=== PATIENT | female | born 1970 | race Caucasian/White ===

== ENCOUNTER 2019-04-21 13:24 | Emergency (ER) | payer BC, OTHER ==
[2019-04-21 13:55] VITALS: BP 135/81; PULSE 74; RESP 20; TEMP 98.1
--- NOTE | 2019-04-21 15:10 | ED ---
General Adult HPI - General Chief complaint: Dental/Oral Stated complaint: dental pain Time Seen by Provider: 04/21/19 14:14 Source: patient, RN notes reviewed Mode of arrival: ambulatory Limitations: no limitations - History of Present Illness Initial comments: 48-year-old female with a past medical history of hyperlipidemia, hypertension presents to the emergency department for a chief complaint of dental pain. This started about 2 weeks ago. Patient states she has been on Augmentin which did help but then it worsened again. Patient has not yet followed up with a dentist. Patient states she is taking Tylenol but it is not helping. Denies fevers or chills. Denies trismus. Denies neck stiffness. Does admit to some mild edema of the left side of the face.Patient has no other complaints at this time including shortness of breath, chest pain, abdominal pain, nausea or vomiting, headache, or visual changes. - Related Data Previous Rx's Medication Instructions Recorded Clindamycin [Cleocin] 450 mg PO Q8H 10 Days capsule 04/21/19 HYDROcodone/APAP 5-325MG [[place] 1 tab PO Q6HR PRN #10 tab 04/21/19 5-325] Allergies Allergy/AdvReac Type Severity Reaction Status Date / Time aspirin Allergy Dyspnea Verified 04/21/19 13:57 codeine Allergy Dyspnea Verified 04/21/19 13:57 ibuprofen [From Motrin] Allergy Dyspnea Verified 04/21/19 13:57 naproxen Allergy Dyspnea Verified 04/21/19 13:57 tramadol [From Ultram] Allergy Dyspnea Verified 04/21/19 13:57 Review of Systems ROS Statement: Those systems with pertinent positive or pertinent negative responses have been documented in the HPI. ROS Other: All systems not noted in ROS Statement are negative. Past Medical History Past Medical History: Hyperlipidemia, Hypertension Additional Past Medical History / Comment(s): neuropathy Past Surgical History: Back Surgery, Section Additional Past Surgical History / Comment(s): Kidey surgery Past Psychological History: Anxiety, Depression Smoking Status: Current every day smoker Past Alcohol Use History: None Reported Past Drug Use History: None Reported General Exam Limitations: no limitations General appearance: alert, in no apparent distress Head exam: Present: atraumatic, normocephalic, normal inspection Eye exam: Present: normal appearance, PERRL, EOMI. Absent: scleral icterus, conjunctival injection, periorbital swelling ENT exam: Present: normal exam, mucous membranes moist, TM's normal bilaterally, normal external ear exam. Absent: normal oropharynx (Patient is poor dentition noted. She has minimal edema noted of the left maxillary area. No sublingual edema. There is no dental abscess palpated or visualized along gumline that can be drained.) Neck exam: Present: normal inspection, full ROM. Absent: tenderness, meningismus, lymphadenopathy Respiratory exam: Present: normal lung sounds bilaterally. Absent: respiratory distress, wheezes, rales, rhonchi, stridor Cardiovascular Exam: Present: regular rate, normal rhythm, normal heart sounds. Absent: systolic murmur, diastolic murmur, rubs, gallop, clicks Course Vital Signs 04/21/19 13:51 Temperature 98.1 F Pulse Rate 74 Respiratory 20 Rate Blood Pressure 135/81 O2 Sat by Pulse 97 Oximetry Medical Decision Making - Medical Decision Making Patient is afebrile. She is nontoxic. She has poor dentition noted. No abscess noted. She does have some mild edema of the maxillary area. This is soft nonindurated 90 erythematous. Likely inflammatory. Patient has already been on Augmentin. Patient will be given clindamycin however discussed that she needs to follow up with a dentist YELENA. She will also be given Esmont for pain. Discussed returning if she has any worsening symptoms. Disposition Clinical Impression: Pain, dental Disposition: HOME SELF-CARE Condition: Good Instructions (If sedation given, give patient instructions): Toothache (ED) Additional Instructions: Please take clindamycin as directed. Please take E[place] for pain as needed. Do not drive or operate machinery while taking this. Please follow-up with primary care in 1-2 days. Return to the emergency department if you have any worsening symptoms. Prescriptions: Clindamycin [Cleocin] 450 mg PO Q8H 10 Days capsule HYDROcodone/APAP 5-325MG [[place] 5-325] 1 tab PO Q6HR PRN #10 tab PRN Reason: Pain Is patient prescribed a controlled substance at d/c from ED?: Yes When asked, does pt state using other controlled substances?: No If prescribed controlled substance>3 days was MAPS reviewed?: Prescribed <3 Days If opioid is for acute pain is fill amount 7 days or less?: Yes If Rx opioid, was Start Talking consent form obtained?: Yes Referrals: Nonstaff,Physician [Primary Care Provider] - 1-2 days Time of Disposition: 15:10
== END 2019-04-21 15:34 | disposition home or self-care (01) ==
LOC: EC 13:24
DX: K08.89 Other specified disorders of teeth and supporting structures (principal); I10 Essential (primary) hypertension; F17.200 Nicotine dependence, unspecified, uncomplicated; Z88.5 Allergy status to narcotic agent; Z88.6 Allergy status to analgesic agent
CPT/HCPCS: 99282

== ENCOUNTER 2020-02-05 19:48 | Emergency (ER) | payer OTHER ==
[2020-02-05 19:56] VITALS: RESP 18; TEMP 98.2
[2020-02-05] MEDS ORDERED: methylPREDNISolone SOD SUCCI 125 MG/2 ML VIAL IV STA (20:40)
[2020-02-05] MEDS ORDERED: IPRATROPIUM-ALBUTEROL 3 ML NEB INHALATION STA (20:40)
[2020-02-05] MEDS ORDERED: SODIUM CHLORIDE 0.9% 1,000 ML IV STA (20:40)
[2020-02-05 21:05] LABS: Basophils # (A) 0.2 k/uL (0-0.2); Basophils % (A) 2 %; Eosinophils # (A) 0.3 k/uL (0-0.7); Eosinophils % (A) 3 %; HCT 48.4 % (34.0-46.0); Lymphocytes # (A) 1.5 k/uL (1.0-4.8); Lymphocytes % (A) 17 %; MCH 31.1 pg (25.0-35.0); MCV 94.2 fL (80.0-100.0); Mean Platelet Volume 7.5; Monocytes # (A) 0.5 k/uL (0-1.0); Monocytes % (A) 6 %; Neutrophils # (A) 6.3 k/uL (1.3-7.7); Neutrophils % (A) 71 %; Platelet Count 234 k/uL (150-450); RBC 5.14 m/uL (3.80-5.40); RDW 12.7 % (11.5-15.5); WBC 8.9 k/uL (3.8-10.6)
[2020-02-05] MEDS ORDERED: ACETAMINOPHEN TAB 500 MG TAB PO STA (21:05)
[2020-02-05] MEDS ORDERED: ORPHENADRINE 30 MG/ML 2 ML VIAL IVP STA (21:06)
[2020-02-05 21:11] LABS: Appearance,Urine Clear (Clear); Bacteria,Urine Rare /hpf; Bilirubin,Urine Negative (Negative); Blood,Urine Small (Negative); Color,Urine Yellow; Glucose,Urine (UA) Negative (Negative); Ketones,Urine Negative (Negative); Leukocyte Esterase,Urine Trace (Negative); Mucus,Urine Few /hpf; Nitrite,Urine Negative (Negative); Protein,Urine Trace (Negative); RBC,Urine 1 /hpf (0-5); Specific Gravity,Urine 1.019 (1.001-1.035); Squamous Epithelial Cell,Urine 5 /hpf (0-4); Urobilinogen,Urine <2.0 mg/dL (<2.0); WBC,Urine 10 /hpf (0-5)
[2020-02-05 21:13] LABS: INR 0.9 (<1.2); Partial Thromboplastin Time 25.5 sec (22.0-30.0); Prothrombin Time 9.4 sec (9.0-12.0)
[2020-02-05 21:21] LABS: ALT 22 U/L (4-34); African American GFR (CKD) >90 (>60 ml/min/1.73 sqM); Albumin 4.6 g/dL (3.5-5.0); Anion Gap 8 mmol/L; Blood Urea Nitrogen 10 mg/dL (7-17); Calcium 9.4 mg/dL (8.4-10.2); Carbon Dioxide 33 mmol/L (22-30); Chloride 100 mmol/L (98-107); Glucose 92 mg/dL (74-99); Non-African American GFR(CKD) >90 (>60 ml/min/1.73 sqM); Sodium 141 mmol/L (137-145); Total Bilirubin 0.6 mg/dL (0.2-1.3)
--- NOTE | 2020-02-05 21:24 | XR ---
EXAMINATION TYPE: XR chest 2V DATE OF EXAM: 02/05/2020 COMPARISON: 06/18/2009 HISTORY: Difficulty breathing TECHNIQUE: 2 views FINDINGS: There is no heart failure nor confluent pneumonic infiltrate. Costophrenic angles are clear . There are no hilar masses. Bony thorax is intact. IMPRESSION: No active cardiopulmonary disease. No change.
--- NOTE | 2020-02-05 21:50 | ED ---
URI HPI - General Chief Complaint: Upper Respiratory Infection Stated Complaint: SOB, cough Source: patient, RN notes reviewed, old records reviewed Mode of arrival: ambulatory Limitations: no limitations - History of Present Illness Initial Comments: Patient is a 49-year-old female presents unresponsive with one week of upper respiratory congestion and cough. She reports worse the past 2-3 days. Patient states that she has a history of COPD. She is visiting from [place]. She reports that she forgot her nebulizer at home. - Related Data Home Medications Medication Instructions Recorded Confirmed ALPRAZolam [Xanax] 1 mg PO QID PRN 02/05/20 02/05/20 Albuterol Sulfate [Ventolin HFA] 2 puff INHALATION RT-QID PRN 02/05/20 02/05/20 Atorvastatin [Lipitor] 20 mg PO HS 02/05/20 02/05/20 Brexpiprazole [Rexulti] 1 mg PO DAILY 02/05/20 02/05/20 Fluticasone Furoate [Arnuity 1 puff INHALATION RT-DAILY 02/05/20 02/05/20 Ellipta] Pregabalin [Lyrica] 200 mg PO BID 02/05/20 02/05/20 Vilazodone HCl [Viibryd] 40 mg PO DAILY 02/05/20 02/05/20 Zolpidem Tartrate [Ambien] 10 mg PO HS PRN 02/05/20 02/05/20 amLODIPine [Norvasc] 5 mg PO DAILY 02/05/20 02/05/20 Previous Rx's Medication Instructions Recorded Azithromycin [Zithromax Z-pack (6 0 mg PO DIRECTED 5 Days #6 tab 02/05/20 tabs)] Ipratropium-Albuterol Nebulize 3 ml INHALATION TID #30 neb 02/05/20 [Duoneb 0.5 mg-3 mg/3 ml Soln] predniSONE 50 mg PO DAILY #5 tablet 02/05/20 Allergies Allergy/AdvReac Type Severity Reaction Status Date / Time aspirin Allergy Dyspnea Verified 02/05/20 21:12 codeine Allergy Dyspnea Verified 02/05/20 21:12 ibuprofen [From Motrin] Allergy Dyspnea Verified 02/05/20 21:12 morphine Allergy Rash/Hives Verified 02/05/20 21:12 naproxen Allergy Dyspnea Verified 02/05/20 21:12 tramadol [From Ultram] Allergy Dyspnea Verified 02/05/20 21:12 Review of Systems ROS Statement: Those systems with pertinent positive or pertinent negative responses have been documented in the HPI. ROS Other: All systems not noted in ROS Statement are negative. Past Medical History Past Medical History: Hyperlipidemia, Hypertension Additional Past Medical History / Comment(s): neuropathy Past Surgical History: Back Surgery, Section Additional Past Surgical History / Comment(s): Kidey surgery Past Psychological History: Anxiety, Depression Smoking Status: Current every day smoker Past Alcohol Use History: None Reported Past Drug Use History: None Reported General Exam - General Exam Comments Initial Comments: 49 year old female,no distress. Limitations: no limitations General appearance: alert, in no apparent distress Head exam: Present: atraumatic, normocephalic, normal inspection Eye exam: Present: normal appearance, PERRL, EOMI. Absent: scleral icterus, conjunctival injection, periorbital swelling ENT exam: Present: normal exam, mucous membranes moist Neck exam: Present: normal inspection. Absent: tenderness, meningismus, lymphadenopathy Respiratory exam: Present: wheezes. Absent: normal lung sounds bilaterally, respiratory distress, rales, rhonchi, stridor Cardiovascular Exam: Present: regular rate, normal rhythm, normal heart sounds. Absent: systolic murmur, diastolic murmur, rubs, gallop, clicks GI/Abdominal exam: Present: soft, normal bowel sounds. Absent: distended, tenderness, guarding, rebound, rigid Extremities exam: Present: normal inspection, full ROM, normal capillary refill. Absent: tenderness, pedal edema, joint swelling, calf tenderness Back exam: Present: normal inspection Neurological exam: Present: alert, oriented X3, CN II-XII intact Psychiatric exam: Present: normal affect, normal mood Skin exam: Present: warm, dry, intact, normal color. Absent: rash Course Vital Signs 02/05/20 02/05/20 02/05/20 19:54 21:14 21:26 Temperature 98.2 F Pulse Rate 89 88 90 Respiratory 18 18 18 Rate Blood Pressure 126/80 O2 Sat by Pulse 95 Oximetry 02/05/20 22:20 Temperature Pulse Rate 86 Respiratory 18 Rate Blood Pressure 124/66 O2 Sat by Pulse 96 Oximetry Medical Decision Making - Medical Decision Making 49 year old female with cough and congestion for one week. Pt is a smoker. Pt has wheezing and given duoneb and solumedrol. Pt CXR shows no pneumonia. Pt will be stared on azithromycin and steriods for bronchitis. Discussed using inhaler and duoneb treatment plans. Discussed return parameters. - Lab Data Result diagrams: 02/05/20 20:49 02/05/20 20:49 Lab Results 02/05/20 02/05/20 02/05/20 Range/Units 20:49 20:49 20:49 WBC 8.9 (3.8-10.6) k/uL RBC 5.14 (3.80-5.40) m/uL Hgb 16.0 (11.4-16.0) gm/dL Hct 48.4 H (34.0-46.0) % MCV 94.2 (80.0-100.0) fL MCH 31.1 (25.0-35.0) pg MCHC 33.0 (31.0-37.0) g/dL RDW 12.7 (11.5-15.5) % Plt Count 234 (150-450) k/uL Neutrophils % 71 % Lymphocytes % 17 % Monocytes % 6 % Eosinophils % 3 % Basophils % 2 % Neutrophils # 6.3 (1.3-7.7) k/uL Lymphocytes # 1.5 (1.0-4.8) k/uL Monocytes # 0.5 (0-1.0) k/uL Eosinophils # 0.3 (0-0.7) k/uL Basophils # 0.2 (0-0.2) k/uL PT 9.4 (9.0-12.0) sec INR 0.9 (<1.2) APTT 25.5 (22.0-30.0) sec Sodium 141 (137-145) mmol/L Potassium 4.0 (3.5-5.1) mmol/L Chloride 100 (98-107) mmol/L Carbon Dioxide 33 H (22-30) mmol/L Anion Gap 8 mmol/L BUN 10 (7-17) mg/dL Creatinine 0.66 (0.52-1.04) mg/dL Est GFR (CKD-EPI)AfAm >90 (>60 ml/min/1.73 sqM) Est GFR (CKD-EPI)NonAf >90 (>60 ml/min/1.73 sqM) Glucose 92 (74-99) mg/dL Plasma Lactic Acid Jermaine (0.7-2.0) mmol/L Calcium 9.4 (8.4-10.2) mg/dL Total Bilirubin 0.6 (0.2-1.3) mg/dL AST 38 H (14-36) U/L ALT 22 (4-34) U/L Alkaline Phosphatase 155 H (38-126) U/L Troponin I (0.000-0.034) ng/mL Total Protein 8.0 (6.3-8.2) g/dL Albumin 4.6 (3.5-5.0) g/dL Urine Color Urine Appearance (Clear) Urine pH (5.0-8.0) Ur Specific [place] (1.001-1.035) Urine Protein (Negative) Urine Glucose (UA) (Negative) Urine Ketones (Negative) Urine Blood (Negative) Urine Nitrite (Negative) Urine Bilirubin (Negative) Urine Urobilinogen (<2.0) mg/dL Ur Leukocyte Esterase (Negative) Urine RBC (0-5) /hpf Urine WBC (0-5) /hpf Ur Squamous Epith Cells (0-4) /hpf Urine Bacteria (None) /hpf Urine Mucus (None) /hpf 02/05/20 02/05/20 02/05/20 Range/Units 20:49 20:49 21:01 WBC (3.8-10.6) k/uL RBC (3.80-5.40) m/uL Hgb (11.4-16.0) gm/dL Hct (34.0-46.0) % MCV (80.0-100.0) fL MCH (25.0-35.0) pg MCHC (31.0-37.0) g/dL RDW (11.5-15.5) % Plt Count (150-450) k/uL Neutrophils % % Lymphocytes % % Monocytes % % Eosinophils % % Basophils % % Neutrophils # (1.3-7.7) k/uL Lymphocytes # (1.0-4.8) k/uL Monocytes # (0-1.0) k/uL Eosinophils # (0-0.7) k/uL Basophils # (0-0.2) k/uL PT (9.0-12.0) sec INR (<1.2) APTT (22.0-30.0) sec Sodium (137-145) mmol/L Potassium (3.5-5.1) mmol/L Chloride (98-107) mmol/L Carbon Dioxide (22-30) mmol/L Anion Gap mmol/L BUN (7-17) mg/dL Creatinine (0.52-1.04) mg/dL Est GFR (CKD-EPI)AfAm (>60 ml/min/1.73 sqM) Est GFR (CKD-EPI)NonAf (>60 ml/min/1.73 sqM) Glucose (74-99) mg/dL Plasma Lactic Acid Jermaine 1.0 (0.7-2.0) mmol/L Calcium (8.4-10.2) mg/dL Total Bilirubin (0.2-1.3) mg/dL AST (14-36) U/L ALT (4-34) U/L Alkaline Phosphatase (38-126) U/L Troponin I <0.012 (0.000-0.034) ng/mL Total Protein (6.3-8.2) g/dL Albumin (3.5-5.0) g/dL Urine Color Yellow Urine Appearance Clear (Clear) Urine pH 6.0 (5.0-8.0) Ur Specific [place] 1.019 (1.001-1.035) Urine Protein Trace H (Negative) Urine Glucose (UA) Negative (Negative) Urine Ketones Negative (Negative) Urine Blood Small H (Negative) Urine Nitrite Negative (Negative) Urine Bilirubin Negative (Negative) Urine Urobilinogen <2.0 (<2.0) mg/dL Ur Leukocyte Esterase Trace H (Negative) Urine RBC 1 (0-5) /hpf Urine WBC 10 H (0-5) /hpf Ur Squamous Epith Cells 5 H (0-4) /hpf Urine Bacteria Rare H (None) /hpf Urine Mucus Few H (None) /hpf 02/05/20 22:36 EKG shows normal sinus rhythm and normal EKG. Ventricular rate of 87 bpm. Was 170 ms. QS duration is 96 ms. QT QTc is 376/452 ms. - Radiology Data Radiology results: report reviewed CXR is negative for acute cardiopulmonary process. Disposition Clinical Impression: Bronchitis Disposition: HOME SELF-CARE Condition: Good Instructions (If sedation given, give patient instructions): Acute Bronchitis (ED) Additional Instructions: Patient advised to rest, increase fluid intake. Take the medication as prescribed. Return to the ED if any alarming signs or symptoms occur. Prescriptions: Ipratropium-Albuterol Nebulize [Duoneb 0.5 mg-3 mg/3 ml Soln] 3 ml INHALATION TID #30 neb predniSONE 50 mg PO DAILY #5 tablet Azithromycin [Zithromax Z-pack (6 tabs)] 0 mg PO DIRECTED 5 Days #6 tab Is patient prescribed a controlled substance at d/c from ED?: No Referrals: Nonstaff,Physician [Primary Care Provider] - 1-2 days Time of Disposition: 22:31
[2020-02-05 21:51] LABS: AST 38 U/L (14-36); Alkaline Phosphatase 155 U/L (38-126)
[2020-02-05] MEDS ORDERED: cefTRIAXone IN SWFI 1,000 MG/10 ML SYRINGE IVP STA (22:01)
[2020-02-05 22:22] VITALS: BP 124/66; PULSE 86
[2020-02-05] MEDS ORDERED: HYDROmorphone 0.5 MG/0.5 ML SYRINGE IVP STA (22:29)
== END 2020-02-05 22:47 | disposition home or self-care (01) ==
LOC: EC 19:48
DX: J40 Bronchitis, not specified as acute or chronic (principal); I10 Essential (primary) hypertension; E78.5 Hyperlipidemia, unspecified; F41.9 Anxiety disorder, unspecified; F32.9 Major depressive disorder, single episode, unspecified; F17.200 Nicotine dependence, unspecified, uncomplicated; Z79.899 Other long term (current) drug therapy; Z88.5 Allergy status to narcotic agent; Z88.6 Allergy status to analgesic agent
CPT/HCPCS: 36415; 94640; 93005; 80053; 83605; 84484; 85025; 85610; 85730; 81001; 87040; 71046; 99285; 96374; 96375 ×2; 96361; J2360; J2930; J0696

== ENCOUNTER 2022-02-16 06:06 | Emergency (ER) | payer SELFPAY ==
[2022-02-16 06:16] VITALS: BP 136/76; PULSE 89; RESP 18; TEMP 98.1
--- NOTE | 2022-02-16 07:20 | XR ---
EXAMINATION TYPE: XR chest 2V DATE OF EXAM: 02/16/2022 COMPARISON: 02/05/2020 INDICATION: Fever, cough TECHNIQUE: Frontal and lateral views of the chest are obtained. FINDINGS: The heart size is normal. The pulmonary vasculature is normal. The lungs are clear. IMPRESSION: 1. No acute pulmonary process. Follow-up can be performed as clinically indicated
--- NOTE | 2022-02-16 07:25 | ED ---
URI HPI - General Chief Complaint: Upper Respiratory Infection Stated Complaint: Fever Time Seen by Provider: 02/16/22 06:20 Source: patient, RN notes reviewed Mode of arrival: ambulatory Limitations: no limitations - History of Present Illness Initial Comments: 51-year-old female presents emergency Department chief complaint of fever cough congestion. Patient states symptoms started 4 days ago. Patient states that she took at home COVID-19 test which is negative. Patient states that she is productive cough, wheezing. Patient does admit that she is a daily smoker, history of COPD. Patient denies any nausea vomiting diarrhea constipation patient states she was on a train came from [place] states is multiple sick people on the train. Patient states she has mild body aches. - Related Data Home Medications Medication Instructions Recorded Confirmed ALPRAZolam [Xanax] 1 mg PO QID PRN 02/05/20 02/05/20 Albuterol Sulfate [Ventolin HFA] 2 puff INHALATION RT-QID PRN 02/05/20 02/05/20 Atorvastatin [Lipitor] 20 mg PO HS 02/05/20 02/05/20 Brexpiprazole [Rexulti] 1 mg PO DAILY 02/05/20 02/05/20 Fluticasone Furoate [Arnuity 1 puff INHALATION RT-DAILY 02/05/20 02/05/20 Ellipta] Pregabalin [Lyrica] 200 mg PO BID 02/05/20 02/05/20 Vilazodone HCl [Viibryd] 40 mg PO DAILY 02/05/20 02/05/20 Zolpidem Tartrate [Ambien] 10 mg PO HS PRN 02/05/20 02/05/20 amLODIPine [Norvasc] 5 mg PO DAILY 02/05/20 02/05/20 Previous Rx's Medication Instructions Recorded Azithromycin [Zithromax Z-pack (6 0 mg PO DIRECTED 5 Days #6 tab 02/05/20 tabs)] Ipratropium-Albuterol Nebulize 3 ml INHALATION TID #30 neb 02/05/20 [Duoneb 0.5 mg-3 mg/3 ml Soln] predniSONE 50 mg PO DAILY #5 tablet 02/05/20 Azithromycin [Zithromax Z Pack] 0 tab PO DIRECTED #6 tab 02/16/22 predniSONE 50 mg PO DAILY #5 tab 02/16/22 Allergies Allergy/AdvReac Type Severity Reaction Status Date / Time aspirin Allergy Dyspnea Verified 02/16/22 06:11 codeine Allergy Dyspnea Verified 02/16/22 06:11 ibuprofen [From Motrin] Allergy Dyspnea Verified 02/16/22 06:11 morphine Allergy Rash/Hives Verified 02/16/22 06:11 naproxen Allergy Dyspnea Verified 02/16/22 06:11 tramadol [From Ultram] Allergy Dyspnea Verified 02/16/22 06:11 Review of Systems ROS Statement: Those systems with pertinent positive or pertinent negative responses have been documented in the HPI. ROS Other: All systems not noted in ROS Statement are negative. Past Medical History Past Medical History: Asthma, COPD, Diabetes Mellitus, Hyperlipidemia, Hyperte nsion Additional Past Medical History / Comment(s): neuropathy, MS, pancreatic mass History of Any Multi-Drug Resistant Organisms: None Reported Past Surgical History: Back Surgery, Section Additional Past Surgical History / Comment(s): Kidey surgery Past Psychological History: Anxiety, Depression Smoking Status: Current every day smoker Past Alcohol Use History: None Reported Past Drug Use History: None Reported General Exam Limitations: no limitations General appearance: alert, in no apparent distress Head exam: Present: atraumatic, normocephalic, normal inspection Eye exam: Present: normal appearance, PERRL, EOMI. Absent: scleral icterus, conjunctival injection, periorbital swelling ENT exam: Present: normal exam, normal oropharynx, mucous membranes moist Neck exam: Present: normal inspection, full ROM. Absent: tenderness, meningismus, lymphadenopathy Respiratory exam: Present: normal lung sounds bilaterally. Absent: respiratory distress, wheezes, rales, rhonchi, stridor Cardiovascular Exam: Present: regular rate, normal rhythm, normal heart sounds. Absent: systolic murmur, diastolic murmur, rubs, gallop, clicks Neurological exam: Present: alert Skin exam: Present: warm, dry, intact, normal color. Absent: rash Course Vital Signs 02/16/22 06:12 Temperature 98.1 F Pulse Rate 89 Respiratory 18 Rate Blood Pressure 136/76 O2 Sat by Pulse 95 Oximetry Medical Decision Making - Medical Decision Making Negative influenza negative COVID-19 chest x-ray does not show definite infiltrate. Patient treated for tracheal bronchitis, COPD. Return parameters were discussed. - Lab Data Lab Results 02/16/22 02/16/22 Range/Units 06:43 06:43 Coronavirus (PCR) Not Detected (Not Detectd) Influenza Type A RNA Not Detected (Not Detectd) Influenza Type B (PCR) Not Detected (Not Detectd) Disposition Clinical Impression: Tracheobronchitis Disposition: HOME SELF-CARE Condition: Stable Instructions (If sedation given, give patient instructions): Upper Respiratory Infection (ED) Additional Instructions: Please return to the Emergency Department if symptoms worsen or any other concerns. Prescriptions: predniSONE 50 mg PO DAILY #5 tab Azithromycin [Zithromax Z Pack] 0 tab PO DIRECTED #6 tab Is patient prescribed a controlled substance at d/c from ED?: No Referrals: Nonstaff,Physician [Primary Care Provider] - 1-2 days Time of Disposition: 07:41
== END 2022-02-16 07:44 | disposition home or self-care (01) ==
LOC: EC 06:06
DX: J40 Bronchitis, not specified as acute or chronic (principal); I10 Essential (primary) hypertension; J44.9 Chronic obstructive pulmonary disease, unspecified; E11.9 Type 2 diabetes mellitus without complications; E78.5 Hyperlipidemia, unspecified; F41.9 Anxiety disorder, unspecified; F32.A Depression, unspecified; F17.200 Nicotine dependence, unspecified, uncomplicated; Z79.51 Long term (current) use of inhaled steroids; Z79.899 Other long term (current) drug therapy; Z88.5 Allergy status to narcotic agent; Z88.6 Allergy status to analgesic agent; Z20.822 Contact with and (suspected) exposure to COVID-19
CPT/HCPCS: 71046; 87502; 87635; 99283

== ENCOUNTER 2022-02-21 12:58 | Emergency (ER) | payer SELFPAY ==
--- NOTE | 2022-02-21 13:51 | XR ---
EXAMINATION TYPE: XR chest 2V DATE OF EXAM: 02/21/2022 COMPARISON: 02/16/22 HISTORY: 51 year old female with cough. TECHNIQUE: PA and lateral views FINDINGS: Heart borderline enlarged. Mild interstitial prominence is similar. Mild hyperinflation. No consolid ation or pleural effusion. Cholecystectomy clips. IMPRESSION: COPD and borderline heart size. No definite acute process.
[2022-02-21] MEDS ORDERED: BUTALB/APAP/CAFF 50-325-40MG TAB PO STA (14:23)
[2022-02-21] MEDS ORDERED: IPRATROPIUM-ALBUTEROL 3 ML NEB INHALATION STA (14:23)
--- NOTE | 2022-02-21 14:27 | ED ---
General Adult HPI - General Chief complaint: Upper Respiratory Infection Stated complaint: possible pneumonia-revisit Time Seen by Provider: 02/21/22 13:15 Source: patient, RN notes reviewed Mode of arrival: ambulatory Limitations: no limitations - History of Present Illness Initial comments: 51-year-old female presents emergency Department with chief complaint cough congestion patient was seen here 5 days ago for similar complaints of fever. Patient had negative COVID-19 negative influenza test. Patient does have history of CP continues to smoke. Patient states she's having increasing wheezing she does have her inhalers she states she is from [place] does not have her nebulizer. Patient also states that she is out of her fierce that is compl aining of a headache associated with her infection. Patient denies any chest pain or back pain no flank pain no abdominal complaints. - Related Data Home Medications Medication Instructions Recorded Confirmed ALPRAZolam [Xanax] 1 mg PO QID PRN 02/05/20 02/05/20 Albuterol Sulfate [Ventolin HFA] 2 puff INHALATION RT-QID PRN 02/05/20 02/05/20 Atorvastatin [Lipitor] 20 mg PO HS 02/05/20 02/05/20 Brexpiprazole [Rexulti] 1 mg PO DAILY 02/05/20 02/05/20 Fluticasone Furoate [Arnuity 1 puff INHALATION RT-DAILY 02/05/20 02/05/20 Ellipta] Pregabalin [Lyrica] 200 mg PO BID 02/05/20 02/05/20 Vilazodone HCl [Viibryd] 40 mg PO DAILY 02/05/20 02/05/20 Zolpidem Tartrate [Ambien] 10 mg PO HS PRN 02/05/20 02/05/20 amLODIPine [Norvasc] 5 mg PO DAILY 02/05/20 02/05/20 Previous Rx's Medication Instructions Recorded Azithromycin [Zithromax Z-pack (6 0 mg PO DIRECTED 5 Days #6 tab 02/05/20 tabs)] Ipratropium-Albuterol Nebulize 3 ml INHALATION TID #30 neb 02/05/20 [Duoneb 0.5 mg-3 mg/3 ml Soln] predniSONE 50 mg PO DAILY #5 tablet 02/05/20 Azithromycin [Zithromax Z Pack] 0 tab PO DIRECTED #6 tab 02/16/22 predniSONE 50 mg PO DAILY #5 tab 02/16/22 Amoxic-Pot Clav 875-125Mg 1 tab PO Q12HR #20 tab 02/21/22 [Augmentin 875-125] Butalb/APAP/Caff 50-325-40Mg 1 tab PO Q4H PRN #14 tablet 02/21/22 [Fioricet 50-325-40] predniSONE 10 mg PO DIRECTED #20 tab 02/21/22 Allergies Allergy/AdvReac Type Severity Reaction Status Date / Time aspirin Allergy Dyspnea Verified 02/21/22 13:13 codeine Allergy Dyspnea Verified 02/21/22 13:13 ibuprofen [From Motrin] Allergy Dyspnea Verified 02/21/22 13:13 morphine Allergy Rash/Hives Verified 02/21/22 13:13 naproxen Allergy Dyspnea Verified 02/21/22 13:13 tramadol [From Ultram] Allergy Dyspnea Verified 02/21/22 13:13 Review of Systems ROS Statement: Those systems with pertinent positive or pertinent negative responses have been documented in the HPI. ROS Other: All systems not noted in ROS Statement are negative. Past Medical History Past Medical History: Asthma, COPD, Diabetes Mellitus, Hyperlipidemia, Hypertension Additional Past Medical History / Comment(s): neuropathy, MS, pancreatic mass History of Any Multi-Drug Resistant Organisms: None Reported Past Surgical History: Back Surgery, Section Additional Past Surgical History / Comment(s): Kidey surgery Past Psychological History: Anxiety, Depression Smoking Status: Current every day smoker Past Alcohol Use History: None Reported Past Drug Use History: None Reported General Exam Limitations: no limitations General appearance: alert, in no apparent distress Head exam: Present: atraumatic, normocephalic, normal inspection Eye exam: Present: normal appearance, PERRL, EOMI. Absent: scleral icterus, conjunctival injection, periorbital swelling ENT exam: Present: normal exam, normal oropharynx, mucous membranes moist Neck exam: Present: normal inspection, full ROM. Absent: tenderness, meningismus, lymphadenopathy Respiratory exam: Present: wheezes. Absent: normal lung sounds bilaterally, respiratory distress, rales, rhonchi, stridor Cardiovascular Exam: Present: regular rate, normal rhythm, normal heart sounds. Absent: systolic murmur, diastolic murmur, rubs, gallop, clicks GI/Abdominal exam: Present: soft, normal bowel sounds. Absent: distended, tenderness, guarding, rebound, rigid Course Vital Signs 02/21/22 13:10 Temperature 97.7 F Pulse Rate 85 Respiratory 22 Rate Blood Pressure 142/97 O2 Sat by Pulse 94 L Oximetry Medical Decision Making - Medical Decision Making 51-year-old had repeat x-ray which showed no acute changes. Patient does have mild wheezing, mild COPD exacerbation and she agrees to treatment, steroids and follow-up return parameters were discussed. Disposition Clinical Impression: Tracheobronchitis, COPD (chronic obstructive pulmonary disease) Disposition: HOME SELF-CARE Condition: Stable Instructions (If sedation given, give patient instructions): Upper Respiratory Infection (ED) Additional Instructions: Please return to the Emergency Department if symptoms worsen or any other concerns. Prescriptions: Amoxic-Pot Clav 875-125Mg [Augmentin 875-125] 1 tab PO Q12HR #20 tab Butalb/APAP/Caff 50-325-40Mg [Fioricet 50-325-40] 1 tab PO Q4H PRN #14 tablet PRN Reason: Headache predniSONE 10 mg PO DIRECTED #20 tab Is patient prescribed a controlled substance at d/c from ED?: No Referrals: None,Stated [Primary Care Provider] - 1-2 days Time of Disposition: 14:24
[2022-02-21 15:45] VITALS: PULSE 88
[2022-02-21 15:49] VITALS: BP 129/76; RESP 20; TEMP 97.9
== END 2022-02-21 15:50 | disposition home or self-care (01) ==
LOC: EC 12:58
DX: J44.9 Chronic obstructive pulmonary disease, unspecified (principal); E11.9 Type 2 diabetes mellitus without complications; I10 Essential (primary) hypertension; E78.5 Hyperlipidemia, unspecified; F17.210 Nicotine dependence, cigarettes, uncomplicated; Z88.6 Allergy status to analgesic agent; Z88.8 Allergy status to other drugs, medicaments and biological substances; Z88.5 Allergy status to narcotic agent; Z79.51 Long term (current) use of inhaled steroids; Z79.899 Other long term (current) drug therapy
CPT/HCPCS: 71046; 94640; 99285

== ENCOUNTER 2022-12-18 21:45 | Emergency (ER) | payer OTHER ==
[2022-12-18 21:51] VITALS: BP 137/75; PULSE 89; RESP 18; TEMP 98.1
[2022-12-18] MEDS ORDERED: SODIUM CHLORIDE 0.9% 1,000 ML IV STA (22:10)
[2022-12-18 23:06] LABS: Basophils % (A) 0 %; Eosinophils # (A) 0.4 k/uL (0-0.7); Eosinophils % (A) 4 %; HCT 45.9 % (34.0-46.0); HGB 14.9 gm/dL (11.4-16.0); Lymphocytes # (A) 2.3 k/uL (1.0-4.8); Lymphocytes % (A) 21 %; MCH 29.5 pg (25.0-35.0); MCHC 32.4 g/dL (31.0-37.0); MCV 90.8 fL (80.0-100.0); Mean Platelet Volume 7.6; Monocytes # (A) 0.7 k/uL (0-1.0); Monocytes % (A) 6 %; Neutrophils # (A) 7.1 k/uL (1.3-7.7); Neutrophils % (A) 67 %; Platelet Count 257 k/uL (150-450); RBC 5.06 m/uL (3.80-5.40); RDW 13.8 % (11.5-15.5); WBC 10.7 k/uL (3.8-10.6)
[2022-12-18 23:40] LABS: ALT 20 U/L (4-34); AST 35 U/L (14-36); African American GFR (CKD) >90 (>60 ml/min/1.73 sqM); Albumin 4.3 g/dL (3.5-5.0); Alkaline Phosphatase 141 U/L (38-126); Anion Gap 8 mmol/L; Blood Urea Nitrogen 8 mg/dL (7-17); Calcium 9.2 mg/dL (8.4-10.2); Carbon Dioxide 26 mmol/L (22-30); Chloride 102 mmol/L (98-107); Glucose 86 mg/dL (74-99); Non-African American GFR(CKD) >90 (>60 ml/min/1.73 sqM); Sodium 136 mmol/L (137-145); Total Protein 7.7 g/dL (6.3-8.2)
[2022-12-18 23:57] LABS: Potassium 4.7 mmol/L (3.5-5.1)
[2022-12-19] MEDS ORDERED: CEPHALEXIN 500 MG CAP PO STA
[2022-12-19] MEDS ORDERED: SULFAMETHOX-TMP 800-160MG 1 EACH TAB PO STA (00:01)
--- NOTE | 2022-12-19 00:16 | ED ---
General Adult HPI - General Chief complaint: Skin/Abscess/Foreign Body Stated complaint: Right leg Lac Time Seen by Provider: 12/18/22 21:54 Source: patient Mode of arrival: ambulatory Limitations: no limitations - History of Present Illness Initial comments: Patient is 52-year-old female who presents to the emergency department for right leg wound. Patient noticed it today while putting lotion on her right leg. She does not have pain but states she has not had much feeling in the legs due to neuropathy. The wound has been draining today. No fever, chills, nausea, vomiting. No history of abscess or MRSA.. - Related Data Home Medications Medication Instructions Recorded Confirmed ALPRAZolam [Xanax] 1 mg PO QID PRN 02/05/20 02/05/20 Albuterol Sulfate [Ventolin HFA] 2 puff INHALATION RT-QID PRN 02/05/20 02/05/20 Atorvastatin [Lipitor] 20 mg PO HS 02/05/20 02/05/20 Brexpiprazole [Rexulti] 1 mg PO DAILY 02/05/20 02/05/20 Fluticasone Furoate [Arnuity 1 puff INHALATION RT-DAILY 02/05/20 02/05/20 Ellipta] Pregabalin [Lyrica] 200 mg PO BID 02/05/20 02/05/20 Vilazodone HCl [Viibryd] 40 mg PO DAILY 02/05/20 02/05/20 Zolpidem Tartrate [Ambien] 10 mg PO HS PRN 02/05/20 02/05/20 amLODIPine [Norvasc] 5 mg PO DAILY 02/05/20 02/05/20 Previous Rx's Medication Instructions Recorded Azithromycin [Zithromax Z-pack (6 0 mg PO DIRECTED 5 Days #6 tab 02/05/20 tabs)] Ipratropium-Albuterol Nebulize 3 ml INHALATION TID #30 neb 02/05/20 [Duoneb 0.5 mg-3 mg/3 ml Soln] predniSONE 50 mg PO DAILY #5 tablet 02/05/20 Azithromycin [Zithromax Z Pack] 0 tab PO DIRECTED #6 tab 02/16/22 predniSONE 50 mg PO DAILY #5 tab 02/16/22 Amoxic-Pot Clav 875-125Mg 1 tab PO Q12HR #20 tab 02/21/22 [Augmentin 875-125] Butalb/APAP/Caff 50-325-40Mg 1 tab PO Q4H PRN #14 tablet 02/21/22 [Fioricet 50-325-40] predniSONE 10 mg PO DIRECTED #20 tab 02/21/22 Cephalexin [Keflex] 500 mg PO Q6HR #40 cap 12/19/22 Sulfamethox-Tmp 800-160Mg [Bactrim 1 each PO Q12HR #20 tab 12/19/22 Ds] Allergies Allergy/AdvReac Type Severity Reaction Status Date / Time aspirin Allergy Dyspnea Verified 12/18/22 21:51 codeine Allergy Dyspnea Verified 12/18/22 21:51 ibuprofen [From Motrin] Allergy Dyspnea Verified 12/18/22 21:51 morphine Allergy Rash/Hives Verified 12/18/22 21:51 naproxen Allergy Dyspnea Verified 12/18/22 21:51 tramadol [From Ultram] Allergy Dyspnea Verified 12/18/22 21:51 Review of Systems ROS Statement: Those systems with pertinent positive or pertinent negative responses have been documented in the HPI. ROS Other: All systems not noted in ROS Statement are negative. Past Medical History Past Medical History: Asthma, COPD, Diabetes Mellitus, Hyperlipidemia, Hypertension Additional Past Medical History / Comment(s): neuropathy, MS, pancreatic mass History of Any Multi-Drug Resistant Organisms: None Reported Past Surgical History: Back Surgery, Section Additional Past Surgical History / Comment(s): Kidey surgery Past Psychological History: Anxiety, Depression Smoking Status: Current every day smoker Past Alcohol Use History: None Reported Past Drug Use History: None Reported General Exam Limitations: no limitations General appearance: alert Eye exam: Present: normal appearance, PERRL, EOMI. Absent: scleral icterus, conjunctival injection, periorbital swelling Respiratory exam: Present: normal lung sounds bilaterally. Absent: respiratory distress, wheezes, rales, rhonchi, stridor Cardiovascular Exam: Present: regular rate, normal rhythm, normal heart sounds. Absent: systolic murmur, diastolic murmur, rubs, gallop, clicks Extremities exam: Absent: normal inspection (2 cm draining abscess right lateral lower leg above the ankle no surrounding erythema, swelling. Neurovascularly intact ) Back exam: Present: full ROM Neurological exam: Present: alert Psychiatric exam: Present: normal affect, normal mood Skin exam: Present: warm, dry, intact, normal color. Absent: rash Course Vital Signs 12/18/22 21:49 Temperature 98.1 F Pulse Rate 89 Respiratory 18 Rate Blood Pressure 137/75 O2 Sat by Pulse 94 L Oximetry Medical Decision Making - Medical Decision Making Was pt. sent in by a medical professional or institution ([facility], [facility], urgent care, hospital, or custodial...) When possible be specific @ -No Did you speak to anyone other than the patient for history (EMS, parent, family, police, friend...)? What history was obtained from this source @ -No Did you review nursing and triage notes (agree or disagree)? Why? @ -I reviewed and agree with nursing and triage notes Were old charts reviewed (outside hosp., previous admission, EMS record, old EKG, old radiological studies, urgent care reports/EKG's, custodial records)? Report findings @ -No old charts were reviewed Differential Diagnosis (chest pain, altered mental status, abdominal pain women, abdominal pain men, vaginal bleeding, weakness, fever, dyspnea, syncope, headache, dizziness, GI bleed, back pain, seizure, CVA, palpatations, mental health)? @ -Cellulitis, abscess, sepsis EKG interpreted by me (3pts min.). @ -As above X-rays interpreted by me (1pt min.). @ -None done CT interpreted by me (1pt min.). @ -None done U/S interpreted by me (1pt. min.). @ -None done What testing was considered but not performed or refused? (CT, X-rays, U/S, labs)? Why? @ -None What meds were considered but not given or refused? Why? @ -None Did you discuss the management of the patient with other professionals (professionals i.e. [facility], [facility], lab, RT, psych nurse, social sciences research scientist, manager inside, teacher, state highway police officer, case planner)? Give summary @ -No Was smoking cessation discussed for >3mins.? @ -No Was critical care preformed (if so, how long)? @ -No Were there social determinants of health that impacted care today? How? (Homelessness, low income, unemployed, alcoholism, drug addiction, transportation, low edu. Level, literacy, decrease access to med. care, assisted, rehab)? @ -No Was there de-escalation of care discussed even if they declined (Discuss DNR or withdrawal of care, Hospice)? DNR status @ -No What co-morbidities impacted this encounter? (DM, HTN, Smoking, COPD, CAD, Cancer, CVA, ARF, Chemo, Hep., AIDS, mental health diagnosis, sleep apnea, morbid obesity)? @ -None Was patient admitted / discharged? Hospital course, mention meds given and route, prescriptions, significant lab abnormalities, going to OR and other pertinent info. @ Patient presents with abscess. It is already draining. No systemic symptoms or signs. Labs obtained there is very minimal leukocytosis at 10.7. Wound cultu re pending. Patient stable medical condition for discharge with antibiotics. She will follow-up with primary care provider. We discussed return parameters. . Undiagnosed new problem with uncertain prognosis? @ -No Drug Therapy requiring intensive monitoring for toxicity (Heparin, Nitro, Insulin, Cardizem)? @ -No Were any procedures done? @ -No Diagnosis/symptom? @ -Abscess Acute, or Chronic, or Acute on Chronic? @ -Acute Uncomplicated (without systemic symptoms) or Complicated (systemic symptoms)? @ -[Uncomplicated Side effects of treatment? @ -No Exacerbation, Progression, or Severe Exacerbation? @ -No Poses a threat to life or bodily function? How? (Chest pain, [place], [place], pneumonia, PE, COPD, DKA, ARF, appy, cholecystitis, CVA, Diverticulitis, Homicidal, Suicidal, threat to staff... and all critical care pts) @ -No Dr. Schwartz is my attending - Lab Data Result diagrams: 12/18/22 22:32 12/18/22 22:32 Lab Results 12/18/22 12/18/22 12/18/22 Range/Units 22:32 22:32 22:32 WBC 10.7 H (3.8-10.6) k/uL RBC 5.06 (3.80-5.40) m/uL Hgb 14.9 (11.4-16.0) gm/dL Hct 45.9 (34.0-46.0) % MCV 90.8 (80.0-100.0) fL MCH 29.5 (25.0-35.0) pg MCHC 32.4 (31.0-37.0) g/dL RDW 13.8 (11.5-15.5) % Plt Count 257 (150-450) k/uL MPV 7.6 Neutrophils % 67 % Lymphocytes % 21 % Monocytes % 6 % Eosinophils % 4 % Basophils % 0 % Neutrophils # 7.1 (1.3-7.7) k/uL Lymphocytes # 2.3 (1.0-4.8) k/uL Monocytes # 0.7 (0-1.0) k/uL Eosinophils # 0.4 (0-0.7) k/uL Basophils # 0.0 (0-0.2) k/uL Sodium 136 L (137-145) mmol/L Potassium 4.7 (3.5-5.1) mmol/L Chloride 102 (98-107) mmol/L Carbon Dioxide 26 (22-30) mmol/L Anion Gap 8 mmol/L BUN 8 (7-17) mg/dL Creatinine 0.58 (0.52-1.04) mg/dL Est GFR (CKD-EPI)AfAm >90 (>60 ml/min/1.73 sqM) Est GFR (CKD-EPI)NonAf >90 (>60 ml/min/1.73 sqM) Glucose 86 (74-99) mg/dL Plasma Lactic Acid Jermaine 1.3 (0.7-2.0) mmol/L Calcium 9.2 (8.4-10.2) mg/dL Total Bilirubin 1.0 (0.2-1.3) mg/dL AST 35 (14-36) U/L ALT 20 (4-34) U/L Alkaline Phosphatase 141 H (38-126) U/L Total Protein 7.7 (6.3-8.2) g/dL Albumin 4.3 (3.5-5.0) g/dL Disposition Clinical Impression: Abscess Disposition: HOME SELF-CARE Condition: Good Instructions (If sedation given, give patient instructions): Abscess (ED) Additional Instructions: Apply warm compress. Take antibiotic as directed. Follow-up with primary care provider in one to 2 days. Return to the emergency department if you experience new, concerning, or worsening symptoms, including not limited to vomiting, fever. Prescriptions: Sulfamethox-Tmp 800-160Mg [Bactrim Ds] 1 each PO Q12HR #20 tab Cephalexin [Keflex] 500 mg PO Q6HR #40 cap Is patient prescribed a controlled substance at d/c from ED?: No Referrals: Ashley Kerr [Primary Care Provider] - 1-2 days
== END 2022-12-19 00:50 | disposition home or self-care (01) ==
LOC: EC 21:45
DX: L02.415 Cutaneous abscess of right lower limb (principal); J44.9 Chronic obstructive pulmonary disease, unspecified; E11.9 Type 2 diabetes mellitus without complications; E78.5 Hyperlipidemia, unspecified; F41.9 Anxiety disorder, unspecified; F32.A Depression, unspecified; F17.200 Nicotine dependence, unspecified, uncomplicated; Z79.51 Long term (current) use of inhaled steroids; Z79.84 Long term (current) use of oral hypoglycemic drugs; Z79.899 Other long term (current) drug therapy; Z88.6 Allergy status to analgesic agent; Z88.5 Allergy status to narcotic agent; Z88.1 Allergy status to other antibiotic agents; Z88.8 Allergy status to other drugs, medicaments and biological substances
CPT/HCPCS: 36415; 80053; 83605; 85025; 87070; 87205; 99283

== ENCOUNTER 2023-01-17 01:01 | Inpatient (IN) | payer OTHER ==
[2023-01-17] MEDS ORDERED: HYDROmorphone 0.5 MG/0.5 ML SYRINGE IVP STA ×3 (01:45→05:25)
[2023-01-17] MEDS ORDERED: IPRATROPIUM-ALBUTEROL 3 ML NEB INHALATION STA (01:45)
[2023-01-17] MEDS ORDERED: SODIUM CHLORIDE 0.9% 500 ML 500 ML IV ONE ×3 (01:45→10:00)
[2023-01-17 02:01] LABS: Basophils # (A) 0.1 k/uL (0-0.2); Basophils % (A) 0 %; Eosinophils # (A) 0.2 k/uL (0-0.7); Eosinophils % (A) 1 %; HGB 14.2 gm/dL (11.4-16.0); Lymphocytes # (A) 1.7 k/uL (1.0-4.8); Lymphocytes % (A) 8 %; MCH 29.7 pg (25.0-35.0); MCHC 32.3 g/dL (31.0-37.0); MCV 91.9 fL (80.0-100.0); Mean Platelet Volume 7.8; Monocytes % (A) 5 %; Neutrophils # (A) 19.1 k/uL (1.3-7.7); Neutrophils % (A) 86 %; Platelet Count 342 k/uL (150-450); RBC 4.79 m/uL (3.80-5.40); WBC 22.2 k/uL (3.8-10.6)
[2023-01-17 02:14] LABS: ALT 28 U/L (4-34); African American GFR (CKD) >90 (>60 ml/min/1.73 sqM); Albumin 4.4 g/dL (3.5-5.0); Amylase 116 U/L (30-110); Anion Gap 13 mmol/L; Blood Urea Nitrogen 12 mg/dL (7-17); Calcium 9.7 mg/dL (8.4-10.2); Carbon Dioxide 25 mmol/L (22-30); Chloride 98 mmol/L (98-107); Glucose 152 mg/dL (74-99); INR 0.9 (<1.2); Lipase 372 U/L (23-300); Non-African American GFR(CKD) 86 (>60 ml/min/1.73 sqM); Partial Thromboplastin Time 23.7 sec (22.0-30.0); Prothrombin Time 9.6 sec (9.0-12.0); Sodium 136 mmol/L (137-145); Total Bilirubin 0.7 mg/dL (0.2-1.3); Total Protein 7.7 g/dL (6.3-8.2)
[2023-01-17 02:19] LABS: AST 30 U/L (14-36); Alkaline Phosphatase 134 U/L (38-126); Potassium 4.6 mmol/L (3.5-5.1)
--- NOTE | 2023-01-17 02:37 | ED ---
General Adult HPI - General Chief complaint: Abdominal Pain Stated complaint: Abd pain Time Seen by Provider: 01/17/23 01:35 Source: patient, RN notes reviewed, old records reviewed Mode of arrival: wheelchair Limitations: no limitations - History of Present Illness Initial comments: 52-year-old female presenting with 4 days of left-sided abdominal pain. Pain is moderate to severe. No diarrhea, normal bowel movements. No vomiting. Patient states she's had low-grade fever. No dysuria or hematuria. Patient denies trauma. Denies anticoagulation. She did start a new [employer] exercise machine. - Related Data Home Medications Medication Instructions Recorded Confirmed ALPRAZolam [Xanax] 1 mg PO QID PRN 02/05/20 02/05/20 Albuterol Sulfate [Ventolin HFA] 2 puff INHALATION RT-QID PRN 02/05/20 02/05/20 Atorvastatin [Lipitor] 20 mg PO HS 02/05/20 02/05/20 Brexpiprazole [Rexulti] 1 mg PO DAILY 02/05/20 02/05/20 Fluticasone Furoate [Arnuity 1 puff INHALATION RT-DAILY 02/05/20 02/05/20 Ellipta] Pregabalin [Lyrica] 200 mg PO BID 02/05/20 02/05/20 Vilazodone HCl [Viibryd] 40 mg PO DAILY 02/05/20 02/05/20 Zolpidem Tartrate [Ambien] 10 mg PO HS PRN 02/05/20 02/05/20 amLODIPine [Norvasc] 5 mg PO DAILY 02/05/20 02/05/20 Previous Rx's Medication Instructions Recorded Azithromycin [Zithromax Z-pack (6 0 mg PO DIRECTED 5 Days #6 tab 02/05/20 tabs)] Ipratropium-Albuterol Nebulize 3 ml INHALATION TID #30 neb 02/05/20 [Duoneb 0.5 mg-3 mg/3 ml Soln] predniSONE 50 mg PO DAILY #5 tablet 02/05/20 Azithromycin [Zithromax Z Pack] 0 tab PO DIRECTED #6 tab 02/16/22 predniSONE 50 mg PO DAILY #5 tab 02/16/22 Amoxic-Pot Clav 875-125Mg 1 tab PO Q12HR #20 tab 02/21/22 [Augmentin 875-125] Butalb/APAP/Caff 50-325-40Mg 1 tab PO Q4H PRN #14 tablet 02/21/22 [Fioricet 50-325-40] predniSONE 10 mg PO DIRECTED #20 tab 02/21/22 Cephalexin [Keflex] 500 mg PO Q6HR #40 cap 12/19/22 Sulfamethox-Tmp 800-160Mg [Bactrim 1 each PO Q12HR #20 tab 12/19/22 Ds] Allergies Allergy/AdvReac Type Severity Reaction Status Date / Time aspirin Allergy Dyspnea Verified 01/17/23 01:21 codeine Allergy Dyspnea Verified 01/17/23 01:21 ibuprofen [From Motrin] Allergy Dyspnea Verified 01/17/23 01:21 morphine Allergy Rash/Hives Verified 01/17/23 01:21 naproxen Allergy Dyspnea Verified 01/17/23 01:21 tramadol [From Ultram] Allergy Dyspnea Verified 01/17/23 01:21 Review of Systems ROS Statement: Those systems with pertinent positive or pertinent negative responses have been documented in the HPI. ROS Other: All systems not noted in ROS Statement are negative. Past Medical History Past Medical History: Asthma, COPD, Diabetes Mellitus, Hyperlipidemia, Hypertension Additional Past Medical History / Comment(s): neuropathy, MS, pancreatic mass History of Any Multi-Drug Resistant Organisms: None Reported Past Surgical History: Back Surgery, Section Additional Past Surgical History / Comment(s): Kidey surgery Past Psychological History: Anxiety, Depression Smoking Status: Current every day smoker Past Alcohol Use History: None Reported Past Drug Use History: None Reported General Exam Limitations: no limitations General appearance: alert, in no apparent distress Head exam: Present: atraumatic, normocephalic Eye exam: Present: normal appearance, PERRL ENT exam: Present: normal exam Neck exam: Present: normal inspection. Absent: tenderness Respiratory exam: Present: wheezes, decreased breath sounds. Absent: respiratory distress Cardiovascular Exam: Present: regular rate, normal rhythm GI/Abdominal exam: Present: distended, tenderness Extremities exam: Present: normal inspection, normal capillary refill. Absent: pedal edema Neurological exam: Present: alert, oriented X3 Psychiatric exam: Present: normal affect, normal mood Course Vital Signs 01/17/23 01/17/23 01/17/23 01:21 01:55 02:03 Temperature 98 F Pulse Rate 85 88 86 Respiratory 24 Rate Blood Pressure 94/64 O2 Sat by Pulse 86 L Oximetry 01/17/23 01/17/23 02:24 04:00 Temperature Pulse Rate 90 96 Respiratory 18 22 Rate Blood Pressure 123/69 116/59 O2 Sat by Pulse 91 L 92 L Oximetry Medical Decision Making - Medical Decision Making Was pt. sent in by a medical professional or institution (, PA, PIT AND AUXILIARIES SUPERVISOR, urgent care, hospital, or assisted...) When possible be specific @ -No Did you speak to anyone other than the patient for history (EMS, parent, family, police, friend...)? What history was obtained from this source @ -No Did you review nursing and triage notes (agree or disagree)? Why? @ -I reviewed and agree with nursing and triage notes Were old charts reviewed (outside hosp., previous admission, EMS record, old EKG, old radiological studies, urgent care reports/EKG's, assisted records)? Report findings @ -No old charts were reviewed Differential Diagnosis (chest pain, altered mental status, abdominal pain women, abdominal pain men, vaginal bleeding, weakness, fever, dyspnea, syncope, headache, dizziness, GI bleed, back pain, seizure, CVA, palpatations, mental health, musculoskeletal)? @ Differential Abdominal Pain Women: Appendicitis, Cholecystitis, diverticulosis, ischemic bowel, pancreatitis, hepatitis, UTI, gastroenteritis, AAA, incarcerated hernia, bowel obstruction, constipation, inflammatory bowel, hepatitis, peptic ulcer disease, splenic infarction, perforated viscus, vulvitis, ovarian torsion, PID, kidney stone, placenta abruption, this is not meant to be an all-inclusive list EKG interpreted by me (3pts min.). @ -Sinus rhythm rate of 89, AK interval 157, QRS duration 95, QTC [address] segment elevation X-rays interpreted by me (1pt min.). @Chest x-ray shows by basilar infiltrate. CT interpreted by me (1pt min.). @ -CT shows large splenic subcapsular hematoma without active extravasation. U/S interpreted by me (1pt. min.). @ -None done What testing was considered but not performed or refused? (CT, X-rays, U/S, la bs)? Why? @ -None What meds were considered but not given or refused? Why? @ -None Did you discuss the management of the patient with other professionals (professionals i.e. DrAnderson, PA, PIT AND AUXILIARIES SUPERVISOR, lab, RT, psych nurse, social contact worker, drama professor, teacher, community arts officer, correctional case manager)? Give summary @ -[Dr. Cummins he will admit. Was smoking cessation discussed for >3mins.? @ -No Was critical care preformed (if so, how long)? @ -No Were there social determinants of health that impacted care today? How? (Homelessness, low income, unemployed, alcoholism, drug addiction, transportation, low edu. Level, literacy, decrease access to med. care, fci, rehab)? @ -No Was there de-escalation of care discussed even if they declined (Discuss DNR or withdrawal of care, Hospice)? DNR status @ -No What co-morbidities impacted this encounter? (DM, HTN, Smoking, COPD, CAD, Cancer, CVA, ARF, Chemo, Hep., AIDS, mental health diagnosis, sleep apnea, morbi d obesity)? @ -[COPD Was patient admitted / discharged? Hospital course, mention meds given and route, prescriptions, significant lab abnormalities, going to OR and other pertinent info. @ -[52-year-old female presenting with left upper quadrant abdominal pain which is been present for the past 4 days. Patient is tender on exam. Workup is initiated. She has a white blood cell count of 22. Her hemoglobin is 14.2. She has a lactic acid of 3.6. Chest x-ray is concerning for bilateral basilar infiltrate. She started on antibiotics in the emergency department. She's also given IV fluid for resuscitation and her lactic acidosis. CT shows a subcapsular splenic hematoma. I discussed case with Dr. Cummins, who will admit. Serial hemoglobins have been ordered. Undiagnosed new problem with uncertain prognosis? @ -No Drug Therapy requiring intensive monitoring for toxicity (Heparin, Nitro, Insulin, Cardizem)? @ -No Were any procedures done? @ -No Diagnosis/symptom? @ -[Splenic subcapsular hematoma Acute, or Chronic, or Acute on Chronic? @ -[Acute Uncomplicated (without systemic symptoms) or Complicated (systemic symptoms)? @ -default Side effects of treatment? @ -No Exacerbation, Progression, or Severe Exacerbation? @ -No Poses a threat to life or bodily function? How? (Chest pain, [place], [place], pneumonia, PE, COPD, DKA, ARF, appy, cholecystitis, CVA, Diverticulitis, Homicidal, Suicidal, threat to staff... and all critical care pts) @ -[Yes, continue bleeding - Lab Data Result diagrams: 01/17/23 01:51 01/17/23 01:51 Lab Results 01/17/23 01/17/23 01/17/23 Range/Units 01:51 01:51 01:51 WBC 22.2 H (3.8-10.6) k/uL RBC 4.79 (3.80-5.40) m/uL Hgb 14.2 (11.4-16.0) gm/dL Hct 44.0 (34.0-46.0) % MCV 91.9 (80.0-100.0) fL MCH 29.7 (25.0-35.0) pg MCHC 32.3 (31.0-37.0) g/dL RDW 14.0 (11.5-15.5) % Plt Count 342 (150-450) k/uL MPV 7.8 Neutrophils % 86 % Lymphocytes % 8 % Monocytes % 5 % Eosinophils % 1 % Basophils % 0 % Neutrophils # 19.1 H (1.3-7.7) k/uL Lymphocytes # 1.7 (1.0-4.8) k/uL Monocytes # 1.0 (0-1.0) k/uL Eosinophils # 0.2 (0-0.7) k/uL Basophils # 0.1 (0-0.2) k/uL PT 9.6 (9.0-12.0) sec INR 0.9 (<1.2) APTT 23.7 (22.0-30.0) sec Sodium 136 L (137-145) mmol/L Potassium 4.6 (3.5-5.1) mmol/L Chloride 98 (98-107) mmol/L Carbon Dioxide 25 (22-30) mmol/L Anion Gap 13 mmol/L BUN 12 (7-17) mg/dL Creatinine 0.79 (0.52-1.04) mg/dL Est GFR (CKD-EPI)AfAm >90 (>60 ml/min/1.73 sqM) Est GFR (CKD-EPI)NonAf 86 (>60 ml/min/1.73 sqM) Glucose 152 H (74-99) mg/dL Lactic Ac Sepsis Rflx Plasma Lactic Acid Jermaine (0.7-2.0) mmol/L Calcium 9.7 (8.4-10.2) mg/dL Total Bilirubin 0.7 (0.2-1.3) mg/dL AST 30 (14-36) U/L ALT 28 (4-34) U/L Alkaline Phosphatase 134 H (38-126) U/L Total Protein 7.7 (6.3-8.2) g/dL Albumin 4.4 (3.5-5.0) g/dL Amylase 116 H (30-110) U/L Lipase 372 H (23-300) U/L Urine Color Urine Appearance (Clear) Urine pH (5.0-8.0) Ur Specific Lamar (1.001-1.035) Urine Protein (Negative) Urine Glucose (UA) (Negative) Urine Ketones (Negative) Urine Blood (Negative) Urine Nitrite (Negative) Urine Bilirubin (Negative) Urine Urobilinogen (<2.0) mg/dL Ur Leukocyte Esterase (Negative) Urine RBC (0-5) /hpf Urine WBC (0-5) /hpf Ur Squamous Epith Cells (0-4) /hpf Urine Bacteria (None) /hpf Urine Mucus (None) /hpf 01/17/23 01/17/23 01/17/23 Range/Units 01:51 02:25 05:10 WBC (3.8-10.6) k/uL RBC (3.80-5.40) m/uL Hgb (11.4-16.0) gm/dL Hct (34.0-46.0) % MCV (80.0-100.0) fL MCH (25.0-35.0) pg MCHC (31.0-37.0) g/dL RDW (11.5-15.5) % Plt Count (150-450) k/uL MPV Neutrophils % % Lymphocytes % % Monocytes % % Eosinophils % % Basophils % % Neutrophils # (1.3-7.7) k/uL Lymphocytes # (1.0-4.8) k/uL Monocytes # (0-1.0) k/uL Eosinophils # (0-0.7) k/uL Basophils # (0-0.2) k/uL PT (9.0-12.0) sec INR (<1.2) APTT (22.0-30.0) sec Sodium (137-145) mmol/L Potassium (3.5-5.1) mmol/L Chloride (98-107) mmol/L Carbon Dioxide (22-30) mmol/L Anion Gap mmol/L BUN (7-17) mg/dL Creatinine (0.52-1.04) mg/dL Est GFR (CKD-EPI)AfAm (>60 ml/min/1.73 sqM) Est GFR (CKD-EPI)NonAf (>60 ml/min/1.73 sqM) Glucose (74-99) mg/dL Lactic Ac Sepsis Rflx Y Plasma Lactic Acid Jermaine 3.6 H* (0.7-2.0) mmol/L Calcium (8.4-10.2) mg/dL Total Bilirubin (0.2-1.3) mg/dL AST (14-36) U/L ALT (4-34) U/L Alkaline Phosphatase (38-126) U/L Total Protein (6.3-8.2) g/dL Albumin (3.5-5.0) g/dL Amylase (30-110) U/L Lipase (23-300) U/L Urine Color Yellow Urine Appearance Cloudy H (Clear) Urine pH 6.0 (5.0-8.0) Ur Specific Lamar >1.050 H (1.001-1.035) Urine Protein 1+ H (Negative) Urine Glucose (UA) Negative (Negative) Urine Ketones Negative (Negative) Urine Blood Trace H (Negative) Urine Nitrite Positive H (Negative) Urine Bilirubin Negative (Negative) Urine Urobilinogen <2.0 (<2.0) mg/dL Ur Leukocyte Esterase Moderate H (Negative) Urine RBC 4 (0-5) /hpf Urine WBC 23 H (0-5) /hpf Ur Squamous Epith Cells 9 H (0-4) /hpf Urine Bacteria Occasional H (None) /hpf Urine Mucus Few H (None) /hpf Disposition Clinical Impression: Abdominal pain, Subcapsular hemorrhage of spleen Disposition: ADMITTED IP TO THIS HOSP Condition: Serious Is patient prescribed a controlled substance at d/c from ED?: No Referrals: sAhley Kerr [Primary Care Provider] - 1-2 days Time of Disposition: 05:49
[2023-01-17] MEDS ORDERED: SODIUM CHLORIDE 0.9% 1,000 ML IV ONE ×2 (03:16→07:33)
[2023-01-17] MEDS: PIPERACILLIN-TAZOBACTAM 3.375 GM in SODIUM CHLORIDE 0.9% 100 ML IVPB SCH ×3 (03:54→15:30)
[2023-01-17] MEDS ORDERED: SODIUM CHLORIDE 0.9% 1,000 ML IV SCH ×2 (05:00→05:45)
--- NOTE | 2023-01-17 05:13 | CT ---
EXAM: CT Abdomen and Pelvis With Intravenous Contrast CLINICAL HISTORY: ITS.REASON CT Reason: abdominal pain TECHNIQUE: Axial computed tomography images of the abdomen and pelvis with intravenous contrast. CTDI is 34.8 mGy and DLP is 1969 mGy-cm. This CT exam was performed using one or more of the following dose reduction techniques: automated exposure control, adjustment of the mA and/or kV according to patient size, and/or use of iterative reconstruction technique. COMPARISON: No relevant prior studies available. FINDINGS: Lung bases: Partially visualized dependent airspace disease in the lungs with linear airspace opacities. Findings may be due to in part to atelectatic changes. However, a component of scarring also possible. ABDOMEN: Liver: Unremarkable. No mass. Gallbladder and bile ducts: Cholecystectomy changes. Mild dilatation of the common duct measuring up to 7 mm which can be seen with reservoir effect. Pancreas: 1.9 severe pancreatic cyst at the tail of the pancreas. ACR White Paper guidelines (Landen, et al. JACR 2017; 14(7):911-923) suggest a contrast-enhanced, pancreas-protocol abdominal CT or MR in 6 months or endoscopic ultrasound with fine needle aspiration. No ductal dilation. Spleen: Unremarkable. No splenomegaly. Adrenals: Unremarkable. No mass. Kidneys and ureters: Low-attenuation focus left kidney which may be due to a cyst but is too small to characterize. No follow-up is necessary. No hydronephrosis. Stomach and bowel: Colonic diverticulosis. No evidence of diverticulitis. No obstruction. PELVIS: Appendix: No findings to suggest acute appendicitis. Bladder: Unremarkable. No mass. Reproductive: See below. ABDOMEN and PELVIS: Intraperitoneal space: 10.7 x 5.7 x 14.1 cm splenic subcapsular hematoma with extension beyond the spleen with mild hemoperitoneum. No signs of active extravasation identified which may be due to phase of contrast. Consider interventional consultation. No free air. Bones/joints: Degenerated fibroid within the right aspect of the uterus. Degenerative changes in the spine. No acute fracture. No dislocation. Soft tissues: Umbilical hernia containing fat. Supraumbilical fat- containing ventral hernias. Vasculature: Atherosclerotic disease. No abdominal aortic aneurysm. Lymph nodes: Unremarkable. No enlarged lymph nodes. IMPRESSION: 1. 10.7 x 5.7 x 14.1 cm splenic subcapsular hematoma with extension beyond the spleen with mild hemoperitoneum. No signs of active extravasation identified which may be due to phase of contrast. Consider interventional consultation. 2. 1.9 severe pancreatic cyst at the tail of the pancreas. ACR White Paper guidelines (Landen, et al. JACR 2017; 14(7):911-923) suggest a contrast-enhanced, pancreas-protocol abdominal CT or MR in 6 months or endoscopic ultrasound with fine needle aspiration. 3. No other acute findings. 4. Incidental findings as described. <MYCVCSECTION> Communications: 01/17/23 05:11 Call Doctor Regarding Above results, called Dr. Carreon on 01/17 05:11 (-04:00)
--- NOTE | 2023-01-17 05:14 | XR ---
EXAM: XR Chest, 1 View CLINICAL HISTORY: ITS.REASON XR Reason: abdominal pain TECHNIQUE: Frontal view of the chest. COMPARISON: No relevant prior studies available. IMPRESSION: 1. Dependent airspace disease within the lungs which may be due to atelectatic changes. Infection also possible.
[2023-01-17 05:23] LABS: Appearance,Urine Cloudy (Clear); Bacteria,Urine Occasional /hpf; Bilirubin,Urine Negative (Negative); Blood,Urine Trace (Negative); Color,Urine Yellow; Glucose,Urine (UA) Negative (Negative); Ketones,Urine Negative (Negative); Leukocyte Esterase,Urine Moderate (Negative); Mucus,Urine Few /hpf; Nitrite,Urine Positive (Negative); Protein,Urine 1+ (Negative); RBC,Urine 4 /hpf (0-5); Squamous Epithelial Cell,Urine 9 /hpf (0-4); Urobilinogen,Urine <2.0 mg/dL (<2.0); WBC,Urine 23 /hpf (0-5)
[2023-01-17 05:30] LABS: Specific Gravity,Urine >1.050 (1.001-1.035)
[2023-01-17] MEDS ORDERED: NALOXONE 0.4 MG/ML 1 ML VIAL IV PRN ×2 (05:42→10:10)
[2023-01-17] MEDS ORDERED: ONDANSETRON 4 MG/2 ML VIAL IVP PRN (05:42)
[2023-01-17 07:02] LABS: Basophils % (A) 0 %; Eosinophils # (A) 0.1 k/uL (0-0.7); Eosinophils % (A) 0 %; HCT 39.6 % (34.0-46.0); HGB 12.3 gm/dL (11.4-16.0); Hypochromasia Moderate; Lymphocytes % (A) 11 %; MCH 29.4 pg (25.0-35.0); Monocytes # (A) 0.9 k/uL (0-1.0); Monocytes % (A) 5 %; Neutrophils # (A) 14.7 k/uL (1.3-7.7); Neutrophils % (A) 82 %; Platelet Count 414 k/uL (150-450); RBC 4.17 m/uL (3.80-5.40); WBC 17.9 k/uL (3.8-10.6)
--- NOTE | 2023-01-17 07:40 | P.GSHP ---
History of Present Illness H&P Date: 01/17/23 Chief Complaint: left upper quadrant pain this a 52-year-old female who's had complaints of left upper quadrant pain for 3 days. Patient states he had a subtle pain 3 days ago. Last night the patient's severe right upper quadrant pain of the then referred to the right side. Patient to CAT scan performed which shows a large splenic hematoma with evidence of intraperitoneal blood. The patient was seen in the emergency room. She is hypotensive with systolic blood pressure 90/50. And pulse of 110. She states her pain is severe in the left upper quadrant. Past Medical History Past Medical History: Asthma, COPD, Diabetes Mellitus, Hyperlipidemia, Hypertension Additional Past Medical History / Comment(s): neuropathy, MS, pancreatic mass History of Any Multi-Drug Resistant Organisms: None Reported Past Surgical History: Back Surgery, Section Additional Past Surgical History / Comment(s): Kidey surgery Past Psychological History: Anxiety, Depression Smoking Status: Current every day smoker Past Alcohol Use History: None Reported Past Drug Use History: None Reported Medications and Allergies Home Medications Medication Instructions Recorded Confirmed Type ALPRAZolam [Xanax] 1 mg PO QID PRN 02/05/20 02/05/20 History Albuterol Sulfate [Ventolin HFA] 2 puff INHALATION RT-QID PRN 02/05/20 02/05/20 History Atorvastatin [Lipitor] 20 mg PO HS 02/05/20 02/05/20 History Azithromycin [Zithromax Z-pack (6 0 mg PO DIRECTED 5 Days #6 tab 02/05/20 Rx tabs)] Brexpiprazole [Rexulti] 1 mg PO DAILY 02/05/20 02/05/20 History Fluticasone Furoate [Arnuity 1 puff INHALATION RT-DAILY 02/05/20 02/05/20 History Ellipta] Ipratropium-Albuterol Nebulize 3 ml INHALATION TID #30 neb 02/05/20 Rx [Duoneb 0.5 mg-3 mg/3 ml Soln] Pregabalin [Lyrica] 200 mg PO BID 02/05/20 02/05/20 History Vilazodone HCl [Viibryd] 40 mg PO DAILY 02/05/20 02/05/20 History Zolpidem Tartrate [Ambien] 10 mg PO HS PRN 02/05/20 02/05/20 History amLODIPine [Norvasc] 5 mg PO DAILY 02/05/20 02/05/20 History predniSONE 50 mg PO DAILY #5 tablet 02/05/20 Rx Azithromycin [Zithromax Z Pack] 0 tab PO DIRECTED #6 tab 02/16/22 Rx predniSONE 50 mg PO DAILY #5 tab 02/16/22 Rx Amoxic-Pot Clav 875-125Mg 1 tab PO Q12HR #20 tab 02/21/22 Rx [Augmentin 875-125] Butalb/APAP/Caff 50-325-40Mg 1 tab PO Q4H PRN #14 tablet 02/21/22 Rx [Fioricet 50-325-40] predniSONE 10 mg PO DIRECTED #20 tab 02/21/22 Rx Cephalexin [Keflex] 500 mg PO Q6HR #40 cap 12/19/22 Rx Sulfamethox-Tmp 800-160Mg [Bactrim 1 each PO Q12HR #20 tab 12/19/22 Rx Ds] Allergies Allergy/AdvReac Type Severity Reaction Status Date / Time aspirin Allergy Dyspnea Verified 01/17/23 01:21 codeine Allergy Dyspnea Verified 01/17/23 01:21 ibuprofen [From Motrin] Allergy Dyspnea Verified 01/17/23 01:21 morphine Allergy Rash/Hives Verified 01/17/23 01:21 naproxen Allergy Dyspnea Verified 01/17/23 01:21 tramadol [From Ultram] Allergy Dyspnea Verified 01/17/23 01:21 Surgical - Exam Vital Signs Temp Pulse Resp BP Pulse Ox 98 F 85 24 94/64 86 L 01/17/23 01:21 01/17/23 01:21 01/17/23 01:21 01/17/23 01:21 01/17/23 01:21 - General moderate distress - Eyes PERRL - ENT normal pinna - Neck no masses - Respiratory normal expansion - Cardiovascular Rhythm: regular - Abdomen masignificant left upper quadrant tenderness. With some rebound and guarding. There is mild diffuse tenderness throughout Results - Labs 01/17/23 06:40 01/17/23 01:51 Abnormal Lab Results - Last 24 Hours (Table) 01/17/23 01/17/23 01/17/23 Range/Units 01:51 01:51 01:51 WBC 22.2 H (3.8-10.6) k/uL Neutrophils # 19.1 H (1.3-7.7) k/uL Sodium 136 L (137-145) mmol/L Glucose 152 H (74-99) mg/dL Plasma Lactic Acid Jermaine 3.6 H* (0.7-2.0) mmol/L Alkaline Phosphatase 134 H (38-126) U/L Amylase 116 H (30-110) U/L Lipase 372 H (23-300) U/L Urine Appearance (Clear) Ur Specific [place] (1.001-1.035) Urine Protein (Negative) Urine Blood (Negative) Urine Nitrite (Negative) Ur Leukocyte Esterase (Negative) Urine WBC (0-5) /hpf Ur Squamous Epith Cells (0-4) /hpf Urine Bacteria (None) /hpf Urine Mucus (None) /hpf 01/17/23 01/17/23 01/17/23 Range/Units 05:10 06:40 06:40 WBC 17.9 H (3.8-10.6) k/uL Neutrophils # 14.7 H (1.3-7.7) k/uL Sodium (137-145) mmol/L Glucose (74-99) mg/dL Plasma Lactic Acid Jermaine 3.7 H* (0.7-2.0) mmol/L Alkaline Phosphatase (38-126) U/L Amylase (30-110) U/L Lipase (23-300) U/L Urine Appearance Cloudy H (Clear) Ur Specific [place] >1.050 H (1.001-1.035) Urine Protein 1+ H (Negative) Urine Blood Trace H (Negative) Urine Nitrite Positive H (Negative) Ur Leukocyte Esterase Moderate H (Negative) Urine WBC 23 H (0-5) /hpf Ur Squamous Epith Cells 9 H (0-4) /hpf Urine Bacteria Occasional H (None) /hpf Urine Mucus Few H (None) /hpf Diabetes panel 01/17/23 Range/Units 01:51 Sodium 136 L (137-145) mmol/L Potassium 4.6 (3.5-5.1) mmol/L Chloride 98 (98-107) mmol/L Carbon Dioxide 25 (22-30) mmol/L BUN 12 (7-17) mg/dL Creatinine 0.79 (0.52-1.04) mg/dL Glucose 152 H (74-99) mg/dL Calcium 9.7 (8.4-10.2) mg/dL AST 30 (14-36) U/L ALT 28 (4-34) U/L Alkaline Phosphatase 134 H (38-126) U/L Total Protein 7.7 (6.3-8.2) g/dL Albumin 4.4 (3.5-5.0) g/dL Calcium panel 01/17/23 Range/Units 01:51 Calcium 9.7 (8.4-10.2) mg/dL Albumin 4.4 (3.5-5.0) g/dL Pituitary panel 01/17/23 Range/Units 01:51 Sodium 136 L (137-145) mmol/L Potassium 4.6 (3.5-5.1) mmol/L Chloride 98 (98-107) mmol/L Carbon Dioxide 25 (22-30) mmol/L BUN 12 (7-17) mg/dL Creatinine 0.79 (0.52-1.04) mg/dL Glucose 152 H (74-99) mg/dL Calcium 9.7 (8.4-10.2) mg/dL Adrenal panel 01/17/23 Range/Units 01:51 Sodium 136 L (137-145) mmol/L Potassium 4.6 (3.5-5.1) mmol/L Chloride 98 (98-107) mmol/L Carbon Dioxide 25 (22-30) mmol/L BUN 12 (7-17) mg/dL Creatinine 0.79 (0.52-1.04) mg/dL Glucose 152 H (74-99) mg/dL Calcium 9.7 (8.4-10.2) mg/dL Total Bilirubin 0.7 (0.2-1.3) mg/dL AST 30 (14-36) U/L ALT 28 (4-34) U/L Alkaline Phosphatase 134 H (38-126) U/L Total Protein 7.7 (6.3-8.2) g/dL Albumin 4.4 (3.5-5.0) g/dL - Imaging CT scan - abdomen: report reviewed (large splenic hematoma with evidence of free blood) Assessment and Plan Assessment: spontaneous splenic hematoma. Patient has dropped 2 g of hemoglobin and become hypotensive in the emergency. Patient will undergo exploratory laparotomy splenectomy.the risks and benefits of procedure were discussed the patient and her daughter.
[2023-01-17] MEDS ORDERED: LACTATED RINGERS 1,000 ML IV ONE ×3 (07:55→10:10)
[2023-01-17] MEDS ORDERED: IV FLUID CONTINUATION 100 ML IV ONE (07:55)
[2023-01-17 08:12] LABS: Glucose,Whole Blood 244 mg/dL (70-110)
[2023-01-17] MEDS ORDERED: ONDANSETRON 4 MG/2 ML VIAL IVP ONE (08:14)
[2023-01-17] MEDS: IPRATROPIUM-ALBUTEROL 3 ML NEB INHALATION SCH ×5 (08:16→23:44)
[2023-01-17] MEDS ORDERED: fentaNYL (PF) 50 MCG/ML 2 ML AMP ONE (09:05)
[2023-01-17] MEDS ORDERED: ROCURONIUM 10 MG/ML (5 ML VIAL) IV ONE (09:05)
[2023-01-17] MEDS ORDERED: PROPOFOL 10 MG/ML 20 ML VIAL IV ONE (09:05)
[2023-01-17] MEDS ORDERED: MIDAZOLAM 2 MG/2 ML VIAL ONE (09:05)
[2023-01-17] MEDS ORDERED: PHENYLEPHRINE-0.9% NACL SYG 1,000 MCG/10 ML SYRINGE ONE (09:05)
[2023-01-17] MEDS ORDERED: LIDOCAINE 2% INJ 20 MG/ML (2 ML VIAL) ONE (09:05)
[2023-01-17] MEDS ORDERED: SUCCINYLCHOLINE CHLORIDE 200 MG/10 ML VIAL IV ONE (09:05)
[2023-01-17] MEDS ORDERED: IPRATROPIUM-ALBUTEROL 3 ML NEB INHALATION PRN (09:56)
[2023-01-17] MEDS: SODIUM CHLORIDE 0.9% 500 ML 500 ML IV ONE ×2 (10:00→12:12)
[2023-01-17] MEDS ORDERED: DEXTROSE 50% SYRINGE 50 ML IVP PRN ×2 (10:00)
--- NOTE | 2023-01-17 10:23 | P.OP ---
Date of Procedure: 01/17/23 Preoperative Diagnosis: spsspontaneous splenic hematoma with capsule rupture Postoperative Diagnosis: spospontaneous splenic hematoma with capsule rupture Incarcerated incisional hernia Procedure(s) Performed: exploratory laparotomy Splenectomy Repair of incisional hernia with partial omentectomy Anesthesia: BRANNON Surgeon: Osorio Cummins Estimated Blood Loss (ml): 25 Pathology: other (spleen,intraperitoneal clot) Condition: critical Disposition: ICU Operative Findings: 1200 mL of intraperitoneal blood from ruptured spleen Description of Procedure: the patient's placed onto the operating table in supine position. She received general endotracheal tube anesthesia. Patient was hypotensive with systolic blood pressures in the 80s to 90s. The abdomen was prepped and draped usual fashion. The skin was incised midline. Patient had a previous hernia repair. There is recurrent incisional hernia. There was incarcerated omentum within the hernia. This was transected and sent to pathology. The peritoneal cavity was opened. There was approximately 1200 mL of free edge. No blood. This was aspirated. Attention was then made left upper quadrant. There was a large clot quadrant. This was evacuated. The spleen was visualized. The splenic capsule had ruptured along the anterior surface the spleen. Sponges used to pack behind the spleen and bring the spleen up into the operative field. The splenic hilum was dissected between Joselyn clamps and then divided with the Enseal device and then suture ligated with 0 silk ties. Short gastrics were divided with the Enseal device. The spleen was sent to pathology.there was no further bleeding seen. The fascia was then closed with looped #1 PDS suture. Skin was closed kali. Patient was sent to the ICU intubated.
[2023-01-17 10:53] LABS: Glucose,Whole Blood 152 mg/dL (70-110)
[2023-01-17] MEDS ORDERED: Potassium Replacement Protocol 1 EACH MISC MISCELLANE PRN (10:54)
[2023-01-17] MEDS ORDERED: Magnesium Replacement Protocol 1 EACH MISC MISCELLANE PRN (10:54)
[2023-01-17 11:25] LABS: ABG Base Excess -2.3 mmol/L; ABG HCO3 24 mmol/L (21-25); ABG Oxygen Saturation 98.1 % (94-97); ABG PCO2 50 mmHg (35-45); ABG PO2 124 mmHg (83-108); ABG TCO2 26 mmol/L (19-24); Allen Test Performed? Yes
--- NOTE | 2023-01-17 11:26 | XR ---
EXAMINATION TYPE: XR chest 1V portable DATE OF EXAM: 01/17/2023 COMPARISON: 01/17/2023 HISTORY: Tube placement TECHNIQUE: Single frontal view of the chest is obtained. FINDINGS: Bilateral consolidation and small effusion. ET tube is in the proximal right mainstem bron chus. Report called the patient's nurse 11:23 AM 01/17/2023. NG tube noted with surgical kali in th e abdomen. Bilateral infiltrate and small effusion stable. Biapical pleural thickening. IMPRESSION: 1. ET tube within the proximal right mainstem bronchus. 2. Bilateral lower lobe infiltrate.
--- NOTE | 2023-01-17 11:57 | XR ---
EXAMINATION TYPE: XR abdomen 1V DATE OF EXAM: 01/17/2023 COMPARISON: NONE HISTORY: NG tube placement TECHNIQUE: One view abdominal series FINDINGS: The osseous structures are intact. The bowel gas pattern is nonspecific. Surgical kali are seen i s bilateral lower lobe infiltrate and small effusion. Suspect a surgical drain in the left upper quad rant. NG tube is coursing into the left abdomen is somewhat laterally placed. Surgical clips right up per quadrant. IMPRESSION: 1. NG tube is coursing in the left upper quadrant. Appears somewhat lateral in position. Perhaps cons ideration injection of contrast to confirm placement within the stomach if clinically warranted.
--- NOTE | 2023-01-17 12:03 | P.CNPUL ---
History of Present Illness Consult date: 01/17/23 Requesting physician: Osorio Cummins Reason for consult: other Chief complaint: Splenic rupture. History of present illness: Pulmonary consult dated 01/17/2023. 52-year-old female who presented to the emergency department, early on the morning of January 17, with 4 days of left-sided abdominal pain. The pain was described as being moderate to severe. She denied any GI issues like diarrhea, vomiting, etc. The patient ended up having a idiopathic splenic rupture, and, today, went to the operating room, which she had a splenectomy. The patient was brought back to the intensive care unit on the mechanical ventilator. She is on the volume assist control, rate 14, tidal volume 400, FiO2 100%, and PEEP of 5. Blood gases show pO2 124, pCO2 of 50, pH is 7.3. The patient has a Mckinley- Kothari drain in place, a [place] wound VAC, a Ramos catheter, and orogastric tube, and endotracheal tube in place. She has 2 peripheral IVs. She's currently on Zosyn. She is receiving us second unit of packed red blood cells. She's getting propofol at 20 mcg/kg/m. He is also getting lactated Ringer's at 150 mL an hour. Blood gases show pO2 124, pCO2 of 50, pH is 7.3. Initial chest x-ray showed a right mainstem intubation. Endotracheal tube was pulled back. The patient has a history of hypertension, hyperlipidemia, asthma/COPD, diabetes, chronic tobacco use, and questionable MS. White count 17.9, with a normal hemoglobin, hematocrit, and platelet count. Sodium 136, potassium 4.6, c hlorides 98, CO2 25, BUN 12, creatinine 0.79. Lactic acid was 3.7. Amylase 116, and lipase 372. Urine was cloudy, with 1+ protein, positive for nitrite and leukocyte esterase, with 23 WBCs and occasional bacteria. Review of Systems REVIEW OF SYSTEMS: CONSTITUTIONAL: [Negative.] NEUROLOGIC: [ Negative.] HEENT: [ Negative.] CARDIAC: [Negative.] PULMONARY: [Negative.] GI: 4 days of abdominal pain. : [Negative.] RHEUMATOLOGIC: [ Negative.] IMMUNOLOGIC: [ Negative.] ENDOCRINE: [Negative. ] DERMATOLOGIC: [Negative.] Past Medical History Past Medical History: Asthma, COPD, Diabetes Mellitus, Hyperlipidemia, Hyperte nsion Additional Past Medical History / Comment(s): neuropathy, MS, pancreatic mass History of Any Multi-Drug Resistant Organisms: None Reported Past Surgical History: Back Surgery, Section Additional Past Surgical History / Comment(s): Kidey surgery Smoking Status: Current every day smoker Medications and Allergies Home Medications Medication Instructions Recorded Confirmed Type ALPRAZolam [Xanax] 1 mg PO BID PRN 02/05/20 01/17/23 History Albuterol Sulfate [Ventolin HFA] 2 puff INHALATION RT-Q4H PRN 02/05/20 01/17/23 History Zolpidem Tartrate [Ambien] 10 mg PO HS 02/05/20 01/17/23 History Atorvastatin [Lipitor] 40 mg PO HS 01/17/23 01/17/23 History Brexpiprazole [Rexulti] 4 mg PO DAILY 01/17/23 01/17/23 History EPINEPHrine (Auto Inject) [Epipen] 0.3 mg IM ONCE PRN 01/17/23 01/17/23 History Ketoconazole 2% Cream [Nizoral 2%] 1 applic TOPICAL DAILY 01/17/23 01/17/23 History Lurasidone [Latuda] 20 mg PO DAILY 01/17/23 01/17/23 History Montelukast [Singulair] 10 mg PO HS 01/17/23 01/17/23 History Pregabalin [Lyrica] 200 mg PO BID 01/17/23 01/17/23 History Tiotropium [place] [Spiriva] 1 puff INHALATION RT-DAILY 01/17/23 01/17/23 History amLODIPine [Norvasc] 10 mg PO DAILY 01/17/23 01/17/23 History metFORMIN HCL [Glucophage] 500 mg PO BID 01/17/23 01/17/23 History Allergies Allergy/AdvReac Type Severity Reaction Status Date / Time aspirin Allergy Dyspnea Verified 01/17/23 08:03 codeine Allergy Dyspnea Verified 01/17/23 08:03 ibuprofen [From Motrin] Allergy Dyspnea Verified 01/17/23 08:03 morphine Allergy Rash/Hives Verified 01/17/23 08:03 naproxen Allergy Dyspnea Verified 01/17/23 08:03 tramadol [From Ultram] Allergy Dyspnea Verified 01/17/23 08:03 Physical Exam Osteopathic Statement: *. No significant issues noted on an osteopathic structural exam other than those noted in the History and Physical/Consult. Vitals: Vital Signs Temp Pulse Pulse Resp BP BP Pulse Ox 01/17/23 11:45 98 F 82 14 139/77 95 01/17/23 11:35 97.6 F 83 14 144/63 100 01/17/23 11:30 97.5 F L 95 18 147/77 100 01/17/23 11:15 97.2 F L 82 14 135/72 100 01/17/23 11:00 96 F L 100 14 130/63 100 01/17/23 10:46 01/17/23 10:33 01/17/23 08:15 101 H 16 101/56 83 L 01/17/23 08:00 96/64 01/17/23 07:55 97.1 F L 102 H 16 93/54 86 L 01/17/23 07:50 102 H 96/64 89 L 01/17/23 07:40 103 H 96/64 91 L 01/17/23 07:30 97.6 F 108 H 18 93/50 92 L 01/17/23 04:00 96 22 116/59 92 L 01/17/23 02:24 90 18 123/69 91 L 01/17/23 02:03 86 01/17/23 01:55 88 01/17/23 01:21 98 F 85 24 94/64 86 L FiO2 01/17/23 11:45 01/17/23 11:35 01/17/23 11:30 100 01/17/23 11:15 01/17/23 11:00 01/17/23 10:46 100 01/17/23 10:33 100 01/17/23 08:15 01/17/23 08:00 01/17/23 07:55 01/17/23 07:50 01/17/23 07:40 01/17/23 07:30 01/17/23 04:00 01/17/23 02:24 01/17/23 02:03 01/17/23 01:55 01/17/23 01:21 Intake and Output 01/16/23 01/17/23 01/17/23 22:59 06:59 14:59 Intake Total 960 Output Total 1075 Balance -115 Intake: IV 650 Blood Product 310 Rc As-1 Unit 310 [id number] Rc Pheresis 2 As3 Unit 0 [id number] Output: Urine 50 Estimated Blood Loss 1025 Other: Weight 90.718 kg 90.718 kg No acute distress, sedated, with an orally placed endotracheal tube and nasogastric tube. HEENT examination is grossly unremarkable. Neck supple. Full range of motion. No adenopathy thyromegaly or neck vein distention. Cardiovascular examination reveals regular rhythm rate. S1-S2 normal. No S3 or S4. No discernible murmur noted. Heart rate 82 bpm. Lungs reveal clear breath sounds. Breath sounds are equal bilaterally. No adventitious lung sounds including wheezes rhonchi or crackles. Saturations are 95-97%. Abdomen soft, without bowel sounds. A wound VAC is noted, as well as 1 Mckinley- Kothari drain. Extremities are intact. No cyanosis clubbing or edema. Skin is without rash or lesion. Neurologic examination cannot be assessed at this time. Results - Laboratory Findings CBC and BMP: 01/17/23 06:40 01/17/23 01:51 ABG ABG pH 7.30 (7.35-7.45) L 01/17/23 11:23 ABG pCO2 50 mmHg (35-45) H 01/17/23 11:23 ABG pO2 124 mmHg (83-108) H 01/17/23 11:23 ABG O2 Saturation 98.1 % (94-97) H 01/17/23 11:23 PT/INR, D-dimer PT 9.6 sec (9.0-12.0) 01/17/23 01:51 INR 0.9 (<1.2) 01/17/23 01:51 Abnormal lab findings: Abnormal Labs 01/17/23 01/17/23 01/17/23 01:51 01:51 01:51 WBC 22.2 H Neutrophils # 19.1 H ABG pH ABG pCO2 ABG pO2 ABG Total CO2 ABG O2 Saturation Sodium 136 L Glucose 152 H POC Glucose (mg/dL) Plasma Lactic Acid Jermaine 3.6 H* Alkaline Phosphatase 134 H Amylase 116 H Lipase 372 H Urine Appearance Ur Specific [place] Urine Protein Urine Blood Urine Nitrite Ur Leukocyte Esterase Urine WBC Ur Squamous Epith Cells Urine Bacteria Urine Mucus Crossmatch 01/17/23 01/17/23 01/17/23 05:10 06:40 06:40 WBC 17.9 H Neutrophils # 14.7 H ABG pH ABG pCO2 ABG pO2 ABG Total CO2 ABG O2 Saturation Sodium Glucose POC Glucose (mg/dL) Plasma Lactic Acid Jermaine 3.7 H* Alkaline Phosphatase Amylase Lipase Urine Appearance Cloudy H Ur Specific [place] >1.050 H Urine Protein 1+ H Urine Blood Trace H Urine Nitrite Positive H Ur Leukocyte Esterase Moderate H Urine WBC 23 H Ur Squamous Epith Cells 9 H Urine Bacteria Occasional H Urine Mucus Few H Crossmatch 01/17/23 01/17/23 01/17/23 07:55 08:11 10:52 WBC Neutrophils # ABG pH ABG pCO2 ABG pO2 ABG Total CO2 ABG O2 Saturation Sodium Glucose POC Glucose (mg/dL) 244 H 152 H Plasma Lactic Acid Jermaine Alkaline Phosphatase Amylase Lipase Urine Appearance Ur Specific [place] Urine Protein Urine Blood Urine Nitrite Ur Leukocyte Esterase Urine WBC Ur Squamous Epith Cells Urine Bacteria Urine Mucus Crossmatch See Detail 01/17/23 11:23 WBC Neutrophils # ABG pH 7.30 L ABG pCO2 50 H ABG pO2 124 H ABG Total CO2 26 H ABG O2 Saturation 98.1 H Sodium Glucose POC Glucose (mg/dL) Plasma Lactic Acid Jermaine Alkaline Phosphatase Amylase Lipase Urine Appearance Ur Specific [place] Urine Protein Urine Blood Urine Nitrite Ur Leukocyte Esterase Urine WBC Ur Squamous Epith Cells Urine Bacteria Urine Mucus Crossmatch - Diagnostic Findings Chest x-ray: image reviewed Assessment and Plan Assessment: Postop day #0, status post exploratory laparotomy with splenectomy, for idi opathic splenic rupture. Routine postoperative ventilator management. History of COPD/asthma. History of hypertension. History of hyperlipidemia. History of diabetes mellitus. Question will history of multiple sclerosis. Ongoing tobacco use with nicotine addiction. Plan: Plan dated 01/17/2023. The ICU admission orders, and the vent bundle orders, were activated. The patient will be placed on albuterol sulfate and ipratropium bromide, every 4 hours [id number]. Labs, x-rays, and medications are reviewed. The patient is currently on propofol at 20 mcg/kg/m, and lactated Ringer's at 150 mL an hour. The FiO2 will be weaned down by respiratory. The patient is going to receive her second unit of packed red blood cells. The patient remains on Zosyn empirically. Additional recommendations and suggestions are forthcoming. The patient's overall prognosis is guarded. We will continue to follow the patient, and make recommendations along the way. Hopeful extubation tomorrow. Time with Patient: Greater than 30
[2023-01-17] MEDS: INSULIN ASPART (NovoLOG) 100 UNIT/ML VIAL SQ SCH ×3 (12:13→20:44)
[2023-01-17] MEDS: PANTOPRAZOLE 40 MG/10 ML VIAL IVP SCH (12:20)
[2023-01-17] MEDS: HYDROmorphone 0.5 MG/0.5 ML SYRINGE IVP PRN ×2 (12:20→15:30)
[2023-01-17] MEDS: CHLORHEXIDINE GLUCONATE 15 ML CUP MUCOUS MEM SCH ×2 (12:21→20:44)
--- NOTE | 2023-01-17 13:52 | P.CONS ---
History of Present Illness - Reason for Consult Consult date: 01/17/23 - History of Present Illness This is a 52-year-old female with medical history of asthma/COPD, diabetes mellitus, hypertension, hyperlipidemia, known pancreatic mass and multiple sclerosis patient is a current daily smoker also history of anxiety and depression. Presents to the hospital with complaints of four-day history of right upper quadrant pain that has been progressive. History is taken from patients daughter at the bedside in the ICU. Patient is currently intubated on mechanical ventilator. Initial work up reveals white count 22.2 and hemoglobin of 14.2 which has since dropped down to 12.3. Patient does have lactic acidosis at 3.6 on admission as well as elevated amylase and lipase and alk phos. Urinalysis shows positive nitrites and moderate leukocyte esterase concerning for possible underlying urinary tract infection. Patient had abdominal pelvis CT for further evaluation of abdominal pain and found to have a 10.7 x 5.7 x 14.1 cm splenic subcapsular hematoma with extension beyond the spleen with mild hemoperitoneum. There are no signs of active extravasation identified which may be due to phase of contrast consider interventional consultation. There is also 1.9 severe pancreatic cyst at the tail of the pancreas. Chest x-ray shows dependent airspace disease in the lungs which may be due to atelectatic changes infection also possible. Patient was taken for exploratory laparotomy and sp lenectomy with Dr. Cummins. She is scheduled to receive 2 units of packed red blood cells. She was also started on empiric antibiotic coverage with IV Zosyn and being hydrated with IV fluids normal saline at 75 mL per hour. Patient found to be hypoxic postoperative has been placed on 5L of oxygen via nasal cannula. Blood pressure is marginal. Postoperatively, patient was taken to the intensive care unit with a pulmonary supervisor self service store consultation she is currently on a mechanical ventilator with FiO2 of 50%. NG tube is in place. Abdominal wound is closed with a prevana wound vac. REVIEW OF SYSTEMS: Unable to complete patient is currently intubated and sedated. PHYSICAL EXAMINATION: GENERAL: Intubated and sedated. , not in any acute distress. Well developed, well nourished. HEENT: Pupils are round and equally reacting to light. EOMI. No scleral icterus. No conjunctival pallor. Normocephalic, atraumatic. No pharyngeal erythema. No thyromegaly. CARDIOVASCULAR: S1 and S2 present. No murmurs, rubs, or gallops. PULMONARY: Chest is clear to auscultation, no wheezing or crackles. ABDOMEN: Soft, nontender, nondistended, normoactive bowel sounds. No palpable organomegaly. Post surgical abdomen MUSCULOSKELETAL: No joint swelling or deformity. EXTREMITIES: No cyanosis, clubbing, or pedal edema. NEUROLOGICAL: Patient is sedated SKIN: No rashes. Assessment Abdominal pain right upper quadrant and finding of splenic hematoma with mild hemoperitoneum status post exploratory laporotomy and splenectomy Leukocytosis and lactic acidosis Abnormal urinalysis possibly asymptomatic bacteriruea Acute hypoxemic respiratory failure 86% on room air; on mechanical ventilator post surgery. 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 Continue on empiric antibiotic coverage Fluids have been adjusted to LR at 150 mls/hr Hold metformin, patient is NPO, novolog sliding scale and accuchecks Q6h ordered Patient is being monitored in the ICU post surgery on the ventilator Follow up labs in AM Thank you for this consultation The impression and plan of care has been dictated by Nisha Tian Nurse Practitioner as directed. Dr. Ute MD I have performed a history and physical examination and medical decision making of this patient, discussed the same with the dictator, and agree with the dictators assessment and plan as written, documented as a scribe. Based on total visit time, I have performed more than 50% of this visit. Past Medical History Past Medical History: Asthma, COPD, Diabetes Mellitus, Hyperlipidemia, Hypertension Additional Past Medical History / Comment(s): neuropathy, MS, pancreatic mass History of Any Multi-Drug Resistant Organisms: None Reported Past Surgical History: Back Surgery, Section Additional Past Surgical History / Comment(s): Kidey surgery Past Psychological History: Anxiety, Depression Smoking Status: Current every day smoker Past Alcohol Use History: None Reported Past Drug Use History: None Reported Medications and Allergies Home Medications Medication Instructions Recorded Confirmed Type ALPRAZolam [Xanax] 1 mg PO BID PRN 02/05/20 01/17/23 History Albuterol Sulfate [Ventolin HFA] 2 puff INHALATION RT-Q4H PRN 02/05/20 01/17/23 History Zolpidem Tartrate [Ambien] 10 mg PO HS 02/05/20 01/17/23 History Atorvastatin [Lipitor] 40 mg PO HS 01/17/23 01/17/23 History Brexpiprazole [Rexulti] 4 mg PO DAILY 01/17/23 01/17/23 History EPINEPHrine (Auto Inject) [Epipen] 0.3 mg IM ONCE PRN 01/17/23 01/17/23 History Ketoconazole 2% Cream [Nizoral 2%] 1 applic TOPICAL DAILY 01/17/23 01/17/23 History Lurasidone [Latuda] 20 mg PO DAILY 01/17/23 01/17/23 History Montelukast [Singulair] 10 mg PO HS 01/17/23 01/17/23 History Pregabalin [Lyrica] 200 mg PO BID 01/17/23 01/17/23 History Tiotropium [place] [Spiriva] 1 puff INHALATION RT-DAILY 01/17/23 01/17/23 History amLODIPine [Norvasc] 10 mg PO DAILY 01/17/23 01/17/23 History metFORMIN HCL [Glucophage] 500 mg PO BID 01/17/23 01/17/23 History Allergies Allergy/AdvReac Type Severity Reaction Status Date / Time aspirin Allergy Dyspnea Verified 01/17/23 08:03 codeine Allergy Dyspnea Verified 01/17/23 08:03 ibuprofen [From Motrin] Allergy Dyspnea Verified 01/17/23 08:03 morphine Allergy Rash/Hives Verified 01/17/23 08:03 naproxen Allergy Dyspnea Verified 01/17/23 08:03 tramadol [From Ultram] Allergy Dyspnea Verified 01/17/23 08:03 Physical Exam Vitals: Vital Signs Temp Pulse Pulse Resp BP BP Pulse Ox 01/17/23 08:15 101 H 16 101/56 83 L 01/17/23 07:55 97.1 F L 102 H 16 93/54 86 L 01/17/23 07:30 97.6 F 106 H 18 96/64 91 L 01/17/23 04:00 96 22 116/59 92 L 01/17/23 02:24 90 18 123/69 91 L 01/17/23 02:03 86 01/17/23 01:55 88 09/26/23 01:21 98 F 85 24 94/64 86 L Intake and Output 01/16/23 01/17/23 01/17/23 22:59 06:59 14:59 Intake Total 0 Balance 0 Intake: IV 0 Other: Weight 90.718 kg Results CBC & Chem 7: 01/17/23 06:40 01/17/23 01:51 Labs: Abnormal Lab Results - Last 24 Hours (Table) 01/17/23 01/17/23 01/17/23 Range/Units 01:51 01:51 01:51 WBC 22.2 H (3.8-10.6) k/uL Neutrophils # 19.1 H (1.3-7.7) k/uL Sodium 136 L (137-145) mmol/L Glucose 152 H (74-99) mg/dL POC Glucose (mg/dL) (70-110) mg/dL Plasma Lactic Acid Jermaine 3.6 H* (0.7-2.0) mmol/L Alkaline Phosphatase 134 H (38-126) U/L Amylase 116 H (30-110) U/L Lipase 372 H (23-300) U/L Urine Appearance (Clear) Ur Specific [place] (1.001-1.035) Urine Protein (Negative) Urine Blood (Negative) Urine Nitrite (Negative) Ur Leukocyte Esterase (Negative) Urine WBC (0-5) /hpf Ur Squamous Epith Cells (0-4) /hpf Urine Bacteria (None) /hpf Urine Mucus (None) /hpf Crossmatch 01/17/23 01/17/23 01/17/23 Range/Units 05:10 06:40 06:40 WBC 17.9 H (3.8-10.6) k/uL Neutrophils # 14.7 H (1.3-7.7) k/uL Sodium (137-145) mmol/L Glucose (74-99) mg/dL POC Glucose (mg/dL) (70-110) mg/dL Plasma Lactic Acid Jermaine 3.7 H* (0.7-2.0) mmol/L Alkaline Phosphatase (38-126) U/L Amylase (30-110) U/L Lipase (23-300) U/L Urine Appearance Cloudy H (Clear) Ur Specific [place] >1.050 H (1.001-1.035) Urine Protein 1+ H (Negative) Urine Blood Trace H (Negative) Urine Nitrite Positive H (Negative) Ur Leukocyte Esterase Moderate H (Negative) Urine WBC 23 H (0-5) /hpf Ur Squamous Epith Cells 9 H (0-4) /hpf Urine Bacteria Occasional H (None) /hpf Urine Mucus Few H (None) /hpf Crossmatch 01/17/23 01/17/23 Range/Units 07:55 08:11 WBC (3.8-10.6) k/uL Neutrophils # (1.3-7.7) k/uL Sodium (137-145) mmol/L Glucose (74-99) mg/dL POC Glucose (mg/dL) 244 H (70-110) mg/dL Plasma Lactic Acid Jermaine (0.7-2.0) mmol/L Alkaline Phosphatase (38-126) U/L Amylase (30-110) U/L Lipase (23-300) U/L Urine Appearance (Clear) Ur Specific [place] (1.001-1.035) Urine Protein (Negative) Urine Blood (Negative) Urine Nitrite (Negative) Ur Leukocyte Esterase (Negative) Urine WBC (0-5) /hpf Ur Squamous Epith Cells (0-4) /hpf Urine Bacteria (None) /hpf Urine Mucus (None) /hpf Crossmatch See Detail Assessment and Plan Time with Patient: Greater than 30
[2023-01-17 15:45] LABS: Glucose,Whole Blood 133 mg/dL (70-110)
[2023-01-17 16:22] LABS: Basophils # (A) 0.1 k/uL (0-0.2); Basophils % (A) 0 %; Eosinophils # (A) 0.1 k/uL (0-0.7); Eosinophils % (A) 0 %; HCT 39.5 % (34.0-46.0); HGB 13.2 gm/dL (11.4-16.0); Lymphocytes # (A) 1.9 k/uL (1.0-4.8); Lymphocytes % (A) 10 %; MCH 30.9 pg (25.0-35.0); MCHC 33.5 g/dL (31.0-37.0); MCV 92.4 fL (80.0-100.0); Mean Platelet Volume 8.8; Monocytes # (A) 1.5 k/uL (0-1.0); Monocytes % (A) 8 %; Neutrophils # (A) 15.6 k/uL (1.3-7.7); Neutrophils % (A) 81 %; Platelet Count 290 k/uL (150-450); RBC 4.27 m/uL (3.80-5.40); RDW 13.9 % (11.5-15.5); WBC 19.4 k/uL (3.8-10.6)
[2023-01-17 17:30] LABS: Glucose,Whole Blood 118 mg/dL (70-110)
[2023-01-17] MEDS: HYDROmorphone 1 MG/ML 1 ML SYRINGE IVP PRN ×2 (18:41→23:16)
[2023-01-17] MEDS: LACTATED RINGERS 1,000 ML IV SCH (18:44)
[2023-01-17 20:37] LABS: Glucose,Whole Blood 130 mg/dL (70-110)
[2023-01-17] MEDS: ATORVASTATIN 40 MG TAB PO SCH (20:44)
[2023-01-17] MEDS: SENNOSIDES 8.6 MG TAB PO SCH (20:44)
[2023-01-17] MEDS: MONTELUKAST 10 MG TAB PO SCH (20:44)
--- NOTE | 2023-01-17 23:48 | XR ---
EXAM: XR Chest, 1 View CLINICAL HISTORY: XR Reason: prior right mainstem intubation; evaluate ET tube TECHNIQUE: Frontal view of the chest. COMPARISON: January 17, 2023 FINDINGS: Lungs: Hazy increased densities in both lung bases, greater on the left with obscured left diaphragm and blunting costophrenic angle suggesting small left pleural effusion and bibasilar atelectasis or pneumonia, slightly improved since previous. Pleural space: See above. Heart: The cardiac silhouette is enlarged, similar to previous. Mediastinum: Unremarkable. Bones/joints: Unremarkable. Tubes, lines and devices: Endotracheal tube tip is located 1 cm from the lul. The NG tube extends into the stomach. IMPRESSION: 1. Hazy increased densities in both lung bases, greater on the left with obscured left diaphragm and blunting costophrenic angle suggesting small left pleural effusion and bibasilar atelectasis or pneumonia, slightly improved since previous. 2. Endotracheal tube tip is located 1 cm from the lul. The NG tube extends into the stomach.
[2023-01-18 00:03] LABS: Glucose,Whole Blood 145 mg/dL (70-110)
[2023-01-18 00:04] LABS: Basophils # (A) 0.1 k/uL (0-0.2); Basophils % (A) 0 %; Eosinophils # (A) 0.1 k/uL (0-0.7); Eosinophils % (A) 1 %; HCT 33.6 % (34.0-46.0); HGB 11.2 gm/dL (11.4-16.0); Lymphocytes # (A) 1.3 k/uL (1.0-4.8); Lymphocytes % (A) 8 %; MCH 30.8 pg (25.0-35.0); MCHC 33.2 g/dL (31.0-37.0); MCV 92.7 fL (80.0-100.0); Mean Platelet Volume 8.4; Monocytes # (A) 1.4 k/uL (0-1.0); Monocytes % (A) 9 %; Neutrophils # (A) 13.2 k/uL (1.3-7.7); Neutrophils % (A) 81 %; Platelet Count 262 k/uL (150-450); RBC 3.63 m/uL (3.80-5.40); RDW 14.3 % (11.5-15.5); WBC 16.3 k/uL (3.8-10.6)
[2023-01-18] MEDS: PIPERACILLIN-TAZOBACTAM 3.375 GM in SODIUM CHLORIDE 0.9% 100 ML IVPB SCH ×3 (00:09→16:04)
[2023-01-18] MEDS: LACTATED RINGERS 1,000 ML IV SCH ×3 (01:25→19:50)
[2023-01-18] MEDS: IPRATROPIUM-ALBUTEROL 3 ML NEB INHALATION SCH ×5 (04:09→21:03)
[2023-01-18 04:16] LABS: Glucose,Whole Blood 137 mg/dL (70-110)
[2023-01-18] MEDS: HYDROmorphone 1 MG/ML 1 ML SYRINGE IVP PRN ×6 (04:17→20:26)
[2023-01-18] MEDS: INSULIN ASPART (NovoLOG) 100 UNIT/ML VIAL SQ SCH ×4 (04:25→22:18)
[2023-01-18 05:01] LABS: ALT 37 U/L (4-34); AST 39 U/L (14-36); African American GFR (CKD) >90 (>60 ml/min/1.73 sqM); Albumin 2.6 g/dL (3.5-5.0); Alkaline Phosphatase 100 U/L (38-126); Anion Gap 5 mmol/L; Blood Urea Nitrogen 8 mg/dL (7-17); Calcium 8.1 mg/dL (8.4-10.2); Carbon Dioxide 28 mmol/L (22-30); Chloride 102 mmol/L (98-107); Glucose 146 mg/dL (74-99); Magnesium 1.5 mg/dL (1.6-2.3); Non-African American GFR(CKD) >90 (>60 ml/min/1.73 sqM); Sodium 135 mmol/L (137-145); Total Bilirubin 0.7 mg/dL (0.2-1.3); Total Protein 4.9 g/dL (6.3-8.2)
[2023-01-18 05:04] LABS: ABG Base Excess 5.7 mmol/L; ABG HCO3 31 mmol/L (21-25); ABG Oxygen Saturation 92.2 % (94-97); ABG PCO2 54 mmHg (35-45); ABG PH 7.37 (7.35-7.45); ABG PO2 64 mmHg (83-108); ABG TCO2 33 mmol/L (19-24); Allen Test Performed? Yes
[2023-01-18 05:32] LABS: Basophils # (A) 0.1 k/uL (0-0.2); Basophils % (A) 0 %; Eosinophils # (A) 0.3 k/uL (0-0.7); Eosinophils % (A) 1 %; HCT 34.5 % (34.0-46.0); HGB 11.7 gm/dL (11.4-16.0); Lymphocytes # (A) 1.8 k/uL (1.0-4.8); Lymphocytes % (A) 8 %; MCH 31.4 pg (25.0-35.0); MCHC 33.9 g/dL (31.0-37.0); MCV 92.4 fL (80.0-100.0); Monocytes # (A) 1.9 k/uL (0-1.0); Monocytes % (A) 9 %; Neutrophils # (A) 17.2 k/uL (1.3-7.7); Neutrophils % (A) 81 %; Platelet Count 248 k/uL (150-450); RBC 3.73 m/uL (3.80-5.40); RDW 14.5 % (11.5-15.5); WBC 21.3 k/uL (3.8-10.6)
[2023-01-18 06:05] LABS: Glucose,Whole Blood 161 mg/dL (70-110)
[2023-01-18] MEDS ORDERED: POTASSIUM BICARBONATE/CIT AC 20 MEQ TABLET.EFF NG-TUBE SCH (06:30)
[2023-01-18] MEDS ORDERED: NON FORMULARY DRUG (Tiotropium Bromide [Spiriva Handihaler] 18 MCG Cap.W.Dev) INHALATION SCH (08:00)
[2023-01-18] MEDS: ENOXAPARIN 40 MG/0.4 ML SYRINGE SQ SCH (08:06)
[2023-01-18] MEDS: CHLORHEXIDINE GLUCONATE 15 ML CUP MUCOUS MEM SCH ×2 (08:06→19:33)
[2023-01-18] MEDS: PANTOPRAZOLE 40 MG/10 ML VIAL IVP SCH (08:06)
[2023-01-18] MEDS: MAGNESIUM SULFATE-D5W PMX 1 GM in DEXTROSE/WATER 1 100ML.BAG IVPB SCH ×2 (08:08→09:46)
--- NOTE | 2023-01-18 08:28 | XR ---
EXAMINATION TYPE: XR chest 1V portable DATE OF EXAM: 01/18/2023 COMPARISON: 01/17/2023 HISTORY: ET tube placement TECHNIQUE: Single frontal view of the chest is obtained. FINDINGS: ET and NG tube stable. Bilateral lower lobe infiltrates greater left. Apical pleural heart is enlarged. Osseous structures are stable. IMPRESSION: Stable bilateral infiltrates and small pleural effusion.
[2023-01-18] MEDS ORDERED: FUROSEMIDE 10 MG/ML 10 ML VIAL IV STA (09:33)
[2023-01-18 11:01] LABS: Glucose,Whole Blood 204 mg/dL (70-110)
--- NOTE | 2023-01-18 11:50 | P.PN ---
Subjective Progress Note Date: 01/18/23 CHIEF COMPLAINT: Spontaneous splenic hematoma HISTORY OF PRESENT ILLNESS: This is a 52-year-old female who is postop day #1 status post exploratory laparotomy, splenectomy, repair of incisional hernia with partial omentectomy. She is currently intubated in the ICU. She is scheduled to undergo weaning trials possibly later today. She's also been given IV Lasix. She did have a low-grade temp of 100.4 last night. WBC is up from 16.3-21.3 hemoglobin stable at 11.7 platelets 248 magnesium low at 1.5 and being replaced. SHANELL drain 30 mL output. PHYSICAL EXAM: VITAL SIGNS: Reviewed. GENERAL: Well-developed in no acute distress. ABDOMEN: Soft. Nondistended. Prevana wound vac intact. SHANELL drain in place NEUROLOGIC: Intubated and sedated ASSESSMENT: 1. Spontaneous splenic hematoma with capsule rupture and Incarcerated incisional hernia PLAN: -Continue ICU management -Vent management per pulmonary service -Dilaudid IV increased to every 3hours prn for pain to help with pain control -Continue supportive care -Continue antibiotic -[facility]T [facility] note has been reviewed by physician. Signing provider agrees with the documented findings, assessment, and plan of care. Objective - Vital Signs Vital signs: Vital Signs Temp 99.9 F H 01/18/23 08:00 Pulse 98 01/18/23 10:58 Resp 14 01/18/23 10:00 BP 114/61 01/18/23 10:00 Pulse Ox 93 L 01/18/23 10:00 FiO2 50 01/18/23 10:44 Intake & Output 01/17/23 01/18/23 01/18/23 18:59 06:59 18:59 Intake Total 2270.000 2223.359 361.907 Output Total 1900 1485 260 Balance 370.000 738.359 101.907 Weight 90.718 kg 99.2 kg Intake: IV 650 100 75 Piperacillin-Tazobactam 3 100 75 .375 gm In Sodium Chloride 0.9% 100 ml @ 25 mls/hr IVPB Q8HR [facility] Rx# :[id number] Intake, IV Titration 6729.140 5208.359 286.907 Amount Lactated Ringers 1,000 ml 900 1950 @ 150 mls/hr IV .Q6H40M [facility] Rx#:[id number] Magnesium Sulfate-D5w Pmx 200 1 gm In Dextrose/Water 1 100ml.bag @ 100 mls/hr IVPB Q1H [facility] Rx#: [id number] propofoL 1,000 mg In 100.000 173.359 86.907 Empty Bag 1 bag @ 15 MCG/ KG/MIN 8.165 mls/hr IV . [id number] [facility] Rx#:[id number] Blood Product 620 Rc As-1 Unit 310 [id number] Rc Pheresis 2 As3 Unit 310 [id number] Output: Gastric Drainage 200 300 Drainage 50 20 0 Left Abdomen 50 20 0 Urine 625 1165 260 Estimated Blood Loss 1025 Other: Voiding Method Indwelling Catheter Indwelling Catheter Indwelling Catheter - Labs CBC & Chem 7: 01/18/23 04:12 01/18/23 04:12 Labs: Abnormal Lab Results - Last 24 Hours (Table) 01/17/23 01/17/23 01/17/23 Range/Units 07:55 11:23 15:00 WBC (3.8-10.6) k/uL RBC (3.80-5.40) m/uL Hgb (11.4-16.0) gm/dL Hct (34.0-46.0) % Neutrophils # (1.3-7.7) k/uL Monocytes # (0-1.0) k/uL ABG pH 7.30 L (7.35-7.45) ABG pCO2 50 H (35-45) mmHg ABG pO2 124 H (83-108) mmHg ABG HCO3 (21-25) mmol/L ABG Total CO2 26 H (19-24) mmol/L ABG O2 Saturation 98.1 H (94-97) % Sodium (137-145) mmol/L Glucose (74-99) mg/dL POC Glucose (mg/dL) (70-110) mg/dL Plasma Lactic Acid Jermaine 2.2 H* (0.7-2.0) mmol/L Calcium (8.4-10.2) mg/dL Magnesium (1.6-2.3) mg/dL AST (14-36) U/L ALT (4-34) U/L Total Protein (6.3-8.2) g/dL Albumin (3.5-5.0) g/dL Crossmatch See Detail 01/17/23 01/17/23 01/17/23 Range/Units 15:00 15:43 17:29 WBC 19.4 H (3.8-10.6) k/uL RBC (3.80-5.40) m/uL Hgb (11.4-16.0) gm/dL Hct (34.0-46.0) % Neutrophils # 15.6 H (1.3-7.7) k/uL Monocytes # 1.5 H (0-1.0) k/uL ABG pH (7.35-7.45) ABG pCO2 (35-45) mmHg ABG pO2 (83-108) mmHg ABG HCO3 (21-25) mmol/L ABG Total CO2 (19-24) mmol/L ABG O2 Saturation (94-97) % Sodium (137-145) mmol/L Glucose (74-99) mg/dL POC Glucose (mg/dL) 133 H 118 H (70-110) mg/dL Plasma Lactic Acid Jermaine (0.7-2.0) mmol/L Calcium (8.4-10.2) mg/dL Magnesium (1.6-2.3) mg/dL AST (14-36) U/L ALT (4-34) U/L Total Protein (6.3-8.2) g/dL Albumin (3.5-5.0) g/dL Crossmatch 01/17/23 01/17/23 01/18/23 Range/Units 20:36 23:31 00:02 WBC 16.3 H (3.8-10.6) k/uL RBC 3.63 L (3.80-5.40) m/uL Hgb 11.2 L (11.4-16.0) gm/dL Hct 33.6 L (34.0-46.0) % Neutrophils # 13.2 H (1.3-7.7) k/uL Monocytes # 1.4 H (0-1.0) k/uL ABG pH (7.35-7.45) ABG pCO2 (35-45) mmHg ABG pO2 (83-108) mmHg ABG HCO3 (21-25) mmol/L ABG Total CO2 (19-24) mmol/L ABG O2 Saturation (94-97) % Sodium (137-145) mmol/L Glucose (74-99) mg/dL POC Glucose (mg/dL) 130 H 145 H (70-110) mg/dL Plasma Lactic Acid Jermaine (0.7-2.0) mmol/L Calcium (8.4-10.2) mg/dL Magnesium (1.6-2.3) mg/dL AST (14-36) U/L ALT (4-34) U/L Total Protein (6.3-8.2) g/dL Albumin (3.5-5.0) g/dL Crossmatch 01/18/23 01/18/23 01/18/23 Range/Units 04:12 04:12 04:14 WBC 21.3 H (3.8-10.6) k/uL RBC 3.73 L (3.80-5.40) m/uL Hgb (11.4-16.0) gm/dL Hct (34.0-46.0) % Neutrophils # 17.2 H (1.3-7.7) k/uL Monocytes # 1.9 H (0-1.0) k/uL ABG pH (7.35-7.45) ABG pCO2 (35-45) mmHg ABG pO2 (83-108) mmHg ABG HCO3 (21-25) mmol/L ABG Total CO2 (19-24) mmol/L ABG O2 Saturation (94-97) % Sodium 135 L (137-145) mmol/L Glucose 146 H (74-99) mg/dL POC Glucose (mg/dL) 137 H (70-110) mg/dL Plasma Lactic Acid Jermaine (0.7-2.0) mmol/L Calcium 8.1 L (8.4-10.2) mg/dL Magnesium 1.5 L (1.6-2.3) mg/dL AST 39 H (14-36) U/L ALT 37 H (4-34) U/L Total Protein 4.9 L (6.3-8.2) g/dL Albumin 2.6 L (3.5-5.0) g/dL Crossmatch 01/18/23 01/18/23 01/18/23 Range/Units 04:38 06:04 10:59 WBC (3.8-10.6) k/uL RBC (3.80-5.40) m/uL Hgb (11.4-16.0) gm/dL Hct (34.0-46.0) % Neutrophils # (1.3-7.7) k/uL Monocytes # (0-1.0) k/uL ABG pH (7.35-7.45) ABG pCO2 54 H (35-45) mmHg ABG pO2 64 L (83-108) mmHg ABG HCO3 31 H (21-25) mmol/L ABG Total CO2 33 H (19-24) mmol/L ABG O2 Saturation 92.2 L (94-97) % Sodium (137-145) mmol/L Glucose (74-99) mg/dL POC Glucose (mg/dL) 161 H 204 H (70-110) mg/dL Plasma Lactic Acid Jermaine (0.7-2.0) mmol/L Calcium (8.4-10.2) mg/dL Magnesium (1.6-2.3) mg/dL AST (14-36) U/L ALT (4-34) U/L Total Protein (6.3-8.2) g/dL Albumin (3.5-5.0) g/dL Crossmatch
--- NOTE | 2023-01-18 13:36 | P.PN ---
Subjective Progress Note Date: 01/18/23 Principal diagnosis: Abdominal pain. Pulmonary consult dated 01/17/2023. 52-year-old female who presented to the emergency department, early on the morning of January 17, with 4 days of left-sided abdominal pain. The pain was described as being moderate to severe. She denied any GI issues like diarrhea, vomiting, etc. The patient ended up having a idiopathic splenic rupture, and, today, went to the operating room, which she had a splenectomy. The patient was brought back to the intensive care unit on the mechanical ventilator. She is on the volume assist control, rate 14, tidal volume 400, FiO2 100%, and PEEP of 5. Blood gases show pO2 124, pCO2 of 50, pH is 7.3. The patient has a Mckinley- Kothari drain in place, a Provena wound VAC, a Ramos catheter, and orogastric tube, and endotracheal tube in place. She has 2 peripheral IVs. She's currently on Zosyn. She is receiving us second unit of packed red blood cells. She's getting propofol at 20 mcg/kg/m. He is also getting lactated Ringer's at 150 mL an hour. Blood gases show pO2 124, pCO2 of 50, pH is 7.3. Initial chest x-ray showed a right mainstem intubation. Endotracheal tube was pulled back. The patient has a history of hypertension, hyperlipidemia, asthma/COPD, diabetes, chronic tobacco use, and questionable MS. White count 17.9, with a normal hemoglobin, hematocrit, and platelet count. Sodium 136, potassium 4.6, chlorides 98, CO2 25, BUN 12, creatinine 0.79. Lactic acid was 3.7. Amylase 116, and lipase 372. Urine was cloudy, with 1+ protein, positive for nitrite and leukocyte esterase, with 23 WBCs and occasional bacteria. Progress note dated 01/18/2023. Patient is postop day #1, status post splenectomy for spontaneous rupture of the spleen. The patient remains on the mechanical ventilator. The patient is seen today in room 259. She is on volume assist control, rate 14, tidal volume 400, FiO2 50%, and PEEP of 10. Blood gases show pO2 64, pCO2 54, and a pH is 7.37. The patient's on propofol at 40 mcg/kg/m, lactated Ringer's at 150 mL an hour, and Zosyn. She's received total of 2 units of packed red blood cells. The patient will get Lasix 60 mg IV push, and lactated Ringer's will be induced on the 75 mL an hour. White count is 21.3, hemoglobin 11.7, hematocrit 34.5, and platelet count 248,000. Sodium 135, potassium 4, chlorides 102, CO2 28, BUN 8, creatinine 0.69. Magnesium 1.5. Albumin 2.6. Chest x-ray shows stable bilateral infiltrates. Objective - Vital Signs Vital signs: Vital Signs Temp 99.9 F H 01/18/23 08:00 Pulse 98 01/18/23 11:00 Resp 14 01/18/23 11:00 BP 111/56 01/18/23 11:00 Pulse Ox 93 L 01/18/23 11:00 FiO2 50 01/18/23 10:44 Intake & Output 01/17/23 01/18/23 01/18/23 18:59 06:59 18:59 Intake Total 2270.000 2223.359 386.907 Output Total 1900 1485 1860 Balance 370.000 738.359 -1473.093 Weight 90.718 kg 99.2 kg Intake: IV 650 100 100 Piperacillin-Tazobactam 3 100 100 .375 gm In Sodium Chloride 0.9% 100 ml @ 25 mls/hr IVPB Q8HR [facility] Rx# :[id number] Intake, IV Titration 7188.667 9368.359 286.907 Amount Lactated Ringers 1,000 ml 900 1950 @ 150 mls/hr IV .Q6H40M [facility] Rx#:[id number] Magnesium Sulfate-D5w Pmx 200 1 gm In Dextrose/Water 1 100ml.bag @ 100 mls/hr IVPB Q1H [facility] Rx#: [id number] propofoL 1,000 mg In 100.000 173.359 86.907 Empty Bag 1 bag @ 15 MCG/ KG/MIN 8.165 mls/hr IV . [id number] [facility] Rx#:[id number] Blood Product 620 Rc As-1 Unit 310 [id number] Rc Pheresis 2 As3 Unit 310 [id number] Output: Gastric Drainage 200 300 Drainage 50 20 0 Left Abdomen 50 20 0 Urine 625 1165 1860 Estimated Blood Loss 1025 Other: Voiding Method Indwelling Catheter Indwelling Catheter Indwelling Catheter - Exam No acute distress, sedated, with an orally placed endotracheal tube and nasogastric tube. HEENT examination is grossly unremarkable. Neck supple. Full range of motion. No adenopathy thyromegaly or neck vein distention. Cardiovascular examination reveals regular rhythm rate. S1-S2 normal. No S3 or S4. No discernible murmur noted. Heart rate 98 bpm. Lungs reveal clear breath sounds. Breath sounds are equal bilaterally. No adventitious lung sounds including wheezes rhonchi or crackles. Saturations are 93 %. Abdomen soft, without bowel sounds. A wound VAC is noted, as well as 1 Mckinley- Kothari drain. Extremities are intact. No cyanosis clubbing or edema. Skin is without rash or lesion. Neurologic examination cannot be assessed at this time. - Labs CBC & Chem 7: 01/18/23 04:12 01/18/23 04:12 Labs: Abnormal Lab Results - Last 24 Hours (Table) 01/17/23 01/17/23 01/17/23 Range/Units 15:00 15:00 15:43 WBC 19.4 H (3.8-10.6) k/uL RBC (3.80-5.40) m/uL Hgb (11.4-16.0) gm/dL Hct (34.0-46.0) % Neutrophils # 15.6 H (1.3-7.7) k/uL Monocytes # 1.5 H (0-1.0) k/uL ABG pCO2 (35-45) mmHg ABG pO2 (83-108) mmHg ABG HCO3 (21-25) mmol/L ABG Total CO2 (19-24) mmol/L ABG O2 Saturation (94-97) % Sodium (137-145) mmol/L Glucose (74-99) mg/dL POC Glucose (mg/dL) 133 H (70-110) mg/dL Plasma Lactic Acid Jermaine 2.2 H* (0.7-2.0) mmol/L Calcium (8.4-10.2) mg/dL Magnesium (1.6-2.3) mg/dL AST (14-36) U/L ALT (4-34) U/L Total Protein (6.3-8.2) g/dL Albumin (3.5-5.0) g/dL 01/17/23 01/17/23 01/17/23 Range/Units 17:29 20:36 23:31 WBC 16.3 H (3.8-10.6) k/uL RBC 3.63 L (3.80-5.40) m/uL Hgb 11.2 L (11.4-16.0) gm/dL Hct 33.6 L (34.0-46.0) % Neutrophils # 13.2 H (1.3-7.7) k/uL Monocytes # 1.4 H (0-1.0) k/uL ABG pCO2 (35-45) mmHg ABG pO2 (83-108) mmHg ABG HCO3 (21-25) mmol/L ABG Total CO2 (19-24) mmol/L ABG O2 Saturation (94-97) % Sodium (137-145) mmol/L Glucose (74-99) mg/dL POC Glucose (mg/dL) 118 H 130 H (70-110) mg/dL Plasma Lactic Acid Jermaine (0.7-2.0) mmol/L Calcium (8.4-10.2) mg/dL Magnesium (1.6-2.3) mg/dL AST (14-36) U/L ALT (4-34) U/L Total Protein (6.3-8.2) g/dL Albumin (3.5-5.0) g/dL 01/18/23 01/18/23 01/18/23 Range/Units 00:02 04:12 04:12 WBC 21.3 H (3.8-10.6) k/uL RBC 3.73 L (3.80-5.40) m/uL Hgb (11.4-16.0) gm/dL Hct (34.0-46.0) % Neutrophils # 17.2 H (1.3-7.7) k/uL Monocytes # 1.9 H (0-1.0) k/uL ABG pCO2 (35-45) mmHg ABG pO2 (83-108) mmHg ABG HCO3 (21-25) mmol/L ABG Total CO2 (19-24) mmol/L ABG O2 Saturation (94-97) % Sodium 135 L (137-145) mmol/L Glucose 146 H (74-99) mg/dL POC Glucose (mg/dL) 145 H (70-110) mg/dL Plasma Lactic Acid Jermaine (0.7-2.0) mmol/L Calcium 8.1 L (8.4-10.2) mg/dL Magnesium 1.5 L (1.6-2.3) mg/dL AST 39 H (14-36) U/L ALT 37 H (4-34) U/L Total Protein 4.9 L (6.3-8.2) g/dL Albumin 2.6 L (3.5-5.0) g/dL 01/18/23 01/18/23 01/18/23 Range/Units 04:14 04:38 06:04 WBC (3.8-10.6) k/uL RBC (3.80-5.40) m/uL Hgb (11.4-16.0) gm/dL Hct (34.0-46.0) % Neutrophils # (1.3-7.7) k/uL Monocytes # (0-1.0) k/uL ABG pCO2 54 H (35-45) mmHg ABG pO2 64 L (83-108) mmHg ABG HCO3 31 H (21-25) mmol/L ABG Total CO2 33 H (19-24) mmol/L ABG O2 Saturation 92.2 L (94-97) % Sodium (137-145) mmol/L Glucose (74-99) mg/dL POC Glucose (mg/dL) 137 H 161 H (70-110) mg/dL Plasma Lactic Acid Jermaine (0.7-2.0) mmol/L Calcium (8.4-10.2) mg/dL Magnesium (1.6-2.3) mg/dL AST (14-36) U/L ALT (4-34) U/L Total Protein (6.3-8.2) g/dL Albumin (3.5-5.0) g/dL 01/18/23 Range/Units 10:59 WBC (3.8-10.6) k/uL RBC (3.80-5.40) m/uL Hgb (11.4-16.0) gm/dL Hct (34.0-46.0) % Neutrophils # (1.3-7.7) k/uL Monocytes # (0-1.0) k/uL ABG pCO2 (35-45) mmHg ABG pO2 (83-108) mmHg ABG HCO3 (21-25) mmol/L ABG Total CO2 (19-24) mmol/L ABG O2 Saturation (94-97) % Sodium (137-145) mmol/L Glucose (74-99) mg/dL POC Glucose (mg/dL) 204 H (70-110) mg/dL Plasma Lactic Acid Jermaine (0.7-2.0) mmol/L Calcium (8.4-10.2) mg/dL Magnesium (1.6-2.3) mg/dL AST (14-36) U/L ALT (4-34) U/L Total Protein (6.3-8.2) g/dL Albumin (3.5-5.0) g/dL Microbiology - Last 24 Hours (Table) 01/17/23 03:48 Blood Culture - Preliminary Blood 01/17/23 03:17 Blood Culture - Preliminary Blood 01/17/23 12:15 Urine Culture - Final Urine,Catheterized Assessment and Plan Assessment: Postop day #1, status post exploratory laparotomy with splenectomy, for idio pathic splenic rupture. Routine postoperative ventilator management. History of COPD/asthma. History of hypertension. History of hyperlipidemia. History of diabetes mellitus. Question will history of multiple sclerosis. Ongoing tobacco use with nicotine addiction. Plan: Plan dated 01/17/2023. The ICU admission orders, and the vent bundle orders, were activated. The patient will be placed on albuterol sulfate and ipratropium bromide, every 4 hours [id number]. Labs, x-rays, and medications are reviewed. The patient is currently on propofol at 20 mcg/kg/m, and lactated Ringer's at 150 mL an hour. The FiO2 will be weaned down by respiratory. The patient is going to receive her second unit of packed red blood cells. The patient remains on Zosyn empirically. Additional recommendations and suggestions are forthcoming. The patient's overall prognosis is guarded. We will continue to follow the patient, and make recommendations along the way. Hopeful extubation tomorrow. Plan dated 01/18/2023. The patient is seen today in room 259. Her oxygenation is borderline on 50% and 10 of PEEP. The patient remains on propofol at 40 mcg/kg/m. On Zosyn empirical ly. The patient has received 2 units of packed red blood cells before. Lactated Ringer's to be dropped back to 75 mL an hour. The patient will get Lasix 60 mg IV push times one. The patient may benefit from a daily interruption of sedation and a spontaneous breathing trial later today. If so, the patient will be placed on a pressure support of 10, and CPAP of 5. Labs, x- rays, and medications are reviewed. Prognosis is guarded. We will continue to follow the patient, and make recommendations along the way. Time with Patient: Greater than 30
--- NOTE | 2023-01-18 13:39 | P.PN ---
Subjective Progress Note Date: 01/18/23 This is a 52-year-old female with medical history of asthma/COPD, diabetes mellitus, hypertension, hyperlipidemia, known pancreatic mass and multiple sclerosis patient is a current daily smoker also history of anxiety and depression. Presents to the hospital with complaints of four-day history of right upper quadrant pain that has been progressive. History is taken from patients daughter at the bedside in the ICU. Patient is currently intubated on mechanical ventilator. Initial work up reveals white count 22.2 and hemoglobin of 14.2 which has since dropped down to 12.3. Patient does have lactic acidosis at 3.6 on admission as well as elevated amylase and lipase and alk phos. Urinalysis shows positive nitrites and moderate leukocyte esterase concerning for possible underlying urinary tract infection. Patient had abdominal pelvis CT for further evaluation of abdominal pain and found to have a 10.7 x 5.7 x 14.1 cm splenic subcapsular hematoma with extension beyond the spleen with mild hemoperitoneum. There are no signs of active extravasation identified which may be due to phase of contrast consider interventional consultation. There is also 1.9 severe pancreatic cyst at the tail of the pancreas. Chest x-ray shows dependent airspace disease in the lungs which may be due to atelectatic changes infection also possible. Patient was taken for exploratory laparotomy and splenectomy with Dr. Cummins. She is scheduled to receive 2 units of packed red blood cells. She was also started on empiric antibiotic coverage with IV Zosyn and being hydrated with IV fluids normal saline at 75 mL per hour. Patient found to be hypoxic postoperative has been placed on 5L of oxygen via nasal c annula. Blood pressure is marginal. Postoperatively, patient was taken to the intensive care unit with a pulmonary pin drafting machine operator consultation she is currently on a mechanical ventilator with FiO2 of 50%. NG tube is in place. Abdominal wound is closed with a prevana wound vac. 01/18/2023 Patient remains in the intensive care unit, she is intubated on mechanical ventilator with a PEEP of 10, FiO2 of 50%. Patient is postoperative day #1 exploratory laporotomy, splenectomy, repair of incisional hernia and partial omentectomy. NG in place. Midline wound vac intact. Patient with positive bowel sounds. Chest xray today showing stable bilateral infiltrates greater on the left with small pleural effusion. LR has been decreased to 75ml/hr and patient also given a dose of IV lasix 60 mg. Pulmonary following. Patient remains on empiric antibiotics with IV zosyn. White count 21.3 today. Blood culture so far negative and urine culture is negative. Patient having low grade temps. REVIEW OF SYSTEMS: Unable to complete patient is currently intubated and sedated. PHYSICAL EXAMINATION: GENERAL: Intubated and sedated. , not in any acute distress. Well developed, well nourished. HEENT: Pupils are round and equally reacting to light. EOMI. No scleral icterus. No conjunctival pallor. Normocephalic, atraumatic. No pharyngeal erythema. No thyromegaly. CARDIOVASCULAR: S1 and S2 present. No murmurs, rubs, or gallops. PULMONARY: Chest is clear to auscultation, no wheezing or crackles. ABDOMEN: Soft, nontender, nondistended, normoactive bowel sounds. No palpable organomegaly. Post surgical abdomen MUSCULOSKELETAL: No joint swelling or deformity. EXTREMITIES: No cyanosis, clubbing, or pedal edema. NEUROLOGICAL: Patient is sedated SKIN: No rashes. Assessment Abdominal pain right upper quadrant with spontaneous splenic hematoma with capsule rupture and incisional hernia postoperative day #1 splenectomy and hernia repair. Leukocytosis and lactic acidosis Abnormal urinalysis possibly asymptomatic bacteriruea Acute hypoxemic respiratory failure 86% on room air; on mechanical ventilator post surgery. Recent pancreatic cyst removal History of COPD/Asthma Diabetes Mellitus type 2 Hypertension Hyperlipidemia GI prophylaxis DVT prophylaxis Full Code Plan Pulmonary pin drafting machine operator consultation for mechanical ventilator management Pending Final Blood cultures Patient ordered to receive 2 units of PRBCs. Continue on empiric antibiotic coverage Fluids decreased to 75 mls/hr and patient give a dose of IV lasix Hold metformin, patient is NPO, novolog sliding scale and accuchecks Q6h ordered, levemir HS added for improved glycemic control. Patient is being monitored in the ICU post surgery on the ventilator Follow up labs in AM follow up amylase/lipase. Thank you for this consultation The impression and plan of care has been dictated by Nisha Tian Nurse Practitioner as directed. Dr. Ute MD I have performed a history and physical examination and medical decision making of this patient, discussed the same with the dictator, and agree with the dictators assessment and plan as written, documented as a scribe. Based on total visit time, I have performed more than 50% of this visit. Objective - Vital Signs Vital signs: Vital Signs Temp 99.9 F H 01/18/23 08:00 Pulse 98 01/18/23 11:00 Resp 14 01/18/23 11:00 BP 111/56 01/18/23 11:00 Pulse Ox 93 L 01/18/23 11:00 FiO2 50 01/18/23 10:44 Intake & Output 01/17/23 01/18/23 01/18/23 18:59 06:59 18:59 Intake Total 2270.000 2223.359 386.907 Output Total 1900 1485 1860 Balance 370.000 738.359 -1473.093 Weight 90.718 kg 99.2 kg Intake: IV 650 100 100 Piperacillin-Tazobactam 3 100 100 .375 gm In Sodium Chloride 0.9% 100 ml @ 25 mls/hr IVPB Q8HR [facility] Rx# :[id number] Intake, IV Titration 3989.517 2852.359 286.907 Amount Lactated Ringers 1,000 ml 900 1950 @ 150 mls/hr IV .[id number] [facility] Rx#:[id number] Magnesium Sulfate-D5w Pmx 200 1 gm In Dextrose/Water 1 100ml.bag @ 100 mls/hr IVPB Q1H [facility] Rx#: [id number] propofoL 1,000 mg In 100.000 173.359 86.907 Empty Bag 1 bag @ 15 MCG/ KG/MIN 8.165 mls/hr IV . [id number] [facility] Rx#:[id number] Blood Product 620 Rc As-1 Unit 310 [id number] Rc Pheresis 2 As3 Unit 310 [id number] Output: Gastric Drainage 200 300 Drainage 50 20 0 Left Abdomen 50 20 0 Urine 625 1165 1860 Estimated Blood Loss 1025 Other: Voiding Method Indwelling Catheter Indwelling Catheter Indwelling Catheter - Labs CBC & Chem 7: 01/18/23 04:12 01/18/23 04:12 Labs: Abnormal Lab Results - Last 24 Hours (Table) 01/17/23 01/17/23 01/17/23 Range/Units 15:00 15:00 15:43 WBC 19.4 H (3.8-10.6) k/uL RBC (3.80-5.40) m/uL Hgb (11.4-16.0) gm/dL Hct (34.0-46.0) % Neutrophils # 15.6 H (1.3-7.7) k/uL Monocytes # 1.5 H (0-1.0) k/uL ABG pCO2 (35-45) mmHg ABG pO2 (83-108) mmHg ABG HCO3 (21-25) mmol/L ABG Total CO2 (19-24) mmol/L ABG O2 Saturation (94-97) % Sodium (137-145) mmol/L Glucose (74-99) mg/dL POC Glucose (mg/dL) 133 H (70-110) mg/dL Plasma Lactic Acid Jermaine 2.2 H* (0.7-2.0) mmol/L Calcium (8.4-10.2) mg/dL Magnesium (1.6-2.3) mg/dL AST (14-36) U/L ALT (4-34) U/L Total Protein (6.3-8.2) g/dL Albumin (3.5-5.0) g/dL 01/17/23 01/17/23 01/17/23 Range/Units 17:29 20:36 23:31 WBC 16.3 H (3.8-10.6) k/uL RBC 3.63 L (3.80-5.40) m/uL Hgb 11.2 L (11.4-16.0) gm/dL Hct 33.6 L (34.0-46.0) % Neutrophils # 13.2 H (1.3-7.7) k/uL Monocytes # 1.4 H (0-1.0) k/uL ABG pCO2 (35-45) mmHg ABG pO2 (83-108) mmHg ABG HCO3 (21-25) mmol/L ABG Total CO2 (19-24) mmol/L ABG O2 Saturation (94-97) % Sodium (137-145) mmol/L Glucose (74-99) mg/dL POC Glucose (mg/dL) 118 H 130 H (70-110) mg/dL Plasma Lactic Acid Jermaine (0.7-2.0) mmol/L Calcium (8.4-10.2) mg/dL Magnesium (1.6-2.3) mg/dL AST (14-36) U/L ALT (4-34) U/L Total Protein (6.3-8.2) g/dL Albumin (3.5-5.0) g/dL 01/18/23 01/18/23 01/18/23 Range/Units 00:02 04:12 04:12 WBC 21.3 H (3.8-10.6) k/uL RBC 3.73 L (3.80-5.40) m/uL Hgb (11.4-16.0) gm/dL Hct (34.0-46.0) % Neutrophils # 17.2 H (1.3-7.7) k/uL Monocytes # 1.9 H (0-1.0) k/uL ABG pCO2 (35-45) mmHg ABG pO2 (83-108) mmHg ABG HCO3 (21-25) mmol/L ABG Total CO2 (19-24) mmol/L ABG O2 Saturation (94-97) % Sodium 135 L (137-145) mmol/L Glucose 146 H (74-99) mg/dL POC Glucose (mg/dL) 145 H (70-110) mg/dL Plasma Lactic Acid Jermaine (0.7-2.0) mmol/L Calcium 8.1 L (8.4-10.2) mg/dL Magnesium 1.5 L (1.6-2.3) mg/dL AST 39 H (14-36) U/L ALT 37 H (4-34) U/L Total Protein 4.9 L (6.3-8.2) g/dL Albumin 2.6 L (3.5-5.0) g/dL 01/18/23 01/18/23 01/18/23 Range/Units 04:14 04:38 06:04 WBC (3.8-10.6) k/uL RBC (3.80-5.40) m/uL Hgb (11.4-16.0) gm/dL Hct (34.0-46.0) % Neutrophils # (1.3-7.7) k/uL Monocytes # (0-1.0) k/uL ABG pCO2 54 H (35-45) mmHg ABG pO2 64 L (83-108) mmHg ABG HCO3 31 H (21-25) mmol/L ABG Total CO2 33 H (19-24) mmol/L ABG O2 Saturation 92.2 L (94-97) % Sodium (137-145) mmol/L Glucose (74-99) mg/dL POC Glucose (mg/dL) 137 H 161 H (70-110) mg/dL Plasma Lactic Acid Jermaine (0.7-2.0) mmol/L Calcium (8.4-10.2) mg/dL Magnesium (1.6-2.3) mg/dL AST (14-36) U/L ALT (4-34) U/L Total Protein (6.3-8.2) g/dL Albumin (3.5-5.0) g/dL 01/18/23 Range/Units 10:59 WBC (3.8-10.6) k/uL RBC (3.80-5.40) m/uL Hgb (11.4-16.0) gm/dL Hct (34.0-46.0) % Neutrophils # (1.3-7.7) k/uL Monocytes # (0-1.0) k/uL ABG pCO2 (35-45) mmHg ABG pO2 (83-108) mmHg ABG HCO3 (21-25) mmol/L ABG Total CO2 (19-24) mmol/L ABG O2 Saturation (94-97) % Sodium (137-145) mmol/L Glucose (74-99) mg/dL POC Glucose (mg/dL) 204 H (70-110) mg/dL Plasma Lactic Acid Jermaine (0.7-2.0) mmol/L Calcium (8.4-10.2) mg/dL Magnesium (1.6-2.3) mg/dL AST (14-36) U/L ALT (4-34) U/L Total Protein (6.3-8.2) g/dL Albumin (3.5-5.0) g/dL Microbiology - Last 24 Hours (Table) 01/17/23 03:48 Blood Culture - Preliminary Blood 01/17/23 03:17 Blood Culture - Preliminary Blood 01/17/23 12:15 Urine Culture - Final Urine,Catheterized Assessment and Plan Time with Patient: Less than 30
[2023-01-18] MEDS ORDERED: IPRATROPIUM-ALBUTEROL 3 ML NEB INHALATION PRN (15:13)
[2023-01-18] MEDS ORDERED: ACETAMINOPHEN TAB 325 MG TAB PO PRN (15:28)
[2023-01-18 16:08] LABS: Glucose,Whole Blood 138 mg/dL (70-110)
[2023-01-18] MEDS: ONDANSETRON 4 MG/2 ML VIAL IVP PRN (17:29)
[2023-01-18 19:40] LABS: Glucose,Whole Blood 147 mg/dL (70-110)
[2023-01-18] MEDS: ATORVASTATIN 40 MG TAB PO SCH (19:47)
[2023-01-18] MEDS: PREGABALIN 100 MG CAP PO SCH (19:47)
[2023-01-18] MEDS: SENNOSIDES 8.6 MG TAB PO SCH (19:47)
[2023-01-18] MEDS: MONTELUKAST 10 MG TAB PO SCH (19:47)
[2023-01-18] MEDS: INSULIN DETEMIR (LEVEMIR) 100 UNIT/ML SYR SQ SCH (20:18)
[2023-01-18 21:56] LABS: Glucose,Whole Blood 147 mg/dL (70-110)
[2023-01-19] MEDS: HYDROmorphone 1 MG/ML 1 ML SYRINGE IVP PRN ×8 (00:46→23:34)
[2023-01-19] MEDS: PIPERACILLIN-TAZOBACTAM 3.375 GM in SODIUM CHLORIDE 0.9% 100 ML IVPB SCH ×4 (00:49→23:34)
[2023-01-19] MEDS: ONDANSETRON 4 MG/2 ML VIAL IVP PRN ×2 (00:54→08:12)
[2023-01-19 03:29] LABS: Glucose,Whole Blood 154 mg/dL (70-110)
[2023-01-19] MEDS: INSULIN ASPART (NovoLOG) 100 UNIT/ML VIAL SQ SCH ×4 (03:30→22:03)
[2023-01-19 05:41] LABS: Basophils % (A) 0 %; Eosinophils # (A) 0.8 k/uL (0-0.7); Eosinophils % (A) 4 %; Lymphocytes # (A) 1.5 k/uL (1.0-4.8); Lymphocytes % (A) 8 %; MCH 30.9 pg (25.0-35.0); MCHC 33.5 g/dL (31.0-37.0); MCV 92.2 fL (80.0-100.0); Mean Platelet Volume 8.7; Monocytes # (A) 1.8 k/uL (0-1.0); Monocytes % (A) 9 %; Neutrophils # (A) 14.9 k/uL (1.3-7.7); Neutrophils % (A) 77 %; Platelet Count 278 k/uL (150-450); RBC 3.04 m/uL (3.80-5.40); RDW 14.5 % (11.5-15.5); WBC 19.5 k/uL (3.8-10.6)
[2023-01-19 05:50] LABS: ALT 29 U/L (4-34); AST 27 U/L (14-36); African American GFR (CKD) >90 (>60 ml/min/1.73 sqM); Albumin 2.6 g/dL (3.5-5.0); Alkaline Phosphatase 120 U/L (38-126); Amylase 35 U/L (30-110); Anion Gap 4 mmol/L; Blood Urea Nitrogen 8 mg/dL (7-17); Carbon Dioxide 35 mmol/L (22-30); Chloride 96 mmol/L (98-107); Glucose 108 mg/dL (74-99); Lipase 36 U/L (23-300); Non-African American GFR(CKD) >90 (>60 ml/min/1.73 sqM); Potassium 3.2 mmol/L (3.5-5.1); Sodium 135 mmol/L (137-145); Total Bilirubin 0.7 mg/dL (0.2-1.3)
[2023-01-19 05:54] LABS: HGB 9.4 gm/dL (11.4-16.0)
[2023-01-19] MEDS: POTASSIUM CHLORIDE ER 20 MEQ TAB.ER PO SCH ×2 (06:21→06:23)
[2023-01-19] MEDS: ENOXAPARIN 40 MG/0.4 ML SYRINGE SQ SCH (08:09)
[2023-01-19] MEDS: PANTOPRAZOLE 40 MG/10 ML VIAL IVP SCH (08:09)
[2023-01-19] MEDS: PREGABALIN 100 MG CAP PO SCH ×2 (08:09→20:06)
[2023-01-19] MEDS: IPRATROPIUM-ALBUTEROL 3 ML NEB INHALATION SCH ×4 (08:36→20:06)
--- NOTE | 2023-01-19 09:14 | XR ---
EXAMINATION TYPE: XR chest 1V portable DATE OF EXAM: 01/19/2023 Comparison: 01/18/2023 Clinical History: 52-year-old female Tube placement Findings: Heart borderline enlarged. Diffuse interstitial opacity. Patchy lower lung opacities persist. Ongoing small left pleural effusion. Interval extubation and removal of NG tube. Surgical drain at the left upper quadrant with skin kali. Impression: Possible similar mild pulmonary vascular congestion. There is ongoing small left pleural effusion wit h prominent bibasilar patchy atelectasis and/or consolidation, left greater than right.
[2023-01-19] MEDS ORDERED: ACETAMINOPHEN IV (For NPO) 1,000 MG in EMPTY BAG 1 BAG IVPB PRN (09:15)
[2023-01-19] MEDS: LURASIDONE 20 MG TAB PO SCH (09:29)
[2023-01-19] MEDS: LACTATED RINGERS 1,000 ML IV SCH (11:12)
[2023-01-19 11:18] LABS: Glucose,Whole Blood 135 mg/dL (70-110)
--- NOTE | 2023-01-19 11:29 | CDI ---
Documentation Clarification Form Date: From: Skylar Sheppard Phone: [phone] Admit Date: 01/17/2023 05:44:00 AM Patient Name: Saundra Will Visit Number: [id number] Discharge Date: ATTENTION: The Clinical Documentation Specialists (CDI) and [facility] Coding Staff appreciate your assistance in clarifying documentation. Please respond to the clarification below the line at the bottom and electronically sign. The CDI & [facility] Coding staff will review the response and follow-up if needed. Please note: Queries are made part of the Legal Health Record. If you have any questions, please contact the author of this message via ITS. Dr. Cele Unger Your patient has leukocytosis, increased heart rate and increased respiratory rate on admission. Based on this information and the findings below, is there an additional diagnosis that is clinically appropriate for this patient? History/Risk Factors: " 52-year-old female who's had complaints of left upper quadrant pain for 3 days. Patient states he had a subtle pain 3 days ago. Last night the patient's severe right upper quadrant pain of the then referred to the right side. Patient to CAT scan performed which shows a large splenic hematoma with evidence of intraperitoneal blood." - Per Surgical H&P on 01/17 Clinical Indicators: "hypotensive with systolic blood pressure 90/50. And pulse of 110." - Per Surgical H&P on 01/17 Respiratory Rate on 01/17 - 24 Pulse Ox: 01/17 - 86% on room air - added 5L NC pulse ox 91% WBC: 01/17 - 22.2, 17.9, 19.4, 16.3 01/18 - 21.3 01/19 - 19.5 Blood Culture: "No growth after 24 hours" - 01/18 Urine Culture Final: "no growth after 18 hours" - 01/18 Treatment: "Splenectomy" "Repair of incisional hernia with partial omentectomy" - Per Operative Note on 01/17 Per Pulmonology Note on 01/17 "Pulmonary branch services manager consultation for mechanical ventilator management Patient ordered to receive 2 units of PRBCs. Fluids have been adjusted to LR at 150 mls/hr" Is there an additional diagnosis that is clinically appropriate for this patient? [ x ] SIRS, due to Spontaneous splenic hematoma with capsule rupture, without acute organ dysfunction [ ] SIRS, due to Spontaneous splenic hematoma with capsule rupture, with Acute Respiratory Failure [ ] Other, please specify [ ] Unable to determine SIRS Criteria: 2 or more of the following may indicate SIRS -Temperature < 96.8F(36C) or > 101.0F (38.3C) -Heart Rate > 90 bpm -Respiratory Rate > 20 breaths/min or PaCO2 < 32 mmHg -White Blood Cell Count > 12,000 or < 4,000 cells/mm3 or > 10% bands MTDD
--- NOTE | 2023-01-19 11:29 | CDI ---
Documentation Clarification Form Date: From: Skylar Sheppard Phone: [phone] Admit Date: 01/17/2023 05:44:00 AM Patient Name: Saundra Will Visit Number: [id number] Discharge Date: ATTENTION: The Clinical Documentation Specialists (CDI) and [facility] Coding Staff appreciate your assistance in clarifying documentation. Please respond to the clarification below the line at the bottom and electronically sign. The CDI & [facility] Coding staff will review the response and follow-up if needed. Please note: Queries are made part of the Legal Health Record. If you have any questions, please contact the author of this message via ITS. Dr. Cele Unger Your patient has an abnormal lab value: Hemoglobin: 9.4 on 01/19. Please clarify if there is an additional diagnosis and/or clinical significance related to this value. History/Risk Factors: "52-year-old female who's had complaints of left upper quadrant pain for 3 days. Patient states he had a subtle pain 3 days ago. Last night the patient's severe right upper quadrant pain of the then referred to the right side. Patient to CAT scan performed which shows a large splenic hematoma with evidence of intraperitoneal blood." - Per Surgical H&P on 01/17 Clinical indicators: "hypotensive with systolic blood pressure 90/50. And pulse of 110." - Per Surgical H&P on 01/17 "CT scan - abdomen: report reviewed (large splenic hematoma with evidence of free blood)" - Per Surgical H&P on 01/17 Hemoglobin: 01/17 14.2, 12.3, 13.2, 11.2 01/18 - 11.7 01/19 - 9.4 Treatment: "Splenectomy" "Repair of incisional hernia with partial omentectomy" - Per Operative Note on 01/17 "Patient ordered to receive 2 units of PRBCs." - Per Progress Note on 01/18 Is there an additional diagnosis and/or clinical significance related to the above lab result/information? [x ] Acute blood loss anemia [ ] No additional diagnosis/Not clinically significant [ ] Other, please specify [ ] Unable to determine MTDD
--- NOTE | 2023-01-19 11:34 | P.PN ---
Subjective Progress Note Date: 01/19/23 CHIEF COMPLAINT: Spontaneous splenic hematoma HISTORY OF PRESENT ILLNESS: This is a 52-year-old female who is postop day #2 status post exploratory laparotomy, splenectomy, repair of incisional hernia with partial omentectomy. Patient remains in the ICU. She is extubated. She does complain of abdominal pain at the incision site. Patient also reports nausea no vomiting. No flatus. SHANELL drain with 10 mL serosanguineous output. Afebrile. WBC 21.3 down to 19.5 Hgb 11.7 down to 9.4 likely dilutional. platelets 278 k 3.2 creatinine 0.70 PHYSICAL EXAM: VITAL SIGNS: Reviewed. GENERAL: Well-developed in no acute distress. ABDOMEN: Soft. Nondistended. Prevana wound vac intact. SHANELL drain in place NEUROLOGIC: Intubated and sedated ASSESSMENT: 1. Spontaneous splenic hematoma with capsule rupture and Incarcerated incisional hernia 2. Hypokalemia potassium replaced PLAN: -Continue ICU management -Keep patient nothing by mouth -IV Tylenol added as needed for pain and Dilaudid 0.5 IV every 2 hours as needed for breakthrough pain -Continue supportive care -Continue antibiotic -Repeat CBC in a.m. -DVT prophylaxis Lovenox Physician Equity Director note has been reviewed by physician. Signing provider agrees with the documented findings, assessment, and plan of care. Objective - Vital Signs Vital signs: Vital Signs Temp 98.2 F 01/19/23 08:00 Pulse 94 01/19/23 09:00 Resp 15 01/19/23 09:00 BP 109/63 01/19/23 09:00 Pulse Ox 92 L 01/19/23 09:00 FiO2 50 01/18/23 14:29 Intake & Output 01/18/23 01/19/23 01/19/23 18:59 06:59 18:59 Intake Total 738.026 8062 150 Output Total 2870 485 100 Balance -1990.925 515 50 Weight 97.4 kg Intake: IV 125 100 Piperacillin-Tazobactam 3 125 100 .375 gm In Sodium Chloride 0.9% 100 ml @ 25 mls/hr IVPB Q8HR [facility] Rx# :[id number] Intake, IV Titration 754.075 900 150 Amount Lactated Ringers 1,000 ml 375 900 150 @ 75 mls/hr IV .[id number] [facility] Rx#:[id number] Magnesium Sulfate-D5w Pmx 200 1 gm In Dextrose/Water 1 100ml.bag @ 100 mls/hr IVPB Q1H [facility] Rx#: [id number] propofoL 1,000 mg In 179.075 Empty Bag 1 bag @ 15 MCG/ KG/MIN 8.165 mls/hr IV . [id number] [facility] Rx#:[id number] Output: Drainage 10 20 5 Left Abdomen 10 20 5 Urine 2860 465 95 Other: Voiding Method Indwelling Catheter Indwelling Catheter Indwelling Catheter - Labs CBC & Chem 7: 01/19/23 05:04 01/19/23 05:04 Labs: Abnormal Lab Results - Last 24 Hours (Table) 01/18/23 01/18/23 01/18/23 Range/Units 10:59 16:07 19:38 WBC (3.8-10.6) k/uL RBC (3.80-5.40) m/uL Hgb (11.4-16.0) gm/dL Hct (34.0-46.0) % Neutrophils # (1.3-7.7) k/uL Monocytes # (0-1.0) k/uL Eosinophils # (0-0.7) k/uL Sodium (137-145) mmol/L Potassium (3.5-5.1) mmol/L Chloride (98-107) mmol/L Carbon Dioxide (22-30) mmol/L Glucose (74-99) mg/dL POC Glucose (mg/dL) 204 H 138 H 147 H (70-110) mg/dL Calcium (8.4-10.2) mg/dL Total Protein (6.3-8.2) g/dL Albumin (3.5-5.0) g/dL 01/18/23 01/19/23 01/19/23 Range/Units 21:55 03:28 05:04 WBC (3.8-10.6) k/uL RBC (3.80-5.40) m/uL Hgb (11.4-16.0) gm/dL Hct (34.0-46.0) % Neutrophils # (1.3-7.7) k/uL Monocytes # (0-1.0) k/uL Eosinophils # (0-0.7) k/uL Sodium 135 L (137-145) mmol/L Potassium 3.2 L (3.5-5.1) mmol/L Chloride 96 L (98-107) mmol/L Carbon Dioxide 35 H (22-30) mmol/L Glucose 108 H (74-99) mg/dL POC Glucose (mg/dL) 147 H 154 H (70-110) mg/dL Calcium 8.0 L (8.4-10.2) mg/dL Total Protein 5.0 L (6.3-8.2) g/dL Albumin 2.6 L (3.5-5.0) g/dL 01/19/23 Range/Units 05:04 WBC 19.5 H (3.8-10.6) k/uL RBC 3.04 L (3.80-5.40) m/uL Hgb 9.4 L D (11.4-16.0) gm/dL Hct 28.0 L (34.0-46.0) % Neutrophils # 14.9 H (1.3-7.7) k/uL Monocytes # 1.8 H (0-1.0) k/uL Eosinophils # 0.8 H (0-0.7) k/uL Sodium (137-145) mmol/L Potassium (3.5-5.1) mmol/L Chloride (98-107) mmol/L Carbon Dioxide (22-30) mmol/L Glucose (74-99) mg/dL POC Glucose (mg/dL) (70-110) mg/dL Calcium (8.4-10.2) mg/dL Total Protein (6.3-8.2) g/dL Albumin (3.5-5.0) g/dL Microbiology - Last 24 Hours (Table) 01/17/23 03:48 Blood Culture - Preliminary Blood 01/17/23 03:17 Blood Culture - Preliminary Blood 01/17/23 12:15 Urine Culture - Final Urine,Catheterized
--- NOTE | 2023-01-19 11:58 | P.PN ---
Subjective Progress Note Date: 01/19/23 Principal diagnosis: Abdominal pain. Pulmonary consult dated 01/17/2023. 52-year-old female who presented to the emergency department, early on the morning of January 17, with 4 days of left-sided abdominal pain. The pain was described as being moderate to severe. She denied any GI issues like diarrhea, vomiting, etc. The patient ended up having a idiopathic splenic rupture, and, today, went to the operating room, which she had a splenectomy. The patient was brought back to the intensive care unit on the mechanical ventilator. She is on the volume assist control, rate 14, tidal volume 400, FiO2 100%, and PEEP of 5. Blood gases show pO2 124, pCO2 of 50, pH is 7.3. The patient has a Mckinley- Kothari drain in place, a Provena wound VAC, a Ramos catheter, and orogastric tube, and endotracheal tube in place. She has 2 peripheral IVs. She's currently on Zosyn. She is receiving us second unit of packed red blood cells. She's getting propofol at 20 mcg/kg/m. He is also getting lactated Ringer's at 150 mL an hour. Blood gases show pO2 124, pCO2 of 50, pH is 7.3. Initial chest x-ray showed a right mainstem intubation. Endotracheal tube was pulled back. The patient has a history of hypertension, hyperlipidemia, asthma/COPD, diabetes, chronic tobacco use, and questionable MS. White count 17.9, with a normal hemoglobin, hematocrit, and platelet count. Sodium 136, potassium 4.6, chlorides 98, CO2 25, BUN 12, creatinine 0.79. Lactic acid was 3.7. Amylase 116, and lipase 372. Urine was cloudy, with 1+ protein, positive for nitrite and leukocyte esterase, with 23 WBCs and occasional bacteria. Progress note dated 01/18/2023. Patient is postop day #1, status post splenectomy for spontaneous rupture of the spleen. The patient remains on the mechanical ventilator. The patient is seen today in room 259. She is on volume assist control, rate 14, tidal volume 400, FiO2 50%, and PEEP of 10. Blood gases show pO2 64, pCO2 54, and a pH is 7.37. The patient's on propofol at 40 mcg/kg/m, lactated Ringer's at 150 mL an hour, and Zosyn. She's received total of 2 units of packed red blood cells. The patient will get Lasix 60 mg IV push, and lactated Ringer's will be induced on the 75 mL an hour. White count is 21.3, hemoglobin 11.7, hematocrit 34.5, and platelet count 248,000. Sodium 135, potassium 4, chlorides 102, CO2 28, BUN 8, creatinine 0.69. Magnesium 1.5. Albumin 2.6. Chest x-ray shows stable bilateral infiltrates. Progress note dated 01/19/2023. This patient is postop day #2, status post splenectomy, for spontaneous rupture of the spleen. The patient was extubated yesterday, January 18. Currently, the patient is on 4 L of oxygen. She's getting lactated Ringer's at 75 mL an hour. Clinically, other than pain, she's doing well. White count 19.5, hemoglobin 9.4, hematocrit 28, and platelet count normal. Sodium 135, potassium 3.2, chlorides 96, CO2 35, BUN 8, and creatinine 0.70. Chest x-ray shows mild pulmonary vascular congestion and a small left pleural effusion. There is also some basilar atelectasis. Objective - Vital Signs Vital signs: Vital Signs Temp 98.2 F 01/19/23 08:00 Pulse 87 01/19/23 11:00 Resp 14 01/19/23 11:00 BP 112/43 01/19/23 11:00 Pulse Ox 93 L 01/19/23 11:00 FiO2 50 01/18/23 14:29 Intake & Output 01/18/23 01/19/23 01/19/23 18:59 06:59 18:59 Intake Total 006.204 3192 300 Output Total 2870 485 175 Balance - 515 125 Weight 97.4 kg Intake: IV 125 100 Piperacillin-Tazobactam 3 125 100 .375 gm In Sodium Chloride 0.9% 100 ml @ 25 mls/hr IVPB Q8HR [facility] Rx# :[id number] Intake, IV Titration 754.075 900 300 Amount Lactated Ringers 1,000 ml 375 900 300 @ 75 mls/hr IV .[id number] [facility] Rx#:[id number] Magnesium Sulfate-D5w Pmx 200 1 gm In Dextrose/Water 1 100ml.bag @ 100 mls/hr IVPB Q1H [facility] Rx#: [id number] propofoL 1,000 mg In 179.075 Empty Bag 1 bag @ 15 MCG/ KG/MIN 8.165 mls/hr IV . [id number] [facility] Rx#:[id number] Output: Drainage 10 20 5 Left Abdomen 10 20 5 Urine 2860 465 170 Other: Voiding Method Indwelling Catheter Indwelling Catheter Indwelling Catheter - Exam No acute distress, currently on nasal O2. No respiratory difficulty or d istress. The patient is alert and oriented 3. HEENT examination is grossly unremarkable. Neck supple. Full range of motion. No adenopathy thyromegaly or neck vein distention. Cardiovascular examination reveals regular rhythm rate. S1-S2 normal. No S3 or S4. No discernible murmur noted. Heart rate 87 bpm. Lungs reveal clear breath sounds. Breath sounds are equal bilaterally. No adventitious lung sounds including wheezes rhonchi or crackles. Saturations are 93 %. Abdomen soft, without bowel sounds. A wound VAC is noted, as well as 1 Mckinley- Kothari drain. Extremities are intact. No cyanosis clubbing or edema. Skin is without rash or lesion. Neurologic examination is brief but nonfocal. - Labs CBC & Chem 7: 01/19/23 05:04 01/19/23 10:40 Labs: Abnormal Lab Results - Last 24 Hours (Table) 01/18/23 01/18/23 01/18/23 Range/Units 16:07 19:38 21:55 WBC (3.8-10.6) k/uL RBC (3.80-5.40) m/uL Hgb (11.4-16.0) gm/dL Hct (34.0-46.0) % Neutrophils # (1.3-7.7) k/uL Monocytes # (0-1.0) k/uL Eosinophils # (0-0.7) k/uL Sodium (137-145) mmol/L Potassium (3.5-5.1) mmol/L Chloride (98-107) mmol/L Carbon Dioxide (22-30) mmol/L Glucose (74-99) mg/dL POC Glucose (mg/dL) 138 H 147 H 147 H (70-110) mg/dL Calcium (8.4-10.2) mg/dL Total Protein (6.3-8.2) g/dL Albumin (3.5-5.0) g/dL 01/19/23 01/19/23 01/19/23 Range/Units 03:28 05:04 05:04 WBC 19.5 H (3.8-10.6) k/uL RBC 3.04 L (3.80-5.40) m/uL Hgb 9.4 L D (11.4-16.0) gm/dL Hct 28.0 L (34.0-46.0) % Neutrophils # 14.9 H (1.3-7.7) k/uL Monocytes # 1.8 H (0-1.0) k/uL Eosinophils # 0.8 H (0-0.7) k/uL Sodium 135 L (137-145) mmol/L Potassium 3.2 L (3.5-5.1) mmol/L Chloride 96 L (98-107) mmol/L Carbon Dioxide 35 H (22-30) mmol/L Glucose 108 H (74-99) mg/dL POC Glucose (mg/dL) 154 H (70-110) mg/dL Calcium 8.0 L (8.4-10.2) mg/dL Total Protein 5.0 L (6.3-8.2) g/dL Albumin 2.6 L (3.5-5.0) g/dL 01/19/23 Range/Units 11:16 WBC (3.8-10.6) k/uL RBC (3.80-5.40) m/uL Hgb (11.4-16.0) gm/dL Hct (34.0-46.0) % Neutrophils # (1.3-7.7) k/uL Monocytes # (0-1.0) k/uL Eosinophils # (0-0.7) k/uL Sodium (137-145) mmol/L Potassium (3.5-5.1) mmol/L Chloride (98-107) mmol/L Carbon Dioxide (22-30) mmol/L Glucose (74-99) mg/dL POC Glucose (mg/dL) 135 H (70-110) mg/dL Calcium (8.4-10.2) mg/dL Total Protein (6.3-8.2) g/dL Albumin (3.5-5.0) g/dL Microbiology - Last 24 Hours (Table) 01/17/23 03:48 Blood Culture - Preliminary Blood 01/17/23 03:17 Blood Culture - Preliminary Blood 01/17/23 12:15 Urine Culture - Final Urine,Catheterized Assessment and Plan Assessment: Postop day #2, status post exploratory laparotomy with splenectomy, for idiopathic splenic rupture. Routine postoperative ventilator management, S/P successful extubation 01/18/2023. History of COPD/asthma. History of hypertension. History of hyperlipidemia. History of diabetes mellitus. Question will history of multiple sclerosis. Ongoing tobacco use with nicotine addiction. Plan: Plan dated 01/17/2023. The ICU admission orders, and the vent bundle orders, were activated. The patient will be placed on albuterol sulfate and ipratropium bromide, every 4 hours [id number]. Labs, x-rays, and medications are reviewed. The patient is currently on propofol at 20 mcg/kg/m, and lactated Ringer's at 150 mL an hour. The FiO2 will be weaned down by respiratory. The patient is going to receive her second unit of packed red blood cells. The patient remains on Zosyn empirically. Additional recommendations and suggestions are forthcoming. The patient's overall prognosis is guarded. We will continue to follow the patient, and make recommendations along the way. Hopeful extubation tomorrow. Plan dated 01/18/2023. The patient is seen today in room 259. Her oxygenation is borderline on 50% and 10 of PEEP. The patient remains on propofol at 40 mcg/kg/m. On Zosyn empirically. The patient has received 2 units of packed red blood cells before. Lactated Ringer's to be dropped back to 75 mL an hour. The patient will get Lasix 60 mg IV push times one. The patient may benefit from a daily interruption of sedation and a spontaneous breathing trial later today. If so, the patient will be placed on a pressure support of 10, and CPAP of 5. Labs, x- rays, and medications are reviewed. Prognosis is guarded. We will continue to follow the patient, and make recommendations along the way. Plan dated 01/19/2023. The patient is seen today in room 259. She is postop day #2, status post splenectomy. The patient is doing well. She was successfully extubated yesterday. She's currently on 4 L of oxygen. Today's postop day #2. She's getting lactated Ringer's at 75 mL an hour. Other than pain at the surgical site, patient has no complaints. We encourage her to deep breathe, cough, and clear secretions. We also recommend hourly use of the incentive spirometer. We will continue to follow and make recommendations along the way. Time with Patient: Greater than 30
--- NOTE | 2023-01-19 15:52 | P.PN ---
Subjective Progress Note Date: 01/19/23 This is a 52-year-old female with medical history of asthma/COPD, diabetes mellitus, hypertension, hyperlipidemia, known pancreatic mass and multiple sclerosis patient is a current daily smoker also history of anxiety and depression. Presents to the hospital with complaints of four-day history of right upper quadrant pain that has been progressive. History is taken from patients daughter at the bedside in the ICU. Patient is currently intubated on mechanical ventilator. Initial work up reveals white count 22.2 and hemoglobin of 14.2 which has since dropped down to 12.3. Patient does have lactic acidosis at 3.6 on admission as well as elevated amylase and lipase and alk phos. Urinalysis shows positive nitrites and moderate leukocyte esterase concerning for possible underlying urinary tract infection. Patient had abdominal pelvis CT for further evaluation of abdominal pain and found to have a 10.7 x 5.7 x 14.1 cm splenic subcapsular hematoma with extension beyond the spleen with mild hemoperitoneum. There are no signs of active extravasation identified which may be due to phase of contrast consider interventional consultation. There is also 1.9 severe pancreatic cyst at the tail of the pancreas. Chest x-ray shows dependent airspace disease in the lungs which may be due to atelectatic changes infection also possible. Patient was taken for exploratory laparotomy and splenectomy with Dr. Cummins. She is scheduled to receive 2 units of packed red blood cells. She was also started on empiric antibiotic coverage with IV Zosyn and being hydrated with IV fluids normal saline at 75 mL per hour. Patient found to be hypoxic postoperative has been placed on 5L of oxygen via nasal c annula. Blood pressure is marginal. Postoperatively, patient was taken to the intensive care unit with a pulmonary electrical and instrumentation mechanic consultation she is currently on a mechanical ventilator with FiO2 of 50%. NG tube is in place. Abdominal wound is closed with a prevana wound vac. 01/18/2023 Patient remains in the intensive care unit, she is intubated on mechanical ventilator with a PEEP of 10, FiO2 of 50%. Patient is postoperative day #1 exploratory laporotomy, splenectomy, repair of incisional hernia and partial omentectomy. NG in place. Midline wound vac intact. Patient with positive bowel sounds. Chest xray today showing stable bilateral infiltrates greater on the left with small pleural effusion. LR has been decreased to 75ml/hr and patient also given a dose of IV lasix 60 mg. Pulmonary following. Patient remains on empiric antibiotics with IV zosyn. White count 21.3 today. Blood culture so far negative and urine culture is negative. Patient having low grade temps. 01/19/2023 Patient has been extubated and weaned down to 4L of oxygen. Evaluated today sitting up in the chair in the ICU awake and alert x 3. Patient is postoperative day #2, has wound vac in place to the abdominal incision. Not yet passing gas but does have positive bowel sounds throughout. Patient denies any recent strenous activity, or falls that could have precipitated the splenic hematoma. Patient does report she has been using a weight hula hoop daily. Blood cultures remain negative. White count of 19.5 today, hemoglobin 9.4, sodium 135, potassium 3.2. Chest xray today showing possible similar mild pulmonary vascular congestion, ongoing small left pleural effusion with prominent bibasilar patchy atelectasis and or consolidation left greater than right. Patient does report having a low grade fever of 99 prior to coming in to the hospital. No reported history of CHF. Patient continues on LR at 75 mls/hr. Review of Systems Constitutional: Denied any fatigue denied any fever. Cardio vascular: denied any chest pain, palpitations Gastrointestinal: denied any nausea, vomiting, diarrhea Pulmonary: Denied any shortness of breath cough Neurologic denied any new focal deficits All inpatient medications were reviewed and appropriate changes in these medications as dictated in the interval history and assessment and plan. PHYSICAL EXAMINATION: GENERAL: Awake alert, not in any acute distress. Well developed, well nourished. HEENT: Pupils are round and equally reacting to light. EOMI. No scleral icterus. No conjunctival pallor. Normocephalic, atraumatic. No pharyngeal erythema. No thyromegaly. CARDIOVASCULAR: S1 and S2 present. No murmurs, rubs, or gallops. PULMONARY: Chest is clear to auscultation, no wheezing or crackles. ABDOMEN: Soft, nontender, nondistended, normoactive bowel sounds. No palpable organomegaly. Post surgical abdomen MUSCULOSKELETAL: No joint swelling or deformity. EXTREMITIES: No cyanosis, clubbing, or pedal edema. NEUROLOGICAL: No focal deficits. SKIN: No rashes. Assessment Abdominal pain right upper quadrant with spontaneous splenic hematoma with c apsule rupture and incisional hernia; postoperative day #2 splenectomy and hernia repair. Leukocytosis and lactic acidosis Acute blood loss anemia from splenic rupture s/p 2 units of PRBCs. Abnormal urinalysis asymptomatic bacteriruea urine culture negative. Acute hypoxemic respiratory failure 86% on room air; on mechanical ventilator post surgery. Recent pancreatic cyst removal History of COPD/Asthma Diabetes Mellitus type 2 Hypertension Hyperlipidemia GI prophylaxis DVT prophylaxis Full Code Plan Pending Final Blood cultures Continue on empiric antibiotic coverage Fluids decreased to 75 mls/hr, chest xray continues to report pleural effusion and vascular congestion BNP and echocardiogram ordered. Hold metformin, patient is NPO, novolog sliding scale and accuchecks Q6h ordered, levemir HS added for improved glycemic control. Thank you for this consultation The impression and plan of care has been dictated by Nisha Tian, Nurse Practitioner as directed. Dr. Ute MD I have performed a history and physical examination and medical decision making of this patient, discussed the same with the dictator, and agree with the dictators assessment and plan as written, documented as a scribe. Based on total visit time, I have performed more than 50% of this visit. Objective - Vital Signs Vital signs: Vital Signs Temp 99.1 F 01/19/23 04:00 Pulse 90 01/19/23 08:38 Resp 14 01/19/23 07:00 BP 105/61 01/19/23 07:00 Pulse Ox 97 01/19/23 08:38 FiO2 50 01/18/23 14:29 Intake & Output 01/18/23 01/19/23 01/19/23 18:59 06:59 18:59 Intake Total 307.214 9897 Output Total 2870 485 Balance -1990.925 515 Weight 97.4 kg Intake: IV 125 100 Piperacillin-Tazobactam 3 125 100 .375 gm In Sodium Chloride 0.9% 100 ml @ 25 mls/hr IVPB Q8HR [facility] Rx# :[id number] Intake, IV Titration 754.075 900 Amount Lactated Ringers 1,000 ml 375 900 @ 75 mls/hr IV .[id number] [facility] Rx#:[id number] Magnesium Sulfate-D5w Pmx 200 1 gm In Dextrose/Water 1 100ml.bag @ 100 mls/hr IVPB Q1H [facility] Rx#: [id number] propofoL 1,000 mg In 179.075 Empty Bag 1 bag @ 15 MCG/ KG/MIN 8.165 mls/hr IV . [id number] [facility] Rx#:[id number] Output: Drainage 10 20 Left Abdomen 10 20 Urine 2860 465 Other: Voiding Method Indwelling Catheter Indwelling Catheter - Labs CBC & Chem 7: 01/19/23 05:04 01/19/23 10:40 Labs: Abnormal Lab Results - Last 24 Hours (Table) 01/18/23 01/18/23 01/18/23 Range/Units 10:59 16:07 19:38 WBC (3.8-10.6) k/uL RBC (3.80-5.40) m/uL Hgb (11.4-16.0) gm/dL Hct (34.0-46.0) % Neutrophils # (1.3-7.7) k/uL Monocytes # (0-1.0) k/uL Eosinophils # (0-0.7) k/uL Sodium (137-145) mmol/L Potassium (3.5-5.1) mmol/L Chloride (98-107) mmol/L Carbon Dioxide (22-30) mmol/L Glucose (74-99) mg/dL POC Glucose (mg/dL) 204 H 138 H 147 H (70-110) mg/dL Calcium (8.4-10.2) mg/dL Total Protein (6.3-8.2) g/dL Albumin (3.5-5.0) g/dL 01/18/23 01/19/23 01/19/23 Range/Units 21:55 03:28 05:04 WBC (3.8-10.6) k/uL RBC (3.80-5.40) m/uL Hgb (11.4-16.0) gm/dL Hct (34.0-46.0) % Neutrophils # (1.3-7.7) k/uL Monocytes # (0-1.0) k/uL Eosinophils # (0-0.7) k/uL Sodium 135 L (137-145) mmol/L Potassium 3.2 L (3.5-5.1) mmol/L Chloride 96 L (98-107) mmol/L Carbon Dioxide 35 H (22-30) mmol/L Glucose 108 H (74-99) mg/dL POC Glucose (mg/dL) 147 H 154 H (70-110) mg/dL Calcium 8.0 L (8.4-10.2) mg/dL Total Protein 5.0 L (6.3-8.2) g/dL Albumin 2.6 L (3.5-5.0) g/dL 01/19/23 Range/Units 05:04 WBC 19.5 H (3.8-10.6) k/uL RBC 3.04 L (3.80-5.40) m/uL Hgb 9.4 L D (11.4-16.0) gm/dL Hct 28.0 L (34.0-46.0) % Neutrophils # 14.9 H (1.3-7.7) k/uL Monocytes # 1.8 H (0-1.0) k/uL Eosinophils # 0.8 H (0-0.7) k/uL Sodium (137-145) mmol/L Potassium (3.5-5.1) mmol/L Chloride (98-107) mmol/L Carbon Dioxide (22-30) mmol/L Glucose (74-99) mg/dL POC Glucose (mg/dL) (70-110) mg/dL Calcium (8.4-10.2) mg/dL Total Protein (6.3-8.2) g/dL Albumin (3.5-5.0) g/dL Microbiology - Last 24 Hours (Table) 01/17/23 03:48 Blood Culture - Preliminary Blood 01/17/23 03:17 Blood Culture - Preliminary Blood 01/17/23 12:15 Urine Culture - Final Urine,Catheterized Assessment and Plan Time with Patient: Less than 30
[2023-01-19 16:23] LABS: Glucose,Whole Blood 123 mg/dL (70-110)
[2023-01-19] MEDS: INSULIN DETEMIR (LEVEMIR) 100 UNIT/ML SYR SQ SCH (20:06)
[2023-01-19] MEDS: SENNOSIDES 8.6 MG TAB PO SCH (20:06)
[2023-01-19] MEDS: ATORVASTATIN 40 MG TAB PO SCH (20:06)
[2023-01-19] MEDS: MONTELUKAST 10 MG TAB PO SCH (20:06)
[2023-01-19 21:49] LABS: Glucose,Whole Blood 112 mg/dL (70-110)
[2023-01-20] MEDS: LACTATED RINGERS 1,000 ML IV SCH ×2 (03:22→12:43)
[2023-01-20] MEDS: HYDROmorphone 1 MG/ML 1 ML SYRINGE IVP PRN ×3 (03:23→23:24)
[2023-01-20 03:34] LABS: Glucose,Whole Blood 95 mg/dL (70-110)
[2023-01-20] MEDS: INSULIN ASPART (NovoLOG) 100 UNIT/ML VIAL SQ SCH ×4 (03:38→23:11)
[2023-01-20 04:37] LABS: EBV-EA (IgG) 0.2 AI; EBV-EBNA(IgG) >8.0; EBV-VCA (IgG) >8.0 AI; EBV-VCA (IgM) <0.2 AI
[2023-01-20 06:00] LABS: Basophils % (A) 0 %; Eosinophils % (A) 5 %; HCT 25.8 % (34.0-46.0); HGB 8.6 gm/dL (11.4-16.0); Hypochromasia Slight; Lymphocytes # (A) 1.4 k/uL (1.0-4.8); Lymphocytes % (A) 8 %; MCH 31.1 pg (25.0-35.0); MCHC 33.2 g/dL (31.0-37.0); MCV 93.9 fL (80.0-100.0); Mean Platelet Volume 8.7; Monocytes # (A) 1.3 k/uL (0-1.0); Monocytes % (A) 7 %; Neutrophils # (A) 14.1 k/uL (1.3-7.7); Neutrophils % (A) 78 %; Platelet Count 298 k/uL (150-450); RBC 2.75 m/uL (3.80-5.40); RDW 14.2 % (11.5-15.5); WBC 18.1 k/uL (3.8-10.6)
--- NOTE | 2023-01-20 08:25 | XR ---
EXAMINATION TYPE: XR chest 1V portable DATE OF EXAM: 01/20/2023 COMPARISON: 01/19/2023 HISTORY: Shortness of breath TECHNIQUE: Single frontal view of the chest is obtained. FINDINGS: Diffuse interstitial pattern with bilateral consolidation small effusion greater on the le ft. Biapical pleural thickening. No sizable pneumothorax. Osseous structures are stable. Heart mildly enlarged. IMPRESSION: Stable pleural parenchymal changes could be on the basis of CHF or atypical pneumonia co rrelate clinically
[2023-01-20] MEDS: IPRATROPIUM-ALBUTEROL 3 ML NEB INHALATION SCH ×4 (08:48→20:23)
[2023-01-20] MEDS: HYDROmorphone 0.5 MG/0.5 ML SYRINGE IVP PRN ×3 (08:48→16:26)
[2023-01-20 08:53] LABS: African American GFR (CKD) >90 (>60 ml/min/1.73 sqM); Anion Gap 4 mmol/L; Blood Urea Nitrogen 7 mg/dL (7-17); Calcium 8.1 mg/dL (8.4-10.2); Carbon Dioxide 34 mmol/L (22-30); Chloride 100 mmol/L (98-107); Glucose 68 mg/dL (74-99); Non-African American GFR(CKD) >90 (>60 ml/min/1.73 sqM); Potassium 3.6 mmol/L (3.5-5.1); Sodium 138 mmol/L (137-145)
[2023-01-20] MEDS: PIPERACILLIN-TAZOBACTAM 3.375 GM in SODIUM CHLORIDE 0.9% 100 ML IVPB SCH ×3 (08:53→23:17)
[2023-01-20] MEDS ORDERED: FUROSEMIDE 10 MG/ML 4 ML VIAL IV STA (08:58)
[2023-01-20] MEDS: ENOXAPARIN 40 MG/0.4 ML SYRINGE SQ SCH (09:06)
[2023-01-20] MEDS: PANTOPRAZOLE 40 MG/10 ML VIAL IVP SCH (09:06)
[2023-01-20] MEDS: PREGABALIN 100 MG CAP PO SCH ×2 (09:06→20:34)
[2023-01-20] MEDS: LURASIDONE 20 MG TAB PO SCH (09:09)
[2023-01-20 09:26] LABS: Glucose,Whole Blood 77 mg/dL (70-110)
[2023-01-20 10:21] LABS: Basophils % (A) 0 %; Eosinophils # (A) 1.1 k/uL (0-0.7); Eosinophils % (A) 6 %; HCT 26.8 % (34.0-46.0); HGB 8.5 gm/dL (11.4-16.0); Hypochromasia Slight; Lymphocytes # (A) 1.5 k/uL (1.0-4.8); Lymphocytes % (A) 8 %; MCH 29.9 pg (25.0-35.0); MCHC 31.7 g/dL (31.0-37.0); MCV 94.3 fL (80.0-100.0); Mean Platelet Volume 9.3; Monocytes # (A) 1.7 k/uL (0-1.0); Monocytes % (A) 8 %; Neutrophils # (A) 15.5 k/uL (1.3-7.7); Neutrophils % (A) 77 %; Platelet Count 354 k/uL (150-450); RBC 2.84 m/uL (3.80-5.40); RDW 14.2 % (11.5-15.5); WBC 20.1 k/uL (3.8-10.6)
[2023-01-20] MEDS ORDERED: Potassium Replacement Protocol 1 EACH MISC MISCELLANE PRN ×2 (10:56→18:06)
[2023-01-20] MEDS ORDERED: POTASSIUM CHLORIDE ER 20 MEQ TAB.ER PO SCH (11:00)
--- NOTE | 2023-01-20 11:02 | P.PN ---
Subjective Progress Note Date: 01/20/23 CHIEF COMPLAINT: Spontaneous splenic hematoma HISTORY OF PRESENT ILLNESS: This is a 52-year-old female who is postop day #3 status post exploratory laparotomy, splenectomy, repair of incisional hernia with partial omentectomy. Patient remains in the ICU. She reports her pain is controlled. Denies any nausea or vomiting. No flatus. She's currently nothing by mouth. SHANELL drain with 20 mL serosanguineous output. Afebrile WBC 20.1 Hgb 9.4-8.5 platelets 354. Chest x-ray stable pleural parenchymal changes could be on the basis of CHF or atypical. Patient did receive a dose of IV Lasix today. PHYSICAL EXAM: VITAL SIGNS: Reviewed. GENERAL: Well-developed in no acute distress. ABDOMEN: Soft. Nondistended. Prevana wound vac intact. SHANELL drain in place NEUROLOGIC: Intubated and sedated ASSESSMENT: 1. Spontaneous splenic hematoma with capsule rupture and Incarcerated incisional hernia PLAN: -Continue ICU management -Keep patient nothing by mouth except meds and ice chips -Continue pain management -Continue supportive care -Continue antibiotic -Continue to monitor hemoglobin -[facility] [employer] Critical[employer] Safety Engineer note has been reviewed by physician. Signing provider agrees with the documented findings, assessment, and plan of care. Objective - Vital Signs Vital signs: Vital Signs Temp 99.1 F 01/19/23 23:00 Pulse 110 H 01/20/23 00:05 Resp 12 01/20/23 00:05 BP 124/52 01/20/23 00:05 Pulse Ox 91 L 01/20/23 00:05 FiO2 50 01/18/23 14:29 Intake & Output 01/19/23 01/20/23 01/20/23 18:59 06:59 18:59 Intake Total 625 550 Output Total 430 270 Balance 195 280 Intake: IV 475 Lactated Ringers 1,000 ml 375 @ 75 mls/hr IV .[id number] [facility] Rx#:[id number] Piperacillin-Tazobactam 3 100 .375 gm In Sodium Chloride 0.9% 100 ml @ 25 mls/hr IVPB Q8HR [facility] Rx# :[id number] Intake, IV Titration 625 75 Amount Lactated Ringers 1,000 ml 525 75 @ 75 mls/hr IV .[id number] [facility] Rx#:[id number] Piperacillin-Tazobactam 3 100 .375 gm In Sodium Chloride 0.9% 100 ml @ 25 mls/hr IVPB Q8HR [facility] Rx# :[id number] Output: Drainage 5 20 Left Abdomen 5 20 Urine 425 250 Other: Voiding Method Indwelling Catheter Indwelling Catheter - Labs CBC & Chem 7: 01/20/23 08:17 01/20/23 08:17 Labs: Abnormal Lab Results - Last 24 Hours (Table) 01/19/23 01/19/23 01/19/23 Range/Units 10:40 11:16 16:21 WBC (3.8-10.6) k/uL RBC (3.80-5.40) m/uL Hgb (11.4-16.0) gm/dL Hct (34.0-46.0) % Neutrophils # (1.3-7.7) k/uL Monocytes # (0-1.0) k/uL Eosinophils # (0-0.7) k/uL POC Glucose (mg/dL) 135 H 123 H (70-110) mg/dL EBV Capsid Ag IgG Intrp Positive A (Negative) EBV Nuc Ag IgG Interp Positive A (Negative) 01/19/23 01/20/23 Range/Units 21:47 03:58 WBC 18.1 H (3.8-10.6) k/uL RBC 2.75 L (3.80-5.40) m/uL Hgb 8.6 L (11.4-16.0) gm/dL Hct 25.8 L (34.0-46.0) % Neutrophils # 14.1 H (1.3-7.7) k/uL Monocytes # 1.3 H (0-1.0) k/uL Eosinophils # 1.0 H (0-0.7) k/uL POC Glucose (mg/dL) 112 H (70-110) mg/dL EBV Capsid Ag IgG Intrp (Negative) EBV Nuc Ag IgG Interp (Negative) Microbiology - Last 24 Hours (Table) 01/17/23 03:48 Blood Culture - Preliminary Blood 01/17/23 03:17 Blood Culture - Preliminary Blood
--- NOTE | 2023-01-20 11:12 | P.PN ---
Subjective Progress Note Date: 01/20/23 Principal diagnosis: Abdominal pain. Pulmonary consult dated 01/17/2023. 52-year-old female who presented to the emergency department, early on the morning of January 17, with 4 days of left-sided abdominal pain. The pain was described as being moderate to severe. She denied any GI issues like diarrhea, vomiting, etc. The patient ended up having a idiopathic splenic rupture, and, today, went to the operating room, which she had a splenectomy. The patient was brought back to the intensive care unit on the mechanical ventilator. She is on the volume assist control, rate 14, tidal volume 400, FiO2 100%, and PEEP of 5. Blood gases show pO2 124, pCO2 of 50, pH is 7.3. The patient has a Mckinley- Kothari drain in place, a Provena wound VAC, a Ramos catheter, and orogastric tube, and endotracheal tube in place. She has 2 peripheral IVs. She's currently on Zosyn. She is receiving us second unit of packed red blood cells. She's getting propofol at 20 mcg/kg/m. He is also getting lactated Ringer's at 150 mL an hour. Blood gases show pO2 124, pCO2 of 50, pH is 7.3. Initial chest x-ray showed a right mainstem intubation. Endotracheal tube was pulled back. The patient has a history of hypertension, hyperlipidemia, asthma/COPD, diabetes, chronic tobacco use, and questionable MS. White count 17.9, with a normal hemoglobin, hematocrit, and platelet count. Sodium 136, potassium 4.6, chlorides 98, CO2 25, BUN 12, creatinine 0.79. Lactic acid was 3.7. Amylase 116, and lipase 372. Urine was cloudy, with 1+ protein, positive for nitrite and leukocyte esterase, with 23 WBCs and occasional bacteria. Progress note dated 01/18/2023. Patient is postop day #1, status post splenectomy for spontaneous rupture of the spleen. The patient remains on the mechanical ventilator. The patient is seen today in room 259. She is on volume assist control, rate 14, tidal volume 400, FiO2 50%, and PEEP of 10. Blood gases show pO2 64, pCO2 54, and a pH is 7.37. The patient's on propofol at 40 mcg/kg/m, lactated Ringer's at 150 mL an hour, and Zosyn. She's received total of 2 units of packed red blood cells. The patient will get Lasix 60 mg IV push, and lactated Ringer's will be induced on the 75 mL an hour. White count is 21.3, hemoglobin 11.7, hematocrit 34.5, and platelet count 248,000. Sodium 135, potassium 4, chlorides 102, CO2 28, BUN 8, creatinine 0.69. Magnesium 1.5. Albumin 2.6. Chest x-ray shows stable bilateral infiltrates. Progress note dated 01/19/2023. This patient is postop day #2, status post splenectomy, for spontaneous rupture of the spleen. The patient was extubated yesterday, January 18. Currently, the patient is on 4 L of oxygen. She's getting lactated Ringer's at 75 mL an hour. Clinically, other than pain, she's doing well. White count 19.5, hemoglobin 9.4, hematocrit 28, and platelet count normal. Sodium 135, potassium 3.2, chlorides 96, CO2 35, BUN 8, and creatinine 0.70. Chest x-ray shows mild pulmonary vascular congestion and a small left pleural effusion. There is also some basilar atelectasis. Progress note dated 01/20/2023. 52-year-old female postop day #3, status post splenectomy, for spontaneous rupture of the spleen. The patient is seen today in room 259. She is on oxygen at 4 L by nasal cannula. She's getting lactated Ringer's at 75 mL an hour. She currently nothing by mouth. Current labs include a white count 20.1, hemoglobin 8.5, hematocrit 26.8, and a normal platelet count. Sodium 138, potassium 3.6, chlorides 100, CO2 34, BUN 7 with a creatinine of 0.61. Chest x-ray shows some stable pleural/parenchymal changes, likely on the basis of fluid overload. For that reason, the patient gets Lasix, 40 mg, IV push times one. Objective - Vital Signs Vital signs: Vital Signs Temp 99.5 F 01/20/23 08:41 Pulse 96 01/20/23 09:11 Resp 14 01/20/23 08:41 BP 111/45 01/20/23 08:41 Pulse Ox 97 01/20/23 08:48 FiO2 50 01/18/23 14:29 Intake & Output 01/19/23 01/20/23 01/20/23 18:59 06:59 18:59 Intake Total 625 550 150 Output Total 430 270 165 Balance 195 280 -15 Intake: IV 475 150 Lactated Ringers 1,000 ml 375 150 @ 75 mls/hr IV .[id number] [facility] Rx#:[id number] Piperacillin-Tazobactam 3 100 .375 gm In Sodium Chloride 0.9% 100 ml @ 25 mls/hr IVPB Q8HR [facility] Rx# :[id number] Intake, IV Titration 625 75 Amount Lactated Ringers 1,000 ml 525 75 @ 75 mls/hr IV .[id number] [facility] Rx#:[id number] Piperacillin-Tazobactam 3 100 .375 gm In Sodium Chloride 0.9% 100 ml @ 25 mls/hr IVPB Q8HR [facility] Rx# :[id number] Output: Drainage 5 20 Left Abdomen 5 20 Urine 425 250 165 Other: Voiding Method Indwelling Catheter Indwelling Catheter - Exam No acute distress, currently on nasal O2. No respiratory difficulty or distress. The patient is alert and oriented 3. HEENT examination is grossly unremarkable. Neck supple. Full range of motion. No adenopathy thyromegaly or neck vein distention. Cardiovascular examination reveals regular rhythm rate. S1-S2 normal. No S3 or S4. No discernible murmur noted. Heart rate 96 bpm. Lungs reveal clear breath sounds. Breath sounds are equal bilaterally. No adventitious lung sounds including wheezes rhonchi or crackles. 4 L saturation is 97%. Abdomen soft, without bowel sounds. A wound VAC is noted, as well as 1 Mckinley- Kothari drain. Extremities are intact. No cyanosis clubbing or edema. Skin is without rash or lesion. Neurologic examination is brief but nonfocal. - Labs CBC & Chem 7: 01/20/23 08:17 01/20/23 08:17 Labs: Abnormal Lab Results - Last 24 Hours (Table) 01/19/23 01/19/23 01/19/23 Range/Units 10:40 11:16 16:21 WBC (3.8-10.6) k/uL RBC (3.80-5.40) m/uL Hgb (11.4-16.0) gm/dL Hct (34.0-46.0) % Neutrophils # (1.3-7.7) k/uL Monocytes # (0-1.0) k/uL Eosinophils # (0-0.7) k/uL Carbon Dioxide (22-30) mmol/L Glucose (74-99) mg/dL POC Glucose (mg/dL) 135 H 123 H (70-110) mg/dL Calcium (8.4-10.2) mg/dL EBV Capsid Ag IgG Intrp Positive A (Negative) EBV Nuc Ag IgG Interp Positive A (Negative) 01/19/23 01/20/23 01/20/23 Range/Units 21:47 03:58 08:17 WBC 18.1 H 20.1 H (3.8-10.6) k/uL RBC 2.75 L 2.84 L (3.80-5.40) m/uL Hgb 8.6 L 8.5 L (11.4-16.0) gm/dL Hct 25.8 L 26.8 L (34.0-46.0) % Neutrophils # 14.1 H 15.5 H (1.3-7.7) k/uL Monocytes # 1.3 H 1.7 H (0-1.0) k/uL Eosinophils # 1.0 H 1.1 H (0-0.7) k/uL Carbon Dioxide (22-30) mmol/L Glucose (74-99) mg/dL POC Glucose (mg/dL) 112 H (70-110) mg/dL Calcium (8.4-10.2) mg/dL EBV Capsid Ag IgG Intrp (Negative) EBV Nuc Ag IgG Interp (Negative) 01/20/23 Range/Units 08:17 WBC (3.8-10.6) k/uL RBC (3.80-5.40) m/uL Hgb (11.4-16.0) gm/dL Hct (34.0-46.0) % Neutrophils # (1.3-7.7) k/uL Monocytes # (0-1.0) k/uL Eosinophils # (0-0.7) k/uL Carbon Dioxide 34 H (22-30) mmol/L Glucose 68 L (74-99) mg/dL POC Glucose (mg/dL) (70-110) mg/dL Calcium 8.1 L (8.4-10.2) mg/dL EBV Capsid Ag IgG Intrp (Negative) EBV Nuc Ag IgG Interp (Negative) Microbiology - Last 24 Hours (Table) 01/17/23 03:48 Blood Culture - Preliminary Blood 01/17/23 03:17 Blood Culture - Preliminary Blood Assessment and Plan Assessment: Postop day #3, status post exploratory laparotomy with splenectomy, for idiopathic splenic rupture. Routine postoperative ventilator management, S/P successful extubation 01/18/2023. History of COPD/asthma. History of hypertension. History of hyperlipidemia. History of diabetes mellitus. Question will history of multiple sclerosis. Ongoing tobacco use with nicotine addiction. Plan: Plan dated 01/17/2023. The ICU admission orders, and the vent bundle orders, were activated. The patient will be placed on albuterol sulfate and ipratropium bromide, every 4 hours [id number]. Labs, x-rays, and medications are reviewed. The patient is currently on propofol at 20 mcg/kg/m, and lactated Ringer's at 150 mL an hour. The FiO2 will be weaned down by respiratory. The patient is going to receive her second unit of packed red blood cells. The patient remains on Zosyn empirically. Additional recommendations and suggestions are forthcoming. The patient's overall prognosis is guarded. We will continue to follow the patient, and make recommendations along the way. Hopeful extubation tomorrow. Plan dated 01/18/2023. The patient is seen today in room 259. Her oxygenation is borderline on 50% and 10 of PEEP. The patient remains on propofol at 40 mcg/kg/m. On Zosyn empirically. The patient has received 2 units of packed red blood cells before. Lactated Ringer's to be dropped back to 75 mL an hour. The patient will get Lasix 60 mg IV push times one. The patient may benefit from a daily interruption of sedation and a spontaneous breathing trial later today. If so, the patient will be placed on a pressure support of 10, and CPAP of 5. Labs, x- rays, and medications are reviewed. Prognosis is guarded. We will continue to follow the patient, and make recommendations along the way. Plan dated 01/19/2023. The patient is seen today in room 259. She is postop day #2, status post splenectomy. The patient is doing well. She was successfully extubated yesterday. She's currently on 4 L of oxygen. Today's postop day #2. She's getting lactated Ringer's at 75 mL an hour. Other than pain at the surgical site, patient has no complaints. We encourage her to deep breathe, cough, and clear secretions. We also recommend hourly use of the incentive spirometer. We will continue to follow and make recommendations along the way. Plan dated 01/20/2023. The patient is seen today in room 259. She remains on oxygen at 4 L. She's getting lactated Ringer's at 75 mL an hour. The patient's chest x-rays reviewed, suggesting fluid overload. The patient gets Lasix 40 mg IV push. The patient is currently still nothing by mouth. Labs, x-rays, and medications are reviewed. Prognosis is guarded. She'll obviously need vaccinations for strep pneumoniae and Haemophilus influenzae, in the near future. We will continue to follow and make recommendations along the way. The patient is postop day #3. Time with Patient: Greater than 30
--- NOTE | 2023-01-20 12:10 | CA ---
Transthoracic Echo Report Name: Saundra Will Age: 52 Gender: F : 1970 Exam Date: 01/19/2023 16:30 Exam Location: [facility] Ht (in): 64 Wt (lb): 214 Ordering Physician: Nisha Tian Attending/Referring Phys: Jaylan CLAY Thread Winder Taylor Barahona RDCS Procedure CPT: Indications: chf Cardiac Hx: Technical Quality: Technically difficult study Contrast 1: Lumason Total Dose (mL): 4 Contrast 2: Total Dose (mL): MEASUREMENTS (Male / Female) Normal Values 2D ECHO LV Diastolic Diameter PLAX 4.8 cm 4.2 - 5.9 / 3.9 - 5.3 cm LV Systolic Diameter PLAX 2.7 cm IVS Diastolic Thickness 1.3 cm 0.6 - 1.0 / 0.6 - 0.9 cm LVPW Diastolic Thickness 1.3 cm 0.6 - 1.0 / 0.6 - 0.9 cm LV Relative Wall Thickness 0.5 RV Internal Dim ED PLAX 2.6 cm M-MODE Aortic Root Diameter MM 3.5 cm LA Systolic Diameter MM 3.8 cm LA Ao Ratio MM 1.1 AV Cusp Separation MM 2.2 cm DOPPLER MV Area PHT 4.0 cm??? Mitral E Point Velocity 93.9 cm/s Mitral A Point Velocity 85.3 cm/s Mitral E to A Ratio 1.1 MV Deceleration Time 190.3 ms TR Peak Velocity 194.1 cm/s TR Peak Gradient 15.1 mmHg Right Ventricular Systolic Press 20.1 mmHg FINDINGS Left Ventricle Mildly increased left ventricular wall thickness. Left ventricular cavity size normal. Normal left ventricular systolic function with no obvious regional wall motion abnormalities. Left ventricular ejection fraction is estimated at 55-60 %. Right Ventricle Normal right ventricular size and function. Right ventricular systolic pressure within normal limits. Right Atrium Right atrium not well visualized. Left Atrium Left atrium not well visualized. Mitral Valve Mitral valve not well visualized. No mitral regurgitation. Aortic Valve Aortic valve not well visualized. No aortic regurgitation. Tricuspid Valve Structurally normal tricuspid valve. Mild tricuspid regurgitation. Pulmonic Valve Structurally normal pulmonic valve. Mild pulmonic regurgitation. Pericardium No pericardial effusion. Aorta Normal size aortic root and proximal ascending aorta. CONCLUSIONS Normal LV size and systolic function. No significant abnormality on the Doppler exam. No pericardial effusion. No pulmonary hypertension Previewed by: Dr. Alfred Aleman MD (Electronically Signed) Final Date: 20 January 2023 12:09
[2023-01-20] MEDS: METOCLOPRAMIDE 5 MG/ML 2 ML VIAL IVP PRN (12:48)
--- NOTE | 2023-01-20 15:40 | P.PN ---
Subjective Progress Note Date: 01/20/23 This is a 52-year-old female with medical history of asthma/COPD, diabetes mellitus, hypertension, hyperlipidemia, known pancreatic mass and multiple sclerosis patient is a current daily smoker also history of anxiety and depression. Presents to the hospital with complaints of four-day history of right upper quadrant pain that has been progressive. History is taken from patients daughter at the bedside in the ICU. Patient is currently intubated on mechanical ventilator. Initial work up reveals white count 22.2 and hemoglobin of 14.2 which has since dropped down to 12.3. Patient does have lactic acidosis at 3.6 on admission as well as elevated amylase and lipase and alk phos. Urinalysis shows positive nitrites and moderate leukocyte esterase concerning for possible underlying urinary tract infection. Patient had abdominal pelvis CT for further evaluation of abdominal pain and found to have a 10.7 x 5.7 x 14.1 cm splenic subcapsular hematoma with extension beyond the spleen with mild hemoperitoneum. There are no signs of active extravasation identified which may be due to phase of contrast consider interventional consultation. There is also 1.9 severe pancreatic cyst at the tail of the pancreas. Chest x-ray shows dependent airspace disease in the lungs which may be due to atelectatic changes infection also possible. Patient was taken for exploratory laparotomy and splenectomy with Dr. Cummins. She is scheduled to receive 2 units of packed red blood cells. She was also started on empiric antibiotic coverage with IV Zosyn and being hydrated with IV fluids normal saline at 75 mL per hour. Patient found to be hypoxic postoperative has been placed on 5L of oxygen via nasal c annula. Blood pressure is marginal. Postoperatively, patient was taken to the intensive care unit with a pulmonary roller setter consultation she is currently on a mechanical ventilator with FiO2 of 50%. NG tube is in place. Abdominal wound is closed with a prevana wound vac. 01/18/2023 Patient remains in the intensive care unit, she is intubated on mechanical ventilator with a PEEP of 10, FiO2 of 50%. Patient is postoperative day #1 exploratory laporotomy, splenectomy, repair of incisional hernia and partial omentectomy. NG in place. Midline wound vac intact. Patient with positive bowel sounds. Chest xray today showing stable bilateral infiltrates greater on the left with small pleural effusion. LR has been decreased to 75ml/hr and patient also given a dose of IV lasix 60 mg. Pulmonary following. Patient remains on empiric antibiotics with IV zosyn. White count 21.3 today. Blood culture so far negative and urine culture is negative. Patient having low grade temps. 01/19/2023 Patient has been extubated and weaned down to 4L of oxygen. Evaluated today sitting up in the chair in the ICU awake and alert x 3. Patient is postoperative day #2, has wound vac in place to the abdominal incision. Not yet passing gas but does have positive bowel sounds throughout. Patient denies any recent strenous activity, or falls that could have precipitated the splenic hematoma. Patient does report she has been using a weight hula hoop daily. Blood cultures remain negative. White count of 19.5 today, hemoglobin 9.4, sodium 135, potassium 3.2. Chest xray today showing possible similar mild pulmonary vascular congestion, ongoing small left pleural effusion with prominent bibasilar patchy atelectasis and or consolidation left greater than right. Patient does report having a low grade fever of 99 prior to coming in to the hospital. No reported history of CHF. Patient continues on LR at 75 mls/hr. 01/20/2023 Patient remains in the intensive care unit. Currently on 4L of oxygen. Chest xr ay today shows stable pleural parenchymal change could be CHF or atypical pneumonia. Patient remains on IV zosyn empirically. Covid is negative. EBV panel negative for acute infection. Remains on LR at 75 mls/hr. Midline woundvac in place. Patient reports she has not passed gas yet. Remains NPO. Review of Systems Constitutional: Denied any fatigue denied any fever. Cardio vascular: denied any chest pain, palpitations Gastrointestinal: denied any nausea, vomiting, diarrhea Pulmonary: Denied any shortness of breath cough Neurologic denied any new focal deficits All inpatient medications were reviewed and appropriate changes in these medications as dictated in the interval history and assessment and plan. PHYSICAL EXAMINATION: GENERAL: Awake alert, not in any acute distress. Well developed, well nourished. HEENT: Pupils are round and equally reacting to light. EOMI. No scleral icterus. No conjunctival pallor. Normocephalic, atraumatic. No pharyngeal erythema. No thyromegaly. CARDIOVASCULAR: S1 and S2 present. No murmurs, rubs, or gallops. PULMONARY: Chest is clear to auscultation, no wheezing or crackles. ABDOMEN: Soft, nontender, nondistended, normoactive bowel sounds. No palpable organomegaly. Post surgical abdomen MUSCULOSKELETAL: No joint swelling or deformity. EXTREMITIES: No cyanosis, clubbing, or pedal edema. NEUROLOGICAL: No focal deficits. SKIN: No rashes. Assessment Abdominal pain right upper quadrant with spontaneous splenic hematoma with capsule rupture and incisional hernia; postoperative day #3 splenectomy and hernia repair. Leukocytosis and lactic acidosis Acute blood loss anemia from splenic rupture s/p 2 units of PRBCs. Abnormal urinalysis asymptomatic bacteriruea urine culture negative. Acute hypoxemic respiratory failure 86% on room air required mechanical ventilator post surgery. Currently weaned to 4L. Recent pancreatic cyst removal History of COPD/Asthma Diabetes Mellitus type 2 Hypertension Hyperlipidemia GI prophylaxis DVT prophylaxis Full Code Plan Continue on empiric antibiotic coverage, check COVID. Maintain fluids at 75 mls/hr, patient is NPO Stop the levemir and continue sliding scale achs. Repeat labs in the AM. Continue to encourage incentive spirometer 10 x an hr PT/OT following. The impression and plan of care has been dictated by Nisha Tian, Nurse Practitioner as directed. Dr. Ute MD I have performed a history and physical examination and medical decision making of this patient, discussed the same with the dictator, and agree with the dictators assessment and plan as written, documented as a scribe. Based on total visit time, I have performed more than 50% of this visit. Objective - Vital Signs Vital signs: Vital Signs Temp 99.1 F 01/19/23 23:00 Pulse 110 H 01/20/23 00:05 Resp 12 01/20/23 00:05 BP 124/52 01/20/23 00:05 Pulse Ox 91 L 01/20/23 00:05 FiO2 50 01/18/23 14:29 Intake & Output 01/19/23 01/20/23 01/20/23 18:59 06:59 18:59 Intake Total 625 550 Output Total 430 270 Balance 195 280 Intake: IV 475 Lactated Ringers 1,000 ml 375 @ 75 mls/hr IV .[id number] [facility] Rx#:[id number] Piperacillin-Tazobactam 3 100 .375 gm In Sodium Chloride 0.9% 100 ml @ 25 mls/hr IVPB Q8HR [facility] Rx# :[id number] Intake, IV Titration 625 75 Amount Lactated Ringers 1,000 ml 525 75 @ 75 mls/hr IV .[id number] [facility] Rx#:[id number] Piperacillin-Tazobactam 3 100 .375 gm In Sodium Chloride 0.9% 100 ml @ 25 mls/hr IVPB Q8HR [facility] Rx# :[id number] Output: Drainage 5 20 Left Abdomen 5 20 Urine 425 250 Other: Voiding Method Indwelling Catheter Indwelling Catheter - Labs CBC & Chem 7: 01/20/23 08:17 01/20/23 08:17 Labs: Abnormal Lab Results - Last 24 Hours (Table) 01/19/23 01/19/23 01/19/23 Range/Units 10:40 11:16 16:21 WBC (3.8-10.6) k/uL RBC (3.80-5.40) m/uL Hgb (11.4-16.0) gm/dL Hct (34.0-46.0) % Neutrophils # (1.3-7.7) k/uL Monocytes # (0-1.0) k/uL Eosinophils # (0-0.7) k/uL POC Glucose (mg/dL) 135 H 123 H (70-110) mg/dL EBV Capsid Ag IgG Intrp Positive A (Negative) EBV Nuc Ag IgG Interp Positive A (Negative) 01/19/23 01/20/23 Range/Units 21:47 03:58 WBC 18.1 H (3.8-10.6) k/uL RBC 2.75 L (3.80-5.40) m/uL Hgb 8.6 L (11.4-16.0) gm/dL Hct 25.8 L (34.0-46.0) % Neutrophils # 14.1 H (1.3-7.7) k/uL Monocytes # 1.3 H (0-1.0) k/uL Eosinophils # 1.0 H (0-0.7) k/uL POC Glucose (mg/dL) 112 H (70-110) mg/dL EBV Capsid Ag IgG Intrp (Negative) EBV Nuc Ag IgG Interp (Negative) Microbiology - Last 24 Hours (Table) 01/17/23 03:48 Blood Culture - Preliminary Blood 01/17/23 03:17 Blood Culture - Preliminary Blood Assessment and Plan Time with Patient: Less than 30
[2023-01-20 15:58] LABS: Glucose,Whole Blood 73 mg/dL (70-110)
[2023-01-20] MEDS: POTASSIUM CHLORIDE ER 20 MEQ TAB.ER PO SCH ×2 (18:37→20:35)
[2023-01-20] MEDS: SENNOSIDES 8.6 MG TAB PO SCH (20:34)
[2023-01-20] MEDS: MONTELUKAST 10 MG TAB PO SCH (20:35)
[2023-01-20] MEDS: ATORVASTATIN 40 MG TAB PO SCH (20:35)
[2023-01-20 22:49] LABS: Glucose,Whole Blood 94 mg/dL (70-110)
[2023-01-20] MEDS: ONDANSETRON 4 MG/2 ML VIAL IVP PRN (23:17)
[2023-01-21 00:34] LABS: Glucose,Whole Blood 89 mg/dL (70-110)
[2023-01-21] MEDS: HYDROmorphone 1 MG/ML 1 ML SYRINGE IVP PRN ×3 (02:50→09:05)
[2023-01-21 04:37] LABS: Basophils % (A) 0 %; Eosinophils # (A) 1.3 k/uL (0-0.7); Eosinophils % (A) 8 %; HGB 8.7 gm/dL (11.4-16.0); Hypochromasia Slight; Lymphocytes % (A) 12 %; MCH 30.1 pg (25.0-35.0); MCHC 32.3 g/dL (31.0-37.0); Mean Platelet Volume 8.7; Monocytes # (A) 1.3 k/uL (0-1.0); Monocytes % (A) 8 %; Neutrophils # (A) 11.6 k/uL (1.3-7.7); Neutrophils % (A) 69 %; Platelet Count 390 k/uL (150-450); RDW 13.9 % (11.5-15.5); WBC 16.8 k/uL (3.8-10.6)
[2023-01-21] MEDS: LACTATED RINGERS 1,000 ML IV SCH ×3 (05:01→23:42)
[2023-01-21 05:07] LABS: African American GFR (CKD) >90 (>60 ml/min/1.73 sqM); Anion Gap 6 mmol/L; Blood Urea Nitrogen 5 mg/dL (7-17); Calcium 8.3 mg/dL (8.4-10.2); Carbon Dioxide 33 mmol/L (22-30); Chloride 97 mmol/L (98-107); Glucose 81 mg/dL (74-99); Non-African American GFR(CKD) >90 (>60 ml/min/1.73 sqM); Potassium 3.5 mmol/L (3.5-5.1); Sodium 136 mmol/L (137-145)
[2023-01-21] MEDS: INSULIN ASPART (NovoLOG) 100 UNIT/ML VIAL SQ SCH ×5 (05:10→21:00)
[2023-01-21 05:11] LABS: Glucose,Whole Blood 105 mg/dL (70-110)
[2023-01-21] MEDS ORDERED: Potassium Replacement Protocol 1 EACH MISC MISCELLANE PRN (05:18)
[2023-01-21] MEDS: POTASSIUM CHLORIDE ER 20 MEQ TAB.ER PO SCH ×2 (06:09→06:55)
[2023-01-21] MEDS: PIPERACILLIN-TAZOBACTAM 3.375 GM in SODIUM CHLORIDE 0.9% 100 ML IVPB SCH ×3 (08:57→23:40)
[2023-01-21] MEDS: METOCLOPRAMIDE 5 MG/ML 2 ML VIAL IVP PRN (08:58)
[2023-01-21] MEDS: IPRATROPIUM-ALBUTEROL 3 ML NEB INHALATION SCH ×4 (09:24→20:21)
--- NOTE | 2023-01-21 09:37 | P.PN ---
Subjective Progress Note Date: 01/21/23 Principal diagnosis: Splenic hematoma Patient remains in the ICU. Remains hematoma was stable. Hemoglobin is stable. Hemoglobin today 8.7. Drain output serosanguineous. Patient is hungry. She is passing flatus. No nausea or vomiting. Objective - Vital Signs Vital signs: Vital Signs Temp 98.8 F 01/21/23 08:00 Pulse 82 01/21/23 08:00 Resp 14 01/21/23 08:00 BP 110/48 01/21/23 08:00 Pulse Ox 95 01/21/23 08:00 FiO2 50 01/18/23 14:29 Intake & Output 01/20/23 01/21/23 01/21/23 18:59 06:59 18:59 Intake Total 715 1080 Output Total 3810 655 Balance -3095 425 Weight 97.4 kg 95.9 kg Intake: IV 715 1080 Invasive Line 3 20 40 Invasive Line 4 20 40 Lactated Ringers 1,000 ml 675 900 @ 75 mls/hr IV .[id number] [facility] Rx#:[id number] Piperacillin-Tazobactam 3 100 .375 gm In Sodium Chloride 0.9% 100 ml @ 25 mls/hr IVPB Q8HR [facility] Rx# :[id number] Output: Drainage 45 15 Left Abdomen 45 15 Urine 3765 640 Other: Voiding Method Indwelling Catheter Indwelling Catheter - Exam Abdomen: Soft, mild distention, dressing applied, SHANELL serosanguineous - Labs CBC & Chem 7: 01/21/23 04:05 01/21/23 04:05 Labs: Abnormal Lab Results - Last 24 Hours (Table) 01/20/23 01/20/23 01/21/23 Range/Units 08:17 15:53 04:05 WBC 20.1 H 16.8 H (3.8-10.6) k/uL RBC 2.84 L 2.90 L (3.80-5.40) m/uL Hgb 8.5 L 8.7 L (11.4-16.0) gm/dL Hct 26.8 L 27.0 L (34.0-46.0) % Neutrophils # 15.5 H 11.6 H (1.3-7.7) k/uL Monocytes # 1.7 H 1.3 H (0-1.0) k/uL Eosinophils # 1.1 H 1.3 H (0-0.7) k/uL Sodium (137-145) mmol/L Potassium 3.2 L (3.5-5.1) mmol/L Chloride (98-107) mmol/L Carbon Dioxide (22-30) mmol/L BUN (7-17) mg/dL Calcium (8.4-10.2) mg/dL 01/21/23 Range/Units 04:05 WBC (3.8-10.6) k/uL RBC (3.80-5.40) m/uL Hgb (11.4-16.0) gm/dL Hct (34.0-46.0) % Neutrophils # (1.3-7.7) k/uL Monocytes # (0-1.0) k/uL Eosinophils # (0-0.7) k/uL Sodium 136 L (137-145) mmol/L Potassium (3.5-5.1) mmol/L Chloride 97 L (98-107) mmol/L Carbon Dioxide 33 H (22-30) mmol/L BUN 5 L (7-17) mg/dL Calcium 8.3 L (8.4-10.2) mg/dL Microbiology - Last 24 Hours (Table) 01/17/23 03:48 Blood Culture - Preliminary Blood 01/17/23 03:17 Blood Culture - Preliminary Blood Assessment and Plan (1) Subcapsular hemorrhage of spleen Narrative/Plan: 52-year-old female with spontaneous hemorrhage from spleen. Underwent operative splenectomy as an emergency several days ago. Doing well at this time. Begin clear liquids. May transfer to stepdown. Follow labs. Increase activity. Current Visit: Yes Status: Acute Code(s): D73.5 - INFARCTION OF SPLEEN SNOMED Code(s): 874418158
[2023-01-21] MEDS: ENOXAPARIN 40 MG/0.4 ML SYRINGE SQ SCH (09:59)
[2023-01-21] MEDS: PANTOPRAZOLE 40 MG/10 ML VIAL IVP SCH (09:59)
[2023-01-21] MEDS: LURASIDONE 20 MG TAB PO SCH (10:00)
[2023-01-21] MEDS: PREGABALIN 100 MG CAP PO SCH ×2 (10:00→20:05)
[2023-01-21 10:05] LABS: Glucose,Whole Blood 91 mg/dL (70-110)
[2023-01-21] MEDS ORDERED: polyethylene glycoL 3350 17 GM POWD.PACK PO PRN (11:35)
--- NOTE | 2023-01-21 11:35 | P.PN ---
Subjective Progress Note Date: 01/21/23 Principal diagnosis: Abdominal pain. Pulmonary consult dated 01/17/2023. 52-year-old female who presented to the emergency department, early on the morning of January 17, with 4 days of left-sided abdominal pain. The pain was described as being moderate to severe. She denied any GI issues like diarrhea, vomiting, etc. The patient ended up having a idiopathic splenic rupture, and, today, went to the operating room, which she had a splenectomy. The patient was brought back to the intensive care unit on the mechanical ventilator. She is on the volume assist control, rate 14, tidal volume 400, FiO2 100%, and PEEP of 5. Blood gases show pO2 124, pCO2 of 50, pH is 7.3. The patient has a Mckinley- Kothari drain in place, a Provena wound VAC, a Ramos catheter, and orogastric tube, and endotracheal tube in place. She has 2 peripheral IVs. She's currently on Zosyn. She is receiving us second unit of packed red blood cells. She's getting propofol at 20 mcg/kg/m. He is also getting lactated Ringer's at 150 mL an hour. Blood gases show pO2 124, pCO2 of 50, pH is 7.3. Initial chest x-ray showed a right mainstem intubation. Endotracheal tube was pulled back. The patient has a history of hypertension, hyperlipidemia, asthma/COPD, diabetes, chronic tobacco use, and questionable MS. White count 17.9, with a normal hemoglobin, hematocrit, and platelet count. Sodium 136, potassium 4.6, chlorides 98, CO2 25, BUN 12, creatinine 0.79. Lactic acid was 3.7. Amylase 116, and lipase 372. Urine was cloudy, with 1+ protein, positive for nitrite and leukocyte esterase, with 23 WBCs and occasional bacteria. Progress note dated 01/18/2023. Patient is postop day #1, status post splenectomy for spontaneous rupture of the spleen. The patient remains on the mechanical ventilator. The patient is seen today in room 259. She is on volume assist control, rate 14, tidal volume 400, FiO2 50%, and PEEP of 10. Blood gases show pO2 64, pCO2 54, and a pH is 7.37. The patient's on propofol at 40 mcg/kg/m, lactated Ringer's at 150 mL an hour, and Zosyn. She's received total of 2 units of packed red blood cells. The patient will get Lasix 60 mg IV push, and lactated Ringer's will be induced on the 75 mL an hour. White count is 21.3, hemoglobin 11.7, hematocrit 34.5, and platelet count 248,000. Sodium 135, potassium 4, chlorides 102, CO2 28, BUN 8, creatinine 0.69. Magnesium 1.5. Albumin 2.6. Chest x-ray shows stable bilateral infiltrates. Progress note dated 01/19/2023. This patient is postop day #2, status post splenectomy, for spontaneous rupture of the spleen. The patient was extubated yesterday, January 18. Currently, the patient is on 4 L of oxygen. She's getting lactated Ringer's at 75 mL an hour. Clinically, other than pain, she's doing well. White count 19.5, hemoglobin 9.4, hematocrit 28, and platelet count normal. Sodium 135, potassium 3.2, chlorides 96, CO2 35, BUN 8, and creatinine 0.70. Chest x-ray shows mild pulmonary vascular congestion and a small left pleural effusion. There is also some basilar atelectasis. Progress note dated 01/20/2023. 52-year-old female postop day #3, status post splenectomy, for spontaneous rupture of the spleen. The patient is seen today in room 259. She is on oxygen at 4 L by nasal cannula. She's getting lactated Ringer's at 75 mL an hour. She currently nothing by mouth. Current labs include a white count 20.1, hemoglobin 8.5, hematocrit 26.8, and a normal platelet count. Sodium 138, potassium 3.6, chlorides 100, CO2 34, BUN 7 with a creatinine of 0.61. Chest x-ray shows some stable pleural/parenchymal changes, likely on the basis of fluid overload. For that reason, the patient gets Lasix, 40 mg, IV push times one. Progress note dated 01/21/2023. 52-year-old female who is postop day #4, status post splenectomy for spontaneous rupture of the spleen. She is seen in room 259. She's doing well. The patient's on 2 L of oxygen. She's receiving lactated Ringer's at 75 mL an hour. The patient could be transferred to the general medical floor. Tracee count of 16.8, he will may 0.7, hematocrit 27, with a normal platelet count. Sodium 136, potassium 3.5, chlorides 97, CO2 33, BUN 5, creatinine 0.55. Calcium is 8.3. Objective - Vital Signs Vital signs: Vital Signs Temp 98.8 F 01/21/23 08:00 Pulse 82 01/21/23 08:00 Resp 14 01/21/23 08:00 BP 110/48 01/21/23 08:00 Pulse Ox 95 01/21/23 08:00 FiO2 50 01/18/23 14:29 Intake & Output 01/20/23 01/21/23 01/21/23 18:59 06:59 18:59 Intake Total 715 1080 40 Output Total 3810 655 Balance -3095 425 40 Weight 97.4 kg 95.9 kg Intake: IV 715 1080 40 Invasive Line 3 20 40 20 Invasive Line 4 20 40 20 Lactated Ringers 1,000 ml 675 900 @ 75 mls/hr IV .[id number] [facility] Rx#:[id number] Piperacillin-Tazobactam 3 100 .375 gm In Sodium Chloride 0.9% 100 ml @ 25 mls/hr IVPB Q8HR [facility] Rx# :[id number] Output: Drainage 45 15 Left Abdomen 45 15 Urine [id number] 640 Other: Voiding Method Indwelling Catheter Indwelling Catheter - Exam No acute distress, currently on nasal O2. No respiratory difficulty or distress. The patient is alert and oriented 3. HEENT examination is grossly unremarkable. Neck supple. Full range of motion. No adenopathy thyromegaly or neck vein distention. Cardiovascular examination reveals regular rhythm rate. S1-S2 normal. No S3 or S4. No discernible murmur noted. Heart rate 82 bpm. Lungs reveal clear breath sounds. Breath sounds are equal bilaterally. No adventitious lung sounds including wheezes rhonchi or crackles. 3 L saturation is 95%. Abdomen soft, with bowel sounds. Extremities are intact. No cyanosis clubbing or edema. Skin is without rash or lesion. Neurologic examination is brief but nonfocal. - Labs CBC & Chem 7: 01/21/23 04:05 01/21/23 04:05 Labs: Abnormal Lab Results - Last 24 Hours (Table) 01/20/23 01/21/23 01/21/23 Range/Units 15:53 04:05 04:05 WBC 16.8 H (3.8-10.6) k/uL RBC 2.90 L (3.80-5.40) m/uL Hgb 8.7 L (11.4-16.0) gm/dL Hct 27.0 L (34.0-46.0) % Neutrophils # 11.6 H (1.3-7.7) k/uL Monocytes # 1.3 H (0-1.0) k/uL Eosinophils # 1.3 H (0-0.7) k/uL Sodium 136 L (137-145) mmol/L Potassium 3.2 L (3.5-5.1) mmol/L Chloride 97 L (98-107) mmol/L Carbon Dioxide 33 H (22-30) mmol/L BUN 5 L (7-17) mg/dL Calcium 8.3 L (8.4-10.2) mg/dL Microbiology - Last 24 Hours (Table) 01/17/23 03:48 Blood Culture - Preliminary Blood 01/17/23 03:17 Blood Culture - Preliminary Blood Assessment and Plan Assessment: Postop day #4, status post exploratory laparotomy with splenectomy, for idiopathic splenic rupture. Routine postoperative ventilator management, S/P successful extubation 01/18/2023. History of COPD/asthma. History of hypertension. History of hyperlipidemia. History of diabetes mellitus. Question will history of multiple sclerosis. Ongoing tobacco use with nicotine addiction. Plan: Plan dated 01/17/2023. The ICU admission orders, and the vent bundle orders, were activated. The patient will be placed on albuterol sulfate and ipratropium bromide, every 4 hours [id number]. Labs, x-rays, and medications are reviewed. The patient is currently on propofol at 20 mcg/kg/m, and lactated Ringer's at 150 mL an hour. The FiO2 will be weaned down by respiratory. The patient is going to receive her second unit of packed red blood cells. The patient remains on Zosyn empirically. Additional recommendations and suggestions are forthcoming. The patient's overall prognosis is guarded. We will continue to follow the patient, and make recommendations along the way. Hopeful extubation tomorrow. Plan dated 01/18/2023. The patient is seen today in room 259. Her oxygenation is borderline on 50% and 10 of PEEP. The patient remains on propofol at 40 mcg/kg/m. On Zosyn empirically. The patient has received 2 units of packed red blood cells before. Lactated Ringer's to be dropped back to 75 mL an hour. The patient will get Lasix 60 mg IV push times one. The patient may benefit from a daily interruption of sedation and a spontaneous breathing trial later today. If so, the patient will be placed on a pressure support of 10, and CPAP of 5. Labs, x-rays, and medications are reviewed. Prognosis is guarded. We will continue to follow the patient, and make recommendations along the way. Plan dated 01/19/2023. The patient is seen today in room 259. She is postop day #2, status post splenectomy. The patient is doing well. She was successfully extubated yesterday. She's currently on 4 L of oxygen. Today's postop day #2. She's getting lactated Ringer's at 75 mL an hour. Other than pain at the surgical site, patient has no complaints. We encourage her to deep breathe, cough, and clear secretions. We also recommend hourly use of the incentive spirometer. We will continue to follow and make recommendations along the way. Plan dated 01/20/2023. The patient is seen today in room 259. She remains on oxygen at 4 L. She's getting lactated Ringer's at 75 mL an hour. The patient's chest x-rays reviewed, suggesting fluid overload. The patient gets Lasix 40 mg IV push. The patient is currently still nothing by mouth. Labs, x-rays, and medications are reviewed. Prognosis is guarded. She'll obviously need vaccinations for strep p neumoniae and Haemophilus influenzae, in the near future. We will continue to follow and make recommendations along the way. The patient is postop day #3. Plan dated 01/21/2023. The patient is seen today in room 259. She's doing well wall. She's been weaned down to 2 L. She's getting lactated Ringer's at 75 mL an hour. Labs, x- rays, and medications are reviewed. The patient could be transferred out to the general medical floor. We recommend deep breathing, coughing, clearing of secretions. We would like her to continue to use the incentive spirometer, every hour. In addition, she'll need vaccination for Streptococcus pneumoniae, and Haemophilus influenzae, prior to discharge. Labs, x-rays, and medications are reviewed. No additional recommendations are made at this time. Time with Patient: Less than 30
--- NOTE | 2023-01-21 12:00 | P.PN ---
Subjective Progress Note Date: 01/21/23 This is a 52-year-old female with medical history of asthma/COPD, diabetes mellitus, hypertension, hyperlipidemia, known pancreatic mass and multiple sclerosis patient is a current daily smoker also history of anxiety and depression. Presents to the hospital with complaints of four-day history of right upper quadrant pain that has been progressive. History is taken from patients daughter at the bedside in the ICU. Patient is currently intubated on mechanical ventilator. Initial work up reveals white count 22.2 and hemoglobin of 14.2 which has since dropped down to 12.3. Patient does have lactic acidosis at 3.6 on admission as well as elevated amylase and lipase and alk phos. Urinalysis shows positive nitrites and moderate leukocyte esterase concerning for possible underlying urinary tract infection. Patient had abdominal pelvis CT for further evaluation of abdominal pain and found to have a 10.7 x 5.7 x 14.1 cm splenic subcapsular hematoma with extension beyond the spleen with mild hemoperitoneum. There are no signs of active extravasation identified which may be due to phase of contrast consider interventional consultation. There is also 1.9 severe pancreatic cyst at the tail of the pancreas. Chest x-ray shows dependent airspace disease in the lungs which may be due to atelectatic changes infection also possible. Patient was taken for exploratory laparotomy and splenectomy with Dr. Cummins. She is scheduled to receive 2 units of packed red blood cells. She was also started on empiric antibiotic coverage with IV Zosyn and being hydrated with IV fluids normal saline at 75 mL per hour. Patient found to be hypoxic postoperative has been placed on 5L of oxygen via nasal c annula. Blood pressure is marginal. Postoperatively, patient was taken to the intensive care unit with a pulmonary sales consultant residential manager consultation she is currently on a mechanical ventilator with FiO2 of 50%. NG tube is in place. Abdominal wound is closed with a prevana wound vac. 01/18/2023 Patient remains in the intensive care unit, she is intubated on mechanical ventilator with a PEEP of 10, FiO2 of 50%. Patient is postoperative day #1 exploratory laporotomy, splenectomy, repair of incisional hernia and partial omentectomy. NG in place. Midline wound vac intact. Patient with positive bowel sounds. Chest xray today showing stable bilateral infiltrates greater on the left with small pleural effusion. LR has been decreased to 75ml/hr and patient also given a dose of IV lasix 60 mg. Pulmonary following. Patient remains on empiric antibiotics with IV zosyn. White count 21.3 today. Blood culture so far negative and urine culture is negative. Patient having low grade temps. 01/19/2023 Patient has been extubated and weaned down to 4L of oxygen. Evaluated today sitting up in the chair in the ICU awake and alert x 3. Patient is postoperative day #2, has wound vac in place to the abdominal incision. Not yet passing gas but does have positive bowel sounds throughout. Patient denies any recent strenous activity, or falls that could have precipitated the splenic hematoma. Patient does report she has been using a weight hula hoop daily. Blood cultures remain negative. White count of 19.5 today, hemoglobin 9.4, sodium 135, potassium 3.2. Chest xray today showing possible similar mild pulmonary vascular congestion, ongoing small left pleural effusion with prominent bibasilar patchy atelectasis and or consolidation left greater than right. Patient does report having a low grade fever of 99 prior to coming in to the hospital. No reported history of CHF. Patient continues on LR at 75 mls/hr. 01/20/2023 Patient remains in the intensive care unit. Currently on 4L of oxygen. Chest xr ay today shows stable pleural parenchymal change could be CHF or atypical pneumonia. Patient remains on IV zosyn empirically. Covid is negative. EBV panel negative for acute infection. Remains on LR at 75 mls/hr. Midline woundvac in place. Patient reports she has not passed gas yet. Remains NPO. 01/21/2023 Patient remains in the intensive care unit with plans to downgrade from ICU today. Working with physical therapy. Sitting up in the chair. Patient is now passing gas. Diet being advanced to clear liquid. Remains on empiric antibiotics with IV zosyn. White count today 16.8. Continues with wound vac to the midline incision. Serosanguineous drainage. Continues on 3 to 4L of oxygen encourage incentive spirometer. Review of Systems Constitutional: Denied any fatigue denied any fever. Cardio vascular: denied any chest pain, palpitations Gastrointestinal: denied any nausea, vomiting, diarrhea, patient is now passing gas. Pulmonary: Denied any shortness of breath cough Neurologic denied any new focal deficits All inpatient medications were reviewed and appropriate changes in these m edications as dictated in the interval history and assessment and plan. PHYSICAL EXAMINATION: GENERAL: Awake alert, not in any acute distress. Well developed, well nourished. HEENT: Pupils are round and equally reacting to light. EOMI. No scleral icterus. No conjunctival pallor. Normocephalic, atraumatic. No pharyngeal erythema. No thyromegaly. CARDIOVASCULAR: S1 and S2 present. No murmurs, rubs, or gallops. PULMONARY: Chest is clear to auscultation, no wheezing or crackles. ABDOMEN: Soft, nontender, nondistended, normoactive bowel sounds. No palpable organomegaly. Post surgical abdomen MUSCULOSKELETAL: No joint swelling or deformity. EXTREMITIES: No cyanosis, clubbing, or pedal edema. NEUROLOGICAL: No focal deficits. SKIN: No rashes. Assessment Abdominal pain right upper quadrant with spontaneous splenic hematoma with capsule rupture and incisional hernia; postoperative day #4 splenectomy and hernia repair. Leukocytosis and lactic acidosis Acute blood loss anemia from splenic rupture s/p 2 units of PRBCs. Abnormal urinalysis asymptomatic bacteriruea urine culture negative. Acute hypoxemic respiratory failure 86% on room air required mechanical ventilator post surgery. Currently weaned to 4L. Recent pancreatic cyst removal History of COPD/Asthma Diabetes Mellitus type 2 Hypertension Hyperlipidemia GI prophylaxis DVT prophylaxis Full Code Plan Continue on empiric antibiotic coverage Maintain fluids at 75 mls/hr, diet advanced to clear liquid. Continue to encourage incentive spirometer 10 x an hr PT/OT following. Patient is being downgraded from the ICU today. Repeat labs in AM. The impression and plan of care has been dictated by Nisha Tian, Nurse Practitioner as directed. Dr. Ute MD I have performed a history and physical examination and medical decision making of this patient, discussed the same with the dictator, and agree with the di ctators assessment and plan as written, documented as a scribe. Based on total visit time, I have performed more than 50% of this visit. Objective - Vital Signs Vital signs: Vital Signs Temp 98.8 F 01/21/23 08:00 Pulse 85 01/21/23 11:46 Resp 14 01/21/23 08:00 BP 110/48 01/21/23 08:00 Pulse Ox 95 01/21/23 08:00 FiO2 50 01/18/23 14:29 Intake & Output 01/20/23 01/21/23 01/21/23 18:59 06:59 18:59 Intake Total 715 1080 40 Output Total 3810 655 5 Balance -3095 425 35 Weight 97.4 kg 95.9 kg Intake: IV 715 1080 40 Invasive Line 3 20 40 20 Invasive Line 4 20 40 20 Lactated Ringers 1,000 ml 675 900 @ 75 mls/hr IV .[id number] [facility] Rx#:[id number] Piperacillin-Tazobactam 3 100 .375 gm In Sodium Chloride 0.9% 100 ml @ 25 mls/hr IVPB Q8HR [facility] Rx# :[id number] Output: Drainage 45 15 5 Left Abdomen 45 15 5 Urine [id number] Other: Voiding Method Indwelling Catheter Indwelling Catheter Indwelling Catheter - Labs CBC & Chem 7: 01/21/23 04:05 01/21/23 04:05 Labs: Abnormal Lab Results - Last 24 Hours (Table) 01/20/23 01/21/23 01/21/23 Range/Units 15:53 04:05 04:05 WBC 16.8 H (3.8-10.6) k/uL RBC 2.90 L (3.80-5.40) m/uL Hgb 8.7 L (11.4-16.0) gm/dL Hct 27.0 L (34.0-46.0) % Neutrophils # 11.6 H (1.3-7.7) k/uL Monocytes # 1.3 H (0-1.0) k/uL Eosinophils # 1.3 H (0-0.7) k/uL Sodium 136 L (137-145) mmol/L Potassium 3.2 L (3.5-5.1) mmol/L Chloride 97 L (98-107) mmol/L Carbon Dioxide 33 H (22-30) mmol/L BUN 5 L (7-17) mg/dL Calcium 8.3 L (8.4-10.2) mg/dL Microbiology - Last 24 Hours (Table) 01/17/23 03:48 Blood Culture - Preliminary Blood 01/17/23 03:17 Blood Culture - Preliminary Blood Assessment and Plan Time with Patient: Less than 30
[2023-01-21] MEDS: HYDROcodone/APAP 7.5-325MG 1 EACH TAB PO PRN ×2 (12:38→20:06)
[2023-01-21] MEDS: HYDROmorphone 0.5 MG/0.5 ML SYRINGE IVP PRN ×2 (16:22→20:04)
[2023-01-21 17:17] LABS: Glucose,Whole Blood 118 mg/dL (70-110)
[2023-01-21] MEDS: MONTELUKAST 10 MG TAB PO SCH (20:05)
[2023-01-21] MEDS: SENNOSIDES 8.6 MG TAB PO SCH (20:05)
[2023-01-21] MEDS: ATORVASTATIN 40 MG TAB PO SCH (20:05)
[2023-01-21 20:32] LABS: Glucose,Whole Blood 129 mg/dL (70-110)
[2023-01-22 07:28] LABS: Glucose,Whole Blood 122 mg/dL (70-110)
[2023-01-22] MEDS: INSULIN ASPART (NovoLOG) 100 UNIT/ML VIAL SQ SCH ×4 (07:29→21:36)
--- NOTE | 2023-01-22 08:01 | P.PN ---
Subjective Progress Note Date: 01/22/23 Principal diagnosis: Abdominal pain. Pulmonary consult dated 01/17/2023. 52-year-old female who presented to the emergency department, early on the morning of January 17, with 4 days of left-sided abdominal pain. The pain was described as being moderate to severe. She denied any GI issues like diarrhea, vomiting, etc. The patient ended up having a idiopathic splenic rupture, and, today, went to the operating room, which she had a splenectomy. The patient was brought back to the intensive care unit on the mechanical ventilator. She is on the volume assist control, rate 14, tidal volume 400, FiO2 100%, and PEEP of 5. Blood gases show pO2 124, pCO2 of 50, pH is 7.3. The patient has a Mckinley- Kothari drain in place, a Provena wound VAC, a Ramos catheter, and orogastric tube, and endotracheal tube in place. She has 2 peripheral IVs. She's currently on Zosyn. She is receiving us second unit of packed red blood cells. She's getting propofol at 20 mcg/kg/m. He is also getting lactated Ringer's at 150 mL an hour. Blood gases show pO2 124, pCO2 of 50, pH is 7.3. Initial chest x-ray showed a right mainstem intubation. Endotracheal tube was pulled back. The patient has a history of hypertension, hyperlipidemia, asthma/COPD, diabetes, chronic tobacco use, and questionable MS. White count 17.9, with a normal hemoglobin, hematocrit, and platelet count. Sodium 136, potassium 4.6, chlorides 98, CO2 25, BUN 12, creatinine 0.79. Lactic acid was 3.7. Amylase 116, and lipase 372. Urine was cloudy, with 1+ protein, positive for nitrite and leukocyte esterase, with 23 WBCs and occasional bacteria. Progress note dated 01/18/2023. Patient is postop day #1, status post splenectomy for spontaneous rupture of the spleen. The patient remains on the mechanical ventilator. The patient is seen today in room 259. She is on volume assist control, rate 14, tidal volume 400, FiO2 50%, and PEEP of 10. Blood gases show pO2 64, pCO2 54, and a pH is 7.37. The patient's on propofol at 40 mcg/kg/m, lactated Ringer's at 150 mL an hour, and Zosyn. She's received total of 2 units of packed red blood cells. The patient will get Lasix 60 mg IV push, and lactated Ringer's will be induced on the 75 mL an hour. White count is 21.3, hemoglobin 11.7, hematocrit 34.5, and platelet count 248,000. Sodium 135, potassium 4, chlorides 102, CO2 28, BUN 8, creatinine 0.69. Magnesium 1.5. Albumin 2.6. Chest x-ray shows stable bilateral infiltrates. Progress note dated 01/19/2023. This patient is postop day #2, status post splenectomy, for spontaneous rupture of the spleen. The patient was extubated yesterday, January 18. Currently, the patient is on 4 L of oxygen. She's getting lactated Ringer's at 75 mL an hour. Clinically, other than pain, she's doing well. White count 19.5, hemoglobin 9.4, hematocrit 28, and platelet count normal. Sodium 135, potassium 3.2, chlorides 96, CO2 35, BUN 8, and creatinine 0.70. Chest x-ray shows mild pulmonary vascular congestion and a small left pleural effusion. There is also some basilar atelectasis. Progress note dated 01/20/2023. 52-year-old female postop day #3, status post splenectomy, for spontaneous rupture of the spleen. The patient is seen today in room 259. She is on oxygen at 4 L by nasal cannula. She's getting lactated Ringer's at 75 mL an hour. She currently nothing by mouth. Current labs include a white count 20.1, hemoglobin 8.5, hematocrit 26.8, and a normal platelet count. Sodium 138, potassium 3.6, chlorides 100, CO2 34, BUN 7 with a creatinine of 0.61. Chest x-ray shows some stable pleural/parenchymal changes, likely on the basis of fluid overload. For that reason, the patient gets Lasix, 40 mg, IV push times one. Progress note dated 01/21/2023. 52-year-old female who is postop day #4, status post splenectomy for spontaneous rupture of the spleen. She is seen in room 259. She's doing well. The patient's on 2 L of oxygen. She's receiving lactated Ringer's at 75 mL an hour. The patient could be transferred to the general medical floor. Tracee count of 16.8, he will may 0.7, hematocrit 27, with a normal platelet count. Sodium 136, potassium 3.5, chlorides 97, CO2 33, BUN 5, creatinine 0.55. Calcium is 8.3. Progress note dated 01/22/2023. 52-year-old female, postop day #5, status post splenectomy for spontaneous rupture of the spleen. She was seen in the intensive care unit yesterday, but was moved out, and is seen today in room 516. Generally speaking, she is doing well. She is on 2 L of oxygen. She's getting lactated Ringer's at 75 mL an hour. Her room air saturation is 92%. She is using her CPAP at nighttime for her sleep apnea syndrome. She continues on Zosyn. She feels warm, and her temperatures a bit elevated today at 99.4. We will check a pro-calcitonin level. No new labs today other than a glucose of 122. Objective - Vital Signs Vital signs: Vital Signs Temp 99.4 F 01/22/23 02:05 Pulse 92 01/22/23 02:05 Resp 18 01/22/23 02:05 BP 116/71 01/22/23 02:05 Pulse Ox 92 L 01/22/23 02:05 FiO2 50 01/18/23 14:29 Intake & Output 01/21/23 01/22/23 01/22/23 18:59 06:59 18:59 Intake Total 585 1240 Output Total 530 1140 Balance 55 100 Intake: IV 585 1000 Invasive Line 3 20 Invasive Line 4 40 Lactated Ringers 1,000 ml 525 900 @ 75 mls/hr IV .[id number] JEANETTE Rx#:[id number] Piperacillin-Tazobactam 3 100 .375 gm In Sodium Chloride 0.9% 100 ml @ 25 mls/hr IVPB Q8HR JEANETTE Rx# :[id number] Oral 240 Output: Drainage 55 40 Left Abdomen 55 40 Urine 475 1100 Other: Voiding Method Indwelling Catheter Indwelling Catheter - Exam No acute distress, currently on nasal O2. No respiratory difficulty or distress. The patient is alert and oriented 3. Currently on 2 L. Saturations are 93%. HEENT examination is grossly unremarkable. Neck supple. Full range of motion. No adenopathy thyromegaly or neck vein distention. Cardiovascular examination reveals regular rhythm rate. S1-S2 normal. No S3 or S4. No discernible murmur noted. Heart rate 88 bpm. Lungs reveal clear breath sounds. Breath sounds are equal bilaterally. No adventitious lung sounds including wheezes rhonchi or crackles. 2 L saturation is 93 %. Abdomen soft, with bowel sounds. Tender on palpation. Extremities are intact. No cyanosis clubbing or edema. Skin is without rash or lesion. Neurologic examination is brief but nonfocal. - Labs CBC & Chem 7: 01/21/23 04:05 01/21/23 04:05 Labs: Abnormal Lab Results - Last 24 Hours (Table) 01/21/23 01/21/23 01/22/23 Range/Units 17:16 20:31 07:26 POC Glucose (mg/dL) 118 H 129 H 122 H (70-110) mg/dL Assessment and Plan Assessment: Postop day #5, S/P exploratory laparotomy with splenectomy, for idiopathic splenic rupture. Routine postoperative ventilator management, S/P successful extubation 01/18/2023. History of COPD/asthma. History of OSAS, maintained on CPAP. History of hypertension. History of hyperlipidemia. History of diabetes mellitus. Question will history of multiple sclerosis. Ongoing tobacco use with nicotine addiction. Plan: Plan dated 01/17/2023. The ICU admission orders, and the vent bundle orders, were activated. The patient will be placed on albuterol sulfate and ipratropium bromide, every 4 hours [id number]. Labs, x-rays, and medications are reviewed. The patient is currently on propofol at 20 mcg/kg/m, and lactated Ringer's at 150 mL an hour. The FiO2 will be weaned down by respiratory. The patient is going to receive her second unit of packed red blood cells. The patient remains on Zosyn empirically. Additional recommendations and suggestions are forthcoming. The patient's overall prognosis is guarded. We will continue to follow the patient, and make recommendations along the way. Hopeful extubation tomorrow. Plan dated 01/18/2023. The patient is seen today in room 259. Her oxygenation is borderline on 50% and 10 of PEEP. The patient remains on propofol at 40 mcg/kg/m. On Zosyn empirically. The patient has received 2 units of packed red blood cells before. Lactated Ringer's to be dropped back to 75 mL an hour. The patient will get Lasix 60 mg IV push times one. The patient may benefit from a daily interruption of sedation and a spontaneous breathing trial later today. If so, the patient will be placed on a pressure support of 10, and CPAP of 5. Labs, x-rays, and medications are reviewed. Prognosis is guarded. We will continue to follow the patient, and make recommendations along the way. Plan dated 01/19/2023. The patient is seen today in room 259. She is postop day #2, status post splenectomy. The patient is doing well. She was successfully extubated yesterday. She's currently on 4 L of oxygen. Today's postop day #2. She's getting lactated Ringer's at 75 mL an hour. Other than pain at the surgical site, patient has no complaints. We encourage her to deep breathe, cough, and clear secretions. We also recommend hourly use of the incentive spirometer. We will continue to follow and make recommendations along the way. Plan dated 01/20/2023. The patient is seen today in room 259. She remains on oxygen at 4 L. She's getting lactated Ringer's at 75 mL an hour. The patient's chest x-rays reviewed, suggesting fluid overload. The patient gets Lasix 40 mg IV push. The patient is currently still nothing by mouth. Labs, x-rays, and medications are reviewed. Prognosis is guarded. She'll obviously need vaccinations for strep p neumoniae and Haemophilus influenzae, in the near future. We will continue to follow and make recommendations along the way. The patient is postop day #3. Plan dated 01/21/2023. The patient is seen today in room 259. She's doing well wall. She's been weaned down to 2 L. She's getting lactated Ringer's at 75 mL an hour. Labs, x- rays, and medications are reviewed. The patient could be transferred out to the general medical floor. We recommend deep breathing, coughing, clearing of secretions. We would like her to continue to use the incentive spirometer, every hour. In addition, she'll need vaccination for Streptococcus pneumoniae, and Haemophilus influenzae, prior to discharge. Labs, x-rays, and medications are reviewed. No additional recommendations are made at this time. Plan dated 01/22/2023. The patient is seen today in room 516. She continues on oxygen at 2 L. The ángel greco's labs, x-rays, and medications are reviewed. The patient complains about being warm. Her temperature this morning is 99.4. We will check a pro- calcitonin level. The patient's getting lactated Ringer's at 75 mL an hour. The patient continues on Zosyn. Because she's had a splenectomy, the patient will need vaccination against Streptococcus pneumoniae, and Haemophilus influenzae. Additional recommendations and suggestions are forthcoming. We will encourage her to continue to use the incentive spirometer. Time with Patient: Less than 30
[2023-01-22] MEDS: IPRATROPIUM-ALBUTEROL 3 ML NEB INHALATION SCH ×4 (08:06→19:10)
[2023-01-22] MEDS: PREGABALIN 100 MG CAP PO SCH ×2 (08:13→21:36)
[2023-01-22] MEDS: PIPERACILLIN-TAZOBACTAM 3.375 GM in SODIUM CHLORIDE 0.9% 100 ML IVPB SCH ×3 (08:13→23:48)
[2023-01-22] MEDS: ENOXAPARIN 40 MG/0.4 ML SYRINGE SQ SCH (08:14)
[2023-01-22] MEDS: HYDROmorphone 1 MG/ML 1 ML SYRINGE IVP PRN ×4 (08:14→21:44)
[2023-01-22] MEDS: PANTOPRAZOLE 40 MG/10 ML VIAL IVP SCH (08:14)
[2023-01-22] MEDS: LURASIDONE 20 MG TAB PO SCH (09:14)
[2023-01-22 09:36] LABS: Basophils % (A) 0 %; Eosinophils # (A) 0.6 k/uL (0-0.7); Eosinophils % (A) 4 %; HCT 28.2 % (34.0-46.0); HGB 9.1 gm/dL (11.4-16.0); Hypochromasia Slight; Lymphocytes # (A) 1.5 k/uL (1.0-4.8); Lymphocytes % (A) 11 %; MCH 30.1 pg (25.0-35.0); MCHC 32.2 g/dL (31.0-37.0); MCV 93.5 fL (80.0-100.0); Mean Platelet Volume 8.8; Monocytes # (A) 0.9 k/uL (0-1.0); Monocytes % (A) 6 %; Neutrophils # (A) 10.3 k/uL (1.3-7.7); Neutrophils % (A) 75 %; Platelet Count 490 k/uL (150-450); RBC 3.01 m/uL (3.80-5.40); RDW 13.9 % (11.5-15.5); WBC 13.7 k/uL (3.8-10.6)
[2023-01-22 09:47] LABS: African American GFR (CKD) >90 (>60 ml/min/1.73 sqM); Anion Gap 14 mmol/L; Blood Urea Nitrogen 3 mg/dL (7-17); Calcium 8.5 mg/dL (8.4-10.2); Carbon Dioxide 26 mmol/L (22-30); Chloride 97 mmol/L (98-107); Glucose 110 mg/dL (74-99); Non-African American GFR(CKD) >90 (>60 ml/min/1.73 sqM); Potassium 3.7 mmol/L (3.5-5.1); Sodium 137 mmol/L (137-145)
--- NOTE | 2023-01-22 10:58 | P.PN ---
Subjective Progress Note Date: 01/22/23 Principal diagnosis: Splenic hematoma Patient moved out of the ICU. Doing fairly well. Tolerating clear liquids. T- max 100.4. White blood cell count 13.7, hemoglobin 9.1. No significant pain. SHANELL serous. Objective - Vital Signs Vital signs: Vital Signs Temp 99.2 F 01/22/23 09:14 Pulse 88 01/22/23 08:17 Resp 18 01/22/23 07:51 BP 140/73 01/22/23 07:51 Pulse Ox 93 L 01/22/23 07:51 FiO2 50 01/18/23 14:29 Intake & Output 01/21/23 01/22/23 01/22/23 18:59 06:59 18:59 Intake Total 585 1240 Output Total 530 1140 40 Balance 55 100 -40 Intake: IV 585 1000 Invasive Line 3 20 Invasive Line 4 40 Lactated Ringers 1,000 ml 525 900 @ 75 mls/hr IV .[id number] JEANETTE Rx#:[id number] Piperacillin-Tazobactam 3 100 .375 gm In Sodium Chloride 0.9% 100 ml @ 25 mls/hr IVPB Q8HR JEANETTE Rx# :[id number] Oral 240 Output: Drainage 55 40 40 Left Abdomen 55 40 40 Urine 475 1100 Other: Voiding Method Indwelling Catheter Indwelling Catheter Indwelling Catheter - Exam Abdomen: Soft, nondistended, dressing in place, mild tenderness - Labs CBC & Chem 7: 01/22/23 09:02 01/22/23 09:02 Labs: Abnormal Lab Results - Last 24 Hours (Table) 01/21/23 01/21/23 01/22/23 Range/Units 17:16 20:31 07:26 WBC (3.8-10.6) k/uL RBC (3.80-5.40) m/uL Hgb (11.4-16.0) gm/dL Hct (34.0-46.0) % Plt Count (150-450) k/uL Neutrophils # (1.3-7.7) k/uL Chloride (98-107) mmol/L BUN (7-17) mg/dL Glucose (74-99) mg/dL POC Glucose (mg/dL) 118 H 129 H 122 H (70-110) mg/dL 01/22/23 01/22/23 Range/Units 09:02 09:02 WBC 13.7 H (3.8-10.6) k/uL RBC 3.01 L (3.80-5.40) m/uL Hgb 9.1 L (11.4-16.0) gm/dL Hct 28.2 L (34.0-46.0) % Plt Count 490 H (150-450) k/uL Neutrophils # 10.3 H (1.3-7.7) k/uL Chloride 97 L (98-107) mmol/L BUN 3 L (7-17) mg/dL Glucose 110 H (74-99) mg/dL POC Glucose (mg/dL) (70-110) mg/dL Assessment and Plan (1) Subcapsular hemorrhage of spleen Narrative/Plan: Patient doing fairly well at this time. Continue clear liquids. Ambulate. Monitor labs. Monitor fevers. Current Visit: Yes Status: Acute Code(s): D73.5 - INFARCTION OF SPLEEN SNOMED Code(s): 778984693
[2023-01-22 12:08] LABS: Glucose,Whole Blood 144 mg/dL (70-110)
[2023-01-22] MEDS ORDERED: POTASSIUM CHLORIDE ER 20 MEQ TAB.ER PO STA (13:03)
--- NOTE | 2023-01-22 13:05 | P.PN ---
Subjective Progress Note Date: 01/22/23 This is a 52-year-old female with medical history of asthma/COPD, diabetes mellitus, hypertension, hyperlipidemia, known pancreatic mass and multiple sclerosis patient is a current daily smoker also history of anxiety and depression. Presents to the hospital with complaints of four-day history of right upper quadrant pain that has been progressive. History is taken from patients daughter at the bedside in the ICU. Patient is currently intubated on mechanical ventilator. Initial work up reveals white count 22.2 and hemoglobin of 14.2 which has since dropped down to 12.3. Patient does have lactic acidosis at 3.6 on admission as well as elevated amylase and lipase and alk phos. Urinalysis shows positive nitrites and moderate leukocyte esterase concerning for possible underlying urinary tract infection. Patient had abdominal pelvis CT for further evaluation of abdominal pain and found to have a 10.7 x 5.7 x 14.1 cm splenic subcapsular hematoma with extension beyond the spleen with mild hemoperitoneum. There are no signs of active extravasation identified which may be due to phase of contrast consider interventional consultation. There is also 1.9 severe pancreatic cyst at the tail of the pancreas. Chest x-ray shows dependent airspace disease in the lungs which may be due to atelectatic changes infection also possible. Patient was taken for exploratory laparotomy and splenectomy with Dr. Cummins. She is scheduled to receive 2 units of packed red blood cells. She was also started on empiric antibiotic coverage with IV Zosyn and being hydrated with IV fluids normal saline at 75 mL per hour. Patient found to be hypoxic postoperative has been placed on 5L of oxygen via nasal c annula. Blood pressure is marginal. Postoperatively, patient was taken to the intensive care unit with a pulmonary net front end developer consultation she is currently on a mechanical ventilator with FiO2 of 50%. NG tube is in place. Abdominal wound is closed with a prevana wound vac. 01/18/2023 Patient remains in the intensive care unit, she is intubated on mechanical ventilator with a PEEP of 10, FiO2 of 50%. Patient is postoperative day #1 exploratory laporotomy, splenectomy, repair of incisional hernia and partial omentectomy. NG in place. Midline wound vac intact. Patient with positive bowel sounds. Chest xray today showing stable bilateral infiltrates greater on the left with small pleural effusion. LR has been decreased to 75ml/hr and patient also given a dose of IV lasix 60 mg. Pulmonary following. Patient remains on empiric antibiotics with IV zosyn. White count 21.3 today. Blood culture so far negative and urine culture is negative. Patient having low grade temps. 01/19/2023 Patient has been extubated and weaned down to 4L of oxygen. Evaluated today sitting up in the chair in the ICU awake and alert x 3. Patient is postoperative day #2, has wound vac in place to the abdominal incision. Not yet passing gas but does have positive bowel sounds throughout. Patient denies any recent strenous activity, or falls that could have precipitated the splenic hematoma. Patient does report she has been using a weight hula hoop daily. Blood cultures remain negative. White count of 19.5 today, hemoglobin 9.4, sodium 135, potassium 3.2. Chest xray today showing possible similar mild pulmonary vascular congestion, ongoing small left pleural effusion with prominent bibasilar patchy atelectasis and or consolidation left greater than right. Patient does report having a low grade fever of 99 prior to coming in to the hospital. No reported history of CHF. Patient continues on LR at 75 mls/hr. 01/20/2023 Patient remains in the intensive care unit. Currently on 4L of oxygen. Chest xr ay today shows stable pleural parenchymal change could be CHF or atypical pneumonia. Patient remains on IV zosyn empirically. Covid is negative. EBV panel negative for acute infection. Remains on LR at 75 mls/hr. Midline woundvac in place. Patient reports she has not passed gas yet. Remains NPO. 01/21/2023 Patient remains in the intensive care unit with plans to downgrade from ICU today. Working with physical therapy. Sitting up in the chair. Patient is now passing gas. Diet being advanced to clear liquid. Remains on empiric antibiotics with IV zosyn. White count today 16.8. Continues with wound vac to the midline incision. Serosanguineous drainage. Continues on 3 to 4L of oxygen encourage incentive spirometer. 01/22/2023 Patient is evaluated today on the medical floor. She is on transfer out of the ICU. Patient remains on 3-4 L of nasal cannula however oxygen saturation is improving. She is passing gas and diet was advanced to clear liquid and she states that she is tolerating this. She does have increased abdominal pain from yesterday her abdomen is soft and she has normoactive bowel sounds. She has wearing abdominal binder and midline wound VAC is intact. SHANELL with seros anguineous drainage. White count is improved today to 13.7, and benign 0.1. Her sodium is 137, potassium 3.7, BUN 3, creatinine 0.54, blood glucose 140s. Review of Systems Constitutional: Denied any fatigue denied any fever. Cardio vascular: denied any chest pain, palpitations Gastrointestinal: denied any nausea, vomiting, diarrhea, patient is now passing gas. Pulmonary: Denied any shortness of breath cough Neurologic denied any new focal deficits All inpatient medications were reviewed and appropriate changes in these medications as dictated in the interval history and assessment and plan. PHYSICAL EXAMINATION: GENERAL: Awake alert, not in any acute distress. Well developed, well nourished. HEENT: Pupils are round and equally reacting to light. EOMI. No scleral icterus. No conjunctival pallor. Normocephalic, atraumatic. No pharyngeal erythema. No thyromegaly. CARDIOVASCULAR: S1 and S2 present. No murmurs, rubs, or gallops. PULMONARY: Chest is clear to auscultation, no wheezing or crackles. ABDOMEN: Soft, nontender, nondistended, normoactive bowel sounds. No palpable organomegaly. Post surgical abdomen MUSCULOSKELETAL: No joint swelling or deformity. EXTREMITIES: No cyanosis, clubbing, or pedal edema. NEUROLOGICAL: No focal deficits. SKIN: No rashes. Assessment Abdominal pain right upper quadrant with spontaneous splenic hematoma with capsule rupture and incisional hernia; postoperative day #5 splenectomy and hernia repair. Leukocytosis and lactic acidosis Acute blood loss anemia from splenic rupture s/p 2 units of PRBCs. Abnormal urinalysis asymptomatic bacteriruea urine culture negative. Acute hypoxemic respiratory failure 86% on room air required mechanical ventilator post surgery. Currently weaned to 4L. Recent pancreatic cyst removal History of COPD/Asthma Diabetes Mellitus type 2 Hypertension Hyperlipidemia GI prophylaxis DVT prophylaxis Full Code Plan Continue on empiric antibiotic coverage Procalcitonin ordered by pulmonary Maintain fluids at 75 mls/hr, diet advanced to clear liquid. Continue to encourage incentive spirometer 10 x an hr PT/OT following. Repeat labs in AM. The impression and plan of care has been dictated by Nisha Tian Nurse Practitioner as directed. Dr. Ute MD I have performed a history and physical examination and medical decision making of this patient, discussed the same with the dictator, and agree with the dictators assessment and plan as written, documented as a scribe. Based on total visit time, I have performed more than 50% of this visit. Objective - Vital Signs Vital signs: Vital Signs Temp 98.6 F 01/22/23 12:38 Pulse 84 01/22/23 12:38 Resp 18 01/22/23 12:38 BP 123/69 01/22/23 12:38 Pulse Ox 93 L 01/22/23 12:38 FiO2 50 01/18/23 14:29 Intake & Output 01/21/23 01/22/23 01/22/23 18:59 06:59 18:59 Intake Total 585 1240 Output Total 530 1140 Balance 55 100 Intake: IV 585 1000 Invasive Line 3 20 Invasive Line 4 40 Lactated Ringers 1,000 ml 525 900 @ 75 mls/hr IV .[id number] JEANETTE Rx#:[id number] Piperacillin-Tazobactam 3 100 .375 gm In Sodium Chloride 0.9% 100 ml @ 25 mls/hr IVPB Q8HR JEANETTE Rx# :[id number] Oral 240 Output: Drainage 55 40 Left Abdomen 55 40 Urine 475 1100 Other: Voiding Method Indwelling Catheter Indwelling Catheter Indwelling Catheter - Labs CBC & Chem 7: 01/22/23 09:02 01/22/23 09:02 Labs: Abnormal Lab Results - Last 24 Hours (Table) 01/21/23 01/21/23 01/22/23 Range/Units 17:16 20:31 07:26 WBC (3.8-10.6) k/uL RBC (3.80-5.40) m/uL Hgb (11.4-16.0) gm/dL Hct (34.0-46.0) % Plt Count (150-450) k/uL Neutrophils # (1.3-7.7) k/uL Chloride (98-107) mmol/L BUN (7-17) mg/dL Glucose (74-99) mg/dL POC Glucose (mg/dL) 118 H 129 H 122 H (70-110) mg/dL 01/22/23 01/22/23 01/22/23 Range/Units 09:02 09:02 12:07 WBC 13.7 H (3.8-10.6) k/uL RBC 3.01 L (3.80-5.40) m/uL Hgb 9.1 L (11.4-16.0) gm/dL Hct 28.2 L (34.0-46.0) % Plt Count 490 H (150-450) k/uL Neutrophils # 10.3 H (1.3-7.7) k/uL Chloride 97 L (98-107) mmol/L BUN 3 L (7-17) mg/dL Glucose 110 H (74-99) mg/dL POC Glucose (mg/dL) 144 H (70-110) mg/dL Assessment and Plan Time with Patient: Less than 30
[2023-01-22 17:33] LABS: Glucose,Whole Blood 126 mg/dL (70-110)
[2023-01-22 21:16] LABS: Glucose,Whole Blood 115 mg/dL (70-110)
[2023-01-22] MEDS: ATORVASTATIN 40 MG TAB PO SCH (21:35)
[2023-01-22] MEDS: MONTELUKAST 10 MG TAB PO SCH (21:35)
[2023-01-22] MEDS: SENNOSIDES 8.6 MG TAB PO SCH (21:36)
[2023-01-22] MEDS: LACTATED RINGERS 1,000 ML IV SCH (21:38)
[2023-01-23] MEDS: HYDROmorphone 1 MG/ML 1 ML SYRINGE IVP PRN ×5 (00:53→21:04)
[2023-01-23 07:10] LABS: Glucose,Whole Blood 122 mg/dL (70-110)
[2023-01-23] MEDS: INSULIN ASPART (NovoLOG) 100 UNIT/ML VIAL SQ SCH ×4 (07:18→21:04)
[2023-01-23] MEDS: IPRATROPIUM-ALBUTEROL 3 ML NEB INHALATION SCH ×4 (07:31→20:12)
[2023-01-23] MEDS: ENOXAPARIN 40 MG/0.4 ML SYRINGE SQ SCH (08:42)
[2023-01-23] MEDS: PIPERACILLIN-TAZOBACTAM 3.375 GM in SODIUM CHLORIDE 0.9% 100 ML IVPB SCH (08:42)
[2023-01-23] MEDS: LURASIDONE 20 MG TAB PO SCH (08:42)
[2023-01-23] MEDS: PREGABALIN 100 MG CAP PO SCH ×2 (08:42→21:11)
[2023-01-23] MEDS: PANTOPRAZOLE 40 MG/10 ML VIAL IVP SCH (08:42)
[2023-01-23] MEDS: LACTATED RINGERS 1,000 ML IV SCH ×2 (09:17→13:53)
[2023-01-23 11:00] LABS: HCT 28.4 % (37.2-46.3); HGB 8.6 d/dL (12.0-15.0); MCH 28.9 pg (27.0-32.0); MCHC 30.3 d/dL (32.0-37.0); MCV 95.3 FL (80.0-97.0); NRBC Per 100 WBC 0.14 X 10*3/uL (0.00-0.01); Platelet Count 573 X 10*3/uL (140-440); RBC 2.98 X 10*6/uL (4.10-5.20); RDW 13.9 % (11.5-14.5); WBC 12.97 X 10*3/uL (4.50-10.00)
[2023-01-23 11:31] LABS: Neutrophils % (M) 74 %
[2023-01-23 11:34] LABS: Blood Urea Nitrogen 3.6 mg/dL (9.0-27.0); Calcium 8.5 mg/dL (8.7-10.3); Carbon Dioxide 30.2 mmol/L (21.6-31.8); Chloride 97 mmol/L (96-109); Glucose 103 mg/dL (70-110); Potassium 3.5 mmol/L (3.5-5.5); Sodium 140 mmol/L (135-145)
[2023-01-23 11:35] LABS: Basophils # (M) 0.26 X 10*3/uL (0.00-0.10); Eosinophils # (M) 0.78 X 10*3/uL (0.04-0.35); Hypochromasia (M) 2+; Lymphocytes # (M) 1.17 X 10*3/uL (0.90-5.00); Monocytes # (M) 1.17 X 10*3/uL (0.20-1.00); Nucleated Red Blood Cells 2 /100 WBCS
[2023-01-23 11:53] LABS: Glucose,Whole Blood 144 mg/dL (70-110)
[2023-01-23 11:55] VITALS: BMI 36.3
[2023-01-23] MEDS ORDERED: POTASSIUM CHLORIDE ER 20 MEQ TAB.ER PO STA (13:37)
--- NOTE | 2023-01-23 13:41 | P.PN ---
Subjective Progress Note Date: 01/23/23 This is a 52-year-old female with medical history of asthma/COPD, diabetes mellitus, hypertension, hyperlipidemia, known pancreatic mass and multiple sclerosis patient is a current daily smoker also history of anxiety and depression. Presents to the hospital with complaints of four-day history of right upper quadrant pain that has been progressive. History is taken from patients daughter at the bedside in the ICU. Patient is currently intubated on mechanical ventilator. Initial work up reveals white count 22.2 and hemoglobin of 14.2 which has since dropped down to 12.3. Patient does have lactic acidosis at 3.6 on admission as well as elevated amylase and lipase and alk phos. Urinalysis shows positive nitrites and moderate leukocyte esterase concerning for possible underlying urinary tract infection. Patient had abdominal pelvis CT for further evaluation of abdominal pain and found to have a 10.7 x 5.7 x 14.1 cm splenic subcapsular hematoma with extension beyond the spleen with mild hemoperitoneum. There are no signs of active extravasation identified which may be due to phase of contrast consider interventional consultation. There is also 1.9 severe pancreatic cyst at the tail of the pancreas. Chest x-ray shows dependent airspace disease in the lungs which may be due to atelectatic changes infection also possible. Patient was taken for exploratory laparotomy and splenectomy with Dr. Cummins. She is scheduled to receive 2 units of packed red blood cells. She was also started on empiric antibiotic coverage with IV Zosyn and being hydrated with IV fluids normal saline at 75 mL per hour. Patient found to be hypoxic postoperative has been placed on 5L of oxygen via nasal c annula. Blood pressure is marginal. Postoperatively, patient was taken to the intensive care unit with a pulmonary community development worker consultation she is currently on a mechanical ventilator with FiO2 of 50%. NG tube is in place. Abdominal wound is closed with a prevana wound vac. 01/18/2023 Patient remains in the intensive care unit, she is intubated on mechanical ventilator with a PEEP of 10, FiO2 of 50%. Patient is postoperative day #1 exploratory laporotomy, splenectomy, repair of incisional hernia and partial omentectomy. NG in place. Midline wound vac intact. Patient with positive bowel sounds. Chest xray today showing stable bilateral infiltrates greater on the left with small pleural effusion. LR has been decreased to 75ml/hr and patient also given a dose of IV lasix 60 mg. Pulmonary following. Patient remains on empiric antibiotics with IV zosyn. White count 21.3 today. Blood culture so far negative and urine culture is negative. Patient having low grade temps. 01/19/2023 Patient has been extubated and weaned down to 4L of oxygen. Evaluated today sitting up in the chair in the ICU awake and alert x 3. Patient is postoperative day #2, has wound vac in place to the abdominal incision. Not yet passing gas but does have positive bowel sounds throughout. Patient denies any recent strenous activity, or falls that could have precipitated the splenic hematoma. Patient does report she has been using a weight hula hoop daily. Blood cultures remain negative. White count of 19.5 today, hemoglobin 9.4, sodium 135, potassium 3.2. Chest xray today showing possible similar mild pulmonary vascular congestion, ongoing small left pleural effusion with prominent bibasilar patchy atelectasis and or consolidation left greater than right. Patient does report having a low grade fever of 99 prior to coming in to the hospital. No reported history of CHF. Patient continues on LR at 75 mls/hr. 01/20/2023 Patient remains in the intensive care unit. Currently on 4L of oxygen. Chest xr ay today shows stable pleural parenchymal change could be CHF or atypical pneumonia. Patient remains on IV zosyn empirically. Covid is negative. EBV panel negative for acute infection. Remains on LR at 75 mls/hr. Midline woundvac in place. Patient reports she has not passed gas yet. Remains NPO. 01/21/2023 Patient remains in the intensive care unit with plans to downgrade from ICU today. Working with physical therapy. Sitting up in the chair. Patient is now passing gas. Diet being advanced to clear liquid. Remains on empiric antibiotics with IV zosyn. White count today 16.8. Continues with wound vac to the midline incision. Serosanguineous drainage. Continues on 3 to 4L of oxygen encourage incentive spirometer. 01/22/2023 Patient is evaluated today on the medical floor. She is on transfer out of the ICU. Patient remains on 3-4 L of nasal cannula however oxygen saturation is improving. She is passing gas and diet was advanced to clear liquid and she states that she is tolerating this. She does have increased abdominal pain from yesterday her abdomen is soft and she has normoactive bowel sounds. She has wearing abdominal binder and midline wound VAC is intact. SHANELL with seros anguineous drainage. White count is improved today to 13.7, and benign 0.1. Her sodium is 137, potassium 3.7, BUN 3, creatinine 0.54, blood glucose 140s. 01/23/2023 Patient is evaluated today sitting up in the chair. Working with physical therapy. Oxygen is being weaned currently patient is on 3L with saturations of 97%. She is using incentive spirometer. Diet was increased to full liquid today. Had a BM yesterday. Review of Systems Constitutional: Denied any fatigue denied any fever. Cardio vascular: denied any chest pain, palpitations Gastrointestinal: denied any nausea, vomiting, diarrhea, patient is now passing gas. Pulmonary: Denied any shortness of breath cough Neurologic denied any new focal deficits All inpatient medications were reviewed and appropriate changes in these me dications as dictated in the interval history and assessment and plan. PHYSICAL EXAMINATION: GENERAL: Awake alert, not in any acute distress. Well developed, well nourished. HEENT: Pupils are round and equally reacting to light. EOMI. No scleral icterus. No conjunctival pallor. Normocephalic, atraumatic. No pharyngeal erythema. No thyromegaly. CARDIOVASCULAR: S1 and S2 present. No murmurs, rubs, or gallops. PULMONARY: Chest is clear to auscultation, no wheezing or crackles. ABDOMEN: Soft, nontender, nondistended, normoactive bowel sounds. No palpable organomegaly. Post surgical abdomen MUSCULOSKELETAL: No joint swelling or deformity. EXTREMITIES: No cyanosis, clubbing, or pedal edema. NEUROLOGICAL: No focal deficits. SKIN: No rashes. Assessment Abdominal pain right upper quadrant with spontaneous splenic hematoma with capsule rupture and incisional hernia; postoperative day #6 splenectomy and hernia repair. Leukocytosis and lactic acidosis Acute blood loss anemia from splenic rupture s/p 2 units of PRBCs. Abnormal urinalysis asymptomatic bacteriruea urine culture negative. Acute hypoxemic respiratory failure 86% on room air required mechanical ventilator post surgery. Currently weaned to 3L Recent pancreatic cyst removal History of COPD/Asthma Diabetes Mellitus type 2 Hypertension Hyperlipidemia GI prophylaxis DVT prophylaxis Full Code Plan Procalcitonin negative at 0.08 and zosyn has been discontinued. T-max of 100.4 continue to monitor fevers and encourage IS. Maintain fluids at 75 mls/hr, diet advanced to full liquid. Continue to encourage incentive spirometer 10 x an hr PT/OT following patient wants to return home with HC when stable for DC. Repeat labs in AM. The impression and plan of care has been dictated by Nisha Tian, Nurse Practitioner as directed. Dr. Ute MD I have performed a history and physical examination and medical decision making of this patient, discussed the same with the dictator, and agree with the dictators assessment and plan as written, documented as a scribe. Based on total visit time, I have performed more than 50% of this visit. Objective - Vital Signs Vital signs: Vital Signs Temp 98.5 F 01/23/23 07:12 Pulse 72 01/23/23 12:09 Resp 16 01/23/23 07:12 BP 129/76 01/23/23 07:12 Pulse Ox 97 01/23/23 07:31 FiO2 50 01/18/23 14:29 Intake & Output 01/22/23 01/23/23 01/23/23 18:59 06:59 18:59 Output Total 21 Balance -21 Weight 95.9 kg Output: Drainage 20 Left Abdomen 20 Stool 1 Other: Voiding Method Indwelling Catheter Indwelling Catheter Indwelling Catheter # Bowel Movements 1 - Labs CBC & Chem 7: 01/23/23 06:31 01/23/23 06:31 Labs: Abnormal Lab Results - Last 24 Hours (Table) 01/22/23 01/22/23 01/23/23 Range/Units 17:32 20:53 06:31 WBC 12.97 H (4.50-10.00) X 10*3/uL RBC 2.98 L (4.10-5.20) X 10*6/uL Hgb 8.6 L (12.0-15.0) d/dL Hct 28.4 L (37.2-46.3) % MCHC 30.3 L (32.0-37.0) d/dL Plt Count 573 H (140-440) X 10*3/uL Monocytes # (Manual) 1.17 H (0.20-1.00) X 10*3/uL Eosinophils # (Manual) 0.78 H (0.04-0.35) X 10*3/uL Basophils # (Manual) 0.26 H (0.00-0.10) X 10*3/uL NRBC/100 WBC Diff 0.14 H (0.00-0.01) X 10*3/uL Hypochromasia (manual) 2+ A Anion Gap (4.00-12.00) mmol/L BUN (9.0-27.0) mg/dL Creatinine (0.6-1.5) mg/dL BUN/Creatinine Ratio (12.00-20.00) Ratio POC Glucose (mg/dL) 126 H 115 H (70-110) mg/dL Calcium (8.7-10.3) mg/dL 01/23/23 01/23/23 01/23/23 Range/Units 06:31 07:09 11:51 WBC (4.50-10.00) X 10*3/uL RBC (4.10-5.20) X 10*6/uL Hgb (12.0-15.0) d/dL Hct (37.2-46.3) % MCHC (32.0-37.0) d/dL Plt Count (140-440) X 10*3/uL Monocytes # (Manual) (0.20-1.00) X 10*3/uL Eosinophils # (Manual) (0.04-0.35) X 10*3/uL Basophils # (Manual) (0.00-0.10) X 10*3/uL NRBC/100 WBC Diff (0.00-0.01) X 10*3/uL Hypochromasia (manual) Anion Gap 12.80 H (4.00-12.00) mmol/L BUN 3.6 L (9.0-27.0) mg/dL Creatinine 0.5 L (0.6-1.5) mg/dL BUN/Creatinine Ratio 7.20 L (12.00-20.00) Ratio POC Glucose (mg/dL) 122 H 144 H (70-110) mg/dL Calcium 8.5 L (8.7-10.3) mg/dL Microbiology - Last 24 Hours (Table) 01/17/23 03:48 Blood Culture - Final Blood 01/17/23 03:17 Blood Culture - Final Blood Assessment and Plan Time with Patient: Less than 30
--- NOTE | 2023-01-23 14:21 | P.PN ---
Subjective Progress Note Date: 01/23/23 Pulmonary consult dated 01/17/2023. 52-year-old female who presented to the emergency department, early on the morning of January 17, with 4 days of left-sided abdominal pain. The pain was described as being moderate to severe. She denied any GI issues like diarrhea, vomiting, etc. The patient ended up having a idiopathic splenic rupture, and, today, went to the operating room, which she had a splenectomy. The patient was brought back to the intensive care unit on the mechanical ventilator. She is on the volume assist control, rate 14, tidal volume 400, FiO2 100%, and PEEP of 5. Blood gases show pO2 124, pCO2 of 50, pH is 7.3. The patient has a Mckinley- Kothari drain in place, a Provena wound VAC, a Ramos catheter, and orogastric tube, and endotracheal tube in place. She has 2 peripheral IVs. She's currently on Zosyn. She is receiving us second unit of packed red blood cells. She's getting propofol at 20 mcg/kg/m. He is also getting lactated Ringer's at 150 mL an hour. Blood gases show pO2 124, pCO2 of 50, pH is 7.3. Initial chest x-ray showed a right mainstem intubation. Endotracheal tube was pulled back. The patient has a history of hypertension, hyperlipidemia, asthma/COPD, diabetes, chronic tobacco use, and questionable MS. White count 17.9, with a normal hemoglobin, hematocrit, and platelet count. Sodium 136, potassium 4.6, chlorides 98, CO2 25, BUN 12, creatinine 0.79. Lactic acid was 3.7. Amylase 116, and lipase 372. Urine was cloudy, with 1+ protein, positive for nitrite and leukocyte esterase, with 23 WBCs and occasional bacteria. Progress note dated 01/18/2023. Patient is postop day #1, status post splenectomy for spontaneous rupture of the spleen. The patient remains on the mechanical ventilator. The patient is seen today in room 259. She is on volume assist control, rate 14, tidal volume 400, FiO2 50%, and PEEP of 10. Blood gases show pO2 64, pCO2 54, and a pH is 7.37. The patient's on propofol at 40 mcg/kg/m, lactated Ringer's at 150 mL an hour, and Zosyn. She's received total of 2 units of packed red blood cells. The patient will get Lasix 60 mg IV push, and lactated Ringer's will be induced on the 75 mL an hour. White count is 21.3, hemoglobin 11.7, hematocrit 34.5, and platelet count 248,000. Sodium 135, potassium 4, chlorides 102, CO2 28, BUN 8, creatinine 0.69. Magnesium 1.5. Albumin 2.6. Chest x-ray shows stable bilateral infiltrates. Progress note dated 01/19/2023. This patient is postop day #2, status post splenectomy, for spontaneous rupture of the spleen. The patient was extubated yesterday, January 18. Currently, the patient is on 4 L of oxygen. She's getting lactated Ringer's at 75 mL an hour. Clinically, other than pain, she's doing well. White count 19.5, hemoglobin 9.4, hematocrit 28, and platelet count normal. Sodium 135, potassium 3.2, chlorides 96, CO2 35, BUN 8, and creatinine 0.70. Chest x-ray shows mild pulmonary vascular congestion and a small left pleural effusion. There is also some basilar atelectasis. Progress note dated 01/20/2023. 52-year-old female postop day #3, status post splenectomy, for spontaneous rupture of the spleen. The patient is seen today in room 259. She is on oxygen at 4 L by nasal cannula. She's getting lactated Ringer's at 75 mL an hour. She currently nothing by mouth. Current labs include a white count 20.1, hemoglobin 8.5, hematocrit 26.8, and a normal platelet count. Sodium 138, potassium 3.6, chlorides 100, CO2 34, BUN 7 with a creatinine of 0.61. Chest x-ray shows some stable pleural/parenchymal changes, likely on the basis of fluid overload. For that reason, the patient gets Lasix, 40 mg, IV push times one. Progress note dated 01/21/2023. 52-year-old female who is postop day #4, status post splenectomy for spontaneous rupture of the spleen. She is seen in room 259. She's doing well. The patient's on 2 L of oxygen. She's receiving lactated Ringer's at 75 mL an hour. The patient could be transferred to the general medical floor. White count of 16.8, he will may 0.7, hematocrit 27, with a normal platelet count. Sodium 136, potassium 3.5, chlorides 97, CO2 33, BUN 5, creatinine 0.55. Calcium is 8.3. Progress note dated 01/22/2023. 52-year-old female, postop day #5, status post splenectomy for spontaneous rupture of the spleen. She was seen in the intensive care unit yesterday, but was moved out, and is seen today in room 516. Generally speaking, she is doing well. She is on 2 L of oxygen. She's getting lactated Ringer's at 75 mL an hour. Her room air saturation is 92%. She is using her CPAP at nighttime for her sleep apnea syndrome. She continues on Zosyn. She feels warm, and her te mperatures a bit elevated today at 99.4. We will check a pro-calcitonin level. No new labs today other than a glucose of 122. On today's evaluation of 2022, the patient is postop day #6. The patient is currently on room air oxygen. She is, comfortable. No significant respiratory distress. She has a CPAP machine at home and over 90 utilizing her nighttime CPAP. No issues with pain. She is ambulating. No cough sputum production or chest tightness or wheezing. She was moved out of the intensive care unit yesterday. Meanwhile, the patient has the bronchoscope to 0.9, hemoglobin of 8.6, platelet count of 573, BUN is at 3.6 and a creatinine of 0.5 and a sodium level is at 140. Objective - Vital Signs Vital signs: Vital Signs Temp 98.5 F 01/23/23 07:12 Pulse 72 01/23/23 11:57 Resp 16 01/23/23 07:12 BP 129/76 01/23/23 07:12 Pulse Ox 97 01/23/23 07:31 FiO2 50 01/18/23 14:29 Intake & Output 01/22/23 01/23/23 01/23/23 18:59 06:59 18:59 Output Total 21 Balance -21 Weight 95.9 kg Output: Drainage 20 Left Abdomen 20 Stool 1 Other: Voiding Method Indwelling Catheter Indwelling Catheter Indwelling Catheter # Bowel Movements 1 - Exam No acute distress, currently on nasal O2. No respiratory difficulty or distress. The patient is alert and oriented 3. Currently on 2 L. Saturations are 93%. HEENT examination is grossly unremarkable. Neck supple. Full range of motion. No adenopathy thyromegaly or neck vein distention. Cardiovascular examination reveals regular rhythm rate. S1-S2 normal. No S3 or S4. No discernible murmur noted. Heart rate 88 bpm. Lungs reveal clear breath sounds. Breath sounds are equal bilaterally. No adventitious lung sounds including wheezes rhonchi or crackles. 2 L saturation is 93 %. Abdomen soft, with bowel sounds. Tender on palpation. Extremities are intact. No cyanosis clubbing or edema. Skin is without rash or lesion. Neurologic examination is brief but nonfocal. - Labs CBC & Chem 7: 01/23/23 06:31 01/23/23 06:31 Labs: Abnormal Lab Results - Last 24 Hours (Table) 01/22/23 01/22/23 01/23/23 Range/Units 17:32 20:53 06:31 WBC 12.97 H (4.50-10.00) X 10*3/uL RBC 2.98 L (4.10-5.20) X 10*6/uL Hgb 8.6 L (12.0-15.0) d/dL Hct 28.4 L (37.2-46.3) % MCHC 30.3 L (32.0-37.0) d/dL Plt Count 573 H (140-440) X 10*3/uL Monocytes # (Manual) 1.17 H (0.20-1.00) X 10*3/uL Eosinophils # (Manual) 0.78 H (0.04-0.35) X 10*3/uL Basophils # (Manual) 0.26 H (0.00-0.10) X 10*3/uL NRBC/100 WBC Diff 0.14 H (0.00-0.01) X 10*3/uL Hypochromasia (manual) 2+ A Anion Gap (4.00-12.00) mmol/L BUN (9.0-27.0) mg/dL Creatinine (0.6-1.5) mg/dL BUN/Creatinine Ratio (12.00-20.00) Ratio POC Glucose (mg/dL) 126 H 115 H (70-110) mg/dL Calcium (8.7-10.3) mg/dL 01/23/23 01/23/23 01/23/23 Range/Units 06:31 07:09 11:51 WBC (4.50-10.00) X 10*3/uL RBC (4.10-5.20) X 10*6/uL Hgb (12.0-15.0) d/dL Hct (37.2-46.3) % MCHC (32.0-37.0) d/dL Plt Count (140-440) X 10*3/uL Monocytes # (Manual) (0.20-1.00) X 10*3/uL Eosinophils # (Manual) (0.04-0.35) X 10*3/uL Basophils # (Manual) (0.00-0.10) X 10*3/uL NRBC/100 WBC Diff (0.00-0.01) X 10*3/uL Hypochromasia (manual) Anion Gap 12.80 H (4.00-12.00) mmol/L BUN 3.6 L (9.0-27.0) mg/dL Creatinine 0.5 L (0.6-1.5) mg/dL BUN/Creatinine Ratio 7.20 L (12.00-20.00) Ratio POC Glucose (mg/dL) 122 H 144 H (70-110) mg/dL Calcium 8.5 L (8.7-10.3) mg/dL Microbiology - Last 24 Hours (Table) 01/17/23 03:48 Blood Culture - Final Blood 01/17/23 03:17 Blood Culture - Final Blood Assessment and Plan Plan: Postop day #6, S/P exploratory laparotomy with splenectomy, for idiopathic splenic rupture. Abdominal pain secondary to above, recovered Routine postoperative ventilator management, S/P successful extubation 01/18/2023. The patient is currently on room air oxygen. The patient using incentive spirometer History of COPD/asthma. History of OSAS, maintained on CPAP. History of hypertension. History of hyperlipidemia. History of diabetes mellitus. Question will history of multiple sclerosis. Ongoing tobacco use with nicotine addiction. Plan: Continue using the senna spirometer and CPAP overnight IV fluids Increase mobility Monitor hemoglobin We'll continue to follow
--- NOTE | 2023-01-23 15:10 | P.PN ---
Subjective Progress Note Date: 01/23/23 CHIEF COMPLAINT: Spontaneous splenic hematoma HISTORY OF PRESENT ILLNESS: This is a 52-year-old female who is postop day #6 status post exploratory laparotomy, splenectomy, repair of incisional hernia with partial omentectomy. Patient sitting at bedside chair. She is having bowel movements. She does report her pain is controlled. However, patient has only been using the IV Dilaudid. She reports that the [place] upsets her stomach. She denies any nausea or vomiting. She like advancement of diet. She was like Ramos catheter removed. Afebrile. WBC 12.97 Hgb 8.6 platelets 573 sodium is 140 potassium 3.5 creatinine 0.5. SHANELL drain 20 mL serosanguineous output PHYSICAL EXAM: VITAL SIGNS: Reviewed. GENERAL: Well-developed in no acute distress. ABDOMEN: Soft. Nondistended. Prevana wound vac intact. SHANELL drain in place NEUROLOGIC: Intubated and sedated ASSESSMENT: 1. Spontaneous splenic hematoma with capsule rupture and Incarcerated incisional hernia PLAN: -Anticipate discharge tomorrow -Discontinue Ramos catheter -Advance diet to full liquids -Discontinue [place] and start OxyIR 5 mg by mouth every 6 hours and scheduled Tylenol -Decrease Dilaudid 1 mg every 8 hours as needed for pain. Wean patient off of the Dilaudid -Work on weaning patient off of O2 -Encourage patient to ambulate -Encourage patient to use incentive spirometer -Infectious disease consulted for post splenectomy vaccines -Patient off of antibiotics -DVT prophylaxis Rosio Physician Metal Can Inspector note has been reviewed by physician. Signing provider agrees with the documented findings, assessment, and plan of care. Objective - Vital Signs Vital signs: Vital Signs Temp 97.9 F 01/23/23 14:20 Pulse 78 01/23/23 14:20 Resp 17 01/23/23 14:20 BP 110/58 01/23/23 14:20 Pulse Ox 96 01/23/23 14:20 FiO2 50 01/18/23 14:29 Intake & Output 01/22/23 01/23/23 01/23/23 18:59 06:59 18:59 Output Total 21 Balance -21 Weight 95.9 kg Output: Drainage 20 Left Abdomen 20 Stool 1 Other: Voiding Method Indwelling Catheter Indwelling Catheter Indwelling Catheter # Voids 1 # Bowel Movements 1 1 - Labs CBC & Chem 7: 01/23/23 06:31 10/02/23 06:31 Labs: Abnormal Lab Results - Last 24 Hours (Table) 01/22/23 01/22/23 01/23/23 Range/Units 17:32 20:53 06:31 WBC 12.97 H (4.50-10.00) X 10*3/uL RBC 2.98 L (4.10-5.20) X 10*6/uL Hgb 8.6 L (12.0-15.0) d/dL Hct 28.4 L (37.2-46.3) % MCHC 30.3 L (32.0-37.0) d/dL Plt Count 573 H (140-440) X 10*3/uL Monocytes # (Manual) 1.17 H (0.20-1.00) X 10*3/uL Eosinophils # (Manual) 0.78 H (0.04-0.35) X 10*3/uL Basophils # (Manual) 0.26 H (0.00-0.10) X 10*3/uL NRBC/100 WBC Diff 0.14 H (0.00-0.01) X 10*3/uL Hypochromasia (manual) 2+ A Anion Gap (4.00-12.00) mmol/L BUN (9.0-27.0) mg/dL Creatinine (0.6-1.5) mg/dL BUN/Creatinine Ratio (12.00-20.00) Ratio POC Glucose (mg/dL) 126 H 115 H (70-110) mg/dL Calcium (8.7-10.3) mg/dL 01/23/23 01/23/23 01/23/23 Range/Units 06:31 07:09 11:51 WBC (4.50-10.00) X 10*3/uL RBC (4.10-5.20) X 10*6/uL Hgb (12.0-15.0) d/dL Hct (37.2-46.3) % MCHC (32.0-37.0) d/dL Plt Count (140-440) X 10*3/uL Monocytes # (Manual) (0.20-1.00) X 10*3/uL Eosinophils # (Manual) (0.04-0.35) X 10*3/uL Basophils # (Manual) (0.00-0.10) X 10*3/uL NRBC/100 WBC Diff (0.00-0.01) X 10*3/uL Hypochromasia (manual) Anion Gap 12.80 H (4.00-12.00) mmol/L BUN 3.6 L (9.0-27.0) mg/dL Creatinine 0.5 L (0.6-1.5) mg/dL BUN/Creatinine Ratio 7.20 L (12.00-20.00) Ratio POC Glucose (mg/dL) 122 H 144 H (70-110) mg/dL Calcium 8.5 L (8.7-10.3) mg/dL Microbiology - Last 24 Hours (Table) 01/17/23 03:48 Blood Culture - Final Blood 01/17/23 03:17 Blood Culture - Final Blood
[2023-01-23 17:10] LABS: Glucose,Whole Blood 116 mg/dL (70-110)
[2023-01-23] MEDS: ACETAMINOPHEN TAB 500 MG TAB PO SCH (18:31)
[2023-01-23 19:58] LABS: Glucose,Whole Blood 131 mg/dL (70-110)
[2023-01-23] MEDS: ATORVASTATIN 40 MG TAB PO SCH (21:11)
[2023-01-23] MEDS: MONTELUKAST 10 MG TAB PO SCH (21:11)
[2023-01-23] MEDS: SENNOSIDES 8.6 MG TAB PO SCH (21:13)
[2023-01-24] MEDS: ACETAMINOPHEN TAB 500 MG TAB PO SCH ×2 (01:35→06:30)
[2023-01-24] MEDS: HYDROmorphone 1 MG/ML 1 ML SYRINGE IVP PRN (04:52)
[2023-01-24] MEDS: LACTATED RINGERS 1,000 ML IV SCH (04:53)
[2023-01-24 07:54] LABS: Glucose,Whole Blood 111 mg/dL (70-110)
[2023-01-24] MEDS: IPRATROPIUM-ALBUTEROL 3 ML NEB INHALATION SCH ×2 (08:07→12:05)
[2023-01-24] MEDS: INSULIN ASPART (NovoLOG) 100 UNIT/ML VIAL SQ SCH ×2 (08:12→12:57)
[2023-01-24] MEDS: LURASIDONE 20 MG TAB PO SCH (08:42)
[2023-01-24] MEDS: PREGABALIN 100 MG CAP PO SCH (08:42)
[2023-01-24] MEDS: PANTOPRAZOLE 40 MG/10 ML VIAL IVP SCH (08:42)
[2023-01-24] MEDS: ENOXAPARIN 40 MG/0.4 ML SYRINGE SQ SCH (08:42)
--- NOTE | 2023-01-24 08:43 | P.CONS ---
History of Present Illness - Reason for Consult Consult date: 01/23/23 Post splenectomy Requesting physician: Candis Metcalf - Chief Complaint Abdominal pain x few days - History of Present Illness Patient is a 52-year-old female with a past medical history significant for diabetes mellitus hypertension hyperlipidemia COPD presenting to the hospital more than a week ago for 4-day history of left-sided abdominal pain which was moderate in intensity patient did have a CT of abdominal pelvis splenic subcapsular hematoma with extension beyond the spleen with mild hemoperitoneum patient was taken to the OR 01/17/2023 the patient is status post exploratory laparotomy splenectomy repair of the incisional hernia with partial pneumonectomy patient has been recovering since then and has been in the hospital for more than a week patient did have a low-grade fever on 927 and then on 01/22/2023 [place] [id number] admission but is slowly trending down down to 12.97 today patient denies having any fever or any chills patient overall feeling better she is breathing comfortably no nausea no vomiting abdominal pain has decreased in intensity SHANELL drain with mostly serous secretion no urinary symptoms and no diarrhea infectious was consulted for management of her splenectomy vaccination and leukocytosis Review of Systems Positive point and negatives has been mentioned in the HPI, complete review of systems was performed and all other systems are negative Past Medical History Past Medical History: Asthma, COPD, Diabetes Mellitus, Hyperlipidemia, Hypertension Additional Past Medical History / Comment(s): neuropathy, MS, pancreatic mass History of Any Multi-Drug Resistant Organisms: None Reported Past Surgical History: Back Surgery, Section Additional Past Surgical History / Comment(s): Kidey surgery Past Psychological History: Anxiety, Depression Smoking Status: Current every day smoker Past Alcohol Use History: None Reported Past Drug Use History: None Reported Medications and Allergies Home Medications Medication Instructions Recorded Confirmed Type ALPRAZolam [Xanax] 1 mg PO BID PRN 02/05/20 01/17/23 History Albuterol Sulfate [Ventolin HFA] 2 puff INHALATION RT-Q4H PRN 02/05/20 01/17/23 History Zolpidem Tartrate [Ambien] 10 mg PO HS 02/05/20 01/17/23 History Atorvastatin [Lipitor] 40 mg PO HS 01/17/23 01/17/23 History Brexpiprazole [Rexulti] 4 mg PO DAILY 01/17/23 01/17/23 History EPINEPHrine (Auto Inject) [Epipen] 0.3 mg IM ONCE PRN 01/17/23 01/17/23 History Ketoconazole 2% Cream [Nizoral 2%] 1 applic TOPICAL DAILY 01/17/23 01/17/23 History Lurasidone [Latuda] 20 mg PO DAILY 01/17/23 01/17/23 History Montelukast [Singulair] 10 mg PO HS 01/17/23 01/17/23 History Pregabalin [Lyrica] 200 mg PO BID 01/17/23 01/17/23 History Tiotropium [place] [Spiriva 1 puff INHALATION RT-DAILY 01/17/23 01/17/23 History Handihaler] metFORMIN HCL [Glucophage] 500 mg PO BID 01/17/23 01/17/23 History HYDROcodone/APAP 5-325MG [[place] 1 tab PO Q6HR PRN 3 Days #12 tab 01/24/23 Rx 5-325] Allergies Allergy/AdvReac Type Severity Reaction Status Date / Time aspirin Allergy Dyspnea Verified 01/17/23 08:03 codeine Allergy Dyspnea Verified 01/17/23 08:03 ibuprofen [From Motrin] Allergy Dyspnea Verified 01/17/23 08:03 morphine Allergy Rash/Hives Verified 01/17/23 08:03 naproxen Allergy Dyspnea Verified 01/17/23 08:03 tramadol [From Ultram] Allergy Dyspnea Verified 01/17/23 08:03 Physical Exam Vitals: Vital Signs Temp Pulse Pulse Resp BP BP BP 01/23/23 16:21 78 01/23/23 16:08 78 01/23/23 14:20 97.9 F 78 17 110/58 01/23/23 12:09 72 01/23/23 11:57 72 01/23/23 07:49 74 01/23/23 07:31 74 01/23/23 07:12 98.5 F 83 16 129/76 01/23/23 02:00 97.9 F 75 18 123/68 01/22/23 20:00 18 01/22/23 19:25 98.9 F 76 18 150/66 01/22/23 19:23 90 01/22/23 19:12 89 Pulse Ox 01/23/23 16:21 01/23/23 16:08 01/23/23 14:20 96 01/23/23 12:09 01/23/23 11:57 01/23/23 07:49 01/23/23 07:31 97 01/23/23 07:12 92 L 01/23/23 02:00 92 L 01/22/23 20:00 01/22/23 19:25 98 01/22/23 19:23 01/22/23 19:12 Intake and Output 01/23/23 01/23/23 01/23/23 06:59 14:59 22:59 Output Total 21 Balance -21 Output: Drainage 20 Left Abdomen 20 Stool 1 Other: Voiding Method Indwelling Catheter # Voids 1 # Bowel Movements 1 Weight 95.9 kg GENERAL DESCRIPTION: Middle-aged female lying in bed, no distress. No tachypnea or accessory muscle of respiration use. HEENT: Shows Pallor , no scleral icterus. Oral mucous membrane is dry. No pharyngeal erythema or thrush NECK: Trachea central, no thyromegaly. LUNGS: Unlabored breathing. Decreased breath sound the bases HEART: S1, S2, regular rate and rhythm. No loud murmur ABDOMEN: Soft, no tenderness , SHANELL drainage is mostly serous secretion SKIN : No rash, no masses palpable. NEUROLOGICAL: The patient is awake, alert, oriented x3, mood and affect normal. Results CBC & Chem 7: 01/24/23 05:25 01/24/23 05:25 Labs: Abnormal Lab Results - Last 24 Hours (Table) 01/22/23 01/22/23 01/23/23 Range/Units 17:32 20:53 06:31 WBC 12.97 H (4.50-10.00) X 10*3/uL RBC 2.98 L (4.10-5.20) X 10*6/uL Hgb 8.6 L (12.0-15.0) d/dL Hct 28.4 L (37.2-46.3) % MCHC 30.3 L (32.0-37.0) d/dL Plt Count 573 H (140-440) X 10*3/uL Monocytes # (Manual) 1.17 H (0.20-1.00) X 10*3/uL Eosinophils # (Manual) 0.78 H (0.04-0.35) X 10*3/uL Basophils # (Manual) 0.26 H (0.00-0.10) X 10*3/uL NRBC/100 WBC Diff 0.14 H (0.00-0.01) X 10*3/uL Hypochromasia (manual) 2+ A Anion Gap (4.00-12.00) mmol/L BUN (9.0-27.0) mg/dL Creatinine (0.6-1.5) mg/dL BUN/Creatinine Ratio (12.00-20.00) Ratio POC Glucose (mg/dL) 126 H 115 H (70-110) mg/dL Calcium (8.7-10.3) mg/dL 01/23/23 01/23/23 01/23/23 Range/Units 06:31 07:09 11:51 WBC (4.50-10.00) X 10*3/uL RBC (4.10-5.20) X 10*6/uL Hgb (12.0-15.0) d/dL Hct (37.2-46.3) % MCHC (32.0-37.0) d/dL Plt Count (140-440) X 10*3/uL Monocytes # (Manual) (0.20-1.00) X 10*3/uL Eosinophils # (Manual) (0.04-0.35) X 10*3/uL Basophils # (Manual) (0.00-0.10) X 10*3/uL NRBC/100 WBC Diff (0.00-0.01) X 10*3/uL Hypochromasia (manual) Anion Gap 12.80 H (4.00-12.00) mmol/L BUN 3.6 L (9.0-27.0) mg/dL Creatinine 0.5 L (0.6-1.5) mg/dL BUN/Creatinine Ratio 7.20 L (12.00-20.00) Ratio POC Glucose (mg/dL) 122 H 144 H (70-110) mg/dL Calcium 8.5 L (8.7-10.3) mg/dL Microbiology - Last 24 Hours (Table) 01/17/23 03:48 Blood Culture - Final Blood 01/17/23 03:17 Blood Culture - Final Blood Assessment and Plan (1) Leukocytosis Status: Acute Code(s): D72.829 - ELEVATED WHITE BLOOD CELL COUNT, UNSPECIFIED SNOMED Code(s): 860678181 (2) Post-splenectomy Status: Acute Code(s): Z90.81 - SNOMED Code(s): 212269166 Plan: 1patient presented to hospital with abdominal pain diagnosed with a spontaneous splenic rupture status postsplenectomy on 01/17/2023 patient may need vaccination against Haemophilus influenzae pneumococcal and meningococcal day 14 of her surgery that will be 01/31/2023 with the patient being discharged tomorrow will be arrange to be done at the health department prescription will be provided to the patient on discharge. 2elevated white count more likely related to her postmastectomy status and is trending down. 3patient has been encouraged with incentive spirometry. Multiple questions concern answered We will follow on clinical condition and cultures to further adjust medication if needed Thank you for this consultation we will follow the patient along with you Dictation was produced using [employer] dictation software. please excuse any g rammatical, word or spelling errors. Time with Patient: Greater than 30
[2023-01-24] MEDS ORDERED: HYDROcodone/APAP 5-325MG 1 EACH TAB PO PRN (09:42)
[2023-01-24 11:20] LABS: Basophils % (A) 0.9 %; Eosinophils # (A) 1.47 X 10*3/uL (0.04-0.35); Eosinophils % (A) 13.2 %; HCT 28.4 % (37.2-46.3); HGB 8.7 d/dL (12.0-15.0); Lymphocytes # (A) 2.45 X 10*3/uL (0.90-5.00); MCHC 30.6 d/dL (32.0-37.0); MCV 94.7 FL (80.0-97.0); Monocytes # (A) 1.55 X 10*3/uL (0.20-1.00); Monocytes % (A) 13.9 %; NRBC Per 100 WBC 0.14 X 10*3/uL (0.00-0.01); Neutrophils # (A) 5.53 X 10*3/uL (1.80-7.70); Neutrophils % (A) 49.5 %; Platelet Count 649 X 10*3/uL (140-440); RDW 14.4 % (11.5-14.5); WBC 11.16 X 10*3/uL (4.50-10.00)
[2023-01-24 11:43] LABS: ALT 17 U/L (8-44); AST 33 U/L (13-35); Albumin 3.1 d/dL (3.8-4.9); Albumin/Globulin Ratio 1.29 Ratio (1.60-3.17); Alkaline Phosphatase 105 U/L (41-126); Blood Urea Nitrogen 3.5 mg/dL (9.0-27.0); Calcium 8.9 mg/dL (8.7-10.3); Carbon Dioxide 32.1 mmol/L (21.6-31.8); Chloride 100 mmol/L (96-109); Globulin 2.4 d/dL (1.6-3.3); Glucose 89 mg/dL (70-110); Potassium 3.7 mmol/L (3.5-5.5); Sodium 143 mmol/L (135-145); Total Bilirubin 0.2 mg/dL (0.3-1.2); Total Protein 5.5 d/dL (6.2-8.2)
--- NOTE | 2023-01-24 12:04 | P.DS ---
Providers Date of admission: 01/17/23 05:44 Expected date of discharge: 01/24/23 Attending physician: Osorio Cummins Consults: 01/17/23 05:42 Consult Physician Routine Consulting Provider: Parker Escalante Consult Reason/Comments: Medical management, splenic subcapsular hematoma Do you want consulting provider notified?: Yes 01/17/23 09:55 Consult Physician Routine Consulting Provider: Mamadou García Consult Reason/Comments: respiratory failure Do you want consulting provider notified?: Yes 01/23/23 11:35 Consult Physician Routine Consulting Provider: Eric Peoples Consult Reason/Comments: Postsplenectomy Do you want consulting provider notified?: Yes Primary care physician: Ashley [facility] Course: Discharge diagnosis 1. Spontaneous splenic hematoma with capsule rupture and Incarcerated incisional hernia Hospital course This is a 52-year-old female who presented with left upper quadrant abdominal pain. CAT scan had shown large splenic hematoma with evidence of intraperitoneal blood. Patient is status post status post exploratory laparotomy, splenectomy, repair of incisional hernia with partial omentectomy. Patient reports her pain is controlled. She is tolerating diet. She has been up and ambulating. She is having bowel movements. She is afebrile. She is stable for discharge. Please refer to chart for any further details. Physician [employer] note has been reviewed by physician. Signing provider agrees with the documented findings, assessment, and plan of care. Patient Condition at Discharge: Stable Plan - Discharge Summary New Discharge Prescriptions: New HYDROcodone/APAP 5-325MG [[place] 5-325] 1 tab PO Q6HR PRN 3 Days #12 tab PRN Reason: Pain Continue Zolpidem Tartrate [Ambien] 10 mg PO HS Albuterol Sulfate [Ventolin HFA] 2 puff INHALATION RT-Q4H PRN PRN Reason: Shortness Of Breath ALPRAZolam [Xanax] 1 mg PO BID PRN PRN Reason: Anxiety EPINEPHrine (Auto Inject) [Epipen] 0.3 mg IM ONCE PRN PRN Reason: Anaphylaxis metFORMIN HCL [Glucophage] 500 mg PO BID Montelukast [Singulair] 10 mg PO HS Lurasidone [Latuda] 20 mg PO DAILY Brexpiprazole [Rexulti] 4 mg PO DAILY Tiotropium [place] [Spiriva Handihaler] 1 puff INHALATION RT-DAILY Pregabalin [Lyrica] 200 mg PO BID Ketoconazole 2% Cream [Nizoral 2%] 1 applic TOPICAL DAILY Atorvastatin [Lipitor] 40 mg PO HS Discontinued amLODIPine [Norvasc] 10 mg PO DAILY Discharge Medication List ALPRAZolam [Xanax] 1 mg PO BID PRN 02/05/20 [History] Albuterol Sulfate [Ventolin HFA] 2 puff INHALATION RT-Q4H PRN 02/05/20 [History] Zolpidem Tartrate [Ambien] 10 mg PO HS 02/05/20 [History] Atorvastatin [Lipitor] 40 mg PO HS 01/17/23 [History] Brexpiprazole [Rexulti] 4 mg PO DAILY 01/17/23 [History] EPINEPHrine (Auto Inject) [Epipen] 0.3 mg IM ONCE PRN 01/17/23 [History] Ketoconazole 2% Cream [Nizoral 2%] 1 applic TOPICAL DAILY 01/17/23 [History] Lurasidone [Latuda] 20 mg PO DAILY 01/17/23 [History] Montelukast [Singulair] 10 mg PO HS 01/17/23 [History] Pregabalin [Lyrica] 200 mg PO BID 01/17/23 [History] Tiotropium [place] [Spiriva Handihaler] 1 puff INHALATION RT-DAILY 01/17/23 [History] metFORMIN HCL [Glucophage] 500 mg PO BID 01/17/23 [History] HYDROcodone/APAP 5-325MG [[place] 5-325] 1 tab PO Q6HR PRN 3 Days #12 tab 01/24/23 [Rx] Follow up Appointment(s)/Referral(s): [facility] [NON-STAFF] - 1 Week [facility] [NON-STAFF] - 1 Week Ashley Kerr [Primary Care Provider] - 1-2 days Eric Peoples MD [STAFF PHYSICIAN] - 1 Week Osorio Cummins MD [STAFF PHYSICIAN] - 1 Week Ambulatory/Diagnostic Orders: Basic Metabolic Panel [LAB.AMB] Location: None Selected Complete Blood Count w/diff [LAB.AMB] Time Frame: 3 Days, Location: None Selected Activity/Diet/Wound Care/Special Instructions: No driving while taking [place] No lifting over 10 pounds Shower daily. No soaking or tub baths for 2 weeks Very light activity until you are reevaluated at your follow up appointment with your surgeon Diet: Regular Discharge Disposition: HOME SELF-CARE
[2023-01-24 12:40] LABS: Glucose,Whole Blood 126 mg/dL (70-110)
--- NOTE | 2023-01-24 12:59 | P.PN ---
Subjective Progress Note Date: 01/24/23 Pulmonary consult dated 01/17/2023. 52-year-old female who presented to the emergency department, early on the morning of January 17, with 4 days of left-sided abdominal pain. The pain was described as being moderate to severe. She denied any GI issues like diarrhea, vomiting, etc. The patient ended up having a idiopathic splenic rupture, and, today, went to the operating room, which she had a splenectomy. The patient was brought back to the intensive care unit on the mechanical ventilator. She is on the volume assist control, rate 14, tidal volume 400, FiO2 100%, and PEEP of 5. Blood gases show pO2 124, pCO2 of 50, pH is 7.3. The patient has a Mckinley- Kothari drain in place, a [place] wound VAC, a Ramos catheter, and orogastric tube, and endotracheal tube in place. She has 2 peripheral IVs. She's currently on Zosyn. She is receiving us second unit of packed red blood cells. She's getting propofol at 20 mcg/kg/m. He is also getting lactated Ringer's at 150 mL an hour. Blood gases show pO2 124, pCO2 of 50, pH is 7.3. Initial chest x-ray showed a right mainstem intubation. Endotracheal tube was pulled back. The patient has a history of hypertension, hyperlipidemia, asthma/COPD, diabetes, chronic tobacco use, and questionable MS. White count 17.9, with a normal hemoglobin, hematocrit, and platelet count. Sodium 136, potassium 4.6, chlorides 98, CO2 25, BUN 12, creatinine 0.79. Lactic acid was 3.7. Amylase 116, and lipase 372. Urine was cloudy, with 1+ protein, positive for nitrite and leukocyte esterase, with 23 WBCs and occasional bacteria. Progress note dated 01/18/2023. Patient is postop day #1, status post splenectomy for spontaneous rupture of the spleen. The patient remains on the mechanical ventilator. The patient is seen today in room 259. She is on volume assist control, rate 14, tidal volume 400, FiO2 50%, and PEEP of 10. Blood gases show pO2 64, pCO2 54, and a pH is 7.37. The patient's on propofol at 40 mcg/kg/m, lactated Ringer's at 150 mL an hour, and Zosyn. She's received total of 2 units of packed red blood cells. The patient will get Lasix 60 mg IV push, and lactated Ringer's will be induced on the 75 mL an hour. White count is 21.3, hemoglobin 11.7, hematocrit 34.5, and platelet count 248,000. Sodium 135, potassium 4, chlorides 102, CO2 28, BUN 8, creatinine 0.69. Magnesium 1.5. Albumin 2.6. Chest x-ray shows stable bilateral infiltrates. Progress note dated 01/19/2023. This patient is postop day #2, status post splenectomy, for spontaneous rupture of the spleen. The patient was extubated yesterday, January 18. Currently, the patient is on 4 L of oxygen. She's getting lactated Ringer's at 75 mL an hour. Clinically, other than pain, she's doing well. White count 19.5, hemoglobin 9.4, hematocrit 28, and platelet count normal. Sodium 135, potassium 3.2, chlorides 96, CO2 35, BUN 8, and creatinine 0.70. Chest x-ray shows mild pulmonary vascular congestion and a small left pleural effusion. There is also some basilar atelectasis. Progress note dated 01/20/2023. 52-year-old female postop day #3, status post splenectomy, for spontaneous rupture of the spleen. The patient is seen today in room 259. She is on oxygen at 4 L by nasal cannula. She's getting lactated Ringer's at 75 mL an hour. She currently nothing by mouth. Current labs include a white count 20.1, hemoglobin 8.5, hematocrit 26.8, and a normal platelet count. Sodium 138, potassium 3.6, chlorides 100, CO2 34, BUN 7 with a creatinine of 0.61. Chest x-ray shows some stable pleural/parenchymal changes, likely on the basis of fluid overload. For that reason, the patient gets Lasix, 40 mg, IV push times one. Progress note dated 01/21/2023. 52-year-old female who is postop day #4, status post splenectomy for spontaneous rupture of the spleen. She is seen in room 259. She's doing well. The patient's on 2 L of oxygen. She's receiving lactated Ringer's at 75 mL an hour. The patient could be transferred to the general medical floor. White count of 16.8, he will may 0.7, hematocrit 27, with a normal platelet count. Sodium 136, potassium 3.5, chlorides 97, CO2 33, BUN 5, creatinine 0.55. Calcium is 8.3. Progress note dated 01/22/2023. 52-year-old female, postop day #5, status post splenectomy for spontaneous rupture of the spleen. She was seen in the intensive care unit yesterday, but was moved out, and is seen today in room 516. Generally speaking, she is doing well. She is on 2 L of oxygen. She's getting lactated Ringer's at 75 mL an hour. Her room air saturation is 92%. She is using her CPAP at nighttime for her sleep apnea syndrome. She continues on Zosyn. She feels warm, and her te mperatures a bit elevated today at 99.4. We will check a pro-calcitonin level. No new labs today other than a glucose of 122. On today's evaluation of 2022, the patient is postop day #6. The patient is currently on room air oxygen. She is, comfortable. No significant respiratory distress. She has a CPAP machine at home and over 90 utilizing her nighttime CPAP. No issues with pain. She is ambulating. No cough sputum production or chest tightness or wheezing. She was moved out of the intensive care unit yesterday. Meanwhile, the patient has the bronchoscope to 0.9, hemoglobin of 8.6, platelet count of 573, BUN is at 3.6 and a creatinine of 0.5 and a sodium level is at 140. On 01/24/2023, the patient is postop day #7. Doing well. No specific complaints. The patient's hemoglobin stable at 8.7. WBC count 11.1. Electrolytes are all within normal limits. Pro-calcitonin level is at 0.08. No signs of any infection with septicemia. Overall respiratory status is stable. Objective - Vital Signs Vital signs: Vital Signs Temp 97.7 F 01/24/23 07:07 Pulse 77 01/24/23 08:19 Resp 16 01/24/23 07:07 BP 122/75 01/24/23 07:07 Pulse Ox 97 01/24/23 08:07 FiO2 50 01/18/23 14:29 Intake & Output 01/23/23 01/24/23 01/24/23 18:59 06:59 18:59 Intake Total 900 Output Total 60 Balance 900 -60 Weight 95.9 kg Intake: IV 900 Lactated Ringers 1,000 ml 900 @ 75 mls/hr IV .[id number] [facility] Rx#:[id number] Output: Drainage 60 Left Abdomen 60 Other: Voiding Method Indwelling Catheter Indwelling Catheter Toilet # Voids 1 1 # Bowel Movements 1 0 - Exam No acute distress, currently on nasal O2. No respiratory difficulty or distress. The patient is alert and oriented 3. Currently on 2 L. Saturations are 93%. HEENT examination is grossly unremarkable. Neck supple. Full range of motion. No adenopathy thyromegaly or neck vein distention. Cardiovascular examination reveals regular rhythm rate. S1-S2 normal. No S3 or S4. No discernible murmur noted. Heart rate 88 bpm. Lungs reveal clear breath sounds. Breath sounds are equal bilaterally. No adventitious lung sounds including wheezes rhonchi or crackles. 2 L saturation is 93 %. Abdomen soft, with bowel sounds. Tender on palpation. Extremities are intact. No cyanosis clubbing or edema. Skin is without rash or lesion. Neurologic examination is brief but nonfocal. - Labs CBC & Chem 7: 01/24/23 05:25 01/24/23 05:25 Labs: Abnormal Lab Results - Last 24 Hours (Table) 01/23/23 01/23/23 01/23/23 Range/Units 06:31 06:31 11:51 WBC (4.50-10.00) X 10*3/uL RBC (4.10-5.20) X 10*6/uL Hgb (12.0-15.0) d/dL Hct (37.2-46.3) % MCHC (32.0-37.0) d/dL Plt Count (140-440) X 10*3/uL Neutrophils # (Manual) 9.60 H (1.80-7.70) X 10*3/uL Monocytes # (0.20-1.00) X 10*3/uL Monocytes # (Manual) 1.17 H (0.20-1.00) X 10*3/uL Eosinophils # (0.04-0.35) X 10*3/uL Eosinophils # (Manual) 0.78 H (0.04-0.35) X 10*3/uL Basophils # (Manual) 0.26 H (0.00-0.10) X 10*3/uL NRBC/100 WBC Diff (0.00-0.01) X 10*3/uL Hypochromasia (manual) 2+ A Anion Gap 12.80 H (4.00-12.00) mmol/L BUN 3.6 L (9.0-27.0) mg/dL Creatinine 0.5 L (0.6-1.5) mg/dL BUN/Creatinine Ratio 7.20 L (12.00-20.00) Ratio POC Glucose (mg/dL) 144 H (70-110) mg/dL Calcium 8.5 L (8.7-10.3) mg/dL 01/23/23 01/23/23 01/24/23 Range/Units 17:09 19:56 05:25 WBC 11.16 H (4.50-10.00) X 10*3/uL RBC 3.00 L (4.10-5.20) X 10*6/uL Hgb 8.7 L (12.0-15.0) d/dL Hct 28.4 L (37.2-46.3) % MCHC 30.6 L (32.0-37.0) d/dL Plt Count 649 H (140-440) X 10*3/uL Neutrophils # (Manual) (1.80-7.70) X 10*3/uL Monocytes # 1.55 H (0.20-1.00) X 10*3/uL Monocytes # (Manual) (0.20-1.00) X 10*3/uL Eosinophils # 1.47 H (0.04-0.35) X 10*3/uL Eosinophils # (Manual) (0.04-0.35) X 10*3/uL Basophils # (Manual) (0.00-0.10) X 10*3/uL NRBC/100 WBC Diff 0.14 H (0.00-0.01) X 10*3/uL Hypochromasia (manual) Anion Gap (4.00-12.00) mmol/L BUN (9.0-27.0) mg/dL Creatinine (0.6-1.5) mg/dL BUN/Creatinine Ratio (12.00-20.00) Ratio POC Glucose (mg/dL) 116 H 131 H (70-110) mg/dL Calcium (8.7-10.3) mg/dL 01/24/23 Range/Units 07:09 WBC (4.50-10.00) X 10*3/uL RBC (4.10-5.20) X 10*6/uL Hgb (12.0-15.0) d/dL Hct (37.2-46.3) % MCHC (32.0-37.0) d/dL Plt Count (140-440) X 10*3/uL Neutrophils # (Manual) (1.80-7.70) X 10*3/uL Monocytes # (0.20-1.00) X 10*3/uL Monocytes # (Manual) (0.20-1.00) X 10*3/uL Eosinophils # (0.04-0.35) X 10*3/uL Eosinophils # (Manual) (0.04-0.35) X 10*3/uL Basophils # (Manual) (0.00-0.10) X 10*3/uL NRBC/100 WBC Diff (0.00-0.01) X 10*3/uL Hypochromasia (manual) Anion Gap (4.00-12.00) mmol/L BUN (9.0-27.0) mg/dL Creatinine (0.6-1.5) mg/dL BUN/Creatinine Ratio (12.00-20.00) Ratio POC Glucose (mg/dL) 111 H (70-110) mg/dL Calcium (8.7-10.3) mg/dL Assessment and Plan Plan: Postop day #7, S/P exploratory laparotomy with splenectomy, for idiopathic splenic rupture. Abdominal pain secondary to above, recovered Routine postoperative ventilator management, S/P successful extubation 01/18/2023. The patient is currently on room air oxygen. The patient using incentive spirometer History of COPD/asthma. History of OSAS, maintained on CPAP. History of hypertension. History of hyperlipidemia. History of diabetes mellitus. Question will history of multiple sclerosis. Ongoing tobacco use with nicotine addiction. Plan: Clinically stable. Hemoglobin is stable at 8.7 No active pulmonary issues for now Continue using the senna spirometer and CPAP overnight IV fluids Increase mobility Possible discharge home today, awaiting final recommendations from medical team, surgical team and infectious diseases.
[2023-01-24 13:12] VITALS: BP 114/66; PULSE 82; RESP 17; TEMP 98.4
--- NOTE | 2023-01-24 15:08 | P.PN ---
Subjective Progress Note Date: 01/24/23 Principal diagnosis: Post splenectomy, leukocytosis Patient is a 52-year-old female with a past medical history significant for diabetes mellitus hypertension hyperlipidemia COPD presenting to the hospital with abdominal pain has been diagnosed with ruptured spleen status post laparotomy and splenectomy On today's evaluation that is 01/24/2023, the patient remains to be afebrile, the patient is breathing comfortably without need for supplemental oxygen , the patient denies chest pain and no significant cough, patient denies nausea/vomiting /diarrhea and abdominal pain is currently controlled WBC is 11.16 and Cr is 0.5 , procalcitonin 0.08 Objective - Vital Signs Vital signs: Vital Signs Temp 97.7 F 01/24/23 07:07 Pulse 77 01/24/23 08:19 Resp 16 01/24/23 07:07 BP 122/75 01/24/23 07:07 Pulse Ox 97 01/24/23 08:07 FiO2 50 01/18/23 14:29 Intake & Output 01/23/23 01/24/23 01/24/23 18:59 06:59 18:59 Intake Total 900 Output Total 60 Balance 900 -60 Weight 95.9 kg Intake: IV 900 Lactated Ringers 1,000 ml 900 @ 75 mls/hr IV .[id number] JEANETTE Rx#:[id number] Output: Drainage 60 Left Abdomen 60 Other: Voiding Method Indwelling Catheter Indwelling Catheter Toilet # Voids 1 1 # Bowel Movements 1 0 - Exam GENERAL DESCRIPTION: Middle-aged male lying in bed in no distress RESPIRATORY SYSTEM: Unlabored breathing , decreased breath sounds at bases HEART: S1 S2 regular rate and rhythm , ABDOMEN: Soft , no tenderness EXTREMITIES: No edema feet - Labs CBC & Chem 7: 01/24/23 05:25 01/24/23 05:25 Labs: Abnormal Lab Results - Last 24 Hours (Table) 01/23/23 01/23/23 01/23/23 Range/Units 06:31 06:31 11:51 Neutrophils # (Manual) 9.60 H (1.80-7.70) X 10*3/uL Monocytes # (Manual) 1.17 H (0.20-1.00) X 10*3/uL Eosinophils # (Manual) 0.78 H (0.04-0.35) X 10*3/uL Basophils # (Manual) 0.26 H (0.00-0.10) X 10*3/uL Hypochromasia (manual) 2+ A Anion Gap 12.80 H (4.00-12.00) mmol/L BUN 3.6 L (9.0-27.0) mg/dL Creatinine 0.5 L (0.6-1.5) mg/dL BUN/Creatinine Ratio 7.20 L (12.00-20.00) Ratio POC Glucose (mg/dL) 144 H (70-110) mg/dL Calcium 8.5 L (8.7-10.3) mg/dL 01/23/23 01/23/23 01/24/23 Range/Units 17:09 19:56 07:09 Neutrophils # (Manual) (1.80-7.70) X 10*3/uL Monocytes # (Manual) (0.20-1.00) X 10*3/uL Eosinophils # (Manual) (0.04-0.35) X 10*3/uL Basophils # (Manual) (0.00-0.10) X 10*3/uL Hypochromasia (manual) Anion Gap (4.00-12.00) mmol/L BUN (9.0-27.0) mg/dL Creatinine (0.6-1.5) mg/dL BUN/Creatinine Ratio (12.00-20.00) Ratio POC Glucose (mg/dL) 116 H 131 H 111 H (70-110) mg/dL Calcium (8.7-10.3) mg/dL Assessment and Plan (1) Post-splenectomy Status: Acute Code(s): Z90.81 - SNOMED Code(s): 221073326 (2) Leukocytosis Status: Acute Code(s): D72.829 - ELEVATED WHITE BLOOD CELL COUNT, UNSPECIFIED SNOMED Code(s): 616042315 Plan: 1patient presented to hospital with abdominal pain diagnosed with a spontaneous splenic rupture status postsplenectomy on 01/17/2023 patient may need vaccination against Haemophilus influenzae pneumococcal and meningococcal day 14 of her surgery that will be 01/31/2023 , prescription for pneumococcal meningococcal and Haemophilus influenza B vaccination has been provided to the patient with instruction to guide them at health Department 2elevated white count more likely related to her postmastectomy status Patient and daughter has multiple questions were answered in Layman terms Dictation was produced using Myntraation software. please excuse any grammatical, word or spelling errors. Time with Patient: Less than 30
--- NOTE | 2023-01-24 21:40 | P.PN ---
Subjective Progress Note Date: 01/24/23 This is a 52-year-old female with medical history of asthma/COPD, diabetes mellitus, hypertension, hyperlipidemia, known pancreatic mass and multiple sclerosis patient is a current daily smoker also history of anxiety and depression. Presents to the hospital with complaints of four-day history of right upper quadrant pain that has been progressive. History is taken from patients daughter at the bedside in the ICU. Patient is currently intubated on mechanical ventilator. Initial work up reveals white count 22.2 and hemoglobin of 14.2 which has since dropped down to 12.3. Patient does have lactic acidosis at 3.6 on admission as well as elevated amylase and lipase and alk phos. Urinalysis shows positive nitrites and moderate leukocyte esterase concerning for possible underlying urinary tract infection. Patient had abdominal pelvis CT for further evaluation of abdominal pain and found to have a 10.7 x 5.7 x 14.1 cm splenic subcapsular hematoma with extension beyond the spleen with mild hemoperitoneum. There are no signs of active extravasation identified which may be due to phase of contrast consider interventional consultation. There is also 1.9 severe pancreatic cyst at the tail of the pancreas. Chest x-ray shows dependent airspace disease in the lungs which may be due to atelectatic changes infection also possible. Patient was taken for exploratory laparotomy and splenectomy with Dr. Cummins. She is scheduled to receive 2 units of packed red blood cells. She was also started on empiric antibiotic coverage with IV Zosyn and being hydrated with IV fluids normal saline at 75 mL per hour. Patient found to be hypoxic postoperative has been placed on 5L of oxygen via nasal c annula. Blood pressure is marginal. Postoperatively, patient was taken to the intensive care unit with a pulmonary gold tooler consultation she is currently on a mechanical ventilator with FiO2 of 50%. NG tube is in place. Abdominal wound is closed with a prevana wound vac. 01/18/2023 Patient remains in the intensive care unit, she is intubated on mechanical ventilator with a PEEP of 10, FiO2 of 50%. Patient is postoperative day #1 exploratory laporotomy, splenectomy, repair of incisional hernia and partial omentectomy. NG in place. Midline wound vac intact. Patient with positive bowel sounds. Chest xray today showing stable bilateral infiltrates greater on the left with small pleural effusion. LR has been decreased to 75ml/hr and patient also given a dose of IV lasix 60 mg. Pulmonary following. Patient remains on empiric antibiotics with IV zosyn. White count 21.3 today. Blood culture so far negative and urine culture is negative. Patient having low grade temps. 01/19/2023 Patient has been extubated and weaned down to 4L of oxygen. Evaluated today sitting up in the chair in the ICU awake and alert x 3. Patient is postoperative day #2, has wound vac in place to the abdominal incision. Not yet passing gas but does have positive bowel sounds throughout. Patient denies any recent strenous activity, or falls that could have precipitated the splenic hematoma. Patient does report she has been using a weight hula hoop daily. Blood cultures remain negative. White count of 19.5 today, hemoglobin 9.4, sodium 135, potassium 3.2. Chest xray today showing possible similar mild pulmonary vascular congestion, ongoing small left pleural effusion with prominent bibasilar patchy atelectasis and or consolidation left greater than right. Patient does report having a low grade fever of 99 prior to coming in to the hospital. No reported history of CHF. Patient continues on LR at 75 mls/hr. 01/20/2023 Patient remains in the intensive care unit. Currently on 4L of oxygen. Chest xr ay today shows stable pleural parenchymal change could be CHF or atypical pneumonia. Patient remains on IV zosyn empirically. Covid is negative. EBV panel negative for acute infection. Remains on LR at 75 mls/hr. Midline woundvac in place. Patient reports she has not passed gas yet. Remains NPO. 01/21/2023 Patient remains in the intensive care unit with plans to downgrade from ICU today. Working with physical therapy. Sitting up in the chair. Patient is now passing gas. Diet being advanced to clear liquid. Remains on empiric antibiotics with IV zosyn. White count today 16.8. Continues with wound vac to the midline incision. Serosanguineous drainage. Continues on 3 to 4L of oxygen encourage incentive spirometer. 01/22/2023 Patient is evaluated today on the medical floor. She is on transfer out of the ICU. Patient remains on 3-4 L of nasal cannula however oxygen saturation is improving. She is passing gas and diet was advanced to clear liquid and she states that she is tolerating this. She does have increased abdominal pain from yesterday her abdomen is soft and she has normoactive bowel sounds. She has wearing abdominal binder and midline wound VAC is intact. SHANELL with seros anguineous drainage. White count is improved today to 13.7, and benign 0.1. Her sodium is 137, potassium 3.7, BUN 3, creatinine 0.54, blood glucose 140s. 01/23/2023 Patient is evaluated today sitting up in the chair. Working with physical therapy. Oxygen is being weaned currently patient is on 3L with saturations of 97%. She is using incentive spirometer. Diet was increased to full liquid today. Had a BM yesterday. 01/24/2023 Patient evaluated today ambulating in the room independently. Discussed with surgery plan is for patient to DC home today with her daughter. She has been weaned off oxygen to room air. Patient is using incentive spirometer. She is managing the abdominal pain with oral medications. patient has had a BM. Plan is to remove the prevana pump today and also to remove the SHANELL drain prior to discharge. White count is 11.6 which is felt to be due to the splenectomy itsel f. Patient will follow up with ID for and for recommendations regarding vaccinations patient is given script for the vaccines she will need to receive from the health department. Zosyn was discontinued, procalcitonin level was negative. Hemodynamically she is stable. She will be discharged home. Review of Systems Constitutional: Denied any fatigue denied any fever. Cardio vascular: denied any chest pain, palpitations Gastrointestinal: denied any nausea, vomiting, diarrhea, mild abdominal pain no gas no BM. Pulmonary: Denied any shortness of breath cough Neurologic denied any new focal deficits All inpatient medications were reviewed and appropriate changes in these medications as dictated in the interval history and assessment and plan. PHYSICAL EXAMINATION: GENERAL: Awake alert, not in any acute distress. Well developed, well nourished. HEENT: Pupils are round and equally reacting to light. EOMI. No scleral icterus. No conjunctival pallor. Normocephalic, atraumatic. No pharyngeal erythema. No thyromegaly. CARDIOVASCULAR: S1 and S2 present. No murmurs, rubs, or gallops. PULMONARY: Chest is clear to auscultation, no wheezing or crackles. ABDOMEN: Soft, nontender, nondistended, normoactive bowel sounds. No palpable organomegaly. Post surgical abdomen MUSCULOSKELETAL: No joint swelling or deformity. EXTREMITIES: No cyanosis, clubbing, or pedal edema. NEUROLOGICAL: No focal deficits. SKIN: No rashes. Assessment Abdominal pain right upper quadrant with spontaneous splenic hematoma with capsule rupture and incisional hernia; postoperative day #7 splenectomy and he rnia repair. Leukocytosis and lactic acidosis, LA resolved and leukocytosis improving which was felt to be reactive Acute blood loss anemia from splenic rupture s/p 2 units of PRBCs. Hemoglobin stable. Abnormal urinalysis asymptomatic bacteriruea urine culture negative. Acute hypoxemic respiratory failure 86% on room air required mechanical ventilator post surgery. Weaned to room air. Recent pancreatic cyst removal History of COPD/Asthma Diabetes Mellitus type 2 Hypertension Hyperlipidemia GI prophylaxis DVT prophylaxis Full Code Plan Procalcitonin negative at 0.08 and zosyn has been discontinued. Fevers are improved patient encourage to continue with IS 10 x an hour while awake. Diet advanced to full liquid. can advance as tolerated on DC Home. PT/OT following Patient will return home with home care. Recommending to hold the norvasc on discharge blood pressure is normotensive Script given to receive vaccination updates at the health department Repeat CBC and BMP in 2 to3 days Patient will be discharged home today. The impression and plan of care has been dictated by Nisha Tian, Nurse Practitioner as directed. Dr. Ute MD I have performed a history and physical examination and medical decision making of this patient, discussed the same with the dictator, and agree with the dictators assessment and plan as written, documented as a scribe. Based on total visit time, I have performed more than 50% of this visit. Objective - Vital Signs Vital signs: Vital Signs Temp 97.7 F 01/24/23 07:07 Pulse 77 01/24/23 08:19 Resp 16 01/24/23 07:07 BP 122/75 01/24/23 07:07 Pulse Ox 97 01/24/23 08:07 FiO2 50 01/18/23 14:29 Intake & Output 01/23/23 01/24/23 01/24/23 18:59 06:59 18:59 Intake Total 900 Output Total 60 Balance 900 -60 Weight 95.9 kg Intake: IV 900 Lactated Ringers 1,000 ml 900 @ 75 mls/hr IV .[id number] JEANETTE Rx#:[id number] Output: Drainage 60 Left Abdomen 60 Other: Voiding Method Indwelling Catheter Indwelling Catheter Toilet # Voids 1 1 # Bowel Movements 1 0 - Labs CBC & Chem 7: 01/24/23 05:25 01/24/23 05:25 Labs: Abnormal Lab Results - Last 24 Hours (Table) 01/23/23 01/23/23 01/23/23 Range/Units 06:31 06:31 11:51 WBC 12.97 H (4.50-10.00) X 10*3/uL RBC 2.98 L (4.10-5.20) X 10*6/uL Hgb 8.6 L (12.0-15.0) d/dL Hct 28.4 L (37.2-46.3) % MCHC 30.3 L (32.0-37.0) d/dL Plt Count 573 H (140-440) X 10*3/uL Neutrophils # (Manual) 9.60 H (1.80-7.70) X 10*3/uL Monocytes # (Manual) 1.17 H (0.20-1.00) X 10*3/uL Eosinophils # (Manual) 0.78 H (0.04-0.35) X 10*3/uL Basophils # (Manual) 0.26 H (0.00-0.10) X 10*3/uL NRBC/100 WBC Diff 0.14 H (0.00-0.01) X 10*3/uL Hypochromasia (manual) 2+ A Anion Gap 12.80 H (4.00-12.00) mmol/L BUN 3.6 L (9.0-27.0) mg/dL Creatinine 0.5 L (0.6-1.5) mg/dL BUN/Creatinine Ratio 7.20 L (12.00-20.00) Ratio POC Glucose (mg/dL) 144 H (70-110) mg/dL Calcium 8.5 L (8.7-10.3) mg/dL 01/23/23 01/23/23 01/24/23 Range/Units 17:09 19:56 07:09 WBC (4.50-10.00) X 10*3/uL RBC (4.10-5.20) X 10*6/uL Hgb (12.0-15.0) d/dL Hct (37.2-46.3) % MCHC (32.0-37.0) d/dL Plt Count (140-440) X 10*3/uL Neutrophils # (Manual) (1.80-7.70) X 10*3/uL Monocytes # (Manual) (0.20-1.00) X 10*3/uL Eosinophils # (Manual) (0.04-0.35) X 10*3/uL Basophils # (Manual) (0.00-0.10) X 10*3/uL NRBC/100 WBC Diff (0.00-0.01) X 10*3/uL Hypochromasia (manual) Anion Gap (4.00-12.00) mmol/L BUN (9.0-27.0) mg/dL Creatinine (0.6-1.5) mg/dL BUN/Creatinine Ratio (12.00-20.00) Ratio POC Glucose (mg/dL) 116 H 131 H 111 H (70-110) mg/dL Calcium (8.7-10.3) mg/dL Assessment and Plan Time with Patient: Less than 30
== END 2023-01-24 13:15 | disposition home or self-care (01) | DRG 650 ==
LOC: EC 01:01 → 3SCARD 05:44 → 2SICU 09:40 → 5NMEDONC 01-21 13:58
PROVIDERS: ADMIT Surgery; ATTEND Surgery
PROC: 0WQF0ZZ Repair Abdominal Wall, Open Approach (ICD-10-PCS; 2023-01-17)
PROC: 0DBU0ZZ Excision of Omentum, Open Approach (ICD-10-PCS; 2023-01-17)
PROC: 0D9670Z Drainage of Stomach with Drainage Device, Via Natural or Artificial Opening (ICD-10-PCS; 2023-01-17)
PROC: 30233N1 Transfusion of Nonautologous Red Blood Cells into Peripheral Vein, Percutaneous Approach (ICD-10-PCS; 2023-01-17)
PROC: 07TP0ZZ Resection of Spleen, Open Approach (ICD-10-PCS; principal; 2023-01-17 07:36)
DX: D73.5 Infarction of spleen (principal); J96.01 Acute respiratory failure with hypoxia; R65.10 Systemic inflammatory response syndrome (SIRS) of non-infectious origin without acute organ dysfunction; E11.40 Type 2 diabetes mellitus with diabetic neuropathy, unspecified; J44.9 Chronic obstructive pulmonary disease, unspecified; G35 Multiple sclerosis; K66.1 Hemoperitoneum; E87.20 Acidosis, unspecified; K43.0 Incisional hernia with obstruction, without gangrene; I95.9 Hypotension, unspecified; D62 Acute posthemorrhagic anemia; I10 Essential (primary) hypertension; F32.A Depression, unspecified; F41.9 Anxiety disorder, unspecified; E78.5 Hyperlipidemia, unspecified; F17.210 Nicotine dependence, cigarettes, uncomplicated; E87.70 Fluid overload, unspecified; E87.6 Hypokalemia; G47.33 Obstructive sleep apnea (adult) (pediatric); Z20.822 Contact with and (suspected) exposure to COVID-19; Z79.51 Long term (current) use of inhaled steroids; Z79.84 Long term (current) use of oral hypoglycemic drugs; Z28.310 Unvaccinated for COVID-19; Z87.19 Personal history of other diseases of the digestive system; Z79.899 Other long term (current) drug therapy; Z88.6 Allergy status to analgesic agent; Z88.5 Allergy status to narcotic agent
CPT/HCPCS: 36415; 36430; 36600; 71045; 74018; 74177; 80048; 80053; 81001; 82150; 82805; 83036; 83605; 83690; 83735; 83880; 84132; 84145; 85025; 85610; 85730; 86140; 86663; 86664; 86665; 86850; 86900; 86901; 86920; 87040; 87086; 87635; 88305; 93005; 93306; 94002; 94640; 94760; 96361; 96374; 96376; 99285

== ENCOUNTER 2023-07-04 07:13 | Day surgery (SDC) | payer OTHER ==
[2023-07-04] MEDS: LACTATED RINGERS 1,000 ML IV SCH (07:43)
[2023-07-04 08:36] LABS: Glucose,Whole Blood 134 mg/dL (70-110)
[2023-07-04] MEDS: DEXAMETHASONE SOD PHOSPHATE 4 MG/ML 1 ML VIAL IV ONE (08:38)
[2023-07-04] MEDS: HEPARIN SODIUM,PORCINE 5,000 UNIT/ML 1 ML VIAL SQ PRN (08:38)
[2023-07-04] MEDS: ACETAMINOPHEN TAB 500 MG TAB PO PRN (08:47)
[2023-07-04] MEDS: ONDANSETRON 4 MG/2 ML VIAL ONE (08:47)
[2023-07-04] MEDS: MIDAZOLAM 2 MG/2 ML VIAL IVP ONE (08:48)
[2023-07-04] MEDS ORDERED: fentaNYL (PF) 50 MCG/ML 2 ML AMP ONE (08:55)
[2023-07-04] MEDS ORDERED: ALBUTEROL HFA INHALER INHALATION ONE (08:55)
[2023-07-04] MEDS ORDERED: PROPOFOL 10 MG/ML 20 ML VIAL IV ONE (08:55)
[2023-07-04] MEDS ORDERED: KETAMINE HCL IN 0.9 % NACL 50 MG/5 ML SYRINGE ONE (08:55)
[2023-07-04] MEDS ORDERED: SUCCINYLCHOLINE CHLORIDE 200 MG/10 ML VIAL IV ONE (08:55)
[2023-07-04] MEDS: LACTATED RINGERS 1,000 ML IV ONE ×2 (09:55→13:45)
[2023-07-04] MEDS ORDERED: HYDROmorphone 1 MG/ML 1 ML SYRINGE IVP PRN (09:59)
[2023-07-04] MEDS ORDERED: HYDROcodone/APAP 5-325MG 1 EACH TAB PO PRN (09:59)
[2023-07-04] MEDS ORDERED: ACETAMINOPHEN TAB 325 MG TAB PO PRN (09:59)
[2023-07-04] MEDS ORDERED: NALOXONE 0.4 MG/ML 1 ML VIAL IV PRN (09:59)
[2023-07-04] MEDS ORDERED: ONDANSETRON 4 MG/2 ML VIAL IVP PRN (09:59)
[2023-07-04] MEDS: ALBUTEROL NEBULIZED 2.5 MG/3 ML INHALATION ONE (10:12)
[2023-07-04] MEDS: HYDROmorphone 0.5 MG/0.5 ML SYRINGE IVP PRN (10:23)
[2023-07-04 10:28] LABS: Glucose,Whole Blood 206 mg/dL (70-110)
[2023-07-04] MEDS: INSULIN ASPART (NovoLOG) 100 UNIT/ML VIAL SQ ONE (10:40)
[2023-07-04] MEDS: KETOROLAC 15 MG/ML 1 ML VIAL IVP ONE (12:09)
--- NOTE | 2023-07-04 12:40 | P.OP ---
Date of Procedure: 07/04/23 Preoperative Diagnosis: Incisional hernia Postoperative Diagnosis: Incarcerated incisional hernia Procedure(s) Performed: Open repair of incarcerated incisional hernia with mesh Anesthesia: BRANNON Surgeon: Osorio Cummins Estimated Blood Loss (ml): 25 Pathology: none sent Condition: stable Disposition: PACU Description of Procedure: Patient's placed the operative table in supine position. She received general endotracheal tube anesthesia. Her abdomen was prepped and draped usual sterile fashion. The skin was incised along her midline scar. The patient had a large incisional hernia. The hernia measured approximately 4 x 15 cm. The incarcerated omentum was reduced and the perineal cavity. The fascia external oblique was exposed using electrocautery. The hernia was repaired by using. 0 Ethibond suture. And then this was buttressed with a #1 Amanuel fix suture. Th e Prolene onlay mesh was applied. The mesh measured approximately 15 x 25 cm. This is a secured with a secure strap tacker. A SHANELL drain is present top the mesh repair brought through separate stab incision. Michael's fascia closed with 0 Vicryl. Skin was closed kali. Patient top she will. She was sent to recovery room in stable condition.
[2023-07-04] MEDS: HYDROmorphone 0.5 MG/0.5 ML SYRINGE IVP ONE (12:59)
[2023-07-04] MEDS: KETOROLAC 15 MG/ML 1 ML VIAL IVP SCH (13:46)
[2023-07-04] MEDS ORDERED: IPRATROPIUM-ALBUTEROL 3 ML NEB ONE (13:55)
[2023-07-04] MEDS: IPRATROPIUM 0.5 MG/2.5 ML NEBU INHALATION ONE (14:01)
[2023-07-04 14:20] LABS: Glucose,Whole Blood 255 mg/dL (70-110)
[2023-07-04] MEDS: NALOXONE 0.4 MG/ML 1 ML VIAL IVP ONE ×2 (15:45→15:55)
[2023-07-04 16:46] LABS: Glucose,Whole Blood 257 mg/dL (70-110)
[2023-07-04] MEDS ORDERED: DEXTROSE 50% SYRINGE 50 ML IVP PRN ×2 (17:20)
[2023-07-04] MEDS: INSULIN ASPART (NovoLOG) 100 UNIT/ML VIAL SQ SCH (17:39)
[2023-07-04 20:06] LABS: Glucose,Whole Blood 189 mg/dL (70-110)
--- NOTE | 2023-07-05 00:45 | XR ---
EXAMINATION TYPE: XR chest 1V portable DATE OF EXAM: 07/05/2023 COMPARISON: Chest x-ray January 20, 2023 and older studies. HISTORY: Postoperative BiPAP dependent respiratory failure TECHNIQUE: Single frontal view of the chest is obtained. FINDINGS: Persistent cardiomegaly. Some increased interstitial markings bilaterally are redemonstrat ed. No pleural effusion or pneumothorax seen bilaterally. The osseous structures are intact. IMPRESSION: Cardiomegaly with suspected mild bilateral interstitial edema. Correlate for CHF exacerb ation/fluid overload state
[2023-07-05] MEDS ORDERED: ALBUTEROL NEBULIZED 2.5 MG/3 ML INHALATION PRN (01:52)
--- NOTE | 2023-07-05 02:02 | P.CNPUL ---
History of Present Illness Consult date: 07/05/23 Requesting physician: Osorio Cummins Reason for consult: COPD Chief complaint: Acute hypoxemic respiratory failure s/p incarcerated incisional repair History of present illness: I am seeing this patient in consultation today 07/05/2023 on the general medical floor, she is status postoperative day #1 following a incarcerated incisional hernia repair with mesh. 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 Patient was brought in yesterday for an open repair of incarcerated incisional hernia with mesh. Patient was reportedly difficult to arouse postoperatively, she did receive 2 doses of Narcan while in recovery. She also received a dose of Decadron. She is currently in a Semi-Griggs's position, on BiPAP with settings 14/6 and FiO2 of 28%. She is achieving tidal volumes of 350-450. Respiratory rate is in the mid teens. No signs of respiratory distress. She is alert and oriented, without any signs of CO2 narcosis. Her only complaint is some incisional abdominal pain. She does have a abdominal binder on. SHANELL drain is compressed. The incision is approximated and the incisional dressing has some shadowing. Incentive spirometer is at bedside. COPD does not appear active. No stridor. Postoperative chest x-ray shows cardiomegaly with suspected mild bilateral interstitial edema, correlating for possible CHF exacerbation/fluid overload. Labs are pending. She does have her nasal CPAP at bedside. Vital signs are stable. Review of Systems REVIEW OF SYSTEMS: CONSTITUTIONAL: Denies any recent significant weight loss or weight gain. EYES: Denies change in vision. EARS, NOSE, MOUTH, THROAT: Denies headaches, denies sore throat. CARDIOVASCULAR: Denies chest pain, palpitations or syncopal episodes. RESPIRATORY: Denies shortness of breath, cough, congestion or hemoptysis. GASTROINTESTINAL: Denies change in appetite, nausea and vomiting, or diarrhea. Admits some postoperative incisional pain. GENITOURINARY: Denies hematuria, denies infections. MUSKULOSKELETAL: Denies pain, denies swelling. INTEGUMENTARY: Denies rash, denies eczema. NEUROLOGICAL: Denies recent memory loss, no recent seizure activity. PSYCHIATRIC: Denies anxiety, denies depression. HEMATOLOGIC/LYMPHATIC: Denies anemia, denies enlarged lymph node Past Medical History Past Medical History: Asthma, COPD, Diabetes Mellitus, Hyperlipidemia, Hypertension, Sleep Apnea/CPAP/BIPAP Additional Past Medical History / Comment(s): neuropathy, MS, pancreatic mass removed uses cpap, wears home 02 at 2 liters History of Any Multi-Drug Resistant Organisms: None Reported Past Surgical History: Appendectomy, Section, Cholecystectomy, Hernia Repair, Orthopedic Surgery Additional Past Surgical History / Comment(s): wrist and shoulder surgery, bj cataract removal, recent toenail removal on rt great toe, incisional hernia repair 07/04/2023 Past Anesthesia/Blood Transfusion Reactions: No Reported Reaction Past Psychological History: Anxiety, Depression Smoking Status: Current every day smoker Past Alcohol Use History: None Reported Additional Past Alcohol Use History / Comment(s): 1/2 pk /day/ "a long time" since age 10 Past Drug Use History: Marijuana Additional Drug Use History / Comment(s): refrain x 24 hours prior to procedure - Past Family History Mother Family Medical History: Deep Vein Thrombosis (DVT) Medications and Allergies Home Medications Medication Instructions Recorded Confirmed Type ALPRAZolam [Xanax] 1 mg PO BID PRN 02/05/20 07/04/23 History Albuterol Sulfate [Ventolin HFA] 2 puff INHALATION RT-Q4H PRN 02/05/20 07/04/23 History Zolpidem Tartrate [Ambien] 10 mg PO HS 02/05/20 07/04/23 History Atorvastatin [Lipitor] 40 mg PO HS 01/17/23 07/04/23 History EPINEPHrine (Auto Inject) [Epipen] 0.3 mg IM ONCE PRN 01/17/23 07/04/23 History Ketoconazole 2% Cream [Nizoral 2%] 1 applic TOPICAL DAILY 01/17/23 07/04/23 History Montelukast [Singulair] 10 mg PO HS 01/17/23 07/04/23 History Pregabalin [Lyrica] 200 mg PO BID 01/17/23 07/04/23 History Tiotropium [place] [Spiriva 1 puff INHALATION RT-DAILY 01/17/23 07/04/23 History Handihaler] metFORMIN HCL [Glucophage] 500 mg PO BID 01/17/23 07/04/23 History Pregabalin [Lyrica] 100 mg PO 1600 06/28/23 07/04/23 History amLODIPine BESYLATE 10 mg PO DAILY 06/28/23 07/04/23 History Allergies Allergy/AdvReac Type Severity Reaction Status Date / Time aspirin Allergy Dyspnea Verified 07/04/23 08:04 codeine Allergy Dyspnea Verified 07/04/23 08:04 ibuprofen [From Motrin] Allergy Dyspnea Verified 07/04/23 08:04 morphine Allergy Rash/Hives Verified 07/04/23 08:04 naproxen Allergy Dyspnea Verified 07/04/23 08:04 tramadol [From Ultram] Allergy Dyspnea Verified 07/04/23 08:04 Physical Exam Vitals: Vital Signs Temp Pulse Resp BP Pulse Ox FiO2 07/04/23 23:52 28 07/04/23 21:17 28 07/04/23 19:55 97.6 F 81 20 131/76 96 07/04/23 16:03 97.5 F L 85 10 L 118/69 95 07/04/23 15:54 28 07/04/23 14:30 97 12 128/59 92 L 07/04/23 14:00 92 19 111/56 93 L 07/04/23 13:39 86 15 127/71 91 L 07/04/23 13:10 89 16 136/61 95 07/04/23 12:40 92 12 115/59 90 L 07/04/23 12:10 97 11 L 148/58 92 L 07/04/23 11:40 97 18 123/67 92 L 07/04/23 11:10 101 H 15 145/64 90 L 07/04/23 10:55 94 19 136/64 90 L 07/04/23 10:40 95 17 137/63 90 L 07/04/23 10:23 96 17 133/59 92 L 07/04/23 10:08 97 F L 98 16 141/60 90 L 07/04/23 08:15 98.0 F 81 20 141/65 93 L Intake and Output 07/04/23 07/04/23 07/05/23 14:59 22:59 06:59 Intake Total 1450 Output Total 25 240 Balance 1425 -240 Intake: IV 1450 Output: Drainage 40 Left 40 Urine 200 Uretheral (Ramos) 200 Estimated Blood Loss 25 Other: Weight 88.2 kg 88.2 kg GENERAL EXAM: Alert, 52-year-old white female, currently on BiPAP, comfortable in no apparent distress. No signs of CO2 narcosis. HEAD: Normocephalic and atraumatic EYES: Normal reaction of pupils, equal size. NOSE: Clear with pink turbinates. THROAT: No erythema or exudates. NECK: No masses, no JVD. CHEST: No chest wall deformity. LUNGS: Equal air entry with bibasilar inspiratory crackles. No wheezing, rhonchi, or focal dullness. On BiPAP with settings 14/6 and FiO2 28%. No conversational dyspnea or accessory muscle use. No stridor. CVS: S1 and S2 normal with no audible murmur, regular rhythm. No extra heart sounds ABDOMEN: No hepatosplenomegaly, active bowel sounds, no guarding or rigidity. SPINE: No scoliosis or deformity SKIN: No rashes CENTRAL NERVOUS SYSTEM: No focal deficits, tone is normal in all 4 extremities. EXTREMITIES: There is no peripheral edema, clubbing, or cyanosis. Peripheral pulses are intact. Results - Laboratory Findings Abnormal lab findings: Abnormal Labs 07/04/23 07/04/23 07/04/23 08:32 10:26 14:17 POC Glucose (mg/dL) 134 H 206 H 255 H 07/04/23 07/04/23 16:44 20:05 POC Glucose (mg/dL) 257 H 189 H - Diagnostic Findings Chest x-ray: image reviewed Assessment and Plan Assessment: Status postoperative day #1 following an open incarcerated incisional hernia repair with mesh Acute hypoxemic respiratory failure, currently on BiPAP, chest x-ray shows cardiomegaly with suspected mild bilateral interstitial edema, correlating for possible CHF exacerbation/fluid overload. History of idiopathic splenic rupture status/post splenectomy 01/17/2023 Chronic obstructive pulmonary disease, stable Obstructive sleep apnea, with home nasal CPAP Obesity, with a BMI of 33.4 kg/m History of hyperlipidemia History of hypertension History of diabetes mellitus Chronic tobacco dependence Plan: Patient's medications and chest x-ray reviewed. Postoperative Labs are pending Currently on BiPAP with settings of 14/6 and FiO2 28%. Patient is alert and oriented, no signs of CO2 narcosis Give a one-time dose of Lasix 20 mg IV May attempt to transition patient to nasal CPAP at bedtime Encourage incentive spirometer and pulmonary toileting once off BiPAP Lovenox for DVT prophylaxis. SCDs are on. Postoperative pain appears well-managed at current time. We will continue to follow I have personally seen and examined the patient, performed the documentation and the assessment and plan as written. Number of minutes spent on the visit:20 Time with Patient: Greater than 30
[2023-07-05 02:30] LABS: Anisocytosis Moderate; Basophils % (A) 0 %; Eosinophils # (A) 0.1 k/uL (0-0.7); Eosinophils % (A) 0 %; HCT 33.8 % (34.0-46.0); Hypochromasia Marked; Lymphocytes # (A) 1.2 k/uL (1.0-4.8); Lymphocytes % (A) 6 %; MCH 21.2 pg (25.0-35.0); MCHC 29.6 g/dL (31.0-37.0); MCV 71.6 fL (80.0-100.0); Mean Platelet Volume 7.3; Microcytosis Marked; Monocytes # (A) 1.2 k/uL (0-1.0); Monocytes % (A) 6 %; Neutrophils # (A) 15.4 k/uL (1.3-7.7); Neutrophils % (A) 85 %; Platelet Count 432 k/uL (150-450); Poikilocytosis Moderate; RBC 4.72 m/uL (3.80-5.40)
[2023-07-05 02:39] LABS: African American GFR (CKD) 65 (>60 ml/min/1.73 sqM); Anion Gap 3 mmol/L; Blood Urea Nitrogen 21 mg/dL (7-17); Calcium 8.9 mg/dL (8.4-10.2); Carbon Dioxide 28 mmol/L (22-30); Chloride 105 mmol/L (98-107); Glucose 123 mg/dL (74-99); Non-African American GFR(CKD) 57 (>60 ml/min/1.73 sqM); Potassium 4.6 mmol/L (3.5-5.1); Sodium 136 mmol/L (137-145)
[2023-07-05 02:48] LABS: NT-Pro-B-Type Natriuretic Pept 67 pg/mL
[2023-07-05] MEDS: FUROSEMIDE 10 MG/ML 2 ML VIAL IV STA (03:03)
[2023-07-05 05:54] LABS: Glucose,Whole Blood 135 mg/dL (70-110)
[2023-07-05] MEDS ORDERED: IPRATROPIUM 0.5 MG/2.5 ML NEBU INHALATION SCH (08:00)
[2023-07-05 08:12] VITALS: BP 158/70; PULSE 77; RESP 18; TEMP 98
[2023-07-05] MEDS: HYDROcodone/APAP 5-325MG 1 EACH TAB PO PRN (08:53)
[2023-07-05] MEDS: ENOXAPARIN 40 MG/0.4 ML SYRINGE SQ SCH (08:53)
[2023-07-05] MEDS ORDERED: LACTATED RINGERS 1,000 ML IV SCH (11:00)
--- NOTE | 2023-07-05 11:55 | P.DS ---
Providers Expected date of discharge: 07/05/23 Attending physician: Osorio Cummins Consults: 07/04/23 09:59 Consult Physician Routine Consulting Provider: Mamadou García Consult Reason/Comments: Severe COPD. Do you want consulting provider notified?: Yes Primary care physician: [facility] Course: Discharge diagnosis 1. Incarcerated incisional hernia Hospital course This is a 52-year-old female with an incarcerated incisional hernia. She is status post open repair with mesh placement for the incarcerated incisional hernia. Patient was drowsy postoperatively. She was seen by pulmonary service. They have cleared her for discharge. Patient is tolerating diet. She has been up and ambulating. She is having a small amount of flatus. Her pain is controlled. She is afebrile. She has been cleared by pulmonary service for discharge. She is stable for discharge. Please refer to chart for any further details. Physician Headhunter note has been reviewed by physician. Signing provider agrees with the documented findings, assessment, and plan of care. Patient Condition at Discharge: Stable Plan - Discharge Summary Discharge Rx Participant: No New Discharge Prescriptions: New HYDROcodone/APAP 5-325MG [[place] 5-325] 1 tab PO Q6HR PRN 3 Days #12 tab PRN Reason: Pain Docusate [Colace] 100 mg PO BID #30 capsule Continue Zolpidem Tartrate [Ambien] 10 mg PO HS Albuterol Sulfate [Ventolin HFA] 2 puff INHALATION RT-Q4H PRN PRN Reason: Shortness Of Breath ALPRAZolam [Xanax] 1 mg PO BID PRN PRN Reason: Anxiety EPINEPHrine (Auto Inject) [Epipen] 0.3 mg IM ONCE PRN PRN Reason: Anaphylaxis metFORMIN HCL [Glucophage] 500 mg PO BID Montelukast [Singulair] 10 mg PO HS amLODIPine BESYLATE 10 mg PO DAILY Pregabalin [Lyrica] 100 mg PO 1600 Tiotropium [place] [Spiriva Handihaler] 1 puff INHALATION RT-DAILY Pregabalin [Lyrica] 200 mg PO BID Ketoconazole 2% Cream [Nizoral 2%] 1 applic TOPICAL DAILY Atorvastatin [Lipitor] 40 mg PO HS Discharge Medication List ALPRAZolam [Xanax] 1 mg PO BID PRN 02/05/20 [History] Albuterol Sulfate [Ventolin HFA] 2 puff INHALATION RT-Q4H PRN 02/05/20 [History] Zolpidem Tartrate [Ambien] 10 mg PO HS 02/05/20 [History] Atorvastatin [Lipitor] 40 mg PO HS 01/17/23 [History] EPINEPHrine (Auto Inject) [Epipen] 0.3 mg IM ONCE PRN 01/17/23 [History] Ketoconazole 2% Cream [Nizoral 2%] 1 applic TOPICAL DAILY 01/17/23 [History] Montelukast [Singulair] 10 mg PO HS 01/17/23 [History] Pregabalin [Lyrica] 200 mg PO BID 01/17/23 [History] Tiotropium [place] [Spiriva Handihaler] 1 puff INHALATION RT-DAILY 01/17/23 [History] metFORMIN HCL [Glucophage] 500 mg PO BID 01/17/23 [History] Pregabalin [Lyrica] 100 mg PO 1600 06/28/23 [History] amLODIPine BESYLATE 10 mg PO DAILY 06/28/23 [History] Docusate [Colace] 100 mg PO BID #30 capsule 07/05/23 [Rx] HYDROcodone/APAP 5-325MG [[place] 5-325] 1 tab PO Q6HR PRN 3 Days #12 tab 07/05/23 [Rx] Follow up Appointment(s)/Referral(s): Osorio Cummins MD [STAFF PHYSICIAN] - 07/13/23 1:50 pm Activity/Diet/Wound Care/Special Instructions: No driving while taking [place] No lifting over 10 pounds Shower daily. No soaking or tub baths for 2 weeks Very light activity until you are reevaluated at your follow up appointment with your surgeon Discharge Disposition: HOME SELF-CARE
[2023-07-05 11:57] LABS: Glucose,Whole Blood 120 mg/dL (70-110)
== END 2023-07-05 14:11 | disposition home or self-care (01) ==
LOC: OR 07:13 → 4SSUR 10:08 → OR 07-05 14:11
PROVIDERS: ATTEND Surgery
DX: K43.2 Incisional hernia without obstruction or gangrene (principal); I10 Essential (primary) hypertension; E78.5 Hyperlipidemia, unspecified; E11.9 Type 2 diabetes mellitus without complications; J44.9 Chronic obstructive pulmonary disease, unspecified; G35 Multiple sclerosis; Z98.891 History of uterine scar from previous surgery; Z88.5 Allergy status to narcotic agent; Z88.6 Allergy status to analgesic agent; Z79.84 Long term (current) use of oral hypoglycemic drugs; Z79.899 Other long term (current) drug therapy
CPT/HCPCS: 94660 ×2; 83880; 80048; 84484; 85025; 83036; 71045; 49594; C1781; J2250; J1644; J1100; J1940; J2310; J0690; J2405; J1650; J1885 ×2; J1170

== ENCOUNTER 2023-07-15 16:38 | Inpatient (IN) | payer OTHER ==
--- NOTE | 2023-07-15 17:16 | ED ---
Abdominal Pain HPI - General Chief Complaint: Abdominal Pain Stated Complaint: post op fever Time Seen by Provider: 07/15/23 17:02 Source: patient, family Mode of arrival: ambulatory Limitations: no limitations - History of Present Illness Initial Comments: This patient is a 52-year-old woman who had recent hernia surgery (07/04/23, Dr. Cummins), and states that approximately 3 days ago she started having increasing nausea, now also 2 to 3 days of periumbilical abdominal pain. Patient states that she is not able to tolerate oral intake. She has tried home Zofran without much relief. The patient states that she is having decreased urine output now. The patient has not noted any bloody or tarry stools. In addition the patient reports that the drainage from her left abdominal SHANELL drain appears to have a yellowish tint to it. She has not noted change in the amount of drainage. Patient's daughter added that he has been checking temperature since the surgery and today there was fever present. MD Complaint: abdominal pain Onset/Timin -: days(s) Location: periumbilical Radiation: none Migration to: no migration Severity: moderate Quality: aching Consistency: constant Improves With: nothing Worsens With: nothing Associated Symptoms: nausea, other (Drainage change) - Related Data Home Medications Medication Instructions Recorded Confirmed ALPRAZolam [Xanax] 0.5 - 1 mg PO BID PRN 02/05/20 07/16/23 Albuterol Sulfate [Ventolin HFA] 2 puff INHALATION RT-Q4H PRN 02/05/20 07/16/23 Zolpidem Tartrate [Ambien] 10 mg PO HS 02/05/20 07/16/23 Atorvastatin [Lipitor] 40 mg PO HS 01/17/23 07/16/23 EPINEPHrine (Auto Inject) [Epipen] 0.3 mg IM ONCE PRN 01/17/23 07/16/23 Pregabalin [Lyrica] 200 mg PO BID@0900,2200 01/17/23 07/16/23 metFORMIN HCL [Glucophage] 500 mg PO BID 01/17/23 07/16/23 Pregabalin [Lyrica] 100 mg PO DAILY@1600 06/28/23 07/16/23 Gentamicin 0.1% Cream 1 applic TOPICAL BID PRN 07/16/23 07/16/23 amLODIPine 10 mg PO DAILY 07/16/23 07/16/23 Previous Rx's Medication Instructions Recorded Docusate [Colace] 100 mg PO BID #30 capsule 07/05/23 Allergies Allergy/AdvReac Type Severity Reaction Status Date / Time aspirin Allergy Dyspnea Verified 07/16/23 13:46 codeine Allergy Dyspnea Verified 07/16/23 13:46 ibuprofen [From Motrin] Allergy Dyspnea Verified 07/16/23 13:46 morphine Allergy Rash/Hives Verified 07/16/23 13:46 naproxen Allergy Dyspnea Verified 07/16/23 13:46 tramadol [From Ultram] Allergy Dyspnea Verified 07/16/23 13:46 Review of Systems ROS Statement: Those systems with pertinent positive or pertinent negative responses have been documented in the HPI. ROS Other: All systems not noted in ROS Statement are negative. Constitutional: Reports: fever. Denies: chills Respiratory: Denies: cough, dyspnea Cardiovascular: Denies: chest pain, edema, syncope Gastrointestinal: Reports: abdominal pain, nausea. Denies: vomiting, diarrhea, constipation, melena, hematochezia Genitourinary: Denies: dysuria, hematuria Musculoskeletal: Denies: back pain Skin: Denies: rash Neurological: Denies: headache, weakness Past Medical History Past Medical History: Asthma, COPD, Diabetes Mellitus, Hyperlipidemia, Hypertension, Sleep Apnea/CPAP/BIPAP Additional Past Medical History / Comment(s): neuropathy, MS, pancreatic mass removed uses cpap, wears home 02 at 2 liters History of Any Multi-Drug Resistant Organisms: None Reported Past Surgical History: Appendectomy, Section, Cholecystectomy, Hernia Repair, Orthopedic Surgery Additional Past Surgical History / Comment(s): wrist and shoulder surgery, bj cataract removal, recent toenail removal on rt great toe, incisional hernia repair 07/04/2023 Past Anesthesia/Blood Transfusion Reactions: No Reported Reaction Past Psychological History: Anxiety, Depression Smoking Status: Current every day smoker Past Alcohol Use History: None Reported Past Drug Use History: Marijuana - Past Family History Mother Family Medical History: Deep Vein Thrombosis (DVT) General Exam Limitations: no limitations General appearance: alert, in no apparent distress Head exam: Present: atraumatic, normocephalic Eye exam: Present: normal appearance. Absent: scleral icterus, conjunctival injection Neck exam: Present: normal inspection Respiratory exam: Present: normal lung sounds bilaterally. Absent: respiratory distress, wheezes, rales, rhonchi, stridor, accessory muscle use Cardiovascular Exam: Present: regular rate, normal rhythm, normal heart sounds. Absent: systolic murmur, diastolic murmur, rubs, gallop GI/Abdominal exam: Present: soft, tenderness, other (The patient's surgical incision has intact kali. There is no abnormal erythema, warmth, drainage.). Absent: distended, guarding, rebound, rigid, mass Extremities exam: Present: normal inspection, normal capillary refill. Absent: pedal edema, calf tenderness Back exam: Present: normal inspection. Absent: CVA tenderness (R), CVA tenderness (L) Neurological exam: Present: alert Skin exam: Present: warm, dry, intact, normal color. Absent: rash Course Vital Signs 07/15/23 07/15/23 07/15/23 16:53 19:19 19:27 Temperature 102.7 F H 98.4 F Pulse Rate 95 79 Respiratory 16 16 Rate Blood Pressure 116/70 115/59 O2 Sat by Pulse 90 L 92 L Oximetry 07/15/23 07/15/23 07/15/23 21:00 22:00 22:15 Temperature 98.2 F Pulse Rate 72 69 Respiratory 16 16 Rate Blood Pressure 113/65 114/56 O2 Sat by Pulse 95 94 L Oximetry Medical Decision Making - Medical Decision Making The patient had CT scan of the abdomen and pelvis which I interpreted as showing some abdominal wall inflammation without definite abscess formation. Was pt. sent in by a medical professional or institution (, PA, 7[employer] GR[employer] SOCIAL STUDIES TEACHER, urgent care, hospital, or snf...) When possible be specific @ -[No] Did you speak to anyone other than the patient for history (EMS, parent, family, police, friend...)? What history was obtained from this source @ -[No] Did you review nursing and triage notes (agree or disagree)? Why? @ -[I reviewed and agree with nursing and triage notes] Were old charts reviewed (outside hosp., previous admission, EMS record, old EKG, old radiological studies, urgent care reports/EKG's, snf records)? Report findings @ -[Yes, old charts were reviewed] Differential Diagnosis (chest pain, altered mental status, abdominal pain women, abdominal pain men, vaginal bleeding, weakness, fever, dyspnea, syncope, headache, dizziness, GI bleed, back pain, seizure, CVA, palpatations, mental health, musculoskeletal)? @ -[Differential Abdominal Pain Women: Appendicitis, Cholecystitis, diverticulosis, ischemic bowel, pancreatitis, hepatitis, UTI, gastroenteritis, AAA, incarcerated hernia, bowel obstruction, constipation, inflammatory bowel, hepatitis, peptic ulcer disease, splenic infarction, perforated viscus, vulvitis, ovarian torsion, PID, kidney stone, surgical infection this is not meant to be an all-inclusive list EKG interpreted by me (3pts min.). @ -[As above] X-rays interpreted by me (1pt min.). @ -[None done] CT interpreted by me (1pt min.). @ -[Interpreted as above U/S interpreted by me (1pt. min.). @ -[None done] What testing was considered but not performed or refused? (CT, X-rays, U/S, labs)? Why? @ -[None] What meds were considered but not given or refused? Why? @ -[None] Did you discuss the management of the patient with other professionals (professionals i.e. , PA, [employer] SOCIAL STUDIES TEACHER, lab, RT, psych nurse, high school social studies tutor, film process operator, teacher, navigating officer, director of casework services)? Give summary @ -[Patient's case discussed with the on-call surgeon who requested the patient be admitted under Dr. Cummins. Treatment recommendations are incorporated Was smoking cessation discussed for >3mins.? @ -[No] Was critical care preformed (if so, how long)? @ -[No] Were there social determinants of health that impacted care today? How? (Homelessness, low income, unemployed, alcoholism, drug addiction, transportation, low edu. Level, literacy, decrease access to med. care, prison, rehab)? @ -[No] Was there de-escalation of care discussed even if they declined (Discuss DNR or withdrawal of care, Hospice)? DNR status @ -[No] What co-morbidities impacted this encounter? (DM, HTN, Smoking, COPD, CAD, Cancer, CVA, ARF, Chemo, Hep., AIDS, mental health diagnosis, sleep apnea, morbid obesity)? @ -[None] Was patient admitted / discharged? Hospital course, mention meds given and route, prescriptions, significant lab abnormalities, going to OR and other pertinent info. @ -[Patient will be admitted. Cultures obtained, antibiotics will be started, the surgeon will evaluate the patient today Undiagnosed new problem with uncertain prognosis? @ -[No] Drug Therapy requiring intensive monitoring for toxicity (Heparin, Nitro, Insulin, Cardizem)? @ -[No] Were any procedures done? @ -[No] Diagnosis/symptom? @ -[Acute abdominal pain Rule out postoperative infection Acute, or Chronic, or Acute on Chronic? @ -[Acute Uncomplicated (without systemic symptoms) or Complicated (systemic symptoms)? @ -[Uncomplicated Side effects of treatment? @ -[No] Exacerbation, Progression, or Severe Exacerbation? @ -[No] Poses a threat to life or bodily function? How? (Chest pain, [place], [place], pneumonia, PE, COPD, DKA, ARF, appy, cholecystitis, CVA, Diverticulitis, Homicidal, Suicidal, threat to staff... and all critical care pts) @ -[Yes, requires further evaluation and treatment and therefore admitted - Lab Data Result diagrams: 07/21/23 07:23 07/21/23 07:23 Lab Results 07/15/23 07/15/23 07/15/23 Range/Units 17:33 17:33 17:33 WBC 27.5 H (3.8-10.6) k/uL RBC 5.81 H (3.80-5.40) m/uL Hgb 12.0 (11.4-16.0) gm/dL Hct 40.7 (34.0-46.0) % MCV 70.1 L (80.0-100.0) fL MCH 20.6 L (25.0-35.0) pg MCHC 29.4 L (31.0-37.0) g/dL RDW 21.7 H (11.5-15.5) % Plt Count 579 H (150-450) k/uL MPV 8.0 Neutrophils % 81 % Lymphocytes % 7 % Monocytes % 8 % Eosinophils % 2 % Basophils % 1 % Neutrophils # 22.3 H (1.3-7.7) k/uL Lymphocytes # 1.9 (1.0-4.8) k/uL Monocytes # 2.3 H (0-1.0) k/uL Eosinophils # 0.5 (0-0.7) k/uL Basophils # 0.1 (0-0.2) k/uL Hypochromasia Marked Poikilocytosis Moderate Anisocytosis Moderate Microcytosis Marked Sodium 135 L (137-145) mmol/L Potassium 3.8 (3.5-5.1) mmol/L Chloride 101 (98-107) mmol/L Carbon Dioxide 23 (22-30) mmol/L Anion Gap 11 mmol/L BUN 9 (7-17) mg/dL Creatinine 0.67 (0.52-1.04) mg/dL Est GFR (CKD-EPI)AfAm >90 (>60 ml/min/1.73 sqM) Est GFR (CKD-EPI)NonAf >90 (>60 ml/min/1.73 sqM) Glucose 116 H (74-99) mg/dL Plasma Lactic Acid Jermaine (0.7-2.0) mmol/L Calcium 9.3 (8.4-10.2) mg/dL Total Bilirubin 0.8 (0.2-1.3) mg/dL AST 35 (14-36) U/L ALT 31 (4-34) U/L Alkaline Phosphatase 156 H (38-126) U/L Total Protein 7.7 (6.3-8.2) g/dL Albumin 4.4 (3.5-5.0) g/dL Amylase 83 (30-110) U/L Lipase 192 (23-300) U/L Urine Color Colorless Urine Appearance Clear (Clear) Urine pH 6.0 (5.0-8.0) Ur Specific [place] 1.031 (1.001-1.035) Urine Protein Negative (Negative) Urine Glucose (UA) Negative (Negative) Urine Ketones Trace H (Negative) Urine Blood Negative (Negative) Urine Nitrite Negative (Negative) Urine Bilirubin Negative (Negative) Urine Urobilinogen <2.0 (<2.0) mg/dL Ur Leukocyte Esterase Negative (Negative) Influenza Type A (PCR) (Not Detectd) Influenza Type B (PCR) (Not Detectd) RSV (PCR) (Not Detectd) SARS-CoV-2 (PCR) (Not Detectd) 07/15/23 07/15/23 Range/Units 17:33 17:33 WBC (3.8-10.6) k/uL RBC (3.80-5.40) m/uL Hgb (11.4-16.0) gm/dL Hct (34.0-46.0) % MCV (80.0-100.0) fL MCH (25.0-35.0) pg MCHC (31.0-37.0) g/dL RDW (11.5-15.5) % Plt Count (150-450) k/uL MPV Neutrophils % % Lymphocytes % % Monocytes % % Eosinophils % % Basophils % % Neutrophils # (1.3-7.7) k/uL Lymphocytes # (1.0-4.8) k/uL Monocytes # (0-1.0) k/uL Eosinophils # (0-0.7) k/uL Basophils # (0-0.2) k/uL Hypochromasia Poikilocytosis Anisocytosis Microcytosis Sodium (137-145) mmol/L Potassium (3.5-5.1) mmol/L Chloride (98-107) mmol/L Carbon Dioxide (22-30) mmol/L Anion Gap mmol/L BUN (7-17) mg/dL Creatinine (0.52-1.04) mg/dL Est GFR (CKD-EPI)AfAm (>60 ml/min/1.73 sqM) Est GFR (CKD-EPI)NonAf (>60 ml/min/1.73 sqM) Glucose (74-99) mg/dL Plasma Lactic Acid Jermaine 1.2 (0.7-2.0) mmol/L Calcium (8.4-10.2) mg/dL Total Bilirubin (0.2-1.3) mg/dL AST (14-36) U/L ALT (4-34) U/L Alkaline Phosphatase (38-126) U/L Total Protein (6.3-8.2) g/dL Albumin (3.5-5.0) g/dL Amylase (30-110) U/L Lipase (23-300) U/L Urine Color Urine Appearance (Clear) Urine pH (5.0-8.0) Ur Specific [place] (1.001-1.035) Urine Protein (Negative) Urine Glucose (UA) (Negative) Urine Ketones (Negative) Urine Blood (Negative) Urine Nitrite (Negative) Urine Bilirubin (Negative) Urine Urobilinogen (<2.0) mg/dL Ur Leukocyte Esterase (Negative) Influenza Type A (PCR) Not Detected (Not Detectd) Influenza Type B (PCR) Not Detected (Not Detectd) RSV (PCR) Not Detected (Not Detectd) SARS-CoV-2 (PCR) Not Detected (Not Detectd) Disposition Clinical Impression: Abdominal pain Disposition: ADMITTED IP TO THIS HOSP Condition: Undetermined Is patient prescribed a controlled substance at d/c from ED?: No
[2023-07-15] MEDS: MORPHINE SULFATE 4 MG/ML SYRINGE IV STA (17:40)
[2023-07-15] MEDS: ONDANSETRON 4 MG/2 ML VIAL IVP STA (17:44)
[2023-07-15] MEDS: ACETAMINOPHEN TAB 325 MG TAB PO STA (17:45)
[2023-07-15] MEDS: SODIUM CHLORIDE 0.9% 1,000 ML IV STA (17:45)
[2023-07-15] MEDS: HYDROmorphone 1 MG/ML 1 ML SYRINGE IVP STA ×2 (17:45→22:05)
[2023-07-15 17:47] LABS: Anisocytosis Moderate; Basophils # (A) 0.1 k/uL (0-0.2); Basophils % (A) 1 %; Eosinophils # (A) 0.5 k/uL (0-0.7); Eosinophils % (A) 2 %; HCT 40.7 % (34.0-46.0); Hypochromasia Marked; Lymphocytes # (A) 1.9 k/uL (1.0-4.8); Lymphocytes % (A) 7 %; MCH 20.6 pg (25.0-35.0); MCHC 29.4 g/dL (31.0-37.0); MCV 70.1 fL (80.0-100.0); Microcytosis Marked; Monocytes # (A) 2.3 k/uL (0-1.0); Monocytes % (A) 8 %; Neutrophils # (A) 22.3 k/uL (1.3-7.7); Neutrophils % (A) 81 %; Platelet Count 579 k/uL (150-450); Poikilocytosis Moderate; RBC 5.81 m/uL (3.80-5.40); RDW 21.7 % (11.5-15.5); WBC 27.5 k/uL (3.8-10.6)
[2023-07-15 17:58] LABS: ALT 31 U/L (4-34); AST 35 U/L (14-36); African American GFR (CKD) >90 (>60 ml/min/1.73 sqM); Albumin 4.4 g/dL (3.5-5.0); Alkaline Phosphatase 156 U/L (38-126); Amylase 83 U/L (30-110); Anion Gap 11 mmol/L; Blood Urea Nitrogen 9 mg/dL (7-17); Calcium 9.3 mg/dL (8.4-10.2); Carbon Dioxide 23 mmol/L (22-30); Chloride 101 mmol/L (98-107); Glucose 116 mg/dL (74-99); Lipase 192 U/L (23-300); Non-African American GFR(CKD) >90 (>60 ml/min/1.73 sqM); Potassium 3.8 mmol/L (3.5-5.1); Sodium 135 mmol/L (137-145); Total Bilirubin 0.8 mg/dL (0.2-1.3); Total Protein 7.7 g/dL (6.3-8.2)
[2023-07-15 19:44] LABS: Appearance,Urine Clear (Clear); Bilirubin,Urine Negative (Negative); Blood,Urine Negative (Negative); Color,Urine Colorless; Glucose,Urine (UA) Negative (Negative); Ketones,Urine Trace (Negative); Leukocyte Esterase,Urine Negative (Negative); Nitrite,Urine Negative (Negative); Protein,Urine Negative (Negative); Specific Gravity,Urine 1.031 (1.001-1.035); Urobilinogen,Urine <2.0 mg/dL (<2.0)
--- NOTE | 2023-07-15 19:57 | CT ---
EXAMINATION TYPE: CT abdomen pelvis w con CT DLP: 1345.2 mGycm, Automated exposure control for dose reduction was used. DATE OF EXAM: 07/15/2023 6:38 PM COMPARISON: 01/17/2023 CLINICAL INDICATION:Female, 52 years old with history of abdominal pain, generalized; Pt with fever. hernia surgery on 07/03 . wound drains cloudy redish. generalized abdomen pain. TECHNIQUE: Axial CT abdomen pelvis w con;Sagittal and coronal reformats were created on a separate w orkstation. Contrast used:100 mL of Isovue 300 with IV Contrast, (none if empty) Oral contrast used: without Oral Contrast (none if empty) FINDINGS: LOWER CHEST: The heart is mildly enlarged for size. ABDOMEN LIVER: Unremarkable GALLBLADDER AND BILE DUCTS: The gallbladder is absent. PANCREAS: Pancreatic tail cyst thick lesion is present measuring up to 25 x 18 mm. SPLEEN: The spleen appears surgically absent. ADRENAL GLANDS: Unremarkable. KIDNEYS AND URETERS: No evidence of hydronephrosis or renal calculus. The ureters are unremarkable. PELVIS BLADDER: Unremarkable REPRODUCTIVE: Degenerating fibroid posteriorly with obscuration. ABDOMEN & PELVIS STOMACH AND BOWEL: No evidence of bowel obstruction. PERITONEUM/RETROPERITONEUM: No evidence of pneumoperitoneum or free fluid. VASCULATURE: No evidence of aortic aneurysm. MUSCULOSKELETAL: No acute osseous abnormalities LYMPH NODES: No gross evidence for lymphadenopathy. SOFT TISSUE/ABDOMINAL WALL: Post surgical changes of ventral wall with fat from the subcutaneous area extending down into the abdomen. Drainage catheter remains in place in the anterior abdominal wall. No organizing fluid collections visualized. No ventral wall hernia. IMPRESSION: 1. Post surgical changes of ventral wall with fat from the subcutaneous area extending down into the abdomen. No evidence for organizing fluid collection suggest abscess. Drainage catheter in place. 2. No evidence for acute intra-abdominal process. 3. 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 Complete evaluation with MRI pancreati c mass protocol may be of benefit.
[2023-07-15] MEDS: metroNIDAZOLE-NS PMX 500 MG in SALINE 1 100ML.BAG IVPB SCH (20:50)
[2023-07-15] MEDS ORDERED: NALOXONE 0.4 MG/ML 1 ML VIAL IV PRN (21:51)
[2023-07-15] MEDS: SODIUM CHLORIDE 0.9% 500 ML 500 ML IV STA (22:06)
[2023-07-15] MEDS: SODIUM CHLORIDE 0.9% 1,000 ML IV SCH (22:25)
[2023-07-15] MEDS: LACTATED RINGERS 1,000 ML IV ONE (22:59)
[2023-07-15 23:18] LABS: Glucose,Whole Blood 103 mg/dL (70-110)
[2023-07-16] MEDS: HYDROmorphone 1 MG/ML 1 ML SYRINGE IVP PRN (02:16)
[2023-07-16] MEDS: ACETAMINOPHEN TAB 325 MG TAB PO PRN (02:25)
[2023-07-16] MEDS: ONDANSETRON 4 MG/2 ML VIAL IVP PRN (04:55)
[2023-07-16 06:00] LABS: Glucose,Whole Blood 105 mg/dL (70-110)
[2023-07-16] MEDS: FAMOTIDINE 20 MG TAB PO SCH (09:27)
--- NOTE | 2023-07-16 10:34 | P.GSCN ---
History of Present Illness Consult date: 07/15/23 Reason for Consult: Postop fever History of present illness: Patient is a 52 year old female who is recently s/p incisional hernia repair on 07/04/23. She states that she had followed up with her surgeon on 07/13/23 and was doing well at that point. She states that since however she has been having increasing abdominal pain as well as fever. She denies any nausea or emesis. Last BM and flatus 2 days prior. No SOB or CP. No headache or blurry vision. She endorses fevers and chills. She states that she empties her postop SHANELL about 2x daily and has not noted any bleeding or purulence. Upon presentation of [facility] ED a CT A/P was obtained showing evidence of postoperative inflammation in the abdominal wall without evidence of fluid collection. SHe denies any incisional drainage. Review of Systems Negative except for as stated above Past Medical History Past Medical History: Asthma, COPD, Diabetes Mellitus, Hyperlipidemia, Hypertension, Sleep Apnea/CPAP/BIPAP Additional Past Medical History / Comment(s): neuropathy bilat legs and feet, MS, pancreatic mass removed, uses cpap, wears home 02 at 2 liters History of Any Multi-Drug Resistant Organisms: None Reported Past Surgical History: Appendectomy, Section, Cholecystectomy, Hernia Repair, Orthopedic Surgery Additional Past Surgical History / Comment(s): wrist and shoulder surgery, bj cataract removal, recent toenail removal on rt great toe, incisional hernia repair 07/04/2023, spleenectomy jan 17 2023 Past Anesthesia/Blood Transfusion Reactions: No Reported Reaction Past Psychological History: Anxiety, Depression Smoking Status: Current every day smoker Past Alcohol Use History: None Reported Additional Past Alcohol Use History / Comment(s): 1/2 pk /day/ "a long time" since age 10 Past Drug Use History: Marijuana Additional Drug Use History / Comment(s): refrain x 24 hours prior to procedure - Past Family History Mother Family Medical History: Deep Vein Thrombosis (DVT) Medications and Allergies Home Medications Medication Instructions Recorded Confirmed Type ALPRAZolam [Xanax] 1 mg PO BID PRN 02/05/20 07/04/23 History Albuterol Sulfate [Ventolin HFA] 2 puff INHALATION RT-Q4H PRN 02/05/20 07/04/23 History Zolpidem Tartrate [Ambien] 10 mg PO HS 02/05/20 07/04/23 History Atorvastatin [Lipitor] 40 mg PO HS 01/17/23 07/04/23 History EPINEPHrine (Auto Inject) [Epipen] 0.3 mg IM ONCE PRN 01/17/23 07/04/23 History Ketoconazole 2% Cream [Nizoral 2%] 1 applic TOPICAL DAILY 01/17/23 07/04/23 History Montelukast [Singulair] 10 mg PO HS 01/17/23 07/04/23 History Pregabalin [Lyrica] 200 mg PO BID 01/17/23 07/04/23 History Tiotropium [place] [Spiriva 1 puff INHALATION RT-DAILY 01/17/23 07/04/23 History Handihaler] metFORMIN HCL [Glucophage] 500 mg PO BID 01/17/23 07/04/23 History Pregabalin [Lyrica] 100 mg PO 1600 06/28/23 07/04/23 History amLODIPine BESYLATE 10 mg PO DAILY 06/28/23 07/04/23 History Docusate [Colace] 100 mg PO BID #30 capsule 07/05/23 Rx HYDROcodone/APAP 5-325MG [[place] 1 tab PO Q6HR PRN 3 Days #12 tab 07/05/23 Rx 5-325] Allergies Allergy/AdvReac Type Severity Reaction Status Date / Time aspirin Allergy Dyspnea Verified 07/04/23 08:04 codeine Allergy Dyspnea Verified 07/04/23 08:04 ibuprofen [From Motrin] Allergy Dyspnea Verified 07/04/23 08:04 morphine Allergy Rash/Hives Verified 07/04/23 08:04 naproxen Allergy Dyspnea Verified 07/04/23 08:04 tramadol [From Ultram] Allergy Dyspnea Verified 07/04/23 08:04 Surgical - Exam Vital Signs Temp Pulse Resp BP Pulse Ox 102.7 F H 95 16 116/70 90 L 07/15/23 16:53 07/15/23 16:53 07/15/23 16:53 07/15/23 16:53 07/15/23 16:53 Gen: AxO, NAD Pulm: non-labored respirations Cardio: RRR on monitor Abd: soft, minimally tender around incision, moderately distended. No guarding/rebound/rigidity. No incisional drainage noted. No crepitus noted in abdominal wall. SHANELL: intact, serosang output seen in SHANELL. No drain site erythema. Extrem: no edema seen Results - Labs 07/15/23 17:33 07/15/23 17:33 Abnormal Lab Results - Last 24 Hours (Table) 07/15/23 07/15/23 07/15/23 Range/Units 17:33 17:33 17:33 WBC 27.5 H (3.8-10.6) k/uL RBC 5.81 H (3.80-5.40) m/uL MCV 70.1 L (80.0-100.0) fL MCH 20.6 L (25.0-35.0) pg MCHC 29.4 L (31.0-37.0) g/dL RDW 21.7 H (11.5-15.5) % Plt Count 579 H (150-450) k/uL Neutrophils # 22.3 H (1.3-7.7) k/uL Monocytes # 2.3 H (0-1.0) k/uL Sodium 135 L (137-145) mmol/L Glucose 116 H (74-99) mg/dL Alkaline Phosphatase 156 H (38-126) U/L Urine Ketones Trace H (Negative) Diabetes panel 07/15/23 Range/Units 17:33 Sodium 135 L (137-145) mmol/L Potassium 3.8 (3.5-5.1) mmol/L Chloride 101 (98-107) mmol/L Carbon Dioxide 23 (22-30) mmol/L BUN 9 (7-17) mg/dL Creatinine 0.67 (0.52-1.04) mg/dL Glucose 116 H (74-99) mg/dL Calcium 9.3 (8.4-10.2) mg/dL AST 35 (14-36) U/L ALT 31 (4-34) U/L Alkaline Phosphatase 156 H (38-126) U/L Total Protein 7.7 (6.3-8.2) g/dL Albumin 4.4 (3.5-5.0) g/dL Calcium panel 07/15/23 Range/Units 17:33 Calcium 9.3 (8.4-10.2) mg/dL Albumin 4.4 (3.5-5.0) g/dL Pituitary panel 07/15/23 Range/Units 17:33 Sodium 135 L (137-145) mmol/L Potassium 3.8 (3.5-5.1) mmol/L Chloride 101 (98-107) mmol/L Carbon Dioxide 23 (22-30) mmol/L BUN 9 (7-17) mg/dL Creatinine 0.67 (0.52-1.04) mg/dL Glucose 116 H (74-99) mg/dL Calcium 9.3 (8.4-10.2) mg/dL Adrenal panel 07/15/23 Range/Units 17:33 Sodium 135 L (137-145) mmol/L Potassium 3.8 (3.5-5.1) mmol/L Chloride 101 (98-107) mmol/L Carbon Dioxide 23 (22-30) mmol/L BUN 9 (7-17) mg/dL Creatinine 0.67 (0.52-1.04) mg/dL Glucose 116 H (74-99) mg/dL Calcium 9.3 (8.4-10.2) mg/dL Total Bilirubin 0.8 (0.2-1.3) mg/dL AST 35 (14-36) U/L ALT 31 (4-34) U/L Alkaline Phosphatase 156 H (38-126) U/L Total Protein 7.7 (6.3-8.2) g/dL Albumin 4.4 (3.5-5.0) g/dL Assessment and Plan Assessment: Patient is a 52 year old female who is recently s/p incisional hernia repair with mesh who presents with 48 hour history of fever and abdominal tenderness Plan: -NPO -IVF hydration -IV abx: rocephin/flagyl -Strict I/O -Trend leukocytosis -DVT/GI PPx -No acute surgical intervention; no creiptius or drainage to indicate necroti zing infection. Will manage conservatively for now. Dillan Samuels MD General Surgery
[2023-07-16 11:43] LABS: Glucose,Whole Blood 123 mg/dL (70-110)
[2023-07-16] MEDS: HYDROmorphone 0.5 MG/0.5 ML SYRINGE IVP PRN (11:57)
--- NOTE | 2023-07-16 14:30 | XR ---
EXAMINATION TYPE: XR chest 1V portable DATE OF EXAM: 07/16/2023 2:23 PM CLINICAL INDICATION:Female, 52 years old with history of chf; [facility] COMPARISON: Chest radiographs from 07/05/2023 TECHNIQUE: XR chest 1V portable Frontal view of the chest. FINDINGS: Lungs/Pleura: There is no evidence of pleural effusion, focal consolidation, or pneumothorax. Pulmonary vascularity: Interstitial edema improved. Heart/mediastinum: Cardiomediastinal silhouette is prominent in size. Musculoskeletal: No acute osseous pathology. IMPRESSION: Stable mild cardiomegaly with improvement in pulmonary interstitial edema.
[2023-07-16] MEDS ORDERED: DEXTROSE 50% SYRINGE 50 ML IVP PRN ×2 (15:11)
--- NOTE | 2023-07-16 16:09 | P.PN ---
Subjective Progress Note Date: 07/16/23 She is resting comfortably. She reports nausea prior to admission and at the time of her office visit with her provider. SHANELL drain serosanguineous. No signs of infection. Midline incision intact. Recommend repeat labs. No acute surgical intervention needed at this time. Objective - Vital Signs Vital signs: Vital Signs Temp 98.6 F 07/16/23 13:51 Pulse 73 07/16/23 13:51 Resp 17 07/16/23 13:51 BP 118/66 07/16/23 13:51 Pulse Ox 93 L 07/16/23 13:51 FiO2 Intake & Output 07/15/23 07/16/23 07/16/23 18:59 06:59 18:59 Output Total 30 Balance -30 Weight 85.275 kg 85.275 kg Output: Drainage 30 Left Upper Abdomen 30 Other: Voiding Method Toilet # Voids 1 - Labs CBC & Chem 7: 07/15/23 17:33 07/15/23 17:33 Labs: Abnormal Lab Results - Last 24 Hours (Table) 07/15/23 07/15/23 07/15/23 Range/Units 17:33 17:33 17:33 WBC 27.5 H (3.8-10.6) k/uL RBC 5.81 H (3.80-5.40) m/uL MCV 70.1 L (80.0-100.0) fL MCH 20.6 L (25.0-35.0) pg MCHC 29.4 L (31.0-37.0) g/dL RDW 21.7 H (11.5-15.5) % Plt Count 579 H (150-450) k/uL Neutrophils # 22.3 H (1.3-7.7) k/uL Monocytes # 2.3 H (0-1.0) k/uL Sodium 135 L (137-145) mmol/L Glucose 116 H (74-99) mg/dL POC Glucose (mg/dL) (70-110) mg/dL Alkaline Phosphatase 156 H (38-126) U/L Urine Ketones Trace H (Negative) 07/16/23 Range/Units 11:39 WBC (3.8-10.6) k/uL RBC (3.80-5.40) m/uL MCV (80.0-100.0) fL MCH (25.0-35.0) pg MCHC (31.0-37.0) g/dL RDW (11.5-15.5) % Plt Count (150-450) k/uL Neutrophils # (1.3-7.7) k/uL Monocytes # (0-1.0) k/uL Sodium (137-145) mmol/L Glucose (74-99) mg/dL POC Glucose (mg/dL) 123 H (70-110) mg/dL Alkaline Phosphatase (38-126) U/L Urine Ketones (Negative)
[2023-07-16 16:19] LABS: Anisocytosis Moderate; Basophils # (A) 0.1 k/uL (0-0.2); Basophils % (A) 0 %; Eosinophils # (A) 0.7 k/uL (0-0.7); Eosinophils % (A) 3 %; HCT 35.7 % (34.0-46.0); HGB 10.1 gm/dL (11.4-16.0); Hypochromasia Marked; Lymphocytes # (A) 2.3 k/uL (1.0-4.8); Lymphocytes % (A) 9 %; MCH 20.5 pg (25.0-35.0); MCHC 28.2 g/dL (31.0-37.0); MCV 72.8 fL (80.0-100.0); Microcytosis Marked; Monocytes # (A) 1.8 k/uL (0-1.0); Monocytes % (A) 7 %; Neutrophils # (A) 20.2 k/uL (1.3-7.7); Neutrophils % (A) 79 %; Platelet Count 412 k/uL (150-450); Poikilocytosis Moderate; RBC 4.91 m/uL (3.80-5.40); RDW 21.8 % (11.5-15.5); WBC 25.6 k/uL (3.8-10.6)
[2023-07-16 16:34] LABS: Glucose,Whole Blood 119 mg/dL (70-110)
[2023-07-16 16:40] LABS: African American GFR (CKD) >90 (>60 ml/min/1.73 sqM); Anion Gap 7 mmol/L; Blood Urea Nitrogen 5 mg/dL (7-17); Calcium 8.5 mg/dL (8.4-10.2); Carbon Dioxide 22 mmol/L (22-30); Chloride 107 mmol/L (98-107); Glucose 120 mg/dL (74-99); Non-African American GFR(CKD) >90 (>60 ml/min/1.73 sqM); Sodium 136 mmol/L (137-145)
[2023-07-16] MEDS: ALBUTEROL NEBULIZED 2.5 MG/3 ML INHALATION SCH (16:41)
[2023-07-16] MEDS: LACTATED RINGERS 1,000 ML IV SCH (16:51)
[2023-07-16] MEDS: INSULIN ASPART (NovoLOG) 100 UNIT/ML VIAL SQ SCH (16:51)
[2023-07-16] MEDS: PREGABALIN 100 MG CAP PO SCH (17:35)
[2023-07-16] MEDS: PIPERACILLIN-TAZOBACTAM 3.375 GM in SODIUM CHLORIDE 0.9% 100 ML IVPB SCH (17:35)
[2023-07-16 20:32] LABS: Glucose,Whole Blood 127 mg/dL (70-110)
--- NOTE | 2023-07-16 21:03 | P.CONS ---
History of Present Illness - Reason for Consult Consult date: 07/16/23 Fever Requesting physician: Martinez Schwartz - Chief Complaint Fever and abdominal pain x few days - History of Present Illness Patient is 52-year-old female with a past medical history significant for COPD diabetes mellitus hypertension hyperlipidemia sleep apnea in this patient who is status post incisional hernia repair on 07/04/2023 patient was subsequently discharged and apparently was seen in the outpatient setting by the surgeon on 07/13/2023 and the patient seem to be doing well patient presented to [facility] ER for evaluation of increasing abdominal pain as well as fever that apparently has been going on for 2 days before presentation to the hospital patient was describing the pain to be mostly sharp moderate intensity without any radiation and also complaining of fever with rigors and chills. Denies having any nausea or vomiting and did not have bowel movement for a day before presentation to the hospital with the symptoms the patient has been evaluated on arrival to the ER the patient was febrile with a temperature of 102.7 F patient was not significantly tachycardic or hypotensive mildly hypoxic currently on 2 L nasal cannula oxygen patient did have a white count of 27.5 with a left shift creatinine was normal liver enzymes are normal amylase lipase was normal influenza RSV COVID testing negative UA was negative patient did have abdominal pelvis CT postsurgical changes of ventral wall with fat from the subcutaneous area extending down into the abdominal no evidence for organized fluid collection no evidence for acute abdominal abscess patient was started on Rocephin and Flagyl infectious disease was consulted for further management of antibiotic therapy Review of Systems Positive point and negatives has been mentioned in the HPI, complete review of systems was performed and all other systems are negative Past Medical History Past Medical History: Asthma, COPD, Diabetes Mellitus, Hyperlipidemia, Hypertension, Sleep Apnea/CPAP/BIPAP Additional Past Medical History / Comment(s): neuropathy bilat legs and feet, MS, pancreatic mass removed, uses cpap, wears home 02 at 2 liters History of Any Multi-Drug Resistant Organisms: None Reported Past Surgical History: Appendectomy, Section, Cholecystectomy, Hernia Repair, Orthopedic Surgery Additional Past Surgical History / Comment(s): wrist and shoulder surgery, bj cataract removal, recent toenail removal on rt great toe, incisional hernia repair 07/04/2023, spleenectomy jan 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 Past Anesthesia/Blood Transfusion Reactions: No Reported Reaction Past Psychological History: Anxiety, Depression Smoking Status: Current every day smoker Past Alcohol Use History: None Reported Additional Past Alcohol Use History / Comment(s): 1/2 pk /day/ "a long time" sin ce age 10 Past Drug Use History: Marijuana Additional Drug Use History / Comment(s): refrain x 24 hours prior to procedure - Past Family History Mother Family Medical History: Deep Vein Thrombosis (DVT) Medications and Allergies Home Medications Medication Instructions Recorded Confirmed Type ALPRAZolam [Xanax] 0.5 - 1 mg PO BID PRN 02/05/20 07/16/23 History Albuterol Sulfate [Ventolin HFA] 2 puff INHALATION RT-Q4H PRN 02/05/20 07/16/23 History Zolpidem Tartrate [Ambien] 10 mg PO HS 02/05/20 07/16/23 History Atorvastatin [Lipitor] 40 mg PO HS 01/17/23 07/16/23 History EPINEPHrine (Auto Inject) [Epipen] 0.3 mg IM ONCE PRN 01/17/23 07/16/23 History Pregabalin [Lyrica] 200 mg PO BID@0900,2200 01/17/23 07/16/23 History metFORMIN HCL [Glucophage] 500 mg PO BID 01/17/23 07/16/23 History Pregabalin [Lyrica] 100 mg PO DAILY@1600 06/28/23 07/16/23 History Docusate [Colace] 100 mg PO BID #30 capsule 07/05/23 07/16/23 Rx Gentamicin 0.1% Cream 1 applic TOPICAL BID PRN 07/16/23 07/16/23 History amLODIPine 10 mg PO DAILY 07/16/23 07/16/23 History Acetaminophen Tab [Tylenol] 650 mg PO Q6HR PRN tab 07/25/23 Rx HYDROcodone/APAP 5-325MG [[place] 1 each PO Q4HR PRN #6 tab 07/25/23 Rx 5-325] Nystatin 100,000 Unit/ml Susp 5 ml PO QID 10 Days #240 ml 07/25/23 Rx [Mycostatin Oral Susp] Pantoprazole [Protonix] 40 mg PO AC-BRKFST #30 tab 07/25/23 Rx Sennosides [Senokot] 8.6 mg PO DAILY PRN #60 tab 07/25/23 Rx Sulfamethox-Tmp 800-160Mg [Bactrim 1 tab PO Q12HR #28 tab 07/25/23 Rx DS 800-160 mg] cefUROXime axetiL [Cefuroxime] 500 mg PO BID 7 Days #14 tab 07/25/23 Rx Allergies Allergy/AdvReac Type Severity Reaction Status Date / Time aspirin Allergy Dyspnea Verified 07/16/23 13:46 codeine Allergy Dyspnea Verified 07/16/23 13:46 ibuprofen [From Motrin] Allergy Dyspnea Verified 07/16/23 13:46 morphine Allergy Rash/Hives Verified 07/16/23 13:46 naproxen Allergy Dyspnea Verified 07/16/23 13:46 tramadol [From Ultram] Allergy Dyspnea Verified 07/16/23 13:46 Physical Exam Vitals: Vital Signs Temp Pulse Pulse Resp BP BP Pulse Ox 07/16/23 08:00 86 16 07/16/23 07:30 99.7 F H 86 16 117/62 93 L 07/16/23 02:09 99.2 F 85 15 138/50 87 L 07/15/23 22:15 98.2 F 07/15/23 22:00 69 16 114/56 94 L 07/15/23 21:00 72 16 113/65 95 07/15/23 19:27 98.4 F 07/15/23 19:19 79 16 115/59 92 L 07/15/23 16:53 102.7 F H 95 16 116/70 90 L Intake and Output 07/15/23 07/16/23 07/16/23 22:59 06:59 14:59 Output Total 30 Balance -30 Output: Drainage 30 Left Upper Abdomen 30 Other: Voiding Method Toilet # Voids 1 Weight 85.275 kg GENERAL DESCRIPTION: Middle-aged female lying in bed, no distress. No tachypnea or accessory muscle of respiration use. HEENT: Shows Pallor , no scleral icterus. Oral mucous membrane is dry. No pharyngeal erythema or thrush NECK: Trachea central, no thyromegaly. LUNGS: Unlabored breathing. Clear to auscultation anteriorly. No wheeze or crackle. HEART: S1, S2, regular rate and rhythm. No loud murmur ABDOMEN: Soft, midline incision is currently intact did have minimal swelling and tenderness in the SHANELL drain with mostly purulent secretion EXTREMITIES: No edema of feet. SKIN: No rash, no masses palpable. NEUROLOGICAL: The patient is awake, alert, oriented x3, mood and affect normal. Results CBC & Chem 7: 07/25/23 09:28 07/25/23 09:28 Labs: Abnormal Lab Results - Last 24 Hours (Table) 07/15/23 07/15/23 07/15/23 Range/Units 17:33 17:33 17:33 WBC 27.5 H (3.8-10.6) k/uL RBC 5.81 H (3.80-5.40) m/uL MCV 70.1 L (80.0-100.0) fL MCH 20.6 L (25.0-35.0) pg MCHC 29.4 L (31.0-37.0) g/dL RDW 21.7 H (11.5-15.5) % Plt Count 579 H (150-450) k/uL Neutrophils # 22.3 H (1.3-7.7) k/uL Monocytes # 2.3 H (0-1.0) k/uL Sodium 135 L (137-145) mmol/L Glucose 116 H (74-99) mg/dL POC Glucose (mg/dL) (70-110) mg/dL Alkaline Phosphatase 156 H (38-126) U/L Urine Ketones Trace H (Negative) 07/16/23 Range/Units 11:39 WBC (3.8-10.6) k/uL RBC (3.80-5.40) m/uL MCV (80.0-100.0) fL MCH (25.0-35.0) pg MCHC (31.0-37.0) g/dL RDW (11.5-15.5) % Plt Count (150-450) k/uL Neutrophils # (1.3-7.7) k/uL Monocytes # (0-1.0) k/uL Sodium (137-145) mmol/L Glucose (74-99) mg/dL POC Glucose (mg/dL) 123 H (70-110) mg/dL Alkaline Phosphatase (38-126) U/L Urine Ketones (Negative) Assessment and Plan (1) Sepsis Status: Acute Code(s): A41.9 - SEPSIS, UNSPECIFIED ORGANISM SNOMED Code(s): 03431010 (2) Surgical site infection Status: Acute Code(s): T81.49XA - INFECTION FOLLOWING A PROCEDURE, OTHER S URGICAL SITE, INIT SNOMED Code(s): 24533916 Plan: 1patient presented hospital with sepsis in this patient who did have fever elevated white count concern likely for possible surgical site infection in this patient who recently did have a ventral hernia repair and noticed to have a purulent drainage in her drainage catheter 2-patient benefit for removal of few stitches as well as culture to determine the infective pathogen 3-we will broaden her antibiotic coverage to Zosyn 3.37 g every 8 hours and discontinue Rocephin and Flagyl We will follow on clinical condition and cultures to further adjust medication if needed Thank you for this consultation we will follow the patient along with you Dictation was produced using [employer] dictation software. please excuse any grammatical, word or spelling errors. Time with Patient: Greater than 30
[2023-07-16] MEDS: ATORVASTATIN 40 MG TAB PO SCH (21:46)
[2023-07-16] MEDS: ZOLPIDEM 5 MG TAB PO SCH (21:55)
--- NOTE | 2023-07-16 22:10 | HP ---
HISTORY AND PHYSICAL CHIEF COMPLAINT: Abdominal pain and fever. HISTORY OF PRESENT ILLNESS: This 52-year-old woman, who recently had an incisional hernia repair by Dr. Cummins is complaining of some fever, abdominal pain, and high white count. The patient came to [facility] and admitted for evaluation and treatment. Empiric antibiotics were initiated. CAT scan of abdomen showed postsurgical changes. No evidence of any organism fluid, collection. Pancreatic tail cystic structure was noted. There is no history of any fever, any rigors, or chills at this time. PAST MEDICAL HISTORY: Recent incisional hernia. Rest of the chart is also reviewed. HOME MEDICATIONS: Reviewed include metformin, doses are not confirmed. ALLERGIES: Aspirin, rest of allergies noted. FAMILY HISTORY: History of DVT in the family. SOCIAL HISTORY: Smoking. REVIEW OF SYSTEMS: Fourteen-point review is negative except as mentioned PHYSICAL EXAMINATION: VITAL SIGNS: Pulse is 80, blood pressure 117/60, respirations 16. HEENT: Conjunctivae normal. NECK: No JVD. CARDIOVASCULAR: S1, S2. No murmur. RESPIRATIONS: Few scattered rhonchi. ABDOMEN: Soft, minimal diffuse distention. Otherwise mild discomfort on palpation. No guarding. No rigidity. Bowel sounds normal. LEGS: No edema. No swelling. NERVOUS SYSTEM: No focal deficit. SKIN: No rash. JOINTS: No active deforming arthropathy. LABORATORY DATA: WBC 27.4, rest of the labs are noted. ASSESSMENT: 1. Fever, for evaluation, rule out postoperative infection. 2. History of recent incisional hernia repair with mesh. 3. Elevated WBC. 4. Chronic obstructive pulmonary disease, asthma. 5. Diabetes mellitus, type 2. 6. Hypertension. 7. Hyperlipidemia. 8. Anxiety, depression. 9. Continued ongoing nicotine dependence. RECOMMENDATIONS AND DISCUSSION: This is a 52-year-old woman, presented with multiple complex medical issues, we will monitor the patient closely. Initiate empiric antibiotics, obtain cultures, infectious disease, and surgical evaluations. DVT prophylaxis. Resume the home medications once they are confirmed. Prognosis guarded. Further recommendations to follow. See orders for further details. MMODL / IJN: [id number] /
[2023-07-17] MEDS: ALPRAZolam 0.5 MG TAB PO PRN (00:16)
[2023-07-17 06:28] LABS: Glucose,Whole Blood 65 mg/dL (70-110)
[2023-07-17] MEDS: amLODIPine 10 MG TAB PO SCH (08:20)
[2023-07-17 08:28] LABS: HCT 33.6 % (37.2-46.3); HGB 9.7 g/dL (12.0-15.0); MCH 20.2 pg (27.0-32.0); MCHC 28.9 g/dL (32.0-37.0); MCV 69.9 FL (80.0-97.0); Mean Platelet Volume 10.2 FL (9.5-12.2); NRBC Per 100 WBC 0 X 10*3/uL (0.00-0.01); Platelet Count 492 X 10*3/uL (140-440); RBC 4.81 X 10*6/uL (4.10-5.20); RDW 24.4 % (11.5-14.5); WBC 25.94 X 10*3/uL (4.50-10.00)
[2023-07-17 08:43] LABS: Blood Urea Nitrogen 4.2 mg/dL (9.0-27.0); Calcium 8.5 mg/dL (8.7-10.3); Carbon Dioxide 26.8 mmol/L (21.6-31.8); Chloride 104 mmol/L (96-109); Glucose 87 mg/dL (70-110); Potassium 3.3 mmol/L (3.5-5.5); Sodium 140 mmol/L (135-145)
[2023-07-17 10:28] LABS: Anisocytosis (M) 2+; Basophils # (A) 0.17 X 10*3/uL (0.00-0.10); Basophils % (A) 0.7 %; Eosinophils % (A) 6.2 %; Lymphocytes # (A) 2.92 X 10*3/uL (0.90-5.00); Lymphocytes % (A) 11.3 %; Microcytosis (M) 3+; Monocytes # (A) 2.59 X 10*3/uL (0.20-1.00); Neutrophils # (A) 18.51 X 10*3/uL (1.80-7.70); Neutrophils % (A) 71.2 %; Target Cells 2+
[2023-07-17 11:24] LABS: Glucose,Whole Blood 134 mg/dL (70-110)
[2023-07-17] MEDS ORDERED: Magnesium Replacement Protocol 1 EACH MISC MISCELLANE PRN (12:49)
[2023-07-17] MEDS ORDERED: Potassium Replacement Protocol 1 EACH MISC MISCELLANE PRN (12:49)
--- NOTE | 2023-07-17 13:22 | PN ---
PROGRESS NOTE DATE OF SERVICE: 07/17/2023 SUBJECTIVE: This is a 52-year-old woman, who was admitted with fever, is being evaluated for possibility of postoperative infection. No chest pain. No palpitation. The white count is significantly elevated at 25.94, mostly neutrophils. No chest pain. No palpitations. No fever. OBJECTIVE: VITAL SIGNS: Pulse is 76, blood pressure 106/58, respirations 18. CHEST: Clear to auscultation. CARDIOVASCULAR: S1, S2. ABDOMEN: Soft, status post surgery. LABORATORY DATA: WBC 25.4. Rest of the labs are reviewed. ASSESSMENT: 1. Fever, for evaluation, rule out postoperative infection. 2. History of recent incisional hernia repair with mesh. 3. Elevated WBC. 4. Chronic obstructive pulmonary disease, asthma. 5. Diabetes mellitus, type 2. 6. Hypertension. 7. Hyperlipidemia. 8. Anxiety, depression. 9. Continued ongoing nicotine dependence. RECOMMENDATIONS AND DISCUSSION: Recommend to continue current medications, continue symptomatic treatment. Incentive spirometry. Continue the empiric antibiotics. The patient is on IV Zosyn. Infectious Disease following the patient closely. Cultures are negative so far. Guarded prognosis. Further recommendations to follow. MMODL / IJN: [id number] /
--- NOTE | 2023-07-17 14:44 | P.PN ---
Subjective Progress Note Date: 07/17/23 CHIEF COMPLAINT: Fever HISTORY OF PRESENT ILLNESS: Patient with recent incisional hernia repair with mesh on July 04, 2023. Presents to the hospital with complaints of abdominal pain and fever. SHANELL drain with 35 mL purulent output. Patient reports since hospitalization she has had decrease in pain. She is having flatus. She had diarrhea prior to admission. Denies any nausea or vomiting. Tolerating clear liquids. Asking for more to eat. Afebrile. WBC remains elevated at 25 Hgb 9.7 potassium 3.3 PHYSICAL EXAM: VITAL SIGNS: Reviewed. GENERAL: Well-developed in no acute distress. ABDOMEN: Soft. Nondistended. Incision site clean dry and intact with drained blister noted at the distal aspect of the incision. SHANELL drain purulent output NEUROLOGIC: Alert and oriented. Cranial nerves II through XII grossly intact. ASSESSMENT: 1. Abdominal pain 2. Fever on admission 3. Recent incisional hernia repair with mesh 4. Leukocytosis PLAN: -Continue to monitor SHANELL drain output -Continue antibiotics -Advance diet to full liquids -Work on weaning patient off of O2 Physician Chinese Instructor note has been reviewed by physician. Signing provider agrees with the documented findings, assessment, and plan of care. Objective - Vital Signs Vital signs: Vital Signs Temp 98.5 F 07/17/23 07:30 Pulse 72 07/17/23 12:11 Resp 18 07/17/23 07:30 BP 106/58 07/17/23 07:30 Pulse Ox 89 L 07/17/23 07:30 FiO2 Intake & Output 07/16/23 07/17/23 07/17/23 18:59 06:59 18:59 Intake Total 1040 1000 Output Total 200 35 Balance 840 965 Intake: Intake, IV Titration 1040 1000 Amount Lactated Ringers 1,000 ml 900 @ 100 mls/hr IV .Q10H JEANETTE Rx#:[id number] Piperacillin-Tazobactam 3 100 .375 gm In Sodium Chloride 0.9% 100 ml @ 25 mls/hr IVPB Q8HR JEANETTE Rx# :[id number] Sodium Chloride 0.9% 1, 1040 000 ml @ 130 mls/hr IV . Q7H42M JEANETTE Rx#:[id number] Output: Drainage 35 Left Upper Abdomen 35 Urine 200 Other: Voiding Method Toilet Toilet # Voids 3 - Labs CBC & Chem 7: 03/25/24 03:58 07/17/23 03:58 Labs: Abnormal Lab Results - Last 24 Hours (Table) 07/16/23 07/16/23 07/16/23 Range/Units 16:00 16:00 16:33 WBC 25.6 H (3.8-10.6) k/uL Hgb 10.1 L (11.4-16.0) gm/dL Hct (37.2-46.3) % MCV 72.8 L (80.0-100.0) fL MCH 20.5 L (25.0-35.0) pg MCHC 28.2 L (31.0-37.0) g/dL RDW 21.8 H (11.5-15.5) % Plt Count (140-440) X 10*3/uL Immature Gran # (0.00-0.04) X 10*3/uL Neutrophils # 20.2 H (1.3-7.7) k/uL Monocytes # 1.8 H (0-1.0) k/uL Eosinophils # (0.04-0.35) X 10*3/uL Basophils # (0.00-0.10) X 10*3/uL Anisocytosis (manual) Microcytosis (manual) Target Cells Sodium 136 L (137-145) mmol/L Potassium (3.5-5.5) mmol/L BUN 5 L (7-17) mg/dL Creatinine 0.44 L (0.52-1.04) mg/dL BUN/Creatinine Ratio (12.00-20.00) Ratio Glucose 120 H (74-99) mg/dL POC Glucose (mg/dL) 119 H (70-110) mg/dL Hemoglobin A1c (<=6.0) % Calcium (8.7-10.3) mg/dL 07/16/23 07/17/23 07/17/23 Range/Units 20:30 03:58 03:58 WBC 25.94 H (3.8-10.6) k/uL Hgb 9.7 L (11.4-16.0) gm/dL Hct 33.6 L (37.2-46.3) % MCV 69.9 L (80.0-100.0) fL MCH 20.2 L (25.0-35.0) pg MCHC 28.9 L (31.0-37.0) g/dL RDW 24.4 H (11.5-15.5) % Plt Count 492 H (140-440) X 10*3/uL Immature Gran # 0.15 H (0.00-0.04) X 10*3/uL Neutrophils # 18.51 H (1.3-7.7) k/uL Monocytes # 2.59 H (0-1.0) k/uL Eosinophils # 1.60 H (0.04-0.35) X 10*3/uL Basophils # 0.17 H (0.00-0.10) X 10*3/uL Anisocytosis (manual) 2+ A Microcytosis (manual) 3+ A Target Cells 2+ A Sodium (137-145) mmol/L Potassium (3.5-5.5) mmol/L BUN (7-17) mg/dL Creatinine (0.52-1.04) mg/dL BUN/Creatinine Ratio (12.00-20.00) Ratio Glucose (74-99) mg/dL POC Glucose (mg/dL) 127 H (70-110) mg/dL Hemoglobin A1c 6.5 H (<=6.0) % Calcium (8.7-10.3) mg/dL 07/17/23 07/17/23 07/17/23 Range/Units 03:58 06:24 11:22 WBC (3.8-10.6) k/uL Hgb (11.4-16.0) gm/dL Hct (37.2-46.3) % MCV (80.0-100.0) fL MCH (25.0-35.0) pg MCHC (31.0-37.0) g/dL RDW (11.5-15.5) % Plt Count (140-440) X 10*3/uL Immature Gran # (0.00-0.04) X 10*3/uL Neutrophils # (1.3-7.7) k/uL Monocytes # (0-1.0) k/uL Eosinophils # (0.04-0.35) X 10*3/uL Basophils # (0.00-0.10) X 10*3/uL Anisocytosis (manual) Microcytosis (manual) Target Cells Sodium (137-145) mmol/L Potassium 3.3 L (3.5-5.5) mmol/L BUN 4.2 L (7-17) mg/dL Creatinine 0.5 L (0.52-1.04) mg/dL BUN/Creatinine Ratio 8.40 L (12.00-20.00) Ratio Glucose (74-99) mg/dL POC Glucose (mg/dL) 65 L 134 H (70-110) mg/dL Hemoglobin A1c (<=6.0) % Calcium 8.5 L (8.7-10.3) mg/dL Microbiology - Last 24 Hours (Table) 07/15/23 17:15 Blood Culture - Preliminary Blood 07/15/23 17:33 Blood Culture - Preliminary Blood
[2023-07-17] MEDS: PREGABALIN 100 MG CAP PO SCH ×2 (16:04→21:14)
[2023-07-17 16:26] LABS: Glucose,Whole Blood 146 mg/dL (70-110)
--- NOTE | 2023-07-17 17:32 | P.PN ---
Subjective Progress Note Date: 07/17/23 Principal diagnosis: Reason for follow-up is fever leukocytosis possible abdominal infection Patient is 52-year-old female with a past medical history significant for COPD diabetes mellitus hypertension hyperlipidemia sleep apnea in this patient who is status post incisional hernia repair on 07/04/2023, presented to hospital with fever abdominal pain abnormal CT with some fat stranding but no abscess. On today's visit that is 07/17/2023,the patient did have resolution of her fever and is afebrile today, patient is breathing comfortably on 2 L nasal cannula oxygen, the patient denies chest pain shortness of breath and no significant cough, patient denies any nausea or vomiting abdominal pain has decreased in intensity. Patient white count is still elevated 25.94 with a creatinine 0.5 blood culture has been negative so far Objective - Vital Signs Vital signs: Vital Signs Temp 98.5 F 07/17/23 07:30 Pulse 72 07/17/23 12:11 Resp 18 07/17/23 07:30 BP 106/58 07/17/23 07:30 Pulse Ox 89 L 07/17/23 07:30 FiO2 Intake & Output 07/16/23 07/17/23 07/17/23 18:59 06:59 18:59 Intake Total 1040 1000 Output Total 200 35 Balance 840 965 Intake: Intake, IV Titration 1040 1000 Amount Lactated Ringers 1,000 ml 900 @ 100 mls/hr IV .Q10H JEANETTE Rx#:[id number] Piperacillin-Tazobactam 3 100 .375 gm In Sodium Chloride 0.9% 100 ml @ 25 mls/hr IVPB Q8HR JEANETTE Rx# :[id number] Sodium Chloride 0.9% 1, 1040 000 ml @ 130 mls/hr IV . Q7H42M JEANETTE Rx#:[id number] Output: Drainage 35 Left Upper Abdomen 35 Urine 200 Other: Voiding Method Toilet Toilet # Voids 3 - Exam GENERAL DESCRIPTION: Middle-aged female lying in bed in no distress RESPIRATORY SYSTEM: Unlabored breathing , decreased breath sounds at bases HEART: S1 S2 regular rate and rhythm , ABDOMEN: Soft , abdominal incision covered EXTREMITIES: No edema feet - Labs CBC & Chem 7: 07/17/23 03:58 07/17/23 03:58 Labs: Abnormal Lab Results - Last 24 Hours (Table) 07/16/23 07/16/23 07/16/23 Range/Units 16:00 16:00 16:33 WBC 25.6 H (3.8-10.6) k/uL Hgb 10.1 L (11.4-16.0) gm/dL Hct (37.2-46.3) % MCV 72.8 L (80.0-100.0) fL MCH 20.5 L (25.0-35.0) pg MCHC 28.2 L (31.0-37.0) g/dL RDW 21.8 H (11.5-15.5) % Plt Count (140-440) X 10*3/uL Immature Gran # (0.00-0.04) X 10*3/uL Neutrophils # 20.2 H (1.3-7.7) k/uL Monocytes # 1.8 H (0-1.0) k/uL Eosinophils # (0.04-0.35) X 10*3/uL Basophils # (0.00-0.10) X 10*3/uL Anisocytosis (manual) Microcytosis (manual) Target Cells Sodium 136 L (137-145) mmol/L Potassium (3.5-5.5) mmol/L BUN 5 L (7-17) mg/dL Creatinine 0.44 L (0.52-1.04) mg/dL BUN/Creatinine Ratio (12.00-20.00) Ratio Glucose 120 H (74-99) mg/dL POC Glucose (mg/dL) 119 H (70-110) mg/dL Hemoglobin A1c (<=6.0) % Calcium (8.7-10.3) mg/dL 07/16/23 07/17/23 07/17/23 Range/Units 20:30 03:58 03:58 WBC 25.94 H (3.8-10.6) k/uL Hgb 9.7 L (11.4-16.0) gm/dL Hct 33.6 L (37.2-46.3) % MCV 69.9 L (80.0-100.0) fL MCH 20.2 L (25.0-35.0) pg MCHC 28.9 L (31.0-37.0) g/dL RDW 24.4 H (11.5-15.5) % Plt Count 492 H (140-440) X 10*3/uL Immature Gran # 0.15 H (0.00-0.04) X 10*3/uL Neutrophils # 18.51 H (1.3-7.7) k/uL Monocytes # 2.59 H (0-1.0) k/uL Eosinophils # 1.60 H (0.04-0.35) X 10*3/uL Basophils # 0.17 H (0.00-0.10) X 10*3/uL Anisocytosis (manual) 2+ A Microcytosis (manual) 3+ A Target Cells 2+ A Sodium (137-145) mmol/L Potassium (3.5-5.5) mmol/L BUN (7-17) mg/dL Creatinine (0.52-1.04) mg/dL BUN/Creatinine Ratio (12.00-20.00) Ratio Glucose (74-99) mg/dL POC Glucose (mg/dL) 127 H (70-110) mg/dL Hemoglobin A1c 6.5 H (<=6.0) % Calcium (8.7-10.3) mg/dL 07/17/23 07/17/23 07/17/23 Range/Units 03:58 06:24 11:22 WBC (3.8-10.6) k/uL Hgb (11.4-16.0) gm/dL Hct (37.2-46.3) % MCV (80.0-100.0) fL MCH (25.0-35.0) pg MCHC (31.0-37.0) g/dL RDW (11.5-15.5) % Plt Count (140-440) X 10*3/uL Immature Gran # (0.00-0.04) X 10*3/uL Neutrophils # (1.3-7.7) k/uL Monocytes # (0-1.0) k/uL Eosinophils # (0.04-0.35) X 10*3/uL Basophils # (0.00-0.10) X 10*3/uL Anisocytosis (manual) Microcytosis (manual) Target Cells Sodium (137-145) mmol/L Potassium 3.3 L (3.5-5.5) mmol/L BUN 4.2 L (7-17) mg/dL Creatinine 0.5 L (0.52-1.04) mg/dL BUN/Creatinine Ratio 8.40 L (12.00-20.00) Ratio Glucose (74-99) mg/dL POC Glucose (mg/dL) 65 L 134 H (70-110) mg/dL Hemoglobin A1c (<=6.0) % Calcium 8.5 L (8.7-10.3) mg/dL Microbiology - Last 24 Hours (Table) 07/15/23 17:15 Blood Culture - Preliminary Blood 07/15/23 17:33 Blood Culture - Preliminary Blood Assessment and Plan (1) Surgical site infection Current Visit: Yes Status: Acute Code(s): T81.49XA - INFECTION FOLLOWING A PROCEDURE, OTHER SURGICAL SITE, INIT SNOMED Code(s): 85609960 (2) Leukocytosis Current Visit: No Status: Acute Code(s): D72.829 - ELEVATED WHITE BLOOD CELL COUNT, UNSPECIFIED SNOMED Code(s): 329818995 Plan: 1patient presented hospital with sepsis in this patient who did have fever elevated white count concern likely for possible surgical site infection in this patient who recently did have a ventral hernia repair and noticed to have a pu rulent drainage in her drainage catheter 2-patient benefit for removal of few stitches as well as culture to determine the infective pathogen as the patient still have elevated white count 3-for now continue with Zosyn 3.37 g every 8 hours and will repeat a CBC and CRP with a.m. lab Dictation was produced using [employer] dictation software. please excuse any grammatical, word or spelling errors. Time with Patient: Less than 30
[2023-07-17 20:08] LABS: Glucose,Whole Blood 126 mg/dL (70-110)
[2023-07-17] MEDS ORDERED: ALBUTEROL NEBULIZED 2.5 MG/3 ML INHALATION PRN (21:20)
[2023-07-18 05:34] LABS: Glucose,Whole Blood 110 mg/dL (70-110)
[2023-07-18] MEDS: PANTOPRAZOLE 40 MG TABLET PO SCH (06:01)
[2023-07-18 08:30] LABS: Basophils # (A) 0.11 X 10*3/uL (0.00-0.10); Basophils % (A) 0.6 %; Eosinophils # (A) 1.93 X 10*3/uL (0.04-0.35); Eosinophils % (A) 10.6 %; HGB 9.6 g/dL (12.0-15.0); Lymphocytes # (A) 1.89 X 10*3/uL (0.90-5.00); Lymphocytes % (A) 10.4 %; MCHC 29.1 g/dL (32.0-37.0); MCV 68.8 FL (80.0-97.0); Mean Platelet Volume 10.1 FL (9.5-12.2); Monocytes # (A) 1.85 X 10*3/uL (0.20-1.00); Monocytes % (A) 10.2 %; NRBC Per 100 WBC 0 X 10*3/uL (0.00-0.01); Neutrophils % (A) 67.8 %; Platelet Count 527 X 10*3/uL (140-440); RDW 24.6 % (11.5-14.5); WBC 18.15 X 10*3/uL (4.50-10.00)
[2023-07-18 08:50] LABS: ALT 22 U/L (8-44); AST 25 U/L (13-35); Albumin 3.4 g/dL (3.8-4.9); Albumin/Globulin Ratio 1.26 Ratio (1.60-3.17); Alkaline Phosphatase 192 U/L (41-126); BUN/Creat Ratio <7.00 Ratio (12.00-20.00); Blood Urea Nitrogen <3.5 mg/dL (9.0-27.0); Calcium 9.1 mg/dL (8.7-10.3); Carbon Dioxide 28.7 mmol/L (21.6-31.8); Chloride 103 mmol/L (96-109); Globulin 2.7 g/dL (1.6-3.3); Glucose 91 mg/dL (70-110); Magnesium 1.9 mg/dL (1.5-2.4); Potassium 3.5 mmol/L (3.5-5.5); Sodium 142 mmol/L (135-145); Total Bilirubin 0.4 mg/dL (0.3-1.2); Total Protein 6.1 g/dL (6.2-8.2)
[2023-07-18] MEDS: ALBUTEROL NEBULIZED 2.5 MG/3 ML INHALATION SCH (09:17)
[2023-07-18 11:36] LABS: Glucose,Whole Blood 146 mg/dL (70-110)
--- NOTE | 2023-07-18 13:48 | P.PN ---
Subjective Progress Note Date: 07/18/23 CHIEF COMPLAINT: Fever HISTORY OF PRESENT ILLNESS: Patient with recent incisional hernia repair with mesh on July 04, 2023. Presents to the hospital with complaints of abdominal pain and fever. SHANELL drain with 40 mL purulent output. Patient reports she is feeling better. No further fevers. WBC is down from 25-18 PHYSICAL EXAM: VITAL SIGNS: Reviewed. GENERAL: Well-developed in no acute distress. ABDOMEN: Soft. Nondistended. Incision site clean dry and intact with drained blister noted at the distal aspect of the incision. SHANELL drain purulent output NEUROLOGIC: Alert and oriented. Cranial nerves II through XII grossly intact. ASSESSMENT: 1. Abdominal pain 2. Fever on admission 3. Recent incisional hernia repair with mesh. Concerns for possible mesh infection 4. Leukocytosis PLAN: -Continue to monitor SHANELL drain output -Continue antibiotics -Advance diet to regular -Add norco for pain -Encourage patient to ambulate -Repeat CBC in a.m. Physician Floor Covering Printer note has been reviewed by physician. Signing provider agrees with the documented findings, assessment, and plan of care. Objective - Vital Signs Vital signs: Vital Signs Temp 98.2 F 07/18/23 06:55 Pulse 76 07/18/23 12:14 Resp 18 07/18/23 08:00 BP 121/69 07/18/23 06:55 Pulse Ox 94 L 07/18/23 06:55 FiO2 Intake & Output 07/17/23 07/18/23 07/18/23 18:59 06:59 18:59 Intake Total 800 1250 Output Total 40 40 Balance 760 1210 Intake: Intake, IV Titration 800 Amount Lactated Ringers 1,000 ml 600 @ 100 mls/hr IV .Q10H JEANETTE Rx#:[id number] Piperacillin-Tazobactam 3 200 .375 gm In Sodium Chloride 0.9% 100 ml @ 25 mls/hr IVPB Q8HR JEANETTE Rx# :[id number] Oral 1250 Output: Drainage 40 40 Left Upper Abdomen 40 40 Other: Voiding Method Toilet Toilet # Voids 3 - Labs CBC & Chem 7: 07/18/23 04:53 07/18/23 04:53 Labs: Abnormal Lab Results - Last 24 Hours (Table) 07/17/23 07/17/23 07/18/23 Range/Units 16:24 20:07 04:53 WBC 18.15 H (4.50-10.00) X 10*3/uL Hgb 9.6 L (12.0-15.0) g/dL Hct 33.0 L (37.2-46.3) % MCV 68.8 L (80.0-97.0) FL MCH 20.0 L (27.0-32.0) pg MCHC 29.1 L (32.0-37.0) g/dL RDW 24.6 H (11.5-14.5) % Plt Count 527 H (140-440) X 10*3/uL Immature Gran # 0.07 H (0.00-0.04) X 10*3/uL Neutrophils # 12.30 H (1.80-7.70) X 10*3/uL Monocytes # 1.85 H (0.20-1.00) X 10*3/uL Eosinophils # 1.93 H (0.04-0.35) X 10*3/uL Basophils # 0.11 H (0.00-0.10) X 10*3/uL BUN (9.0-27.0) mg/dL Creatinine (0.6-1.5) mg/dL BUN/Creatinine Ratio (12.00-20.00) Ratio POC Glucose (mg/dL) 146 H 126 H (70-110) mg/dL Alkaline Phosphatase (41-126) U/L C-Reactive Protein (0.00-0.80) mg/dL Total Protein (6.2-8.2) g/dL Albumin (3.8-4.9) g/dL Albumin/Globulin Ratio (1.60-3.17) Ratio 07/18/23/ Range/Units 04:53 11:35 WBC (4.50-10.00) X 10*3/uL Hgb (12.0-15.0) g/dL Hct (37.2-46.3) % MCV (80.0-97.0) FL MCH (27.0-32.0) pg MCHC (32.0-37.0) g/dL RDW (11.5-14.5) % Plt Count (140-440) X 10*3/uL Immature Gran # (0.00-0.04) X 10*3/uL Neutrophils # (1.80-7.70) X 10*3/uL Monocytes # (0.20-1.00) X 10*3/uL Eosinophils # (0.04-0.35) X 10*3/uL Basophils # (0.00-0.10) X 10*3/uL BUN <3.5 L (9.0-27.0) mg/dL Creatinine 0.5 L (0.6-1.5) mg/dL BUN/Creatinine Ratio <7.00 L (12.00-20.00) Ratio POC Glucose (mg/dL) 146 H (70-110) mg/dL Alkaline Phosphatase 192 H (41-126) U/L C-Reactive Protein 16.80 H (0.00-0.80) mg/dL Total Protein 6.1 L (6.2-8.2) g/dL Albumin 3.4 L (3.8-4.9) g/dL Albumin/Globulin Ratio 1.26 L (1.60-3.17) Ratio Microbiology - Last 24 Hours (Table) 07/16/23 16:00 Blood Culture - Preliminary Blood 07/15/23 17:15 Blood Culture - Preliminary Blood 07/15/23 17:33 Blood Culture - Preliminary Blood
--- NOTE | 2023-07-18 15:33 | P.PN ---
Subjective Progress Note Date: 07/18/23 Principal diagnosis: Reason for follow-up is fever leukocytosis possible abdominal infection Patient is 52-year-old female with a past medical history significant for COPD diabetes mellitus hypertension hyperlipidemia sleep apnea in this patient who is status post incisional hernia repair on 07/04/2023, presented to hospital with fever abdominal pain abnormal CT with some fat stranding but no abscess. On today's visit that is 07/18/2023,the patient remains to be afebrile, patient is on room air not requiring supplemental oxygen and denies any shortness of breath no chest pain or cough.Patient denies having any nausea or vomiting, abdominal pain has decreased in intensity or diarrhea. Patient white count of 18.15, creatinine 0.5 blood culture negative Objective - Vital Signs Vital signs: Vital Signs Temp 98.2 F 07/18/23 06:55 Pulse 76 07/18/23 12:14 Resp 18 07/18/23 08:00 BP 121/69 07/18/23 06:55 Pulse Ox 94 L 07/18/23 06:55 FiO2 Intake & Output 07/17/23 07/18/23 07/18/23 18:59 06:59 18:59 Intake Total 800 1250 Output Total 40 40 Balance 760 1210 Intake: Intake, IV Titration 800 Amount Lactated Ringers 1,000 ml 600 @ 100 mls/hr IV .Q10H JEANETTE Rx#:[id number] Piperacillin-Tazobactam 3 200 .375 gm In Sodium Chloride 0.9% 100 ml @ 25 mls/hr IVPB Q8HR JEANETTE Rx# :[id number] Oral 1250 Output: Drainage 40 40 Left Upper Abdomen 40 40 Other: Voiding Method Toilet Toilet # Voids 3 # Bowel Movements 1 - Exam GENERAL DESCRIPTION: Middle-aged female lying in bed in no distress RESPIRATORY SYSTEM: Unlabored breathing , decreased breath sounds at bases HEART: S1 S2 regular rate and rhythm , ABDOMEN: Soft , abdominal incision looks clean with no drainage mild tenderness EXTREMITIES: No edema feet - Labs CBC & Chem 7: 07/18/23 04:53 07/18/23 04:53 Labs: Abnormal Lab Results - Last 24 Hours (Table) 07/17/23 07/17/23 07/18/23 Range/Units 16:24 20:07 04:53 WBC 18.15 H (4.50-10.00) X 10*3/uL Hgb 9.6 L (12.0-15.0) g/dL Hct 33.0 L (37.2-46.3) % MCV 68.8 L (80.0-97.0) FL MCH 20.0 L (27.0-32.0) pg MCHC 29.1 L (32.0-37.0) g/dL RDW 24.6 H (11.5-14.5) % Plt Count 527 H (140-440) X 10*3/uL Immature Gran # 0.07 H (0.00-0.04) X 10*3/uL Neutrophils # 12.30 H (1.80-7.70) X 10*3/uL Monocytes # 1.85 H (0.20-1.00) X 10*3/uL Eosinophils # 1.93 H (0.04-0.35) X 10*3/uL Basophils # 0.11 H (0.00-0.10) X 10*3/uL BUN (9.0-27.0) mg/dL Creatinine (0.6-1.5) mg/dL BUN/Creatinine Ratio (12.00-20.00) Ratio POC Glucose (mg/dL) 146 H 126 H (70-110) mg/dL Alkaline Phosphatase (41-126) U/L C-Reactive Protein (0.00-0.80) mg/dL Total Protein (6.2-8.2) g/dL Albumin (3.8-4.9) g/dL Albumin/Globulin Ratio (1.60-3.17) Ratio 07/18/23 07/18/23 Range/Units 04:53 11:35 WBC (4.50-10.00) X 10*3/uL Hgb (12.0-15.0) g/dL Hct (37.2-46.3) % MCV (80.0-97.0) FL MCH (27.0-32.0) pg MCHC (32.0-37.0) g/dL RDW (11.5-14.5) % Plt Count (140-440) X 10*3/uL Immature Gran # (0.00-0.04) X 10*3/uL Neutrophils # (1.80-7.70) X 10*3/uL Monocytes # (0.20-1.00) X 10*3/uL Eosinophils # (0.04-0.35) X 10*3/uL Basophils # (0.00-0.10) X 10*3/uL BUN <3.5 L (9.0-27.0) mg/dL Creatinine 0.5 L (0.6-1.5) mg/dL BUN/Creatinine Ratio <7.00 L (12.00-20.00) Ratio POC Glucose (mg/dL) 146 H (70-110) mg/dL Alkaline Phosphatase 192 H (41-126) U/L C-Reactive Protein 16.80 H (0.00-0.80) mg/dL Total Protein 6.1 L (6.2-8.2) g/dL Albumin 3.4 L (3.8-4.9) g/dL Albumin/Globulin Ratio 1.26 L (1.60-3.17) Ratio Microbiology - Last 24 Hours (Table) 07/16/23 16:00 Blood Culture - Preliminary Blood 07/15/23 17:15 Blood Culture - Preliminary Blood 07/15/23 17:33 Blood Culture - Preliminary Blood Assessment and Plan (1) Surgical site infection Current Visit: Yes Status: Acute Code(s): T81.49XA - INFECTION FOLLOWING A PROCEDURE, OTHER SURGICAL SITE, INIT SNOMED Code(s): 13227063 (2) Leukocytosis Current Visit: No Status: Acute Code(s): D72.829 - ELEVATED WHITE BLOOD CELL COUNT, UNSPECIFIED SNOMED Code(s): 526557836 Plan: 1patient presented hospital with sepsis in this patient who did have fever elevated white count concern likely for possible surgical site infection in this patient who recently did have a ventral hernia repair and noticed to have a purulent drainage in her drainage catheter 2-patient did have resolution of the fever and the white count is trending down, patient to continue with Zosyn 3.37 g every 8 hours surgery is following the patient closely Dictation was produced using [employer] dictation software. please excuse any grammatical, word or spelling errors. Time with Patient: Less than 30
[2023-07-18 16:53] LABS: Glucose,Whole Blood 152 mg/dL (70-110)
[2023-07-18] MEDS: HYDROcodone/APAP 5-325MG 1 EACH TAB PO PRN (17:02)
[2023-07-18 20:04] LABS: Glucose,Whole Blood 162 mg/dL (70-110)
--- NOTE | 2023-07-18 20:36 | PN ---
PROGRESS NOTE DATE OF SERVICE: 07/18/2023 SUBJECTIVE: This is a 52-year-old woman, who was admitted with fever and postoperative infection, is improving significantly. No chest pain. No palpitations. No fever. OBJECTIVE: VITAL SIGNS: Pulse 72, blood pressure 121/69, respirations 17. CHEST: Clear to auscultation. CARDIOVASCULAR: S1, S2 muffled. ABDOMEN: Soft, status post surgery. LABORATORY DATA: WBC 18.15, improving. Hemoglobin 9.6. ASSESSMENT: 1. Fever, for evaluation, rule out postoperative infection. 2. History of recent incisional hernia repair with mesh. 3. Elevated WBC. 4. Rule out iron deficiency anemia. 5. Chronic obstructive pulmonary disease, asthma. 6. Diabetes mellitus, type 2. 7. Hypertension. 8. Multiple medical issues. RECOMMENDATIONS AND DISCUSSION: Recommend to continue current medications, continue symptomatic treatment. I would also recommend repeat labs. Continue the antibiotics. Also recommend iron studies and if the iron is low. I would recommend intravenous iron for 2 or 3 days. MMODL / IJN: [id number] /
[2023-07-18 21:30] LABS: % Iron Saturation 4.48 (12.00-45.00)
[2023-07-19 05:53] LABS: Glucose,Whole Blood 125 mg/dL (70-110)
[2023-07-19 08:25] LABS: Basophils # (A) 0.15 X 10*3/uL (0.00-0.10); Basophils % (A) 1.1 %; Eosinophils # (A) 1.69 X 10*3/uL (0.04-0.35); Eosinophils % (A) 12.6 %; HCT 33.2 % (37.2-46.3); HGB 9.7 g/dL (12.0-15.0); Lymphocytes # (A) 2.71 X 10*3/uL (0.90-5.00); Lymphocytes % (A) 20.2 %; MCH 19.9 pg (27.0-32.0); MCHC 29.2 g/dL (32.0-37.0); Mean Platelet Volume 9.8 FL (9.5-12.2); Monocytes # (A) 1.53 X 10*3/uL (0.20-1.00); Monocytes % (A) 11.4 %; NRBC Per 100 WBC 0 X 10*3/uL (0.00-0.01); Neutrophils # (A) 7.29 X 10*3/uL (1.80-7.70); Neutrophils % (A) 54.3 %; Platelet Count 572 X 10*3/uL (140-440); RBC 4.88 X 10*6/uL (4.10-5.20); RDW 24.2 % (11.5-14.5); WBC 13.43 X 10*3/uL (4.50-10.00)
[2023-07-19 08:47] LABS: BUN/Creat Ratio <7.00 Ratio (12.00-20.00); Blood Urea Nitrogen <3.5 mg/dL (9.0-27.0); Calcium 9.3 mg/dL (8.7-10.3); Carbon Dioxide 28.1 mmol/L (21.6-31.8); Chloride 103 mmol/L (96-109); Glucose 98 mg/dL (70-110); Potassium 3.5 mmol/L (3.5-5.5); Sodium 143 mmol/L (135-145)
[2023-07-19] MEDS: NYSTATIN 100,000 UNIT/ML SUSP 500,000 UNIT/5 ML CUP PO SCH (10:21)
[2023-07-19 11:44] LABS: Glucose,Whole Blood 141 mg/dL (70-110)
--- NOTE | 2023-07-19 14:42 | PN ---
PROGRESS NOTE DATE OF SERVICE: 07/19/2023 SUBJECTIVE: This is a 52-year-old woman, who was admitted with fever and postoperative infection, is improving significantly. No chest pain. No palpitation. OBJECTIVE: VITAL SIGNS: Pulse is 75, blood pressure 113/62, respirations 18 with a pulse ox 86% on 2 L. HEENT: Conjunctivae normal. CARDIOVASCULAR: S1, S2 muffled. RESPIRATIONS: Breath sounds diminished at the bases. A few scattered rhonchi. ABDOMEN: Soft. Status post surgery. NERVOUS SYSTEM: Nonfocal. LABORATORY DATA: Reviewed. ASSESSMENT: 1. Fever, for evaluation, possible postoperative wound infection. 2. History of recent incisional hernia repair with mesh. 3. Elevated WBC. 4. Possible iron deficiency anemia. 5. Chronic obstructive pulmonary disease, asthma. 6. Diabetes mellitus, type 2. 7. Hypertension. 8. Multiple medical issues. RECOMMENDATIONS AND DISCUSSION: Recommend to continue current management, continue symptomatic treatment. Otherwise, we will review the results of the iron studies. Chest x-ray on was reviewed. I will repeat a chest x-ray because of hypoxia. Closely follow with Pulmonary and Surgery. Further recommendations to follow. MMODL / IJN: [id number] /
--- NOTE | 2023-07-19 14:55 | XR ---
EXAMINATION TYPE: XR chest 1V portable DATE OF EXAM: 07/19/2023 COMPARISON: 07/16/2023 HISTORY: Shortness of breath TECHNIQUE: Single frontal view of the chest is obtained. FINDINGS: There is no focal air space opacity, pleural effusion, or pneumothorax seen. Enlarged. No overt pulmonary edema. Biapical pleural thickening. Surgical kali overlying the lower left chest a nd epigastric region.. The osseous structures are intact. IMPRESSION: 1. Cardiomegaly with no evidence of overt failure.
--- NOTE | 2023-07-19 15:57 | P.PN ---
Subjective Progress Note Date: 07/19/23 CHIEF COMPLAINT: Fever HISTORY OF PRESENT ILLNESS: Patient with recent incisional hernia repair with mesh on July 04, 2023. Presents to the hospital with complaints of abdominal pain and fever. SHANELL drain with 15 mL output. SHANELL drain output is more serosanguineous and less purulent. Patient is having bowel movements and flatus. Tolerating regular diet. Afebrile. WBC is down from 18-13 PHYSICAL EXAM: VITAL SIGNS: Reviewed. GENERAL: Well-developed in no acute distress. ABDOMEN: Soft. Nondistended. Incision site clean dry and intact with drained blister noted at the distal aspect of the incision. NEUROLOGIC: Alert and oriented. Cranial nerves II through XII grossly intact. ASSESSMENT: 1. Abdominal pain 2. Fever on admission 3. Recent incisional hernia repair with mesh. Concerns for possible mesh infection 4. Leukocytosis PLAN: -Continue to monitor SHANELL drain output -Continue antibiotics -Continue regular diet -Continue pain management -Encourage patient to ambulate -Anticipate the patient will be here for another 5 days -Nystatin swish and swallow added for oral candidiasis Physician Manager Agency note has been reviewed by physician. Signing provider agrees with the documented findings, assessment, and plan of care. Objective - Vital Signs Vital signs: Vital Signs Temp 98.4 F 07/19/23 14:00 Pulse 72 07/19/23 15:47 Resp 17 07/19/23 14:00 BP 109/62 07/19/23 14:00 Pulse Ox 95 07/19/23 14:00 FiO2 Intake & Output 07/18/23 07/19/23 07/19/23 18:59 06:59 18:59 Output Total 15 Balance -15 Output: Drainage 15 Left Upper Abdomen 15 Other: Voiding Method Toilet # Voids 3 3 # Bowel Movements 1 - Labs CBC & Chem 7: 07/19/23 04:59 07/19/23 04:59 Labs: Abnormal Lab Results - Last 24 Hours (Table) 07/18/23 07/18/23 07/18/23 Range/Units 04:53 16:52 20:03 WBC (4.50-10.00) X 10*3/uL Hgb (12.0-15.0) g/dL Hct (37.2-46.3) % MCV (80.0-97.0) FL MCH (27.0-32.0) pg MCHC (32.0-37.0) g/dL RDW (11.5-14.5) % Plt Count (140-440) X 10*3/uL Immature Gran # (0.00-0.04) X 10*3/uL Monocytes # (0.20-1.00) X 10*3/uL Eosinophils # (0.04-0.35) X 10*3/uL Basophils # (0.00-0.10) X 10*3/uL BUN (9.0-27.0) mg/dL Creatinine (0.6-1.5) mg/dL BUN/Creatinine Ratio (12.00-20.00) Ratio POC Glucose (mg/dL) 152 H 162 H (70-110) mg/dL Iron 16 L (50-170) UG/DL % Saturation 4.48 L (12.00-45.00) 07/19/23 07/19/23 07/19/23 Range/Units 04:59 04:59 05:52 WBC 13.43 H (4.50-10.00) X 10*3/uL Hgb 9.7 L (12.0-15.0) g/dL Hct 33.2 L (37.2-46.3) % MCV 68.0 L (80.0-97.0) FL MCH 19.9 L (27.0-32.0) pg MCHC 29.2 L (32.0-37.0) g/dL RDW 24.2 H (11.5-14.5) % Plt Count 572 H (140-440) X 10*3/uL Immature Gran # 0.06 H (0.00-0.04) X 10*3/uL Monocytes # 1.53 H (0.20-1.00) X 10*3/uL Eosinophils # 1.69 H (0.04-0.35) X 10*3/uL Basophils # 0.15 H (0.00-0.10) X 10*3/uL BUN <3.5 L (9.0-27.0) mg/dL Creatinine 0.5 L (0.6-1.5) mg/dL BUN/Creatinine Ratio <7.00 L (12.00-20.00) Ratio POC Glucose (mg/dL) 125 H (70-110) mg/dL Iron (50-170) UG/DL % Saturation (12.00-45.00) 07/19/23 Range/Units 11:43 WBC (4.50-10.00) X 10*3/uL Hgb (12.0-15.0) g/dL Hct (37.2-46.3) % MCV (80.0-97.0) FL MCH (27.0-32.0) pg MCHC (32.0-37.0) g/dL RDW (11.5-14.5) % Plt Count (140-440) X 10*3/uL Immature Gran # (0.00-0.04) X 10*3/uL Monocytes # (0.20-1.00) X 10*3/uL Eosinophils # (0.04-0.35) X 10*3/uL Basophils # (0.00-0.10) X 10*3/uL BUN (9.0-27.0) mg/dL Creatinine (0.6-1.5) mg/dL BUN/Creatinine Ratio (12.00-20.00) Ratio POC Glucose (mg/dL) 141 H (70-110) mg/dL Iron (50-170) UG/DL % Saturation (12.00-45.00) Microbiology - Last 24 Hours (Table) 07/16/23 16:00 Blood Culture - Preliminary Blood 07/15/23 17:15 Blood Culture - Preliminary Blood 07/15/23 17:33 Blood Culture - Preliminary Blood
[2023-07-19 16:33] LABS: Glucose,Whole Blood 156 mg/dL (70-110)
--- NOTE | 2023-07-19 18:00 | P.PN ---
Subjective Progress Note Date: 07/19/23 Principal diagnosis: Reason for follow-up is fever leukocytosis possible abdominal infection Patient is 52-year-old female with a past medical history significant for COPD diabetes mellitus hypertension hyperlipidemia sleep apnea in this patient who is status post incisional hernia repair on 07/04/2023, presented to hospital with fever abdominal pain abnormal CT with some fat stranding but no abscess. On today's visit that is 07/19/2023, the patient continues to be afebrile, the patient is on 2 L nasal cannula oxygen and breathing comfortably, the Pt denies having any chest pain or cough, the patient denies having any nausea or vomiting abdominal pain has decreased in intensity tolerating current diet. Patient white count is down to 13.43, creatinine is 0.5 blood culture has been negative Objective - Vital Signs Vital signs: Vital Signs Temp 98.6 F 07/19/23 06:40 Pulse 75 07/19/23 09:42 Resp 18 07/19/23 06:40 BP 113/62 07/19/23 06:40 Pulse Ox 86 L 07/19/23 09:30 FiO2 Intake & Output 07/18/23 07/19/23 07/19/23 18:59 06:59 18:59 Output Total 15 Balance -15 Output: Drainage 15 Left Upper Abdomen 15 Other: Voiding Method Toilet # Voids 3 3 # Bowel Movements 1 - Exam GENERAL DESCRIPTION: Middle-aged female lying in bed in no distress RESPIRATORY SYSTEM: Unlabored breathing , decreased breath sounds at bases HEART: S1 S2 regular rate and rhythm , ABDOMEN: Soft , abdominal incision looks clean with no drainage mild tenderness EXTREMITIES: No edema feet - Labs CBC & Chem 7: 07/19/23 04:59 07/19/23 04:59 Labs: Abnormal Lab Results - Last 24 Hours (Table) 07/18/23 07/18/23 07/18/23 Range/Units 04:53 11:35 16:52 WBC (4.50-10.00) X 10*3/uL Hgb (12.0-15.0) g/dL Hct (37.2-46.3) % MCV (80.0-97.0) FL MCH (27.0-32.0) pg MCHC (32.0-37.0) g/dL RDW (11.5-14.5) % Plt Count (140-440) X 10*3/uL Immature Gran # (0.00-0.04) X 10*3/uL Monocytes # (0.20-1.00) X 10*3/uL Eosinophils # (0.04-0.35) X 10*3/uL Basophils # (0.00-0.10) X 10*3/uL BUN (9.0-27.0) mg/dL Creatinine (0.6-1.5) mg/dL BUN/Creatinine Ratio (12.00-20.00) Ratio POC Glucose (mg/dL) 146 H 152 H (70-110) mg/dL Iron 16 L (50-170) UG/DL % Saturation 4.48 L (12.00-45.00) 07/18/23 07/19/23 07/19/23 Range/Units 20:03 04:59 04:59 WBC 13.43 H (4.50-10.00) X 10*3/uL Hgb 9.7 L (12.0-15.0) g/dL Hct 33.2 L (37.2-46.3) % MCV 68.0 L (80.0-97.0) FL MCH 19.9 L (27.0-32.0) pg MCHC 29.2 L (32.0-37.0) g/dL RDW 24.2 H (11.5-14.5) % Plt Count 572 H (140-440) X 10*3/uL Immature Gran # 0.06 H (0.00-0.04) X 10*3/uL Monocytes # 1.53 H (0.20-1.00) X 10*3/uL Eosinophils # 1.69 H (0.04-0.35) X 10*3/uL Basophils # 0.15 H (0.00-0.10) X 10*3/uL BUN <3.5 L (9.0-27.0) mg/dL Creatinine 0.5 L (0.6-1.5) mg/dL BUN/Creatinine Ratio <7.00 L (12.00-20.00) Ratio POC Glucose (mg/dL) 162 H (70-110) mg/dL Iron (50-170) UG/DL % Saturation (12.00-45.00) 07/19/23 Range/Units 05:52 WBC (4.50-10.00) X 10*3/uL Hgb (12.0-15.0) g/dL Hct (37.2-46.3) % MCV (80.0-97.0) FL MCH (27.0-32.0) pg MCHC (32.0-37.0) g/dL RDW (11.5-14.5) % Plt Count (140-440) X 10*3/uL Immature Gran # (0.00-0.04) X 10*3/uL Monocytes # (0.20-1.00) X 10*3/uL Eosinophils # (0.04-0.35) X 10*3/uL Basophils # (0.00-0.10) X 10*3/uL BUN (9.0-27.0) mg/dL Creatinine (0.6-1.5) mg/dL BUN/Creatinine Ratio (12.00-20.00) Ratio POC Glucose (mg/dL) 125 H (70-110) mg/dL Iron (50-170) UG/DL % Saturation (12.00-45.00) Microbiology - Last 24 Hours (Table) 07/16/23 16:00 Blood Culture - Preliminary Blood 07/15/23 17:15 Blood Culture - Preliminary Blood 07/15/23 17:33 Blood Culture - Preliminary Blood Assessment and Plan (1) Surgical site infection Current Visit: Yes Status: Acute Code(s): T81.49XA - INFECTION FOLLOWING A PROCEDURE, OTHER SURGICAL SITE, INIT SNOMED Code(s): 56419470 (2) Leukocytosis Current Visit: No Status: Acute Code(s): D72.829 - ELEVATED WHITE BLOOD CELL COUNT, UNSPECIFIED SNOMED Code(s): 951003774 Plan: 1patient presented hospital with sepsis in this patient who did have fever elevated white count concern likely for possible surgical site infection in this patient who recently did have a ventral hernia repair and noticed to have a purulent drainage in her drainage catheter 2-patient did have resolution of the fever and the white count is slowly trending down down to 13,000 and cultures have been negative so far 3- patient currently being treated e with Zosyn 3.37 g every 8 hours surgery is following the patient closely Dictation was produced using [employer] dictation software. please excuse any grammatical, word or spelling errors. Time with Patient: Less than 30
[2023-07-19 20:16] LABS: Glucose,Whole Blood 153 mg/dL (70-110)
[2023-07-20 06:00] LABS: Glucose,Whole Blood 114 mg/dL (70-110)
[2023-07-20 08:43] LABS: Basophils # (A) 0.17 X 10*3/uL (0.00-0.10); Basophils % (A) 1.6 %; Eosinophils # (A) 1.64 X 10*3/uL (0.04-0.35); Eosinophils % (A) 15.6 %; HCT 33.7 % (37.2-46.3); HGB 9.9 g/dL (12.0-15.0); Lymphocytes # (A) 2.71 X 10*3/uL (0.90-5.00); Lymphocytes % (A) 25.8 %; MCHC 29.4 g/dL (32.0-37.0); MCV 68.2 FL (80.0-97.0); Mean Platelet Volume 10.2 FL (9.5-12.2); Monocytes # (A) 1.25 X 10*3/uL (0.20-1.00); Monocytes % (A) 11.9 %; NRBC Per 100 WBC 0 X 10*3/uL (0.00-0.01); Neutrophils % (A) 44.9 %; Platelet Count 629 X 10*3/uL (140-440); RBC 4.94 X 10*6/uL (4.10-5.20); RDW 24.5 % (11.5-14.5); WBC 10.49 X 10*3/uL (4.50-10.00)
[2023-07-20 08:57] LABS: BUN/Creat Ratio 8.33 Ratio (12.00-20.00); Calcium 9.1 mg/dL (8.7-10.3); Carbon Dioxide 27.7 mmol/L (21.6-31.8); Chloride 103 mmol/L (96-109); Glucose 99 mg/dL (70-110); Potassium 3.7 mmol/L (3.5-5.5); Sodium 142 mmol/L (135-145)
[2023-07-20 11:47] LABS: Glucose,Whole Blood 117 mg/dL (70-110)
--- NOTE | 2023-07-20 12:42 | P.PN ---
Subjective Progress Note Date: 07/20/23 Patient feels better today. She still has some turbid fluid from her SHANELL drain site. She has no signs of pain. On exam vital signs appear stable. Abdomen soft. Incision is clean dry tach. Infected seroma. Patient can receive IV antibiotics. Objective - Vital Signs Vital signs: Vital Signs Temp 98.4 F 07/20/23 07:00 Pulse 71 07/20/23 07:00 Resp 17 07/20/23 07:00 BP 112/64 07/20/23 07:00 Pulse Ox 96 07/20/23 07:00 FiO2 Intake & Output 07/19/23 07/20/23 07/20/23 18:59 06:59 18:59 Output Total 50 Balance -50 Output: Drainage 50 Left Upper Abdomen 50 Other: Voiding Method Toilet Toilet # Voids 2 2 - Labs CBC & Chem 7: 07/20/23 05:29 07/20/23 05:29 Labs: Abnormal Lab Results - Last 24 Hours (Table) 07/19/23 07/19/23 07/20/23 Range/Units 16:32 20:15 05:29 WBC 10.49 H (4.50-10.00) X 10*3/uL Hgb 9.9 L (12.0-15.0) g/dL Hct 33.7 L (37.2-46.3) % MCV 68.2 L (80.0-97.0) FL MCH 20.0 L (27.0-32.0) pg MCHC 29.4 L (32.0-37.0) g/dL RDW 24.5 H (11.5-14.5) % Plt Count 629 H (140-440) X 10*3/uL Monocytes # 1.25 H (0.20-1.00) X 10*3/uL Eosinophils # 1.64 H (0.04-0.35) X 10*3/uL Basophils # 0.17 H (0.00-0.10) X 10*3/uL BUN (9.0-27.0) mg/dL BUN/Creatinine Ratio (12.00-20.00) Ratio POC Glucose (mg/dL) 156 H 153 H (70-110) mg/dL 07/20/23 07/20/23 07/20/23 Range/Units 05:29 05:59 11:46 WBC (4.50-10.00) X 10*3/uL Hgb (12.0-15.0) g/dL Hct (37.2-46.3) % MCV (80.0-97.0) FL MCH (27.0-32.0) pg MCHC (32.0-37.0) g/dL RDW (11.5-14.5) % Plt Count (140-440) X 10*3/uL Monocytes # (0.20-1.00) X 10*3/uL Eosinophils # (0.04-0.35) X 10*3/uL Basophils # (0.00-0.10) X 10*3/uL BUN 5.0 L (9.0-27.0) mg/dL BUN/Creatinine Ratio 8.33 L (12.00-20.00) Ratio POC Glucose (mg/dL) 114 H 117 H (70-110) mg/dL Microbiology - Last 24 Hours (Table) 07/16/23 16:00 Blood Culture - Preliminary Blood
--- NOTE | 2023-07-20 14:02 | PN ---
PROGRESS NOTE DATE OF SERVICE: 07/20/2023 SUBJECTIVE: This is a 52-year-old woman, who was admitted with fever with possibly postoperative wound infection, is being closely monitored. Surgery is concerned about the mesh. White count is significantly improved. No chest pain. No palpitation. No fever. OBJECTIVE: VITAL SIGNS: Pulse is 74, blood pressure 131/60, respirations 16. CHEST: Clear to auscultation. CARDIOVASCULAR: S1, S2. ABDOMEN: Soft, minimal discomfort. No tenderness or guarding. No rigidity at this time noted. LABORATORY DATA: Noted. ASSESSMENT: 1. Fever, for evaluation, possible postoperative wound infection. 2. History of recent incisional hernia repair with mesh. 3. Elevated WBC, improving. 4. Possible iron deficiency anemia. 5. Chronic obstructive pulmonary disease, asthma. 6. Diabetes mellitus, type 2. 7. Hypertension. 8. Multiple medical issues. RECOMMENDATIONS AND DISCUSSION: Recommend to continue current management and continue symptomatic treatment, otherwise at this time, I would recommend IV iron and continue the antibiotics. Closely follow with Infectious Disease. Cultures are negative so far. Guarded prognosis. Further recommendations to follow. MMODL / IJN: [id number] /
--- NOTE | 2023-07-20 15:12 | P.PN ---
Subjective Progress Note Date: 07/20/23 Principal diagnosis: Reason for follow-up is fever leukocytosis possible abdominal infection Patient is 52-year-old female with a past medical history significant for COPD diabetes mellitus hypertension hyperlipidemia sleep apnea in this patient who is status post incisional hernia repair on 07/04/2023, presented to hospital with fever abdominal pain abnormal CT with some fat stranding but no abscess. On today's visit that is 07/20/2023, Patient is afebrile patient is currently on room air and denies having any shortness of breath, the patient denies any chest pain or cough, the patient denies any nausea vomiting abdominal pain has decreased intensity no diarrhea. Patient white count is 10.49, creatinine 0.6 blood culture has been negative Objective - Vital Signs Vital signs: Vital Signs Temp 97.6 F 07/20/23 13:00 Pulse 74 07/20/23 13:00 Resp 16 07/20/23 13:00 BP 131/68 07/20/23 13:00 Pulse Ox 90 L 07/20/23 13:00 FiO2 Intake & Output 07/19/23 07/20/23 07/20/23 18:59 06:59 18:59 Intake Total 200 Output Total 50 Balance -50 200 Intake: Oral 200 Output: Drainage 50 Left Upper Abdomen 50 Other: Voiding Method Toilet Toilet # Voids 2 2 - Exam GENERAL DESCRIPTION: Middle-aged female lying in bed in no distress RESPIRATORY SYSTEM: Unlabored breathing , decreased breath sounds at bases HEART: S1 S2 regular rate and rhythm , ABDOMEN: Soft , abdominal incision looks clean with no drainage mild tenderness EXTREMITIES: No edema feet - Labs CBC & Chem 7: 07/20/23 05:29 07/20/23 05:29 Labs: Abnormal Lab Results - Last 24 Hours (Table) 07/19/23 07/19/23 07/20/23 Range/Units 16:32 20:15 05:29 WBC 10.49 H (4.50-10.00) X 10*3/uL Hgb 9.9 L (12.0-15.0) g/dL Hct 33.7 L (37.2-46.3) % MCV 68.2 L (80.0-97.0) FL MCH 20.0 L (27.0-32.0) pg MCHC 29.4 L (32.0-37.0) g/dL RDW 24.5 H (11.5-14.5) % Plt Count 629 H (140-440) X 10*3/uL Monocytes # 1.25 H (0.20-1.00) X 10*3/uL Eosinophils # 1.64 H (0.04-0.35) X 10*3/uL Basophils # 0.17 H (0.00-0.10) X 10*3/uL BUN (9.0-27.0) mg/dL BUN/Creatinine Ratio (12.00-20.00) Ratio POC Glucose (mg/dL) 156 H 153 H (70-110) mg/dL 07/20/23 07/20/23 07/20/23 Range/Units 05:29 05:59 11:46 WBC (4.50-10.00) X 10*3/uL Hgb (12.0-15.0) g/dL Hct (37.2-46.3) % MCV (80.0-97.0) FL MCH (27.0-32.0) pg MCHC (32.0-37.0) g/dL RDW (11.5-14.5) % Plt Count (140-440) X 10*3/uL Monocytes # (0.20-1.00) X 10*3/uL Eosinophils # (0.04-0.35) X 10*3/uL Basophils # (0.00-0.10) X 10*3/uL BUN 5.0 L (9.0-27.0) mg/dL BUN/Creatinine Ratio 8.33 L (12.00-20.00) Ratio POC Glucose (mg/dL) 114 H 117 H (70-110) mg/dL Microbiology - Last 24 Hours (Table) 07/16/23 16:00 Blood Culture - Preliminary Blood Assessment and Plan (1) Surgical site infection Current Visit: Yes Status: Acute Code(s): T81.49XA - INFECTION FOLLOWING A PROCEDURE, OTHER SURGICAL SITE, INIT SNOMED Code(s): 05166906 (2) Leukocytosis Current Visit: No Status: Acute Code(s): D72.829 - ELEVATED WHITE BLOOD CELL COUNT, UNSPECIFIED SNOMED Code(s): 668806915 Plan: 1patient presented hospital with sepsis in this patient who did have fever elevated white count concern likely for possible surgical site infection in this patient who recently did have a ventral hernia repair and noticed to have a purulent drainage in her drainage catheter 2-patient did have resolution of the fever and the white count almost normalized and blood culture has been negative 3- patient currently on Zosyn 3.37 g every 8 hours which will be continued and monitor clinical course closely Dictation was produced using [employer] dictation software. please excuse any grammatical, word or spelling errors. Time with Patient: Less than 30
[2023-07-20 16:28] LABS: Glucose,Whole Blood 126 mg/dL (70-110)
[2023-07-20 19:55] LABS: Glucose,Whole Blood 168 mg/dL (70-110)
[2023-07-21 05:46] LABS: Glucose,Whole Blood 134 mg/dL (70-110)
[2023-07-21 11:18] LABS: Basophils # (A) 0.18 X 10*3/uL (0.00-0.10); Eosinophils # (A) 1.35 X 10*3/uL (0.04-0.35); Eosinophils % (A) 14.9 %; HCT 35.8 % (37.2-46.3); HGB 10.3 g/dL (12.0-15.0); Lymphocytes # (A) 2.19 X 10*3/uL (0.90-5.00); Lymphocytes % (A) 24.2 %; MCH 20.2 pg (27.0-32.0); MCHC 28.8 g/dL (32.0-37.0); MCV 70.3 FL (80.0-97.0); Mean Platelet Volume 10.3 FL (9.5-12.2); Monocytes # (A) 1.21 X 10*3/uL (0.20-1.00); Monocytes % (A) 13.4 %; NRBC Per 100 WBC 0 X 10*3/uL (0.00-0.01); Neutrophils # (A) 4.09 X 10*3/uL (1.80-7.70); Neutrophils % (A) 45.2 %; Platelet Count 652 X 10*3/uL (140-440); RBC 5.09 X 10*6/uL (4.10-5.20); RDW 24.6 % (11.5-14.5); WBC 9.05 X 10*3/uL (4.50-10.00)
[2023-07-21 11:23] LABS: Glucose,Whole Blood 105 mg/dL (70-110)
[2023-07-21 11:44] LABS: Blood Urea Nitrogen 5.6 mg/dL (9.0-27.0); Calcium 9.4 mg/dL (8.7-10.3); Carbon Dioxide 28.4 mmol/L (21.6-31.8); Chloride 104 mmol/L (96-109); Glucose 120 mg/dL (70-110); Sodium 143 mmol/L (135-145)
--- NOTE | 2023-07-21 12:44 | P.PN ---
Subjective Progress Note Date: 07/21/23 the patient feels well. She has no significant pain. Her SHANELL drain still has some turbid fluid. On exam vital signs are stable. Abdomen is soft nontender. There is no sign of infection. Infected seroma. Patient will continue receive IV and a bias. I discussed through that if her seroma infection is not clear she may need removal of her mesh. Objective - Vital Signs Vital signs: Vital Signs Temp 98.3 F 07/21/23 07:10 Pulse 62 07/21/23 07:10 Resp 17 07/21/23 07:10 BP 133/74 07/21/23 07:10 Pulse Ox 96 07/21/23 08:57 FiO2 Intake & Output 07/20/23 07/21/23 07/21/23 18:59 06:59 18:59 Intake Total 200 200 Output Total 40 Balance 200 200 -40 Intake: Intake, IV Titration 200 Amount Piperacillin-Tazobactam 3 200 .375 gm In Sodium Chloride 0.9% 100 ml @ 25 mls/hr IVPB Q8HR [facility] Rx# :[id number] Oral 200 Output: Drainage 40 Left Upper Abdomen 40 Other: Voiding Method Toilet Toilet # Voids 2 - Labs CBC & Chem 7: 07/21/23 07:23 07/21/23 07:23 Labs: Abnormal Lab Results - Last 24 Hours (Table) 07/20/23 07/20/23 07/21/23 Range/Units 16:27 19:54 05:45 Hgb (12.0-15.0) g/dL Hct (37.2-46.3) % MCV (80.0-97.0) FL MCH (27.0-32.0) pg MCHC (32.0-37.0) g/dL RDW (11.5-14.5) % Plt Count (140-440) X 10*3/uL Monocytes # (0.20-1.00) X 10*3/uL Eosinophils # (0.04-0.35) X 10*3/uL Basophils # (0.00-0.10) X 10*3/uL BUN (9.0-27.0) mg/dL Creatinine (0.6-1.5) mg/dL BUN/Creatinine Ratio (12.00-20.00) Ratio Glucose (70-110) mg/dL POC Glucose (mg/dL) 126 H 168 H 134 H (70-110) mg/dL 07/21/23 07/21/23 Range/Units 07:23 07:23 Hgb 10.3 L (12.0-15.0) g/dL Hct 35.8 L (37.2-46.3) % MCV 70.3 L (80.0-97.0) FL MCH 20.2 L (27.0-32.0) pg MCHC 28.8 L (32.0-37.0) g/dL RDW 24.6 H (11.5-14.5) % Plt Count 652 H (140-440) X 10*3/uL Monocytes # 1.21 H (0.20-1.00) X 10*3/uL Eosinophils # 1.35 H (0.04-0.35) X 10*3/uL Basophils # 0.18 H (0.00-0.10) X 10*3/uL BUN 5.6 L (9.0-27.0) mg/dL Creatinine 0.5 L (0.6-1.5) mg/dL BUN/Creatinine Ratio 11.20 L (12.00-20.00) Ratio Glucose 120 H (70-110) mg/dL POC Glucose (mg/dL) (70-110) mg/dL Microbiology - Last 24 Hours (Table) 07/15/23 17:15 Blood Culture - Final Blood 07/15/23 17:33 Blood Culture - Final Blood
[2023-07-21] MEDS: SODIUM FERRIC GLUCONAT-SUCROSE 125 MG in SODIUM CHLORIDE 0.9% 100 ML IVPB SCH (15:50)
--- NOTE | 2023-07-21 15:51 | P.PN ---
Subjective Progress Note Date: 07/21/23 Principal diagnosis: Reason for follow-up is fever leukocytosis possible abdominal infection Patient is 52-year-old female with a past medical history significant for COPD diabetes mellitus hypertension hyperlipidemia sleep apnea in this patient who is status post incisional hernia repair on 07/04/2023, presented to hospital with fever abdominal pain abnormal CT with some fat stranding but no abscess. On today's visit that is 07/21/2023, patient has been afebrile, patient is breathing comfortably and is currently on room air, patient denies having any significant cough no chest pain shortness of breath, patient denies nausea vomiting or diarrhea and abdominal pain has decreased in intensity still have output in the SHANELL drain. Patient white count is normalized to 9.05, creatinine 0.5 blood cultures have been negative Objective - Vital Signs Vital signs: Vital Signs Temp 98.3 F 07/21/23 07:10 Pulse 62 07/21/23 07:10 Resp 17 07/21/23 07:10 BP 133/74 07/21/23 07:10 Pulse Ox 96 07/21/23 08:57 FiO2 Intake & Output 07/20/23 07/21/23 07/21/23 18:59 06:59 18:59 Intake Total 200 200 Output Total 40 Balance 200 200 -40 Intake: Intake, IV Titration 200 Amount Piperacillin-Tazobactam 3 200 .375 gm In Sodium Chloride 0.9% 100 ml @ 25 mls/hr IVPB Q8HR [facility] Rx# :[id number] Oral 200 Output: Drainage 40 Left Upper Abdomen 40 Other: Voiding Method Toilet Toilet # Voids 2 - Exam GENERAL DESCRIPTION: Middle-aged female lying in bed in no distress RESPIRATORY SYSTEM: Unlabored breathing , decreased breath sounds at bases HEART: S1 S2 regular rate and rhythm , ABDOMEN: Soft , abdominal incision looks clean with no drainage mild tenderness EXTREMITIES: No edema feet - Labs CBC & Chem 7: 07/21/23 07:23 07/21/23 07:23 Labs: Abnormal Lab Results - Last 24 Hours (Table) 07/20/23 07/20/23 07/21/23 Range/Units 16:27 19:54 05:45 Hgb (12.0-15.0) g/dL Hct (37.2-46.3) % MCV (80.0-97.0) FL MCH (27.0-32.0) pg MCHC (32.0-37.0) g/dL RDW (11.5-14.5) % Plt Count (140-440) X 10*3/uL Monocytes # (0.20-1.00) X 10*3/uL Eosinophils # (0.04-0.35) X 10*3/uL Basophils # (0.00-0.10) X 10*3/uL BUN (9.0-27.0) mg/dL Creatinine (0.6-1.5) mg/dL BUN/Creatinine Ratio (12.00-20.00) Ratio Glucose (70-110) mg/dL POC Glucose (mg/dL) 126 H 168 H 134 H (70-110) mg/dL 07/21/23 07/21/23 Range/Units 07:23 07:23 Hgb 10.3 L (12.0-15.0) g/dL Hct 35.8 L (37.2-46.3) % MCV 70.3 L (80.0-97.0) FL MCH 20.2 L (27.0-32.0) pg MCHC 28.8 L (32.0-37.0) g/dL RDW 24.6 H (11.5-14.5) % Plt Count 652 H (140-440) X 10*3/uL Monocytes # 1.21 H (0.20-1.00) X 10*3/uL Eosinophils # 1.35 H (0.04-0.35) X 10*3/uL Basophils # 0.18 H (0.00-0.10) X 10*3/uL BUN 5.6 L (9.0-27.0) mg/dL Creatinine 0.5 L (0.6-1.5) mg/dL BUN/Creatinine Ratio 11.20 L (12.00-20.00) Ratio Glucose 120 H (70-110) mg/dL POC Glucose (mg/dL) (70-110) mg/dL Microbiology - Last 24 Hours (Table) 07/15/23 17:15 Blood Culture - Final Blood 07/15/23 17:33 Blood Culture - Final Blood Assessment and Plan (1) Surgical site infection Current Visit: Yes Status: Acute Code(s): T81.49XA - INFECTION FOLLOWING A PROCEDURE, OTHER SURGICAL SITE, INIT SNOMED Code(s): 94440712 (2) Leukocytosis Current Visit: No Status: Acute Code(s): D72.829 - ELEVATED WHITE BLOOD CELL COUNT, UNSPECIFIED SNOMED Code(s): 937699045 Plan: 1patient presented hospital with sepsis in this patient who did have fever elevated white count concern likely for possible surgical site infection in this patient who recently did have a ventral hernia repair and noticed to have a purulent drainage in her drainage catheter 2-patient did have resolution of the fever and the white count almost normalized and blood culture has been negative 3- patient is afebrile patient white count has normalized, patient to continue Zosyn 3.37 g every 8 hours while inpatient and monitor clinical course closely Dictation was produced using [employer] dictation software. please excuse any grammatical, word or spelling errors. Time with Patient: Less than 30
[2023-07-21 17:25] LABS: Glucose,Whole Blood 130 mg/dL (70-110)
[2023-07-21 19:29] LABS: Glucose,Whole Blood 181 mg/dL (70-110)
--- NOTE | 2023-07-22 02:35 | PN ---
PROGRESS NOTE DATE OF SERVICE: 07/21/2023 SUBJECTIVE: This is a 52-year-old woman, who was admitted with fever and possibly postoperative infection, had slightly cloudy SHANELL drainage. The patient is on IV antibiotics. Surgery and Infectious Disease are following the patient closely. No chest pain. No palpitation. OBJECTIVE: VITAL SIGNS: Pulse is 62, blood pressure 130/70, respirations 17. CHEST: Clear to auscultation. CARDIOVASCULAR: S1, S2. ABDOMEN: Soft, nontender. No guarding. No rigidity. LABORATORY DATA: Glucose 120, hemoglobin 10.3. ASSESSMENT: 1. Fever, for evaluation, possible postoperative wound infection. 2. History of recent incisional hernia repair with mesh. 3. Elevated WBC, improving. 4. Possible iron deficiency anemia. 5. Chronic obstructive pulmonary disease, asthma. 6. Diabetes mellitus, type 2. 7. Hypertension. 8. Multiple medical issues. RECOMMENDATIONS AND DISCUSSION: Recommend to continue current management and continue symptomatic treatment, otherwise, continue the antibiotics. Closely follow with Surgery. The patient also had iron deficient anemia. Brief course of intravenous iron is recommended. MMODL / IJN: [id number] /
[2023-07-22 06:35] LABS: Glucose,Whole Blood 117 mg/dL (70-110)
[2023-07-22 11:28] LABS: Glucose,Whole Blood 130 mg/dL (70-110)
[2023-07-22 13:43] VITALS: BMI 33.3
[2023-07-22 16:47] LABS: Glucose,Whole Blood 114 mg/dL (70-110)
--- NOTE | 2023-07-22 16:55 | P.PN ---
Subjective Progress Note Date: 07/22/23 Principal diagnosis: Reason for follow-up is fever leukocytosis possible abdominal infection Patient is 52-year-old female with a past medical history significant for COPD diabetes mellitus hypertension hyperlipidemia sleep apnea in this patient who is status post incisional hernia repair on 07/04/2023, presented to hospital with fever abdominal pain abnormal CT with some fat stranding but no abscess. On today's visit that is 07/22/2023,the patient denies any fever or any chills, patient is breathing comfortably on 2 L nasal cannula oxygen, the patient denies chest pain shortness of breath and no significant cough, patient abdominal pain has decreased in intensity no nausea vomiting diarrhea still have output in the SHANELL drain. Noted to have has been obtained today blood culture negative Objective - Vital Signs Vital signs: Vital Signs Temp 98.1 F 07/22/23 12:24 Pulse 69 07/22/23 12:24 Resp 16 07/22/23 12:24 BP 123/71 07/22/23 12:24 Pulse Ox 95 07/22/23 12:24 FiO2 Intake & Output 07/21/23 07/22/23 07/22/23 18:59 06:59 18:59 Output Total 40 40 40 Balance -40 -40 -40 Weight 85.275 kg Output: Drainage 40 40 40 Left Upper Abdomen 40 40 40 Other: Voiding Method Toilet Toilet # Voids 2 5 - Exam GENERAL DESCRIPTION: Middle-aged female lying in bed in no distress RESPIRATORY SYSTEM: Unlabored breathing , decreased breath sounds at bases HEART: S1 S2 regular rate and rhythm , ABDOMEN: Soft , abdominal incision looks clean with no drainage mild tenderness EXTREMITIES: No edema feet - Labs CBC & Chem 7: 07/21/23 07:23 07/21/23 07:23 Labs: Abnormal Lab Results - Last 24 Hours (Table) 07/21/23 07/21/23 07/22/23 Range/Units 17:23 19:27 06:33 POC Glucose (mg/dL) 130 H 181 H 117 H (70-110) mg/dL 07/22/23 07/22/23 Range/Units 11:27 16:45 POC Glucose (mg/dL) 130 H 114 H (70-110) mg/dL Microbiology - Last 24 Hours (Table) 07/16/23 16:00 Blood Culture - Final Blood Assessment and Plan (1) Surgical site infection Current Visit: Yes Status: Acute Code(s): T81.49XA - INFECTION FOLLOWING A PROCEDURE, OTHER SURGICAL SITE, INIT SNOMED Code(s): 99716222 (2) Leukocytosis Current Visit: No Status: Acute Code(s): D72.829 - ELEVATED WHITE BLOOD CELL COUNT, UNSPECIFIED SNOMED Code(s): 318137937 Plan: 1patient presented hospital with sepsis in this patient who did have fever elevated white count concern likely for possible surgical site infection in this patient who recently did have a ventral hernia repair and noticed to have a purulent drainage in her drainage catheter 2-patient did have resolution of the fever and the white count almost normalized as of yesterday no CBC was done today and blood culture has been negative 3- patient continue Zosyn 3.37 g every 8 hours while inpatient General surgery is following the patient closely Dictation was produced using [employer] dictation software. please excuse any grammatical, word or spelling errors. Time with Patient: Less than 30
[2023-07-22 20:21] LABS: Glucose,Whole Blood 114 mg/dL (70-110)
--- NOTE | 2023-07-23 01:12 | PN ---
PROGRESS NOTE DATE OF SERVICE: 07/22/2023 SUBJECTIVE: This is a 52-year-old woman, who was admitted with possible wound infection, is being closely monitored. The SHANELL drain appears to be slightly less turbid today. OBJECTIVE: VITAL SIGNS: Pulse is 69, blood pressure 120/70, respirations 16. CHEST: Clear to auscultation. CARDIOVASCULAR: S1, S2. ABDOMEN: Soft, status post surgery. LABORATORY DATA: Accu-Cheks 30. Hemoglobin is 10.3, white count noted. ASSESSMENT: 1. Fever, possibly postoperative wound infection. 2. History of recent incisional hernia repair with mesh. 3. Elevated WBC, improving. 4. Possible iron deficiency anemia. 5. Chronic obstructive pulmonary disease, asthma. 6. Diabetes mellitus, type 2. 7. Hypertension. 8. Multiple medical issues. RECOMMENDATIONS AND DISCUSSION: Recommend to continue current medications, continue symptomatic treatment. Otherwise, repeat labs. Closely monitor. Guarded prognosis. Further recommendations to follow. MMODL / IJN: [id number] /
--- NOTE | 2023-07-23 02:01 | P.PN ---
Subjective Progress Note Date: 07/22/23 Principal diagnosis: s/p ventral hernia repair s/p ventral hernia repair with mesh, infected seroma, epifanio output more clear per the patient and her nurse with minimal turbidity primary surgeon is following continue IV antibiotics Objective - Vital Signs Vital signs: Vital Signs Temp 98.0 F 07/22/23 19:09 Pulse 73 07/22/23 19:09 Resp 16 07/22/23 19:09 BP 130/76 07/22/23 19:09 Pulse Ox 94 L 07/22/23 19:09 FiO2 Intake & Output 07/22/23 07/22/23 07/23/23 06:59 18:59 06:59 Output Total 40 40 Balance -40 -40 Weight 85.275 kg Output: Drainage 40 40 Left Upper Abdomen 40 40 Other: Voiding Method Toilet # Voids 5 2 - Labs CBC & Chem 7: 07/21/23 07:23 07/21/23 07:23 Labs: Abnormal Lab Results - Last 24 Hours (Table) 07/22/23 07/22/23 07/22/23 Range/Units 06:33 11:27 16:45 POC Glucose (mg/dL) 117 H 130 H 114 H (70-110) mg/dL 07/22/23 Range/Units 20:20 POC Glucose (mg/dL) 114 H (70-110) mg/dL Microbiology - Last 24 Hours (Table) 07/16/23 16:00 Blood Culture - Final Blood
[2023-07-23 05:49] LABS: Glucose,Whole Blood 119 mg/dL (70-110)
[2023-07-23 09:33] LABS: HCT 35.3 % (37.2-46.3); HGB 10.2 g/dL (12.0-15.0); MCH 19.9 pg (27.0-32.0); MCHC 28.9 g/dL (32.0-37.0); MCV 68.9 FL (80.0-97.0); NRBC Per 100 WBC 0 X 10*3/uL (0.00-0.01); Platelet Count 692 X 10*3/uL (140-440); RBC 5.12 X 10*6/uL (4.10-5.20); RDW 24.4 % (11.5-14.5); WBC 9.94 X 10*3/uL (4.50-10.00)
[2023-07-23 09:34] LABS: Basophils # (A) 0.19 X 10*3/uL (0.00-0.10); Basophils % (A) 1.9 %; Eosinophils # (A) 1.05 X 10*3/uL (0.04-0.35); Eosinophils % (A) 10.6 %; Lymphocytes % (A) 27.2 %; Monocytes # (A) 1.37 X 10*3/uL (0.20-1.00); Monocytes % (A) 13.8 %; Neutrophils # (A) 4.61 X 10*3/uL (1.80-7.70); Neutrophils % (A) 46.3 %
--- NOTE | 2023-07-23 09:44 | P.PN ---
Subjective Progress Note Date: 07/23/23 patient feels better. Her SHANELL drain has shown significant improvement. There is increased increased clarity of her drain fluid. There is less turbidity. On exam vital signs are stable. Abdomen is soft. Incision is well-healed. Infected seroma responding to IV antibiotics. Patient will continue receive IV aantibiotics. Objective - Vital Signs Vital signs: Vital Signs Temp 97.9 F 07/23/23 07:53 Pulse 61 07/23/23 07:53 Resp 17 07/23/23 07:53 BP 138/68 07/23/23 07:53 Pulse Ox 98 07/23/23 07:53 FiO2 Intake & Output 07/22/23 07/23/23 07/23/23 18:59 06:59 18:59 Output Total 40 Balance -40 Weight 85.275 kg Output: Drainage 40 Left Upper Abdomen 40 Other: # Voids 2 1 - Labs CBC & Chem 7: 07/23/23 06:15 07/21/23 07:23 Labs: Abnormal Lab Results - Last 24 Hours (Table) 07/22/23 07/22/23 07/22/23 Range/Units 11:27 16:45 20:20 Hgb (12.0-15.0) g/dL Hct (37.2-46.3) % MCV (80.0-97.0) FL MCH (27.0-32.0) pg MCHC (32.0-37.0) g/dL RDW (11.5-14.5) % Plt Count (140-440) X 10*3/uL Monocytes # (0.20-1.00) X 10*3/uL Eosinophils # (0.04-0.35) X 10*3/uL Basophils # (0.00-0.10) X 10*3/uL POC Glucose (mg/dL) 130 H 114 H 114 H (70-110) mg/dL 07/23/23 07/23/23 Range/Units 05:48 06:15 Hgb 10.2 L (12.0-15.0) g/dL Hct 35.3 L (37.2-46.3) % MCV 68.9 L (80.0-97.0) FL MCH 19.9 L (27.0-32.0) pg MCHC 28.9 L (32.0-37.0) g/dL RDW 24.4 H (11.5-14.5) % Plt Count 692 H (140-440) X 10*3/uL Monocytes # 1.37 H (0.20-1.00) X 10*3/uL Eosinophils # 1.05 H (0.04-0.35) X 10*3/uL Basophils # 0.19 H (0.00-0.10) X 10*3/uL POC Glucose (mg/dL) 119 H (70-110) mg/dL
[2023-07-23 10:04] LABS: BUN/Creat Ratio 10.83 Ratio (12.00-20.00); Blood Urea Nitrogen 6.5 mg/dL (9.0-27.0); Calcium 9.4 mg/dL (8.7-10.3); Carbon Dioxide 26.6 mmol/L (21.6-31.8); Chloride 103 mmol/L (96-109); Glucose 106 mg/dL (70-110); Potassium 3.9 mmol/L (3.5-5.5); Sodium 141 mmol/L (135-145)
[2023-07-23] MEDS: NA PHOS,M-B/NA PHOS,DI-BA 133 ML ENEMA RECTAL ONE (10:56)
[2023-07-23 11:53] LABS: Glucose,Whole Blood 132 mg/dL (70-110)
--- NOTE | 2023-07-23 16:23 | P.PN ---
Subjective Progress Note Date: 07/23/23 Principal diagnosis: Reason for follow-up is fever leukocytosis possible abdominal infection Patient is 52-year-old female with a past medical history significant for COPD diabetes mellitus hypertension hyperlipidemia sleep apnea in this patient who is status post incisional hernia repair on 07/04/2023, presented to hospital with fever abdominal pain abnormal CT with some fat stranding but no abscess. On today's visit that is 07/23/2023,the patient remains to be afebrile, patient is on room air not requiring supplemental oxygen and denies any shortness of breath no chest pain or cough.Patient denies having any nausea or vomiting, no abdominal pain and no diarrhea still have output in the SHANELL drain was mostly serosanguineous not purulent. The patient white count 9.94, creatinine 0.6 blood culture has been negative Objective - Vital Signs Vital signs: Vital Signs Temp 98.1 F 07/23/23 15:16 Pulse 68 07/23/23 15:53 Resp 19 07/23/23 15:16 BP 127/67 07/23/23 15:16 Pulse Ox 94 L 07/23/23 15:16 FiO2 Intake & Output 07/22/23 07/23/23 07/23/23 18:59 06:59 18:59 Output Total 40 Balance -40 Weight 85.275 kg Output: Drainage 40 Left Upper Abdomen 40 Other: Voiding Method Toilet # Voids 2 1 - Exam GENERAL DESCRIPTION: Middle-aged female lying in bed in no distress RESPIRATORY SYSTEM: Unlabored breathing , decreased breath sounds at bases HEART: S1 S2 regular rate and rhythm , ABDOMEN: Soft , abdominal incision looks clean with no drainage mild tenderness EXTREMITIES: No edema feet - Labs CBC & Chem 7: 07/23/23 06:15 07/23/23 06:15 Labs: Abnormal Lab Results - Last 24 Hours (Table) 07/22/23 07/22/23 07/23/23 Range/Units 16:45 20:20 05:48 Hgb (12.0-15.0) g/dL Hct (37.2-46.3) % MCV (80.0-97.0) FL MCH (27.0-32.0) pg MCHC (32.0-37.0) g/dL RDW (11.5-14.5) % Plt Count (140-440) X 10*3/uL Monocytes # (0.20-1.00) X 10*3/uL Eosinophils # (0.04-0.35) X 10*3/uL Basophils # (0.00-0.10) X 10*3/uL BUN (9.0-27.0) mg/dL BUN/Creatinine Ratio (12.00-20.00) Ratio POC Glucose (mg/dL) 114 H 114 H 119 H (70-110) mg/dL 07/23/23 07/23/23 07/23/23 Range/Units 06:15 06:15 11:52 Hgb 10.2 L (12.0-15.0) g/dL Hct 35.3 L (37.2-46.3) % MCV 68.9 L (80.0-97.0) FL MCH 19.9 L (27.0-32.0) pg MCHC 28.9 L (32.0-37.0) g/dL RDW 24.4 H (11.5-14.5) % Plt Count 692 H (140-440) X 10*3/uL Monocytes # 1.37 H (0.20-1.00) X 10*3/uL Eosinophils # 1.05 H (0.04-0.35) X 10*3/uL Basophils # 0.19 H (0.00-0.10) X 10*3/uL BUN 6.5 L (9.0-27.0) mg/dL BUN/Creatinine Ratio 10.83 L (12.00-20.00) Ratio POC Glucose (mg/dL) 132 H (70-110) mg/dL Assessment and Plan (1) Surgical site infection Current Visit: Yes Status: Acute Code(s): T81.49XA - INFECTION FOLLOWING A PROCEDURE, OTHER SURGICAL SITE, INIT SNOMED Code(s): 36709440 (2) Leukocytosis Current Visit: No Status: Acute Code(s): D72.829 - ELEVATED WHITE BLOOD CELL COUNT, UNSPECIFIED SNOMED Code(s): 814534394 Plan: 1patient presented hospital with sepsis in this patient who did have fever elevated white count concern likely for possible surgical site infection in this patient who recently did have a ventral hernia repair and noticed to have a purulent drainage in her drainage catheter 2-patient did have resolution of the fever and the white count almost normalized and blood culture has been negative 3- patient to continue with the Zosyn transition to oral Ceftin on discharge multiple question concern answered Dictation was produced using [employer] software. please excuse any grammatical, word or spelling errors. Time with Patient: Less than 30
[2023-07-23 16:44] LABS: Glucose,Whole Blood 161 mg/dL (70-110)
[2023-07-23 20:40] LABS: Glucose,Whole Blood 130 mg/dL (70-110)
[2023-07-23] MEDS: SENNOSIDES 8.6 MG TAB PO PRN (22:03)
--- NOTE | 2023-07-24 00:59 | PN ---
PROGRESS NOTE DATE OF SERVICE: 07/23/2023 SUBJECTIVE: This 52-year-old woman admitted with possible wound infection, had a SHANELL drain, which is clearing up at this time. No chest pain. No palpitation. White count is also improved. OBJECTIVE: VITAL SIGNS: Pulse is 61, blood pressure 130/60, respirations 17. CHEST: Clear to auscultation. ABDOMEN: Soft. NERVOUS SYSTEM: Nonfocal. LABORATORY DATA: WBC 9.4, hemoglobin 10.2. ASSESSMENT: 1. Fever, possibly postoperative wound infection. 2. History of recent incisional hernia repair with mesh. 3. Elevated WBC, improving. 4. Possible iron-deficiency anemia. 5. Chronic obstructive pulmonary disease, asthma. 6. Diabetes mellitus, type 2. 7. Hypertension. 8. Multiple medical issues. RECOMMENDATIONS AND DISCUSSION: Recommend to continue current medications, continue symptomatic treatment. Otherwise at this time, repeat labs will be ordered. Closely follow with Surgery. Further recommendations to follow. MMODL / IJN: [id number] /
[2023-07-24 05:53] LABS: Glucose,Whole Blood 112 mg/dL (70-110)
[2023-07-24 08:40] LABS: Basophils % (A) 1.9 %; Eosinophils # (A) 1.16 X 10*3/uL (0.04-0.35); Eosinophils % (A) 10.9 %; HCT 35.7 % (37.2-46.3); HGB 10.4 g/dL (12.0-15.0); Lymphocytes # (A) 3.43 X 10*3/uL (0.90-5.00); Lymphocytes % (A) 32.2 %; MCH 20.4 pg (27.0-32.0); MCHC 29.1 g/dL (32.0-37.0); MCV 69.9 FL (80.0-97.0); Mean Platelet Volume 9.8 FL (9.5-12.2); Monocytes # (A) 1.38 X 10*3/uL (0.20-1.00); Monocytes % (A) 12.9 %; NRBC Per 100 WBC 0.02 X 10*3/uL (0.00-0.01); Neutrophils # (A) 4.46 X 10*3/uL (1.80-7.70); Neutrophils % (A) 41.8 %; Platelet Count 692 X 10*3/uL (140-440); RBC 5.11 X 10*6/uL (4.10-5.20); RDW 24.6 % (11.5-14.5); WBC 10.66 X 10*3/uL (4.50-10.00)
[2023-07-24 08:57] LABS: Calcium 9.6 mg/dL (8.7-10.3); Carbon Dioxide 27.9 mmol/L (21.6-31.8); Chloride 104 mmol/L (96-109); Glucose 94 mg/dL (70-110); Potassium 4.3 mmol/L (3.5-5.5); Sodium 143 mmol/L (135-145)
[2023-07-24 11:10] LABS: Glucose,Whole Blood 137 mg/dL (70-110)
[2023-07-24 16:31] LABS: Glucose,Whole Blood 178 mg/dL (70-110)
--- NOTE | 2023-07-24 17:30 | P.PN ---
Subjective Progress Note Date: 07/24/23 patient feels well. Her SHANELL drain is improved slightly. The contents of the drain has decreased the patient still has some turbidity to the SHANELL seroma fluid. She denies any abdominal pain. On exam vital signs appear stable. Abdomen soft. Incision is well-healed. There is no evidence of sycellulitisvitis or infection. Infected seroma. Patient was seen receive IV antibiotic. She may be switched to oral Avelox tomorrow. Objective - Vital Signs Vital signs: Vital Signs Temp 98.4 F 07/24/23 14:00 Pulse 62 07/24/23 15:49 Resp 18 07/24/23 14:00 BP 113/64 07/24/23 14:00 Pulse Ox 95 07/24/23 14:00 FiO2 Intake & Output 07/23/23 07/24/23 07/24/23 18:59 06:59 18:59 Output Total 50 Balance -50 Output: Drainage 50 Left Upper Abdomen 50 Other: Voiding Method Toilet Toilet # Voids 3 2 - Labs CBC & Chem 7: 07/24/23 04:30 07/24/23 04:30 Labs: Abnormal Lab Results - Last 24 Hours (Table) 07/23/23 07/24/23 07/24/23 Range/Units 20:39 04:30 05:49 WBC 10.66 H (4.50-10.00) X 10*3/uL Hgb 10.4 L (12.0-15.0) g/dL Hct 35.7 L (37.2-46.3) % MCV 69.9 L (80.0-97.0) FL MCH 20.4 L (27.0-32.0) pg MCHC 29.1 L (32.0-37.0) g/dL RDW 24.6 H (11.5-14.5) % Plt Count 692 H (140-440) X 10*3/uL Monocytes # 1.38 H (0.20-1.00) X 10*3/uL Eosinophils # 1.16 H (0.04-0.35) X 10*3/uL Basophils # 0.20 H (0.00-0.10) X 10*3/uL NRBC/100 WBC Diff 0.02 H (0.00-0.01) X 10*3/uL POC Glucose (mg/dL) 130 H 112 H (70-110) mg/dL 07/24/23 07/24/23 Range/Units 11:08 16:30 WBC (4.50-10.00) X 10*3/uL Hgb (12.0-15.0) g/dL Hct (37.2-46.3) % MCV (80.0-97.0) FL MCH (27.0-32.0) pg MCHC (32.0-37.0) g/dL RDW (11.5-14.5) % Plt Count (140-440) X 10*3/uL Monocytes # (0.20-1.00) X 10*3/uL Eosinophils # (0.04-0.35) X 10*3/uL Basophils # (0.00-0.10) X 10*3/uL NRBC/100 WBC Diff (0.00-0.01) X 10*3/uL POC Glucose (mg/dL) 137 H 178 H (70-110) mg/dL
--- NOTE | 2023-07-24 19:18 | P.PN ---
Subjective Progress Note Date: 07/24/23 Principal diagnosis: Reason for follow-up is fever leukocytosis possible abdominal infection Patient is 52-year-old female with a past medical history significant for COPD diabetes mellitus hypertension hyperlipidemia sleep apnea in this patient who is status post incisional hernia repair on 07/04/2023, presented to hospital with fever abdominal pain abnormal CT with some fat stranding but no abscess. On today's visit that is 07/24/2023, the patient continues to be afebrile, the patient is on room air and breathing comfortably, the Pt denies having any chest pain or cough, the patient denies having any abdominal pain no vomiting or any diarrhea and overall output in the SHANELL drain is mostly serosanguineous nonpurulent. Patient white count is 10.66 creatinine 0.6 Objective - Vital Signs Vital signs: Vital Signs Temp 97.6 F 07/24/23 07:49 Pulse 62 07/24/23 11:46 Resp 16 07/24/23 07:49 BP 124/75 07/24/23 07:49 Pulse Ox 94 L 07/24/23 08:24 FiO2 Intake & Output 07/23/23 07/24/23 07/24/23 18:59 06:59 18:59 Output Total 50 Balance -50 Output: Drainage 50 Left Upper Abdomen 50 Other: Voiding Method Toilet Toilet # Voids 3 2 - Exam GENERAL DESCRIPTION: Middle-aged female lying in bed in no distress RESPIRATORY SYSTEM: Unlabored breathing , decreased breath sounds at bases HEART: S1 S2 regular rate and rhythm , ABDOMEN: Soft , abdominal incision looks clean with no drainage mild tenderness EXTREMITIES: No edema feet - Labs CBC & Chem 7: 07/24/23 04:30 07/24/23 04:30 Labs: Abnormal Lab Results - Last 24 Hours (Table) 07/23/23 07/23/23 07/24/23 Range/Units 16:42 20:39 04:30 WBC 10.66 H (4.50-10.00) X 10*3/uL Hgb 10.4 L (12.0-15.0) g/dL Hct 35.7 L (37.2-46.3) % MCV 69.9 L (80.0-97.0) FL MCH 20.4 L (27.0-32.0) pg MCHC 29.1 L (32.0-37.0) g/dL RDW 24.6 H (11.5-14.5) % Plt Count 692 H (140-440) X 10*3/uL Monocytes # 1.38 H (0.20-1.00) X 10*3/uL Eosinophils # 1.16 H (0.04-0.35) X 10*3/uL Basophils # 0.20 H (0.00-0.10) X 10*3/uL NRBC/100 WBC Diff 0.02 H (0.00-0.01) X 10*3/uL POC Glucose (mg/dL) 161 H 130 H (70-110) mg/dL 07/24/23 07/24/23 Range/Units 05:49 11:08 WBC (4.50-10.00) X 10*3/uL Hgb (12.0-15.0) g/dL Hct (37.2-46.3) % MCV (80.0-97.0) FL MCH (27.0-32.0) pg MCHC (32.0-37.0) g/dL RDW (11.5-14.5) % Plt Count (140-440) X 10*3/uL Monocytes # (0.20-1.00) X 10*3/uL Eosinophils # (0.04-0.35) X 10*3/uL Basophils # (0.00-0.10) X 10*3/uL NRBC/100 WBC Diff (0.00-0.01) X 10*3/uL POC Glucose (mg/dL) 112 H 137 H (70-110) mg/dL Assessment and Plan (1) Surgical site infection Current Visit: Yes Status: Acute Code(s): T81.49XA - INFECTION FOLLOWING A PROCEDURE, OTHER SURGICAL SITE, INIT SNOMED Code(s): 92703754 (2) Leukocytosis Current Visit: No Status: Acute Code(s): D72.829 - ELEVATED WHITE BLOOD CELL COUNT, UNSPECIFIED SNOMED Code(s): 230830681 Plan: 1patient presented hospital with sepsis in this patient who did have fever elevated white count concern likely for possible surgical site infection in this patient who recently did have a ventral hernia repair and noticed to have a purulent drainage in her drainage catheter 2-patient did have resolution of the fever and the white count almost normalized and blood culture has been negative 3- patient to continue with the Zosyn, we will recommend a 2-week course of oral Augmentin and Bactrim DS on discharge this was discussed with the surgeon if any mesh infection there may be recurrence of symptoms after this condition of antibiotic therapy and at that time will need surgical exploration and removal of the mesh Dictation was produced using [employer] dictation software. please excuse any grammatical, word or spelling errors. Time with Patient: Less than 30
[2023-07-24 20:35] LABS: Glucose,Whole Blood 145 mg/dL (70-110)
[2023-07-25 05:33] LABS: Glucose,Whole Blood 110 mg/dL (70-110)
--- NOTE | 2023-07-25 06:07 | P.PN ---
Subjective Progress Note Date: 07/24/23 This is a pleasant 52-year-old female who recently underwent incisional hernia repair with mesh being closely monitored with general surgery along with infectious disease following. Patient did have a postoperative fever and increased output from her SHANELL and with concerns of infection being monitored on IV antibiotics. Diet has been increased and tolerating with no reports of nausea or vomiting and increased abdominal pain. Patient's SHANELL drain output has lessened and general surgery recommending continue on IV antibiotics and monitoring for bowel activity. Patient has not had a bowel movement in a few days. Patient being started on stool softeners and will continue. Patient is afebrile with no reported chest pain or shortness of breath. Patient is tolerating the diet and denies any nausea or vomiting. Patient has been instructed to increase activity as tolerated with frequent walks around the halls. Review of systems: Constitutional: No reports of fatigue, fever, or chills Cardiovascular: No reports of chest pain or palpitations Respiratory: No reports of shortness of breath or cough GI: No reports of nausea, no reports of vomiting, reports has not had a bowel movement in a couple days : No reports of dysuria or retention Neurovascular: reports of generalized weakness, All medications have been reviewed Active Medications Acetaminophen (Acetaminophen Tab 325 Mg Tab) 650 mg PO Q6HR PRN PRN Reason: Mild Pain or Fever > 100.5 Last Admin: 07/16/23 21:46 Dose: 650 mg Hydrocodone Bitart/Acetaminophen (Hydrocodone/Apap 5-325mg 1 Each Tab) 1 each PO Q4HR PRN PRN Reason: Pain Last Admin: 07/24/23 12:17 Dose: 1 each Albuterol Sulfate (Albuterol Nebulized 2.5 Mg/3 Ml) 2.5 mg INHALATION RT-QID [facility] Last Admin: 07/24/23 15:37 Dose: 2.5 mg Albuterol Sulfate (Albuterol Nebulized 2.5 Mg/3 Ml) 2.5 mg INHALATION RT-Q2H PRN PRN Reason: Shortness Of Breath Or Wheezing Alprazolam (Alprazolam 0.5 Mg Tab) 0.5 mg PO BID PRN PRN Reason: Anxiety Last Admin: 07/17/23 00:16 Dose: 0.5 mg Amlodipine Besylate (Amlodipine 10 Mg Tab) 10 mg PO DAILY [facility] Last Admin: 07/24/23 08:36 Dose: 10 mg Atorvastatin Calcium (Atorvastatin 40 Mg Tab) 40 mg PO HS [facility] Last Admin: 07/23/23 22:03 Dose: 40 mg Dextrose/Water (Dextrose 50% Syringe 50 Ml) 25 ml IVP PER PROTOCOL PRN; Protocol PRN Reason: Hypoglycemia Dextrose/Water (Dextrose 50% Syringe 50 Ml) 50 ml IVP PER PROTOCOL PRN; Protocol PRN Reason: Hypoglycemia Hydromorphone HCl (Hydromorphone 1 Mg/Ml 1 Ml Syringe) 1 mg IVP Q3HR PRN PRN Reason: Severe Pain (Scale 7 to 10) Last Admin: 07/16/23 02:16 Dose: 1 mg Hydromorphone HCl (Hydromorphone 0.5 Mg/0.5 Ml Syringe) 0.5 mg IVP Q3HR PRN PRN Reason: Moderate Pain (Scale 4 to 6) Last Admin: 07/18/23 06:04 Dose: 0.5 mg Piperacillin Sod/Tazobactam (Sod 3.375 gm/ Sodium Chloride) 100 mls @ 25 mls/hr IVPB Q8HR [facility]; Protocol Last Admin: 07/24/23 08:36 Dose: 25 mls/hr Insulin Aspart (Insulin Aspart (Novolog) 100 Unit/Ml Vial) 0 unit SQ ACHS [facility]; Protocol Last Admin: 07/24/23 11:16 Dose: Not Given Miscellaneous Information (Magnesium Replacement Protocol 1 Each Misc) 1 each MISCELLANE DAILY PRN; Protocol PRN Reason: Per Protocol Miscellaneous Information (Potassium Replacement Protocol 1 Each Misc) 1 each MISCELLANE DAILY PRN; Protocol PRN Reason: Per Protocol Naloxone HCl (Naloxone 0.4 Mg/Ml 1 Ml Vial) 0.2 mg IV Q2M PRN PRN Reason: Opioid Reversal Nystatin (Nystatin 100,000 Unit/Ml Susp 500,000 Unit/5 Ml Cup) 500,000 unit PO QID [facility]; Protocol Last Admin: 07/24/23 12:15 Dose: 500,000 unit Ondansetron HCl (Ondansetron 4 Mg/2 Ml Vial) 4 mg IVP Q8HR PRN PRN Reason: Nausea And Vomiting Last Admin: 07/16/23 19:46 Dose: 4 mg Pantoprazole Sodium (Pantoprazole 40 Mg Tablet) 40 mg PO AC-[id number] [facility] Last Admin: 07/24/23 06:43 Dose: 40 mg Pregabalin (Pregabalin 100 Mg Cap) 100 mg PO DAILY@1600 [facility] Last Admin: 07/23/23 16:15 Dose: 100 mg Pregabalin (Pregabalin 100 Mg Cap) 200 mg PO BID@0900,2200 [facility] Last Admin: 07/24/23 08:35 Dose: 200 mg Senna (Sennosides 8.6 Mg Tab) 8.6 mg PO DAILY PRN PRN Reason: Constipation Last Admin: 07/24/23 08:45 Dose: 8.6 mg Zolpidem Tartrate (Zolpidem 5 Mg Tab) 10 mg PO HS [facility] Last Admin: 07/23/23 23:54 Dose: 10 mg PHYSICAL EXAMINATION: GENERAL: The patient is alert and oriented x4, Well developed, well nourished. Obese HEENT: Pupils are round and equally reacting to light. EOMI. no scleral icterus. No conjunctival pallor. Normocephalic, atraumatic. No pharyngeal erythema. No thyromegaly. CARDIOVASCULAR: S1 and S2 muffled PULMONARY: diminished breath sounds bilaterally with no wheezing or rhonchi noted. ABDOMEN: soft. Nontender on exam. obese. non-distended, normoactive bowel sounds. No palpable organomegaly. MUSCULOSKELETAL: No joint swelling or deformity. EXTREMITIES: No cyanosis, clubbing, or pedal edema. NEUROLOGICAL: Gross neurological examination did not reveal any focal deficits. Diffuse weakness SKIN: No rashes. Assessment: Fever, possibly postoperative wound infection from recent incisional hernia repair with mesh Leukocytosis, improving Possible iron deficiency anemia History of chronic obstructive pulmonary disease, asthma, not in exacerbation Diabetes mellitus, type II [id number] Hypertension Obesity with a BMI 33.3 GI prophylaxis DVT prophylaxis Full code Plan: Recommend to continue with current medications and management with general surgery and infectious disease following. Patient is maintained on antibiotics and will likely transition to oral antibiotics on discharge. General surgery recommending to continue on IV antibiotics and transition to oral Avelox on discharge Will discuss further with infectious disease regarding discharge antibiotic recommendations. White count is trending down and will follow-up with repeat labs Patient tolerating diet although reports has not had a bowel movement in a few days. Continue with stools and bowel regimen as needed Possible discharge planning in the next 24 hours The impression and plan of care has been dictated by Stephanie Sparks, nurse practitioner as directed. Dr. Boris MD I have performed a history and examination and MDM of this patient, discussed the same with the dictator, and agree with the dictator's assessment and plan as written ,documented as a scribe. Based on total visit time, I have performed more than 50% of the visit. Any additional findings or plans will be noted. Objective - Vital Signs Vital signs: Vital Signs Temp 98.4 F 07/24/23 14:00 Pulse 75 07/24/23 14:00 Resp 18 07/24/23 14:00 BP 113/64 07/24/23 14:00 Pulse Ox 95 07/24/23 14:00 FiO2 Intake & Output 07/23/23 07/24/23 07/24/23 18:59 06:59 18:59 Output Total 50 Balance -50 Output: Drainage 50 Left Upper Abdomen 50 Other: Voiding Method Toilet Toilet # Voids 3 2 - Labs CBC & Chem 7: 07/24/23 04:30 07/24/23 04:30 Labs: Abnormal Lab Results - Last 24 Hours (Table) 07/23/23 07/23/23 07/24/23 Range/Units 16:42 20:39 04:30 WBC 10.66 H (4.50-10.00) X 10*3/uL Hgb 10.4 L (12.0-15.0) g/dL Hct 35.7 L (37.2-46.3) % MCV 69.9 L (80.0-97.0) FL MCH 20.4 L (27.0-32.0) pg MCHC 29.1 L (32.0-37.0) g/dL RDW 24.6 H (11.5-14.5) % Plt Count 692 H (140-440) X 10*3/uL Monocytes # 1.38 H (0.20-1.00) X 10*3/uL Eosinophils # 1.16 H (0.04-0.35) X 10*3/uL Basophils # 0.20 H (0.00-0.10) X 10*3/uL NRBC/100 WBC Diff 0.02 H (0.00-0.01) X 10*3/uL POC Glucose (mg/dL) 161 H 130 H (70-110) mg/dL 07/24/23 07/24/23 Range/Units 05:49 11:08 WBC (4.50-10.00) X 10*3/uL Hgb (12.0-15.0) g/dL Hct (37.2-46.3) % MCV (80.0-97.0) FL MCH (27.0-32.0) pg MCHC (32.0-37.0) g/dL RDW (11.5-14.5) % Plt Count (140-440) X 10*3/uL Monocytes # (0.20-1.00) X 10*3/uL Eosinophils # (0.04-0.35) X 10*3/uL Basophils # (0.00-0.10) X 10*3/uL NRBC/100 WBC Diff (0.00-0.01) X 10*3/uL POC Glucose (mg/dL) 112 H 137 H (70-110) mg/dL
[2023-07-25 09:59] LABS: Anisocytosis Moderate; Basophils # (A) 0.1 k/uL (0-0.2); Basophils % (A) 1 %; Eosinophils # (A) 0.9 k/uL (0-0.7); Eosinophils % (A) 10 %; HCT 39.9 % (34.0-46.0); HGB 11.4 gm/dL (11.4-16.0); Hypochromasia Marked; Lymphocytes # (A) 2.3 k/uL (1.0-4.8); Lymphocytes % (A) 25 %; MCHC 28.6 g/dL (31.0-37.0); MCV 73.6 fL (80.0-100.0); Mean Platelet Volume 7.7; Microcytosis Marked; Monocytes # (A) 0.9 k/uL (0-1.0); Monocytes % (A) 10 %; Neutrophils # (A) 4.8 k/uL (1.3-7.7); Neutrophils % (A) 51 %; Platelet Count 567 k/uL (150-450); Poikilocytosis Slight; RBC 5.42 m/uL (3.80-5.40); RDW 21.8 % (11.5-15.5); WBC 9.4 k/uL (3.8-10.6)
[2023-07-25 10:01] LABS: African American GFR (CKD) >90 (>60 ml/min/1.73 sqM); Anion Gap 9 mmol/L; Blood Urea Nitrogen 9 mg/dL (7-17); Calcium 9.4 mg/dL (8.4-10.2); Carbon Dioxide 26 mmol/L (22-30); Chloride 105 mmol/L (98-107); Glucose 146 mg/dL (74-99); Non-African American GFR(CKD) >90 (>60 ml/min/1.73 sqM); Potassium 4.4 mmol/L (3.5-5.1); Sodium 140 mmol/L (137-145)
[2023-07-25 11:16] LABS: Glucose,Whole Blood 143 mg/dL (70-110)
[2023-07-25] MEDS: DOCUSATE 100 MG CAP PO SCH (12:30)
--- NOTE | 2023-07-25 14:16 | P.PN ---
Subjective Progress Note Date: 07/25/23 CHIEF COMPLAINT: Fever HISTORY OF PRESENT ILLNESS: Patient with recent incisional hernia repair with mesh on July 04, 2023. Presents to the hospital with complaints of abdominal pain and fever. Patient's SHANELL drain is becoming more clear and more serosanguineous in color. She only had 5 mL output. She is having bowel movements and flatus. Her bowel movements have been small she is asking for stool softener. Afebrile. WBC normal at 9.4 PHYSICAL EXAM: VITAL SIGNS: Reviewed. GENERAL: Well-developed in no acute distress. ABDOMEN: Soft. Nondistended. Mild tenderness right upper abdomen. Incision site clean dry and intact with drained blister noted at the distal aspect of the incision. NEUROLOGIC: Alert and oriented. Cranial nerves II through XII grossly intact. ASSESSMENT: 1. Infected seroma 2. Fever on admission 3. Recent incisional hernia repair with mesh. Concerns for possible mesh infection 4. Leukocytosis improved PLAN: -Patient can be discharged from surgical standpoint -Discharge antibiotics per infectious disease -Continue SHANELL drain at discharge -Colace added for constipation Physician Physician Coder note has been reviewed by physician. Signing provider agrees with the documented findings, assessment, and plan of care. Objective - Vital Signs Vital signs: Vital Signs Temp 98.5 F 07/25/23 07:00 Pulse 64 07/25/23 07:00 Resp 18 07/25/23 07:00 BP 110/68 07/25/23 07:00 Pulse Ox 97 07/25/23 07:00 FiO2 Intake & Output 07/24/23 07/25/23 07/25/23 18:59 06:59 18:59 Output Total 5 Balance -5 Output: Drainage 5 Left Upper Abdomen 5 Other: Voiding Method Toilet # Voids 4 6 # Bowel Movements 1 - Labs CBC & Chem 7: 07/25/23 09:28 07/25/23 09:28 Labs: Abnormal Lab Results - Last 24 Hours (Table) 07/24/23 07/24/23 07/25/23 Range/Units 16:30 20:34 09:28 RBC 5.42 H (3.80-5.40) m/uL MCV 73.6 L (80.0-100.0) fL MCH 21.0 L (25.0-35.0) pg MCHC 28.6 L (31.0-37.0) g/dL RDW 21.8 H (11.5-15.5) % Plt Count 567 H (150-450) k/uL Eosinophils # 0.9 H (0-0.7) k/uL Glucose (74-99) mg/dL POC Glucose (mg/dL) 178 H 145 H (70-110) mg/dL 07/25/23 07/25/23 Range/Units 09:28 11:15 RBC (3.80-5.40) m/uL MCV (80.0-100.0) fL MCH (25.0-35.0) pg MCHC (31.0-37.0) g/dL RDW (11.5-15.5) % Plt Count (150-450) k/uL Eosinophils # (0-0.7) k/uL Glucose 146 H (74-99) mg/dL POC Glucose (mg/dL) 143 H (70-110) mg/dL
--- NOTE | 2023-07-25 15:33 | P.PN ---
Subjective Progress Note Date: 07/25/23 Principal diagnosis: Reason for follow-up is fever leukocytosis possible abdominal infection Patient is 52-year-old female with a past medical history significant for COPD diabetes mellitus hypertension hyperlipidemia sleep apnea in this patient who is status post incisional hernia repair on 07/04/2023, presented to hospital with fever abdominal pain abnormal CT with some fat stranding but no abscess. On today's visit that is 07/25/2023, Patient is afebrile patient is currently on room air and denies having any shortness of breath, the patient denies any chest pain or cough, the patient denies any nausea vomiting did not have any abdominal pain and no diarrhea. Patient white count is 9.4, creatinine 0.57 Objective - Vital Signs Vital signs: Vital Signs Temp 98.2 F 07/25/23 14:00 Pulse 69 07/25/23 14:00 Resp 17 07/25/23 14:00 BP 144/82 07/25/23 14:00 Pulse Ox 94 L 07/25/23 14:00 FiO2 Intake & Output 07/24/23 07/25/23 07/25/23 18:59 06:59 18:59 Intake Total 100 Output Total 5 Balance -5 100 Intake: Oral 100 Output: Drainage 5 Left Upper Abdomen 5 Other: Voiding Method Toilet # Voids 4 6 # Bowel Movements 1 - Exam GENERAL DESCRIPTION: Middle-aged female lying in bed in no distress RESPIRATORY SYSTEM: Unlabored breathing , decreased breath sounds at bases HEART: S1 S2 regular rate and rhythm , ABDOMEN: Soft , abdominal incision looks clean with no drainage mild tenderness EXTREMITIES: No edema feet - Labs CBC & Chem 7: 07/25/23 09:28 07/25/23 09:28 Labs: Abnormal Lab Results - Last 24 Hours (Table) 07/24/23 07/24/23 07/25/23 Range/Units 16:30 20:34 09:28 RBC 5.42 H (3.80-5.40) m/uL MCV 73.6 L (80.0-100.0) fL MCH 21.0 L (25.0-35.0) pg MCHC 28.6 L (31.0-37.0) g/dL RDW 21.8 H (11.5-15.5) % Plt Count 567 H (150-450) k/uL Eosinophils # 0.9 H (0-0.7) k/uL Glucose (74-99) mg/dL POC Glucose (mg/dL) 178 H 145 H (70-110) mg/dL 07/25/23 07/25/23 Range/Units 09:28 11:15 RBC (3.80-5.40) m/uL MCV (80.0-100.0) fL MCH (25.0-35.0) pg MCHC (31.0-37.0) g/dL RDW (11.5-15.5) % Plt Count (150-450) k/uL Eosinophils # (0-0.7) k/uL Glucose 146 H (74-99) mg/dL POC Glucose (mg/dL) 143 H (70-110) mg/dL Assessment and Plan (1) Surgical site infection Current Visit: Yes Status: Acute Code(s): T81.49XA - INFECTION FOLLOWING A PROCEDURE, OTHER SURGICAL SITE, INIT SNOMED Code(s): 87490784 (2) Leukocytosis Current Visit: No Status: Acute Code(s): D72.829 - ELEVATED WHITE BLOOD CELL COUNT, UNSPECIFIED SNOMED Code(s): 666228971 Plan: 1patient presented hospital with sepsis in this patient who did have fever elevated white count concern likely for possible surgical site infection in this patient who recently did have a ventral hernia repair and noticed to have a purulent drainage in her drainage catheter 2-patient did have resolution of the fever and the white count almost normalized and blood culture has been negative 3- patient has been cleared for discharge by surgical team prescription for Ceftin has been sent I will add Bactrim DS as well and close outpatient follow- up patient has been educated about her condition and possible recurrence of s ymptoms after completion of antibiotic if the mesh is infected in that case she will need extraction of the mesh patient verbalized understanding Dictation was produced using [employer] software. please excuse any grammatical, word or spelling errors. Time with Patient: Less than 30
[2023-07-25 15:47] VITALS: BP 144/82; RESP 17; TEMP 98.2
[2023-07-25 16:29] VITALS: PULSE 64
[2023-07-25 17:00] LABS: Glucose,Whole Blood 177 mg/dL (70-110)
--- NOTE | 2023-07-28 06:30 | P.DS ---
Providers Date of admission: 07/15/23 21:51 Attending physician: Parker Escalante Consults: 07/15/23 21:51 Consult Physician Routine Consulting Provider: Eric Peoples Consult Reason/Comments: fever Do you want consulting provider notified?: Yes Consult Physician Urgent Consulting Provider: Osorio Cummins Consult Reason/Comments: fever. Your patient Do you want consulting provider notified?: Already Contacted Primary care physician: Ashley Kerr [facility] Course: Final diagnosis Fever, concerns for postoperative wound infection from recent incisional hernia repair with mesh Infected seroma Leukocytosis, improving Likely iron deficiency anemia History of chronic obstructive pulmonary disease, asthma, not in exacerbation Diabetes mellitus, type II [id number] Hypertension Obesity with a BMI 33.3 GI prophylaxis DVT prophylaxis Full code Discharge disposition Patient is being discharged in a stable condition with guarded prognosis to home. Patient will follow-up with Dr. Kerr in the outpatient setting upon discharge. Patient is to continue with antibiotics on discharge and close outpatient follow-up with general surgery as scheduled. Total time taken is greater than 35 minutes. Hospital course This is a 52-year-old female who was recently admitted with abdominal pain with fever with concerns of postoperative infection from recent incisional hernia p air with mesh. Patient noted to have an infected seroma and maintained on IV antibiotic. Infectious disease and general surgery following showing some improvements and cultures are negative. Patient will continue with the SHANELL drain on discharge along with close outpatient follow-up with general surgery. Patient to continue a short course of oral antibiotics per infectious disease recommendations and will recommend outpatient follow-up. Currently no reports of chest pain, shortness of breath, or palpitations. Patient is afebrile. No reports of nausea or vomiting and patient is tolerating diet. Patient will be discharged home today. Physical exam: Gen: This is a 52-year-old female who is awake, alert oriented x 3, well- developed, well-nourished, obese HEENT: Head is atraumatic, normocephalic. Pupils equal, round. Sclerae is anicteric. NECK: Supple. No JVD. No lymphadenopathy. No thyromegaly. LUNGS: Diminished breath sounds bilaterally otherwise clear to auscultation. No wheezes or rhonchi. No intercostal retractions. HEART: Regular rate and rhythm. No murmur. ABDOMEN: Soft. Nontender bowel sounds are present. No masses. EXTREMITIES: No pedal edema. No calf tenderness. NEUROLOGICAL: Patient is awake, alert and oriented x3. Cranial nerves 2 through 12 are grossly intact. Please refer to medication reconciliation sheet for a list of medications. The impression and plan of care has been dictated by Stephanie Sparks, Nurse Practitioner as directed. Dr. Ute MD I have performed a history and examination and MDM of this patient, discussed the same with the dictator, and agree with the dictator's assessment and plan as written ,documented as a scribe. Based on total visit time, I have performed more than 50% of the visit. Patient Condition at Discharge: Stable Plan - Discharge Summary Discharge Rx Participant: No New Discharge Prescriptions: New cefUROXime axetiL [Cefuroxime] 500 mg PO BID 7 Days #14 tab HYDROcodone/APAP 5-325MG [[place] 5-325] 1 each PO Q4HR PRN #6 tab PRN Reason: Pain Pantoprazole [Protonix] 40 mg PO AC-BRKFST #30 tab Acetaminophen Tab [Tylenol] 650 mg PO Q6HR PRN tab PRN Reason: Mild Pain Or Fever > 100.5 Nystatin 100,000 Unit/ml Susp [Mycostatin Oral Susp] 5 ml PO QID 10 Days #240 ml Sennosides [Senokot] 8.6 mg PO DAILY PRN #60 tab PRN Reason: Constipation Sulfamethox-Tmp 800-160Mg [Bactrim DS 800-160 mg] 1 tab PO Q12HR #28 tab Continue Zolpidem Tartrate [Ambien] 10 mg PO HS Albuterol Sulfate [Ventolin HFA] 2 puff INHALATION RT-Q4H PRN PRN Reason: Shortness Of Breath ALPRAZolam [Xanax] 0.5 - 1 mg PO BID PRN PRN Reason: Anxiety EPINEPHrine (Auto Inject) [Epipen] 0.3 mg IM ONCE PRN PRN Reason: Anaphylaxis metFORMIN HCL [Glucophage] 500 mg PO BID Pregabalin [Lyrica] 100 mg PO DAILY@1600 Gentamicin 0.1% Cream 1 applic TOPICAL BID PRN PRN Reason: TOE Pregabalin [Lyrica] 200 mg PO BID@0900,2200 Atorvastatin [Lipitor] 40 mg PO HS Docusate [Colace] 100 mg PO BID #30 capsule amLODIPine 10 mg PO DAILY Discharge Medication List ALPRAZolam [Xanax] 0.5 - 1 mg PO BID PRN 02/05/20 [History] Albuterol Sulfate [Ventolin HFA] 2 puff INHALATION RT-Q4H PRN 02/05/20 [History] Zolpidem Tartrate [Ambien] 10 mg PO HS 02/05/20 [History] Atorvastatin [Lipitor] 40 mg PO HS 01/17/23 [History] EPINEPHrine (Auto Inject) [Epipen] 0.3 mg IM ONCE PRN 01/17/23 [History] Pregabalin [Lyrica] 200 mg PO BID@0900,2200 01/17/23 [History] metFORMIN HCL [Glucophage] 500 mg PO BID 01/17/23 [History] Pregabalin [Lyrica] 100 mg PO DAILY@1600 06/28/23 [History] Docusate [Colace] 100 mg PO BID #30 capsule 07/05/23 [Rx] Gentamicin 0.1% Cream 1 applic TOPICAL BID PRN 07/16/23 [History] amLODIPine 10 mg PO DAILY 07/16/23 [History] Acetaminophen Tab [Tylenol] 650 mg PO Q6HR PRN tab 07/25/23 [Rx] HYDROcodone/APAP 5-325MG [[place] 5-325] 1 each PO Q4HR PRN #6 tab 07/25/23 [Rx] Nystatin 100,000 Unit/ml Susp [Mycostatin Oral Susp] 5 ml PO QID 10 Days #240 ml 07/25/23 [Rx] Pantoprazole [Protonix] 40 mg PO AC-BRKFST #30 tab 07/25/23 [Rx] Sennosides [Senokot] 8.6 mg PO DAILY PRN #60 tab 07/25/23 [Rx] Sulfamethox-Tmp 800-160Mg [Bactrim DS 800-160 mg] 1 tab PO Q12HR #28 tab 07/25/23 [Rx] cefUROXime axetiL [Cefuroxime] 500 mg PO BID 7 Days #14 tab 07/25/23 [Rx] Follow up Appointment(s)/Referral(s): Ashley Kerr [Primary Care Provider] - 1-2 days Osorio Cummins MD [STAFF PHYSICIAN] - 1 Week Activity/Diet/Wound Care/Special Instructions: Activity limited until follow-up Follow-up with primary care provider on discharge Follow-up with general surgery in 1 week Continue taking medications as prescribed Continue with stool softeners Continue incentive spirometer use at least 10 times every hour while awake Discharge Disposition: HOME SELF-CARE
== END 2023-07-25 17:27 | disposition home or self-care (01) | DRG 721 ==
LOC: EC 16:38 → 4SSUR 21:51
PROVIDERS: ADMIT Hospitalist; ATTEND Hospitalist
PROC: 05HF33Z Insertion of Infusion Device into Left Cephalic Vein, Percutaneous Approach (ICD-10-PCS; principal; 2023-07-20 11:05)
DX: T81.43XA Infection following a procedure, organ and space surgical site, initial encounter (principal); K91.873 Postprocedural seroma of a digestive system organ or structure following other procedure; A41.9 Sepsis, unspecified organism; E11.40 Type 2 diabetes mellitus with diabetic neuropathy, unspecified; Z79.84 Long term (current) use of oral hypoglycemic drugs; E78.5 Hyperlipidemia, unspecified; E66.9 Obesity, unspecified; Z68.33 Body mass index [BMI] 33.0-33.9, adult; F17.200 Nicotine dependence, unspecified, uncomplicated; G35 Multiple sclerosis; G47.30 Sleep apnea, unspecified; F32.A Depression, unspecified; F41.9 Anxiety disorder, unspecified; I10 Essential (primary) hypertension; J44.9 Chronic obstructive pulmonary disease, unspecified; Z79.899 Other long term (current) drug therapy; Z90.81 Acquired absence of spleen; Z99.81 Dependence on supplemental oxygen; Z11.52 Encounter for screening for COVID-19; Z28.310 Unvaccinated for COVID-19; Z88.6 Allergy status to analgesic agent; Z88.5 Allergy status to narcotic agent; Z28.21 Immunization not carried out because of patient refusal
CPT/HCPCS: 36410; 36415; 71045; 74177; 80048; 80053; 81003; 82150; 83036; 83540; 83550; 83605; 83690; 83735; 85025; 86140; 87040; 87636; 94640; 94760; 96361; 96365; 96367; 96375; 96376; 99285

== ENCOUNTER 2024-01-08 23:22 | Emergency (ER) | payer OTHER ==
--- NOTE | 2024-01-09 00:17 | ED ---
ENT HPI - General Chief complaint: Upper Respiratory Infection Stated complaint: Cough, Neck Swelling Time Seen by Provider: 01/08/24 23:47 Source: patient, RN notes reviewed, old records reviewed Mode of arrival: ambulatory Limitations: no limitations - History of Present Illness Initial comments: This is a 53-year-old female to the ER for evaluation as patient presents today for evaluation of severe sore throat right-sided throat pain and swelling and feels like she has a fever., Significant right-sided neck pain with significant swelling of the neck MD complaint: sore throat, difficulty swallowing -: days(s) Location: throat Severity: moderate Severity scale (1-10): 7 Quality: aching Consistency: constant Improves with: none Worsens with: none Context-Epistaxis: history of similar Associated Symptoms: fever - Related Data Home Medications Medication Instructions Recorded Confirmed ALPRAZolam [Xanax] 0.5 - 1 mg PO BID PRN 02/05/20 07/16/23 Albuterol Sulfate [Ventolin HFA] 2 puff INHALATION RT-Q4H PRN 02/05/20 07/16/23 Zolpidem Tartrate [Ambien] 10 mg PO HS 02/05/20 07/16/23 Atorvastatin [Lipitor] 40 mg PO HS 01/17/23 07/16/23 EPINEPHrine (Auto Inject) [Epipen] 0.3 mg IM ONCE PRN 01/17/23 07/16/23 Pregabalin [Lyrica] 200 mg PO BID@0900,2200 01/17/23 07/16/23 metFORMIN HCL [Glucophage] 500 mg PO BID 01/17/23 07/16/23 Pregabalin [Lyrica] 100 mg PO DAILY@1600 06/28/23 07/16/23 Gentamicin 0.1% Cream 1 applic TOPICAL BID PRN 07/16/23 07/16/23 amLODIPine 10 mg PO DAILY 07/16/23 07/16/23 Previous Rx's Medication Instructions Recorded Docusate [Colace] 100 mg PO BID #30 capsule 07/05/23 Acetaminophen Tab [Tylenol] 650 mg PO Q6HR PRN tab 07/25/23 HYDROcodone/APAP 5-325MG [[place] 1 each PO Q4HR PRN #6 tab 07/25/23 5-325] Nystatin 100,000 Unit/ml Susp 5 ml PO QID 10 Days #240 ml 07/25/23 [Mycostatin Oral Susp] Pantoprazole [Protonix] 40 mg PO AC-BRKFST #30 tab 07/25/23 Sennosides [Senokot] 8.6 mg PO DAILY PRN #60 tab 07/25/23 Sulfamethox-Tmp 800-160Mg [Bactrim 1 tab PO Q12HR #28 tab 07/25/23 DS 800-160 mg] cefUROXime axetiL [Cefuroxime] 500 mg PO BID 7 Days #14 tab 07/25/23 Amoxic-Pot Clav 875-125Mg 1 tab PO Q12HR #20 tablet 01/09/24 [Augmentin 875-125] Allergies Allergy/AdvReac Type Severity Reaction Status Date / Time aspirin Allergy Dyspnea Verified 01/08/24 23:35 codeine Allergy Dyspnea Verified 01/08/24 23:35 ibuprofen [From Motrin] Allergy Dyspnea Verified 01/08/24 23:35 morphine Allergy Rash/Hives Verified 01/08/24 23:35 naproxen Allergy Dyspnea Verified 01/08/24 23:35 tramadol [From Ultram] Allergy Dyspnea Verified 01/08/24 23:35 Review of Systems ROS Statement: Those systems with pertinent positive or pertinent negative responses have been documented in the HPI. ROS Other: All systems not noted in ROS Statement are negative. Past Medical History Past Medical History: Asthma, COPD, Diabetes Mellitus, Hyperlipidemia, Hypertension, Sleep Apnea/CPAP/BIPAP Additional Past Medical History / Comment(s): neuropathy bilat legs and feet, MS, pancreatic mass removed, uses cpap, wears home 02 at 2 liters History of Any Multi-Drug Resistant Organisms: None Reported Past Surgical History: Appendectomy, Section, Cholecystectomy, Hernia Repair, Orthopedic Surgery Additional Past Surgical History / Comment(s): wrist and shoulder surgery, bj cataract removal, recent toenail removal on rt great toe, incisional hernia repair 07/04/2023, spleenectomy jan 17 2023 Past Anesthesia/Blood Transfusion Reactions: No Reported Reaction Past Psychological History: Anxiety, Depression Smoking Status: Current every day smoker Past Alcohol Use History: None Reported Past Drug Use History: Marijuana - Past Family History Mother Family Medical History: Deep Vein Thrombosis (DVT) General Exam Limitations: no limitations General appearance: alert, in no apparent distress Head exam: Present: atraumatic, normocephalic, normal inspection Eye exam: Present: normal appearance, PERRL, EOMI. Absent: scleral icterus, conjunctival injection, periorbital swelling ENT exam: Present: normal exam, other (Neck pain and swelling) Neck exam: Present: normal inspection. Absent: tenderness, meningismus, lymphadenopathy Respiratory exam: Present: normal lung sounds bilaterally. Absent: respiratory distress, wheezes, rales, rhonchi, stridor Cardiovascular Exam: Present: regular rate, normal rhythm, normal heart sounds. Absent: systolic murmur, diastolic murmur, rubs, gallop, clicks GI/Abdominal exam: Present: soft, normal bowel sounds. Absent: distended, tenderness, guarding, rebound, rigid Extremities exam: Present: normal inspection, full ROM, normal capillary refill. Absent: tenderness, pedal edema, joint swelling, calf tenderness Back exam: Present: normal inspection Neurological exam: Present: alert, oriented X3, CN II-XII intact Psychiatric exam: Present: normal affect, normal mood Skin exam: Present: warm, dry, intact, normal color. Absent: rash Course Vital Signs 01/08/24 01/09/24 01/09/24 23:35 02:44 02:58 Temperature 97.8 F 97.7 F Pulse Rate 87 72 Respiratory 18 19 Rate Blood Pressure 174/83 153/82 O2 Sat by Pulse 95 98 Oximetry - Reevaluation(s) Reevaluation #1: 01/09/24 00:17 Medical records reviewed Reevaluation #2: 01/09/24 02:12 Symptoms improved Reevaluation #3: 01/09/24 02:12 Informed of results and questions answered Reevaluation #4: Was pt. sent in by a medical professional or institution (, PA, [employer], urgent care, hospital, or penitentiary...) When possible be specific @ -no Did you speak to anyone other than the patient for history (EMS, parent, family, police, friend...)? What history was obtained from this source @ -no Did you review nursing and triage notes (agree or disagree)? Why? @ -agree Are old charts reviewed (outside hosp., previous admission, EMS record, old EKG, old radiological studies, urgent care reports/EKG's, penitentiary records)? Report findings @ -yes Differential Diagnosis (chest pain, altered mental status, abdominal pain women, abdominal pain men, vaginal bleeding, weakness, fever, dyspnea, syncope, headache, dizziness, GI bleed, back pain, seizure, CVA, palpatations, mental health, musculoskeletal)? @ -prior EKG interpreted by me (3pts min.). @ -yes X-rays interpreted by me (1pt min.). @ -no CT interpreted by me (1pt min.). @ -yes negative for acute disease U/S interpreted by me (1pt. min.). @ -no What testing was considered but not performed or refused? (CT, X-rays, U/S, labs)? Why? @ -none What meds were considered but not given or refused? Why? @ -none Did you discuss the management of the patient with other professionals (professionals i.e. , PA, [employer], lab, RT, psych nurse, social work administrator, restrooms or lounges maid, teacher, senior credit officer, trimming caser)? Give summary @ -no Was smoking cessation discussed for >3mins.? @ -no Was critical care preformed (if so, how long)? @ -no Were there social determinants of health that impacted care today? How? (Homelessness, low income, unemployed, alcoholism, drug addiction, transpo rtation, low edu. Level, literacy, decrease access to med. care, detention, rehab)? @ -none Was there de-escalation of care discussed even if they declined (Discuss DNR or withdrawal of care, Hospice)? DNR status @ -no What co-morbidities impacted this encounter? (DM, HTN, Smoking, COPD, CAD, Cancer, CVA, ARF, Chemo, Hep., AIDS, mental health diagnosis, sleep apnea, morbid obesity)? @ -none Was patient admitted / discharged? Hospital course, mention meds given and route, prescriptions, significant lab abnormalities, going to OR and other pertinent info. @ -53 female to ER for neck pain and neck swelling with possible neck mass. Patient has no acute findings on CT scan and will be placed on antibiotics for discharge Discharge Undiagnosed new problem with uncertain prognosis? @ -no Drug Therapy requiring intensive monitoring for toxicity (Heparin, Nitro, Insulin, Cardizem)? @ -no Were any procedures done? @ -no Diagnosis/symptom? @ -Neck mass, swelling, pharyngitis Acute, or Chronic, or Acute on Chronic? @ -Acute Uncomplicated (without systemic symptoms) or Complicated (systemic symptoms)? @ -Complicated Side effects of treatment? @ -no Exacerbation, Progression, or Severe Exacerbation? @ -exacerbation Poses a threat to life or bodily function? How? (Chest pain, [place], [place], pneumonia, PE, COPD, DKA, ARF, appy, cholecystitis, CVA, Diverticulitis, Homicidal, Suicidal, threat to staff... and all critical care pts) @ -no Medical Decision Making - Medical Decision Making 53 female to the ER for evaluation patient community health for severe sore throat neck swelling feels like she cannot breathe. Patient does have pharyngitis on exam CT scan is negative for other acute cause and patient can be discharged home - Lab Data Result diagrams: 01/09/24 00:40 01/09/24 01:10 Lab Results 01/09/24 01/09/24 01/09/24 Range/Units 00:40 00:40 01:10 WBC 10.6 (3.8-10.6) k/uL RBC 4.78 (3.80-5.40) m/uL Hgb 13.9 (11.4-16.0) gm/dL Hct 44.7 (34.0-46.0) % MCV 93.5 (80.0-100.0) fL MCH 29.0 (25.0-35.0) pg MCHC 31.0 (31.0-37.0) g/dL RDW 15.5 (11.5-15.5) % Plt Count 382 (150-450) k/uL MPV 8.1 Neutrophils % 49 % Lymphocytes % 35 % Monocytes % 9 % Eosinophils % 5 % Basophils % 1 % Neutrophils # 5.1 (1.3-7.7) k/uL Lymphocytes # 3.7 (1.0-4.8) k/uL Monocytes # 1.0 (0-1.0) k/uL Eosinophils # 0.5 (0-0.7) k/uL Basophils # 0.1 (0-0.2) k/uL Hypochromasia Slight PT 10.1 (10.0-12.5) sec INR 0.9 (<1.2) APTT 26.2 (22.0-30.0) sec Sodium 141 (137-145) mmol/L Potassium 4.0 (3.5-5.1) mmol/L Chloride 104 (98-107) mmol/L Carbon Dioxide 31 H (22-30) mmol/L Anion Gap 6 mmol/L BUN 6 L (7-17) mg/dL Creatinine 0.60 (0.52-1.04) mg/dL Est GFR (CKD-EPI)AfAm >90 (>60 ml/min/1.73 sqM) Est GFR (CKD-EPI)NonAf >90 (>60 ml/min/1.73 sqM) Glucose 86 (74-99) mg/dL Plasma Lactic Acid Jermaine (0.7-2.0) mmol/L Calcium 9.8 (8.4-10.2) mg/dL Phosphorus 4.3 (2.5-4.5) mg/dL Magnesium 2.0 (1.6-2.3) mg/dL Total Bilirubin 0.5 (0.2-1.3) mg/dL AST 20 (14-36) U/L ALT 19 (4-34) U/L Alkaline Phosphatase 118 (38-126) U/L Troponin I (0.000-0.034) ng/mL C-Reactive Protein 2.3 H (<1.0) mg/dL Total Protein 7.0 (6.3-8.2) g/dL Albumin 4.2 (3.5-5.0) g/dL Group A Strep (PCR) (Not Detectd) 01/09/24 01/09/24 01/09/24 Range/Units 01:10 01:10 03:00 WBC (3.8-10.6) k/uL RBC (3.80-5.40) m/uL Hgb (11.4-16.0) gm/dL Hct (34.0-46.0) % MCV (80.0-100.0) fL MCH (25.0-35.0) pg MCHC (31.0-37.0) g/dL RDW (11.5-15.5) % Plt Count (150-450) k/uL MPV Neutrophils % % Lymphocytes % % Monocytes % % Eosinophils % % Basophils % % Neutrophils # (1.3-7.7) k/uL Lymphocytes # (1.0-4.8) k/uL Monocytes # (0-1.0) k/uL Eosinophils # (0-0.7) k/uL Basophils # (0-0.2) k/uL Hypochromasia PT (10.0-12.5) sec INR (<1.2) APTT (22.0-30.0) sec Sodium (137-145) mmol/L Potassium (3.5-5.1) mmol/L Chloride (98-107) mmol/L Carbon Dioxide (22-30) mmol/L Anion Gap mmol/L BUN (7-17) mg/dL Creatinine (0.52-1.04) mg/dL Est GFR (CKD-EPI)AfAm (>60 ml/min/1.73 sqM) Est GFR (CKD-EPI)NonAf (>60 ml/min/1.73 sqM) Glucose (74-99) mg/dL Plasma Lactic Acid Jermaine 0.7 (0.7-2.0) mmol/L Calcium (8.4-10.2) mg/dL Phosphorus (2.5-4.5) mg/dL Magnesium (1.6-2.3) mg/dL Total Bilirubin (0.2-1.3) mg/dL AST (14-36) U/L ALT (4-34) U/L Alkaline Phosphatase (38-126) U/L Troponin I <0.012 (0.000-0.034) ng/mL C-Reactive Protein (<1.0) mg/dL Total Protein (6.3-8.2) g/dL Albumin (3.5-5.0) g/dL Group A Strep (PCR) NOT DETECTED (Not Detectd) - Radiology Data Radiology results: report reviewed (CT soft tissue neck is negative for acute disease), image reviewed Disposition Clinical Impression: Pharyngitis Disposition: HOME SELF-CARE Condition: Fair Instructions (If sedation given, give patient instructions): Pharyngitis (ED) Prescriptions: Amoxic-Pot Clav 875-125Mg [Augmentin 875-125] 1 tab PO Q12HR #20 tablet Is patient prescribed a controlled substance at d/c from ED?: No Referrals: Ashley Kerr [Primary Care Provider] - 1-2 days Time of Disposition: 03:00
[2024-01-09 00:55] LABS: Basophils # (A) 0.1 k/uL (0-0.2); Basophils % (A) 1 %; Eosinophils # (A) 0.5 k/uL (0-0.7); Eosinophils % (A) 5 %; HCT 44.7 % (34.0-46.0); HGB 13.9 gm/dL (11.4-16.0); Hypochromasia Slight; Lymphocytes # (A) 3.7 k/uL (1.0-4.8); Lymphocytes % (A) 35 %; MCV 93.5 fL (80.0-100.0); Mean Platelet Volume 8.1; Monocytes % (A) 9 %; Neutrophils # (A) 5.1 k/uL (1.3-7.7); Neutrophils % (A) 49 %; Platelet Count 382 k/uL (150-450); RBC 4.78 m/uL (3.80-5.40); RDW 15.5 % (11.5-15.5); WBC 10.6 k/uL (3.8-10.6)
[2024-01-09 01:06] LABS: INR 0.9 (<1.2); Partial Thromboplastin Time 26.2 sec (22.0-30.0); Prothrombin Time 10.1 sec (10.0-12.5)
[2024-01-09] MEDS: SODIUM CHLORIDE 0.9% 1,000 ML IV STA (01:11)
[2024-01-09] MEDS: HYDROmorphone 1 MG/ML 1 ML SYRINGE IVP STA (01:11)
[2024-01-09] MEDS: AMPICILLIN-SULBACTAM 3 GM in SODIUM CHLORIDE 0.9% 100 ML IVPB STA (01:13)
[2024-01-09] MEDS: ACETAMINOPHEN TAB 500 MG TAB PO STA (01:17)
[2024-01-09] MEDS: NICOTINE 21MG/24HR PATCH TRANSDERM STA (01:31)
[2024-01-09 01:35] LABS: ALT 19 U/L (4-34); AST 20 U/L (14-36); African American GFR (CKD) >90 (>60 ml/min/1.73 sqM); Albumin 4.2 g/dL (3.5-5.0); Alkaline Phosphatase 118 U/L (38-126); Anion Gap 6 mmol/L; Blood Urea Nitrogen 6 mg/dL (7-17); C Reactive Protein 2.3 mg/dL (<1.0); Calcium 9.8 mg/dL (8.4-10.2); Carbon Dioxide 31 mmol/L (22-30); Chloride 104 mmol/L (98-107); Glucose 86 mg/dL (74-99); Non-African American GFR(CKD) >90 (>60 ml/min/1.73 sqM); Phosphorus 4.3 mg/dL (2.5-4.5); Sodium 141 mmol/L (137-145); Total Bilirubin 0.5 mg/dL (0.2-1.3)
--- NOTE | 2024-01-09 02:37 | CT ---
EXAM: CT Neck With Intravenous Contrast CLINICAL HISTORY: ITS.REASON CT Reason: abscess TECHNIQUE: Axial computed tomography images of the neck with intravenous contrast. CTDI is 6.6 mGy and DLP is 192 mGy-cm. This CT exam was performed using one or more of the following dose reduction techniques: automated exposure control, adjustment of the mA and/or kV according to patient size, and/or use of iterative reconstruction technique. COMPARISON: No relevant prior studies available. FINDINGS: Nasal cavity/septum: Unremarkable. Nasopharynx: Unremarkable. Oropharynx: Unremarkable. No significant tonsillar enlargement. No peritonsillar abscess. Hypopharynx: Unremarkable. Larynx: Unremarkable. Normal epiglottis. Trachea: Unremarkable. Retropharyngeal space: Unremarkable. Submandibular/parotid glands: Unremarkable. Glands are normal in size. Thyroid: There is a tiny left thyroid nodule. No enlarged or calcified nodules. Bones/joints: No acute fracture. There is a severe spinal canal stenosis at C4-5. Soft tissues: Unremarkable. Vasculature: No acute findings. Lymph nodes: Prominent cervical lymph nodes. Sinuses: Unremarkable as visualized. No acute sinusitis. Lung apices: Unremarkable as visualized. IMPRESSION: Prominent cervical lymph nodes. Otherwise, no evidence of acute cervical soft tissue pathology.
[2024-01-09 02:46] VITALS: BP 153/82; PULSE 72; RESP 19
[2024-01-09] MEDS: AMOXIC-POT CLAV 875MG STARTER PACK 2 TAB BTL PO STA (02:59)
[2024-01-09] MEDS: AMOXIC-POT CLAV 875-125MG 1 EACH TAB PO STA (02:59)
[2024-01-09 03:05] VITALS: TEMP 97.7
== END 2024-01-09 03:09 | disposition home or self-care (01) ==
LOC: EC 23:22
CPT/HCPCS: 36415; 70491; 80053; 83605; 83735; 84100; 84484; 85025; 85610; 85730; 86140; 87040; 87651; 96365; 96374; 99284

== ENCOUNTER → 2024-01-22 | Outpatient (CLI) | payer OTHER ==
--- NOTE | 2024-02-05 23:43 | P.PCN ---
Date of Procedure: 01/22/24 Operative Findings: Home sleep study testing Date of service is 01/22/2024 Pertinent history 53-year-old female patient with COPD/asthma, diabetes mellitus, hypertension, hyperlipidemia and multiple sclerosis. Patient is also suspected obstructive sleep apnea. A home sleep study was accordingly requested Physical findings Height is 5 feet 3 inches, weight is 157 pounds, body mass index is 27.8 Technical description The [employer] system was used to complete his home sleep study. This is a type III home sleep study evaluation. Total recording duration was 10 hours and 5 minutes. This study started at 11:10 PM and ended at 9:15 AM. There was a total of 8 hours of flow monitoring and 9 hours and 54 minutes of oxygen saturation monitoring. Respiratory evaluation The total apnea count was 19 and the patient also had a total of 239 obstructive hypopneas. The resulting AHI was 32.2 consistent with severe obstructive sleep apnea. Oxygenation analysis Average pulse ox while awake was 89%. Minimum pulse ox was 56% during sleep and average pulse ox during sleep was 80%. The patient encountered a total of 324 oxygen desaturations with a pulse ox dropping more than 4 %. Patient accordingly had severe rectal oxygen saturation. 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 Plan Proceed with CPAP titration for severe symptomatic obstructive sleep apnea.
== END ==
LOC: 3 N SLEEP 13:54
PROVIDERS: ATTEND Internal Medicine Critical Care Medicine

== ENCOUNTER 2024-04-21 19:31 | Outpatient (CLI) | payer OTHER ==
--- NOTE | 2024-05-06 16:46 | P.PCN ---
Date of Procedure: 04/21/24 Operative Findings: Pertinent history 53-year-old female patient with COPD/asthma, diabetes mellitus, hypertension, hyperlipidemia and multiple sclerosis. The patient underwent a home sleep study and the patient was found to have severe JESS with an AHI of 32.2. The patient was encountered severe nocturnal oxygen desaturations and the patient is coming in to undergo a CPAP titration study. Physical findings Height is 5 feet 3 inches, weight is 157 pounds, body mass index is 27.8 Technical description The patient was studied using a standard complex polysomnography protocol that included recording of the Lead II EKG, Central, occipital and frontal EEG, right and left outer canthus EOG, submental EMG, right and left anterior tibialis EMG, respiratory airflow by thermocouple and or pressure/flow transducer, respiratory efforts by abdominal and thoracic PVDF belts, oxygen saturation by cable o ximetry. Position by observation synchronized the PSG. Equipment used: Trello. Stepwise CPAP titration was done to eliminate all obstructive respiratory events Sleep architecture the total Recording duration was 413.0 minutes. The total sleep time was 308.0 minutes. The overall sleep efficiency was 74.6%. The wake after sleep onset time was 92.5 minutes. The sleep architecture was characterized by 15.3% stage I, 69.5% stage II, 0% stage III and a total of 15.3% REM sleep. The total arousal index was 29. CPAP titration summary The patient was started on CPAP therapy initially at a pressure of 5 cm of water and the pressure was gradually increased by increments of 1 cm to reach a maximum CPAP pressure of 16 cm of water. Oxygen was also added at a pressure of 14 cm of water at 2 L/min and ultimately the oxygen flow was brought up to 3 L. I carefully reviewed the CPAP titration taken and look outpatient sleep stage and body position. There was obvious improvement in the patient's obstructive respiratory events with CPAP therapy. The patient continued to have some occasional hypopneas and oxygen desaturations. Based on that, O2 was added. Sleep continuity summary There was a total of 149 arousals with with an index of 29 and a respiratory arousal index was 0.6 Periodic movement events The patient had a total of 21 periodic limb movement activity with an index of 4.1. The patient also had a total of 2 periodic limb movement with arousals with a PLM arousal index of 0.4 Cardiac summary Average heart rate was 75. No significant arrhythmias. Assessment Severe obstructive sleep apnea with an AHI of 32 associated with severe nocturnal oxygen desaturations with a minimum pulse ox of 56% , the patient underwent a successful CPAP titration and the patient was brought up to a maximum CPAP pressure of 16 cm of water. Oxygen was also added at the flow of 3 L to maintain an oxygen saturation above 90%. 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 Plan Initiate CPAP therapy. I am going to offer the patient an APAP machine and this will be set at a minimum pressure of 7 and a maximum pressure of 16. Oxygen will be also added to the flow of 3 L. The patient will be offered a AirFit N20 nasal mask, medium size. Optimize sleep hygiene measures Optimize COPD/asthma Treat comorbidities including MS See me back in the office in 30 to 90 days to assess clinical response and compliancy.
== END 2024-04-22 05:35 | disposition home or self-care (01) ==
LOC: 3 N SLEEP 19:31
PROVIDERS: ATTEND Internal Medicine Critical Care Medicine
DX: G47.33 Obstructive sleep apnea (adult) (pediatric) (principal); D73.5 Infarction of spleen; J44.9 Chronic obstructive pulmonary disease, unspecified; E11.9 Type 2 diabetes mellitus without complications; I10 Essential (primary) hypertension; E78.5 Hyperlipidemia, unspecified; G35 Multiple sclerosis; F17.210 Nicotine dependence, cigarettes, uncomplicated; Z88.6 Allergy status to analgesic agent; Z88.5 Allergy status to narcotic agent; Z88.8 Allergy status to other drugs, medicaments and biological substances; Z79.84 Long term (current) use of oral hypoglycemic drugs; Z79.899 Other long term (current) drug therapy
CPT/HCPCS: 95811

== ENCOUNTER 2024-07-02 01:58 | Emergency (ER) | payer OTHER ==
--- NOTE | 2024-07-02 02:59 | ED ---
General Adult HPI - General Chief complaint: Upper Respiratory Infection Stated complaint: Chest pain, Difficulty Breathing Time Seen by Provider: 07/02/24 02:22 Source: patient, RN notes reviewed Mode of arrival: ambulatory - History of Present Illness Initial comments: 53-year-old female with COPD/asthma, hypertension, tobacco abuse presenting with chief complaint of cough and low oxygen. Patient states that she contacted her primary care provider with instructed report to emergency department for further evaluation of low oxygen levels. States that she has been treated with 2 rounds of antibiotics, currently on clindamycin and prednisone, with presumed pneumonia. She states that she has approximately 3 days left of both medications. For the past week she has been experiencing a dry/wet cough, fatigue, chills. - Related Data Home Medications Medication Instructions Recorded Confirmed ALPRAZolam [Xanax] 0.5 - 1 mg PO BID PRN 02/05/20 07/16/23 Albuterol Sulfate [Ventolin HFA] 2 puff INHALATION RT-Q4H PRN 02/05/20 07/16/23 Zolpidem Tartrate [Ambien] 10 mg PO HS 02/05/20 07/16/23 Atorvastatin [Lipitor] 40 mg PO HS 01/17/23 07/16/23 EPINEPHrine (Auto Inject) [Epipen] 0.3 mg IM ONCE PRN 01/17/23 07/16/23 Pregabalin [Lyrica] 200 mg PO BID@0900,2200 01/17/23 07/16/23 metFORMIN HCL [Glucophage] 500 mg PO BID 01/17/23 07/16/23 Pregabalin [Lyrica] 100 mg PO DAILY@1600 06/28/23 07/16/23 Gentamicin 0.1% Cream 1 applic TOPICAL BID PRN 07/16/23 07/16/23 amLODIPine 10 mg PO DAILY 07/16/23 07/16/23 Previous Rx's Medication Instructions Recorded Docusate [Colace] 100 mg PO BID #30 capsule 07/05/23 Acetaminophen Tab [Tylenol] 650 mg PO Q6HR PRN tab 07/25/23 HYDROcodone/APAP 5-325MG [[place] 1 each PO Q4HR PRN #6 tab 07/25/23 5-325] Nystatin 100,000 Unit/ml Susp 5 ml PO QID 10 Days #240 ml 07/25/23 [Mycostatin Oral Susp] Pantoprazole [Protonix] 40 mg PO AC-BRKFST #30 tab 07/25/23 Sennosides [Senokot] 8.6 mg PO DAILY PRN #60 tab 07/25/23 Sulfamethox-Tmp 800-160Mg [Bactrim 1 tab PO Q12HR #28 tab 07/25/23 DS 800-160 mg] cefuroxime axetiL [Cefuroxime] 500 mg PO BID 7 Days #14 tab 07/25/23 Amoxic-Pot Clav 875-125Mg 1 tab PO Q12HR #20 tablet 01/09/24 [Augmentin 875-125] Fluticasone Nasal [place] [Flonase 2 spr EA NOSTRIL DAILY #16 gm 07/02/24 Nasal [place]] Ipratropium-Albuterol Nebulize 3 ml INHALATION QID #25 each 07/02/24 [Duoneb 0.5 mg-3 mg/3 ml Soln] Allergies Allergy/AdvReac Type Severity Reaction Status Date / Time aspirin Allergy Dyspnea Verified 01/08/24 23:35 codeine Allergy Dyspnea Verified 01/08/24 23:35 ibuprofen [From Motrin] Allergy Dyspnea Verified 01/08/24 23:35 morphine Allergy Rash/Hives Verified 01/08/24 23:35 naproxen Allergy Dyspnea Verified 01/08/24 23:35 tramadol [From Ultram] Allergy Dyspnea Verified 01/08/24 23:35 Review of Systems ROS Statement: Those systems with pertinent positive or pertinent negative responses have been documented in the HPI. ROS Other: All systems not noted in ROS Statement are negative. Past Medical History Past Medical History: Asthma, COPD, Diabetes Mellitus, Hyperlipidemia, Hypertension, Sleep Apnea/CPAP/BIPAP Additional Past Medical History / Comment(s): neuropathy bilat legs and feet, MS, pancreatic mass removed, uses cpap, wears home 02 at 2 liters History of Any Multi-Drug Resistant Organisms: None Reported Past Surgical History: Appendectomy, Section, Cholecystectomy, Hernia Repair, Orthopedic Surgery Additional Past Surgical History / Comment(s): wrist and shoulder surgery, bj cataract removal, recent toenail removal on rt great toe, incisional hernia repair 07/04/2023, spleenectomy jan 17 2023 Past Anesthesia/Blood Transfusion Reactions: No Reported Reaction Past Psychological History: Anxiety, Depression Smoking Status: Current every day smoker, Vaper Past Alcohol Use History: None Reported Past Drug Use History: Marijuana - Past Family History Mother Family Medical History: Deep Vein Thrombosis (DVT) General Exam General appearance: alert, in no apparent distress Neck exam: Present: normal inspection. Absent: tenderness, meningismus, lymphadenopathy Respiratory exam: Present: wheezes, decreased breath sounds. Absent: normal lung sounds bilaterally, respiratory distress, rales, rhonchi, stridor Cardiovascular Exam: Present: regular rate, normal rhythm, normal heart sounds. Absent: systolic murmur, diastolic murmur, rubs, gallop, clicks GI/Abdominal exam: Present: soft, normal bowel sounds. Absent: distended, tenderness, guarding, rebound, rigid Extremities exam: Present: normal inspection, full ROM, normal capillary refill. Absent: tenderness, pedal edema, joint swelling, calf tenderness Back exam: Present: normal inspection Skin exam: Present: warm, dry, intact, normal color. Absent: rash Course Vital Signs 07/02/24 07/02/24 07/02/24 02:08 04:19 04:30 Temperature 97.4 F L Pulse Rate 71 91 94 Respiratory 20 Rate Blood Pressure 185/74 O2 Sat by Pulse 96 Oximetry 07/02/24 04:43 Temperature 98.0 F Pulse Rate 69 Respiratory 22 Rate Blood Pressure 156/78 O2 Sat by Pulse 95 Oximetry Medical Decision Making - Medical Decision Making Was pt. sent in by a medical professional or institution (JASMINE Lazar, OFFSET MACHINE OPERATOR, urgent care, hospital, or custodial...) When possible be specific @ -No Did you speak to anyone other than the patient for history (EMS, parent, family, police, friend...)? What history was obtained from this source @ -No Did you review nursing and triage notes (agree or disagree)? Why? @ -I reviewed and agree with nursing and triage notes Were old charts reviewed (outside hosp., previous admission, EMS record, old EKG, old radiological studies, urgent care reports/EKG's, custodial records)? Report findings @ -No old charts were reviewed Differential Diagnosis (chest pain, altered mental status, abdominal pain women, abdominal pain men, vaginal bleeding, weakness, fever, dyspnea, syncope, headache, dizziness, GI bleed, back pain, seizure, CVA, palpatations, mental health, musculoskeletal)? @ -COVID 19, RSV, influenza, pneumonia, acute bronchitis, URI, this list is not all inclusive EKG interpreted by me (3pts min.). @ -None X-rays interpreted by me (1pt min.). @ -Chest x-ray completed with no acute cardiopulmonary process. CT interpreted by me (1pt min.). @ -None done U/S interpreted by me (1pt. min.). @ -None done What testing was considered but not performed or refused? (CT, X-rays, U/S, labs)? Why? @ -None What meds were considered but not given or refused? Why? @ -None Did you discuss the management of the patient with other professionals (professionals i.e. , PA, OFFSET MACHINE OPERATOR, lab, RT, psych nurse, social services assistant, mobile mechanic, teacher, fisheries enforcement officer, case consultant)? Give summary @ -No Was smoking cessation discussed for >3mins.? @ -No Was critical care preformed (if so, how long)? @ -No Were there social determinants of health that impacted care today? How? (Homelessness, low income, unemployed, alcoholism, drug addiction, transportation, low edu. Level, literacy, decrease access to med. care, penitentiary, rehab)? @ -No Was there de-escalation of care discussed even if they declined (Discuss DNR or withdrawal of care, Hospice)? DNR status @ -No What co-morbidities impacted this encounter? (DM, HTN, Smoking, COPD, CAD, Cancer, CVA, ARF, Chemo, Hep., AIDS, mental health diagnosis, sleep apnea, morbid obesity)? @ -None Was patient admitted / discharged? Hospital course, mention meds given and route, prescriptions, significant lab abnormalities, going to OR and other pertinent info. @ -Discharge. 53-year-old female presenting with complaints of worsening cough and fatigue. Vitals are stable on arrival with an oxygen saturation 96% on room air and afebrile. Patient did have bilateral expiratory wheezing likely secondary to COPD, overall she is well-appearing in no signs of respiratory distress. Chest x-ray is unremarkable. Patient tested negative for COVID, flu, RSV. She is provided with DuoNeb breathing treatment. Patient was offered admission for COPD exacerbation however she is declined. She is provided with outpatient prescription for DuoNeb ampules in addition to Flonase and instructed follow-up with primary care provider and continue to complete antibiotics and steroids. case discussed with Dr. Daugherty Undiagnosed new problem with uncertain prognosis? @ -No Drug Therapy requiring intensive monitoring for toxicity (Heparin, Nitro, Insulin, Cardizem)? @ -No Were any procedures done? @ -No Diagnosis/symptom? @ -COPD exacerbation Acute, or Chronic, or Acute on Chronic? @ -Acute Uncomplicated (without systemic symptoms) or Complicated (systemic symptoms)? @ -Uncomplicated Side effects of treatment? @ -No Exacerbation, Progression, or Severe Exacerbation? @ -No Poses a threat to life or bodily function? How? (Chest pain, USA, OR, pneumonia, PE, COPD, DKA, ARF, appy, cholecystitis, CVA, Diverticulitis, Homicidal, Suicidal, threat to staff... and all critical care pts) @ -No - Lab Data Lab Results 07/02/24 Range/Units 02:57 Influenza Type A (PCR) Not Detected (Not Detectd) Influenza Type B (PCR) Not Detected (Not Detectd) RSV (PCR) Not Detected (Not Detectd) SARS-CoV-2 (PCR) Not Detected (Not Detectd) Disposition Clinical Impression: COPD exacerbation, Viral syndrome Disposition: HOME SELF-CARE Condition: Good Instructions (If sedation given, give patient instructions): COPD (Chronic Obstructive Pulmonary Disease) (ED) Additional Instructions: Please return to the Emergency Department if symptoms worsen or any other concerns. Prescriptions: Ipratropium-Albuterol Nebulize [Duoneb 0.5 mg-3 mg/3 ml Soln] 3 ml INHALATION QI D #25 each Fluticasone Nasal [place] [Flonase Nasal [place]] 2 spr EA NOSTRIL DAILY #16 gm Is patient prescribed a controlled substance at d/c from ED?: No Referrals: Simone Andrews [Primary Care Provider] - 1-2 days Time of Disposition: 04:12
[2024-07-02] MEDS: IPRATROPIUM-ALBUTEROL 3 ML NEB INHALATION STA (04:18)
[2024-07-02 04:48] VITALS: BP 156/78; PULSE 69; RESP 22; TEMP 98
--- NOTE | 2024-07-02 05:01 | XR ---
EXAM: XR Chest, 2 Views CLINICAL HISTORY: ITS.REASON XR Reason: LAURO, cough TECHNIQUE: Frontal and lateral views of the chest. COMPARISON: No relevant prior studies available. FINDINGS: Lungs: Unremarkable. No consolidation. Pleural space: Unremarkable. No pneumothorax. Heart: Unremarkable. No cardiomegaly. Mediastinum: Unremarkable. Normal mediastinal contour. Bones/joints: Unremarkable. No acute fracture. IMPRESSION: Normal chest x-rays.
[2024-07-02 05:15] LABS: Influenza A Not Detected (Not Detectd); Influenza B Not Detected (Not Detectd); RSV Not Detected (Not Detectd)
== END 2024-07-02 04:43 | disposition home or self-care (01) ==
LOC: EC 01:58
DX: J44.1 Chronic obstructive pulmonary disease with (acute) exacerbation (principal); B34.9 Viral infection, unspecified; F17.290 Nicotine dependence, other tobacco product, uncomplicated
CPT/HCPCS: 71046; 87636; 94640; 99285

== ENCOUNTER 2024-07-09 22:01 | Emergency (ER) | payer OTHER ==
[2024-07-09 23:22] LABS: Influenza A Not Detected (Not Detectd); Influenza B Not Detected (Not Detectd); RSV Not Detected (Not Detectd)
--- NOTE | 2024-07-09 23:47 | ED ---
URI HPI - General Chief Complaint: Upper Respiratory Infection Stated Complaint: Bodyaches Time Seen by Provider: 07/09/24 22:20 Source: patient, RN notes reviewed Mode of arrival: ambulatory Limitations: no limitations - History of Present Illness Initial Comments: 53-year-old female with history of COPD presenting for cough x 1 day with nasal congestion, fever, and bodyaches. States she has been taking Tylenol which has been reducing her fever. She has been using breathing treatments at home which have been temporarily relieving symptoms. - Related Data Home Medications Medication Instructions Recorded Confirmed ALPRAZolam [Xanax] 0.5 - 1 mg PO BID PRN 02/05/20 07/16/23 Albuterol Sulfate [Ventolin HFA] 2 puff INHALATION RT-Q4H PRN 02/05/20 07/16/23 Zolpidem Tartrate [Ambien] 10 mg PO HS 02/05/20 07/16/23 Atorvastatin [Lipitor] 40 mg PO HS 01/17/23 07/16/23 EPINEPHrine (Auto Inject) [Epipen] 0.3 mg IM ONCE PRN 01/17/23 07/16/23 Pregabalin [Lyrica] 200 mg PO BID@0900,2200 01/17/23 07/16/23 metFORMIN HCL [Glucophage] 500 mg PO BID 01/17/23 07/16/23 Pregabalin [Lyrica] 100 mg PO DAILY@1600 /10/1507/16/23 Gentamicin 0.1% Cream 1 applic TOPICAL BID PRN 07/16/23 07/16/23 amLODIPine 10 mg PO DAILY 07/16/23 07/16/23 Previous Rx's Medication Instructions Recorded Docusate [Colace] 100 mg PO BID #30 capsule 07/05/23 Acetaminophen Tab [Tylenol] 650 mg PO Q6HR PRN tab 07/25/23 HYDROcodone/APAP 5-325MG [[place] 1 each PO Q4HR PRN #6 tab 07/25/23 5-325] Nystatin 100,000 Unit/ml Susp 5 ml PO QID 10 Days #240 ml 07/25/23 [Mycostatin Oral Susp] Pantoprazole [Protonix] 40 mg PO AC-BRKFST #30 tab 07/25/23 Sennosides [Senokot] 8.6 mg PO DAILY PRN #60 tab 07/25/23 Sulfamethox-Tmp 800-160Mg [Bactrim 1 tab PO Q12HR #28 tab 07/25/23 DS 800-160 mg] cefuroxime axetiL [Cefuroxime] 500 mg PO BID 7 Days #14 tab 07/25/23 Amoxic-Pot Clav 875-125Mg 1 tab PO Q12HR #20 tablet 01/09/24 [Augmentin 875-125] Fluticasone Nasal [place] [Flonase 2 spr EA NOSTRIL DAILY #16 gm 07/02/24 Nasal [place]] Ipratropium-Albuterol Nebulize 3 ml INHALATION QID #25 each 07/02/24 [Duoneb 0.5 mg-3 mg/3 ml Soln] Allergies Allergy/AdvReac Type Severity Reaction Status Date / Time aspirin Allergy Dyspnea Verified 01/08/24 23:35 codeine Allergy Dyspnea Verified 01/08/24 23:35 ibuprofen [From Motrin] Allergy Dyspnea Verified 01/08/24 23:35 morphine Allergy Rash/Hives Verified 01/08/24 23:35 naproxen Allergy Dyspnea Verified 01/08/24 23:35 tramadol [From Ultram] Allergy Dyspnea Verified 01/08/24 23:35 Review of Systems ROS Statement: Those systems with pertinent positive or pertinent negative responses have been documented in the HPI. ROS Other: All systems not noted in ROS Statement are negative. Past Medical History Past Medical History: Asthma, COPD, Diabetes Mellitus, Hyperlipidemia, Hypertension, Sleep Apnea/CPAP/BIPAP Additional Past Medical History / Comment(s): neuropathy bilat legs and feet, MS, pancreatic mass removed, uses cpap, wears home 02 at 2 liters History of Any Multi-Drug Resistant Organisms: None Reported Past Surgical History: Appendectomy, Section, Cholecystectomy, Hernia Repair, Orthopedic Surgery Additional Past Surgical History / Comment(s): wrist and shoulder surgery, bj cataract removal, recent toenail removal on rt great toe, incisional hernia repair 07/04/2023, spleenectomy jan 17 2023 Past Anesthesia/Blood Transfusion Reactions: No Reported Reaction Past Psychological History: Anxiety, Depression Smoking Status: Current every day smoker, Vaper Past Alcohol Use History: None Reported Past Drug Use History: Marijuana - Past Family History Mother Family Medical History: Deep Vein Thrombosis (DVT) General Exam Limitations: no limitations General appearance: alert, in no apparent distress Head exam: Present: atraumatic, normocephalic, normal inspection Eye exam: Present: normal appearance, PERRL, EOMI. Absent: scleral icterus, conjunctival injection, periorbital swelling ENT exam: Present: normal exam, mucous membranes moist Neck exam: Present: normal inspection. Absent: tenderness, meningismus, lymphadenopathy Respiratory exam: Present: normal lung sounds bilaterally. Absent: respiratory distress, wheezes, rales, rhonchi, stridor Cardiovascular Exam: Present: regular rate, normal rhythm, normal heart sounds. Absent: systolic murmur, diastolic murmur, rubs, gallop, clicks Neurological exam: Present: alert, oriented X3 Psychiatric exam: Present: normal affect, normal mood Course Vital Signs 07/09/24 22:07 Temperature 98.1 F Pulse Rate 97 Respiratory 15 Rate Blood Pressure 151/79 O2 Sat by Pulse 97 Oximetry Medical Decision Making - Medical Decision Making Was pt. sent in by a medical professional or institution (, PA, SNACK BAR CASHIER, urgent care, hospital, or care home...) When possible be specific @ -No Did you speak to anyone other than the patient for history (EMS, parent, family, police, friend...)? What history was obtained from this source @ -No Did you review nursing and triage notes (agree or disagree)? Why? @ -I reviewed and agree with nursing and triage notes Were old charts reviewed (outside hosp., previous admission, EMS record, old EKG, old radiological studies, urgent care reports/EKG's, care home records)? Report findings @ -No old charts were reviewed Differential Diagnosis (chest pain, altered mental status, abdominal pain women, abdominal pain men, vaginal bleeding, weakness, fever, dyspnea, syncope, head ache, dizziness, GI bleed, back pain, seizure, CVA, palpatations, mental health, musculoskeletal)? @ -Viral URI, COVID, influenza, RSV, pneumonia, bronchitis EKG interpreted by me (3pts min.). @ -None X-rays interpreted by me (1pt min.). @ -Chest x-ray interpreted by me reveals no acute cardiopulmonary process CT interpreted by me (1pt min.). @ -None done U/S interpreted by me (1pt. min.). @ -None done What testing was considered but not performed or refused? (CT, X-rays, U/S, labs)? Why? @ -None What meds were considered but not given or refused? Why? @ -None Did you discuss the management of the patient with other professionals (professionals i.e. , PA, SNACK BAR CASHIER, lab, RT, psych nurse, perinatal social worker, grain handler, teacher, chief risk officer, correctional casework specialist)? Give summary @ -No Was smoking cessation discussed for >3mins.? @ -No Was critical care preformed (if so, how long)? @ -No Were there social determinants of health that impacted care today? How? (Homelessness, low income, unemployed, alcoholism, drug addiction, transportation, low edu. Level, literacy, decrease access to med. care, [facility], rehab)? @ -No Was there de-escalation of care discussed even if they declined (Discuss DNR or withdrawal of care, Hospice)? DNR status @ -No What co-morbidities impacted this encounter? (DM, HTN, Smoking, COPD, CAD, Cancer, CVA, ARF, Chemo, Hep., AIDS, mental health diagnosis, sleep apnea, morbid obesity)? @ -None Was patient admitted / discharged? Hospital course, mention meds given and route, prescriptions, significant lab abnormalities, going to OR and other pertinent info. @ -Discharge. 53-year-old female presenting for cough x 1 day with nasal congestion, body aches, and fever. Patient is afebrile, satting 97% on room air. No sign of respiratory distress on examination. Patient is negative for influenza, COVID-19, and RSV. Chest x-ray interpreted by me reveals no acute process. Patient is given a DuoNeb treatment. Discussed diagnosis of viral upper respiratory infection. Appropriate return precautions and supportive care discussed. Case was discussed with my ED attending Dr. Schwartz. Undiagnosed new problem with uncertain prognosis? @ -No Drug Therapy requiring intensive monitoring for toxicity (Heparin, Nitro, Insulin, Cardizem)? @ -No Were any procedures done? @ -No Diagnosis/symptom? @ -Viral upper respiratory infection Acute, or Chronic, or Acute on Chronic? @ -Acute Uncomplicated (without systemic symptoms) or Complicated (systemic symptoms)? @ -Uncomplicated Side effects of treatment? @ -No Exacerbation, Progression, or Severe Exacerbation? @ -No Poses a threat to life or bodily function? How? (Chest pain, [place], [place], pneumonia, PE, COPD, DKA, ARF, appy, cholecystitis, CVA, Diverticulitis, Homicidal, Suicidal, threat to staff... and all critical care pts) @ -No - Lab Data Lab Results 07/09/24 Range/Units 22:39 Influenza Type A (PCR) Not Detected (Not Detectd) Influenza Type B (PCR) Not Detected (Not Detectd) RSV (PCR) Not Detected (Not Detectd) SARS-CoV-2 (PCR) Not Detected (Not Detectd) Disposition Clinical Impression: Viral upper respiratory infection Disposition: HOME SELF-CARE Condition: Stable Instructions (If sedation given, give patient instructions): Upper Respiratory Infection (ED) Additional Instructions: Please return to the Emergency Department if symptoms worsen or any other concerns. Is patient prescribed a controlled substance at d/c from ED?: No Referrals: Simone Andrews [Primary Care Provider] - 1-2 days Time of Disposition: 01:27
[2024-07-10] MEDS: IPRATROPIUM-ALBUTEROL 3 ML NEB INHALATION STA (01:42)
[2024-07-10 01:59] VITALS: BP 142/89; PULSE 78; RESP 18; TEMP 98.3
--- NOTE | 2024-07-10 02:42 | XR ---
EXAM: XR Chest, 2 Views CLINICAL HISTORY: Cough TECHNIQUE: Frontal and lateral views of the chest. COMPARISON: Chest 2 views dated 07/02/2024 FINDINGS: Lungs: Unremarkable. No consolidation. The pulmonary vasculature demonstrates no significant radiographic abnormality. Pleural space: Unremarkable. No pneumothorax. No large pleural effusion. Heart: Unremarkable. No cardiomegaly. Mediastinum: The mediastinal contours are stable and unremarkable. The trachea is midline. Bones/joints: Unremarkable. No acute fracture. IMPRESSION: No acute cardiopulmonary process or significant alteration from the prior examination.
== END 2024-07-10 01:59 | disposition home or self-care (01) ==
LOC: EC 22:01
DX: J06.9 Acute upper respiratory infection, unspecified (principal); B97.89 Other viral agents as the cause of diseases classified elsewhere; F17.290 Nicotine dependence, other tobacco product, uncomplicated; Z88.6 Allergy status to analgesic agent; Z88.5 Allergy status to narcotic agent
CPT/HCPCS: 71046; 87636; 94640; 99283